=== PATIENT | male | born 1940 | race Caucasian/White ===

== ENCOUNTER 2020-02-24 13:58 | Observation (INO) | payer MEDICARE, OTHER, SELFPAY ==
[2020-02-24] VITALS (10 sets, daily range): BP systolic 117–159; BP diastolic 62–72; PULSE 54–62; RESP 12–20; TEMP 36.1–36.5; O2SAT 95–100
--- NOTE | ~2020-02-24 | XR_ITS ---
EXAMINATION: XR chest 2V EXAM DATE: 02/24/2020 14:50 INDICATION: Mid chest pain. TECHNIQUE: Frontal and lateral projections of the chest obtained and reviewed. Comparison is made to prior examination from 12/08/2017. FINDINGS: Sternotomy wires are present without findings to suggest sternal dehiscence. The cardiac s ilhouette is enlarged. No confluent consolidation, pneumothorax or pleural effusion suspected. Sivan ent has diffuse idiopathic skeletal hyperostosis (DISH). IMPRESSION: 1. Cardiomegaly. Reviewed, dictated and finalized at location A. IMPRESSION: 1. Cardiomegaly.
--- NOTE | 2020-02-24 14:20 | ED.GENADULT ---
HPI - General Adult General Chief complaint: Chest Pain Stated complaint: cp Time Seen by Provider: 02/24/20 14:07 Source: patient and family Mode of arrival: ambulatory Limitations: no limitations History of Present Illness HPI narrative: Patient is a 79-year-old male who presents for evaluation of chest pain. Patient reportedly experiencing chest pain 2 hours ago while the patient was at rest. Patient reports a crushing chest pain, that mostly resolved after 3 nitroglycerin tablets. Patient did take a baby aspirin this morning. Patient reports radiation of the pain to the left shoulder, no back pain, no ripping or tearing pain to the flanks. No numbness. Patient also reports associated shortness of breath, nausea and diaphoresis with the initial chest pain that has mostly resolved. Per chart review, patient's last stress test was November 2017. Patient has been compliant with his medications. Related Data Home Medications Medication Instructions Recorded Confirmed albuterol sulfate INHALATION 02/24/20 allopurinol 300 mg PO DAILY 02/24/20 02/24/20 amlodipine 10 mg PO DAILY 02/24/20 02/24/20 aspirin 81 mg PO DAILY 02/24/20 02/24/20 atorvastatin 10 mg PO DAILY 02/24/20 02/24/20 carvedilol 25 mg PO Q12H 02/24/20 02/24/20 clopidogrel [Plavix] 75 mg PO DAILY 02/24/20 02/24/20 clotrimazole 1 applic TOPICAL BID 02/24/20 02/24/20 cyclobenzaprine 10 mg PO TID PRN 02/24/20 02/24/20 diclofenac sodium 2 g TOPICAL QID 02/24/20 02/24/20 finasteride 5 mg PO DAILY 02/24/20 02/24/20 furosemide 20 mg PO DAILY 02/24/20 02/24/20 hydrochlorothiazide 25 mg PO DAILY 02/24/20 02/24/20 hydrocodone-acetaminophen [[place]] tablet 02/24/20 insulin aspart U-100 [Novolog 15 unit SUBCUT TID 02/24/20 02/24/20 U-100 Insulin aspart] insulin glargine 15 unit SUBCUT HS 02/24/20 02/24/20 isosorbide mononitrate 60 mg PO DAILY 02/24/20 02/24/20 liraglutide 1.2 mg SUBCUT DAILY 02/24/20 02/24/20 mv,Ca,nze-vrum-TG-lycopene tablet PO 02/24/20 [Centrum Men] nitroglycerin 0.4 mg SUBLINGUAL Q5-15M PRN 02/24/20 02/24/20 ranitidine HCl 150 mg PO BID 02/24/20 02/24/20 semaglutide [Ozempic] 1 mg SUBCUT WEEKLY 02/24/20 02/24/20 tamsulosin 0.4 mg PO DAILY 02/24/20 02/24/20 tramadol 50 mg PO HS 02/24/20 02/24/20 Allergies Allergy/AdvReac Type Severity Reaction Status Date / Time iodine Allergy Unknown Unknown Verified 12/08/17 14:44 niacin Allergy Unknown Unknown Verified 12/08/17 14:44 omeprazole Allergy Unknown Unknown Verified 12/08/17 14:44 Contrast Media Allergy Unknown Unknown Uncoded 12/08/17 14:44 Review of Systems Review of Systems: Narrative: CONSTITUTIONAL: Denies fever, chills, or sweats. EYES: Denies visual changes, redness, or discharge. ENT: Denies rhinorrhea, congestion, sore throat, or otalgia. CARDIOVASCULAR: Reports chest pain, mostly resolved RESPIRATORY: Denies cough or dyspnea. GASTROINTESTINAL: Denies abdominal pain,reports nausea without emesis GENITOURINARY: Denies dysuria or hematuria. SKIN: Denies rash or itching. MUSCULOSKELETAL: Denies back pain, joint pain, or myalgia. NEUROLOGIC: Denies headache, numbness, or weakness. [facility] Past Medical History Medical History Coronary artery disease Diabetes Diverticulitis Gout Hypertension Sleep apnea Surgical History Surgical History History of bilateral knee replacement Social History Social History Gender identity (if verbalized by the patient): Male Exam Narrative: Exam Narrative: GENERAL: Awake, alert, conversant HEAD: Normocephalic, atraumatic. EYES: PERRLA and EOMI. ENT: Nares clear, no rhinorrhea or epistaxis. Mucous membranes moist. NECK: Supple. CHEST: No respiratory distress, breathing even and non labored, no chest wall tenderness HEART: Regular rate, sinus rhythm ABDOMEN:Non distended, mild epigastric
[2020-02-24] MEDS: NITROGLYCERIN SL 0.4 MG TABLET SUBLINGUAL (14:49)
[2020-02-24] MEDS: ONDANSETRON INJ 4 MG/2 ML VIAL IV PUSH (14:49)
[2020-02-24] MEDS: MORPHINE SULFATE 4 MG/ML INJ IV PUSH (14:49)
[2020-02-24] MEDS: ASPIRIN 81 MG CHEWABLE TABLET 324 MG PO (14:49)
[2020-02-24 14:57] LABS: Basophils Absolute Auto 0.1 K/mm3 (0.0-0.1); Basophils Percent Auto 0.9 % (0.2-1.2); Eosinophils Absolute Auto 0.1 K/mm3 (0-0.3); Eosinophils Percent Auto 1.1 % (0-4.4); Hematocrit 27.8 % (42.0-52.0); Hemoglobin 8.7 g/dL (14.0-18.0); Immature Granulocyte Absolute 0.24 K/mm3 (0.00-0.031); Immature Granulocyte Percent A 4.4 % (0-0.5); Lymphocytes Absolute Auto 1.42 K/mm3 (0.9-3.2); Lymphocytes Percent Auto 25.9 % (18.3-44.2); Mean Corpuscular HGB Conc 31.3 g/dl (32-36); Mean Corpuscular Hemoglobin 30.6 pg (26-34); Mean Corpuscular Volume 97.9 fl (80-100); Mean Platelet Volume 12.6 fl (7.4-10.4); Monocytes Absolute Auto 0.5 K/mm3 (0.1-0.6); Monocytes Percent Auto 8.4 % (2.6-8.5); Neutrophils Absolute Auto 3.3 K/mm3 (1.3-6.7); Neutrophils Percent Auto 59.3 % (45.5-73.1); Nucleated Red Blood Cells Absolute Auto 0.1 K/mm3 (0.0-0.012); Nucleated Red Blood Cells Perc 1.3 % (0.0-0.2); Platelet Count Result 312 k/mm3 (150-375); Red Blood Count 2.84 M/mm3 (4.6-6.20); Red Cell Distribution Width 19.7 % (11.5-14.5); White Blood Count 5.5 K/mm3 (4.5-10.0)
--- NOTE | 2020-02-24 15:01 | ECG_ITS ---
Measurements Intervals [place] Rate: 61 P: 59 [place]: 219 QRS: 28 QRSD: 99 T: 83 QT: 433 QTc: 438 Interpretive Statements SINUS RHYTHM WITH FIRST DEGREE AV BLOCK VOLTAGE CRITERIA FOR LVH INFERIOR INFARCT, AGE INDETERMINATE BORDERLINE ST-T WAVE ABNORMALITY- LATERAL LEADS ABNORMAL ECG Electronically Signed On 02-24-2020 16:48:28 CDT by Reji Arevalo D.O.
[2020-02-24 15:09] LABS: Alanine Aminotransferase 16 U/L (4-50); Albumin Level 3.6 g/dL (3.5-5.1); Alkaline Phosphatase 74 U/L (38-126); Aspartate Amino Transferase 25 U/L (17-59); Bilirubin,Total 0.5 mg/dL (0.2-1.3); Blood Urea Nitrogen 63 mg/dL (9-20); Calcium 8.1 mg/dL (8.4-10.2); Carbon Dioxide 20 mmol/L (22-30); Chloride 107 mmol/L (98-107); Estimated CRCL calculation 14 ml/min; Estimated Glomerular Filt Rate 12; Glucose 145 mg/dL (75-110); Lipase 273 U/L (23-300); Potassium 4.4 mmol/L (3.4-5.0); Sodium 137 mmol/L (137-145)
[2020-02-24 15:21] LABS: Troponin I 0.013 ng/mL (0.000-0.034)
[2020-02-24 15:31] LABS: INR 1.1; Prothrombin Time 13.4 Seconds (11.1-14.7)
[2020-02-24 15:32] LABS: Partial Thromboplastin Time 32.4 SECONDS (22.3-36.8)
--- NOTE | 2020-02-24 16:57 | PC.NURSE ---
This patient, Chito Rivera, was admitted to IMU Room 202-. Patient/family oriented to hospital policies and general routines including ID bracelet, bed and alarms, visiting hours, pain management, procedures, bathroom and other care routines, personal items, smoking policy, room service/diet, and visiting hours. Valuables list has been completed. Information on how to activate the Rapid Response Team has been discussed. Patient/Family are encouraged to report perceived risks to care and to ask questions if they do not understand what they are told or what they should do.
[2020-02-24 18:10] LABS: Troponin I < 0.012 ng/mL (0.000-0.034)
--- NOTE | 2020-02-24 20:06 | PM.IMHP ---
H&P: HPI History of Present Illness Chief complaint: unstable angina,acute kidney injury Narrative: Chito Rivera is a 79 year old male who has a history of having cardiac disease. The patient typically goes to [facility] for his cardiac care. The patient has a history of having a 3 vessel CABG as well as 3 stents. Patient stated that he had a cardiac catheterization back and he believes September of this past year. The patient stated that this last September he got 2 stents in that he had another blockage on the backside of his heart that they were not able to get 2. The patient has chronic renal failure stage 4 and could only get a certain amount a diet that time. The patient stated that they have been talking about possibly getting him on dialysis. He stated in order to have another stent he would have to go on dialysis. The patient stated he was sitting in his recliner today and developed some chest pressure the middle of his chest and it went up to his left side of his neck and down his left arm. The patient became short of breath as well. The patient has not had any fever or chills or body aches no flu like symptoms he has not been around anybody that has had flu-like symptoms or any fever. The patient stated that the pain started 2 hours prior to coming to the emergency room. The patient took 3 nitro tablets as he was told to do in the past and he took an additional baby aspirin as he had already taken his routine baby aspirin this morning. He said his last stress test was November of 2017. Troponins are negative cardiology has been consulted. Date of service is 02/24/2020. Review of Systems Review of Systems: All systems reviewed & are unremarkable except as noted in HPI and below Constitutional: Constitutional: Reports as per HPI and Reports no additional constitutional complaints Eyes: Eyes: Reports as per HPI and Reports no additional eye complaints ENT: Reports system reviewed and no additional complaints, except as documented and Reports Normal hearing present Cardiovascular: Cardiovascular: Reports no additional cardiovascular complaints Respiratory: Respiratory: Reports no additional respiratory complaints and Reports no additional respiratory complaints Gastrointestinal: Gastrointestinal: Reports as per HPI and Reports no additional gastrointestinal complaints Musculoskeletal: Musculoskeletal: Reports no additional musculoskeletal complaints Integumentary/Breasts: Skin/Breast: Reports system reviewed and no additional complaints, except as docu and Reports as per HPI Neurologic: Reports system reviewed and no additional complaints, except as documented, Reports as per HPI and Reports Normal hearing present Psychiatric: Psychiatric: Reports no additional psychiatric complaints and Reports as per HPI Endocrine: Endocrine: Reports no additional endocrine complaints Hematologic/Lymphatic: Hematologic/Lymphatic: Reports no additional hematologic/lymphatic complaints Allergic/Immunologic: Allergic/Immunologic: Reports no additional allergic/immunologic complaints [facility] Past Medical History Medical History (Updated 02/24/20 @ 20:52 by Lisa Mohamud NP) Anemia BPH (benign prostatic hyperplasia) CHF (congestive heart failure), NYHA class I Coronary artery disease He has had a 3 vessel CABG in 1999 with 3 stents. CRF (chronic renal failure) stage 4 Diabetes Insulin-dependent Diverticulitis Gout Hyperlipidemia Hypertension EVELYN on CPAP Sleep apnea Surgical History Surgical History (Updated 02/24/20 @ 20:29 by Lisa Mohamud NP) Cataract extraction status H/O heart artery stent 3 stents H/O rectal polypectomy History of back surgery 2 back surgeries History of bilateral knee replacement Hx of cholecystectomy S/P CABG x 3 S/P TURP Family History Family History (Updated 02/24/20 @ 20:23 by Lisa Mohamud NP) Father Cancer Mother Acute myocardial infarction CHF (congestive heart failu
[2020-02-24 20:54] LABS: Glucose Point of Care 138 (65-105)
[2020-02-24 20:58] LABS: Troponin I < 0.012 ng/mL (0.000-0.034)
[2020-02-24] MEDS: ALBUTEROL SULFATE (*SP) AEROSOL 1 PUFF 2 PUFF INHALATION (21:19)
[2020-02-24] MEDS: carvediloL 25 MG TABLET PO (21:35)
[2020-02-24] MEDS: FAMOTIDINE 20 MG TABLET PO (21:35)
[2020-02-24] MEDS: TRAMADOL HCL 50 MG TABLET PO (21:35)
[2020-02-24] MEDS: INSULIN GLARGINE (*BKC) 100 UNITS/ML 27 UNITS SUB-Q (21:36)
[2020-02-25] VITALS (9 sets, daily range): BP systolic 153–161; BP diastolic 61–74; PULSE 54–81; RESP 13–20; TEMP 36.1–36.6; O2SAT 93–100
[2020-02-25 04:58] LABS: Basophils Percent Auto 0.7 % (0.2-1.2); Eosinophils Percent Auto 0.7 % (0-4.4); Hematocrit 25.3 % (42.0-52.0); Hemoglobin 7.8 g/dL (14.0-18.0); Immature Granulocyte Percent A 4.7 % (0-0.5); Lymphocytes Absolute Auto 1.15 K/mm3 (0.9-3.2); Mean Corpuscular HGB Conc 30.8 g/dl (32-36); Mean Corpuscular Hemoglobin 30.1 pg (26-34); Mean Corpuscular Volume 97.7 fl (80-100); Mean Platelet Volume 12.2 fl (7.4-10.4); Monocytes Absolute Auto 0.5 K/mm3 (0.1-0.6); Neutrophils Absolute Auto 2.4 K/mm3 (1.3-6.7); Neutrophils Percent Auto 55.9 % (45.5-73.1); Nucleated Red Blood Cells Perc 0.9 % (0.0-0.2); Platelet Count Result 256 k/mm3 (150-375); Red Blood Count 2.59 M/mm3 (4.6-6.20); Red Cell Distribution Width 19.7 % (11.5-14.5); White Blood Count 4.3 K/mm3 (4.5-10.0)
[2020-02-25 05:01] LABS: Alanine Aminotransferase 14 U/L (4-50); Albumin Level 3.2 g/dL (3.5-5.1); Alkaline Phosphatase 63 U/L (38-126); Aspartate Amino Transferase 22 U/L (17-59); Bilirubin,Total 0.4 mg/dL (0.2-1.3); Blood Urea Nitrogen 61 mg/dL (9-20); Calcium 7.9 mg/dL (8.4-10.2); Carbon Dioxide 23 mmol/L (22-30); Chloride 108 mmol/L (98-107); Estimated CRCL calculation 13 ml/min; Estimated Glomerular Filt Rate 12; Glucose 86 mg/dL (75-110); Magnesium 1.9 mg/dL (1.6-2.3); Potassium 4.5 mmol/L (3.4-5.0); Sodium 137 mmol/L (137-145)
[2020-02-25 05:54] LABS: Hemoglobin A1C 6.5 % (<5.7)
[2020-02-25 06:42] LABS: Glucose Point of Care 43 (65-105)
[2020-02-25 07:27] LABS: Glucose Point of Care 52 (65-105)
[2020-02-25] MEDS: ALBUTEROL SULFATE (*SP) AEROSOL 1 PUFF 2 PUFF INHALATION (08:21)
[2020-02-25 08:35] LABS: Glucose Point of Care 81 (65-105)
[2020-02-25] MEDS: FINASTERIDE 5 MG TABLET PO (09:13)
[2020-02-25] MEDS: CLOPIDOGREL BISULFATE 75 MG TABLET PO (09:13)
[2020-02-25] MEDS: ATORVASTATIN 40 MG TABLET 80 MG PO (09:13)
[2020-02-25] MEDS: FAMOTIDINE 20 MG TABLET PO (09:13)
[2020-02-25] MEDS: THERAPEUTIC MULTIVITAMINS/MINERALS TAB (*BKC) 1 TABLET PO (09:13)
[2020-02-25] MEDS: FUROSEMIDE 20 MG TABLET PO (09:13)
[2020-02-25] MEDS: allopurinoL 300 MG TABLET PO (09:13)
[2020-02-25] MEDS: AMLODIPINE BESYLATE 5 MG TABLET 10 MG PO (09:14)
[2020-02-25] MEDS: carvediloL 25 MG TABLET PO (09:14)
[2020-02-25] MEDS: hydroCHLOROthiazide 25 MG TABLET PO (09:14)
[2020-02-25] MEDS: ISOSORBIDE MONONITRATE 60 MG TAB.ER.24H PO (09:14)
[2020-02-25] MEDS: TAMSULOSIN HCL 0.4 MG CAPSULE PO (09:14)
--- NOTE | 2020-02-25 09:38 | PM.CNCAR ---
Assessment and Plan Additional Plan This is a 79-year-old man with well known multivessel coronary artery disease. Obviously he has undergone surgical myocardial revascularization couple of decades ago followed by some percutaneous interventions in the intervening years. He enters the hospital now with a chest pain syndrome that obviously raise concern regarding ACS. Equally obviously that has now been ruled out with negative troponins x3 sets. The patient does not require an ischemic evaluation here at [facility]. He will be instructed to follow up with his global supply chain vice president at the [facility]. There is no cardiac reason to keep him in the hospital here at this time Miguel A Abad MD [facility] History of Present Illness History of Present Illness Consult date/time: 02/25/20 09:38 Consult reason: chest pain Reason For Visit: unstable angina,acute kidney injury Narrative: This is a 79-year-old man with longstanding coronary artery disease whom I am seeing at the request of the hospitalist this morning because of some chest pain. He experienced chest pain yesterday morning when he was at home relaxing in his chair in his house and he called his global supply chain vice president who is at the [facility]. Rather than coming there he was instructed to go to the nearest hospital so he came to this hospital's emergency room where he was evaluated and of course admitted to the hospitalist's service. The pain has resolved and had a feels well this morning. He states this was a dull pain that occurred in the low substernal region that had at times a pressure-like quality to it and at times a sharp quality to it. There were no associated symptoms such as diaphoresis air hunger no radiation of the pain to any other location of the body. He of course had an ECG done which demonstrates sinus mechanism with evidence of a previous inferior wall infarction. He has had a series of troponins done which are all within normal limits. The patient's lab data also demonstrates chronic kidney disease with a creatinine of 4.7. He is also significantly anemic with a hemoglobin of 7.8. Apparently he has a history of coronary artery disease for about 20 years. He states that in the year 1999 he underwent surgical myocardial revascularization at [facility]. He is currently in for a long time has been followed by global supply chain vice president at the [facility]. He has had several percutaneous interventions done most recently he thinks about 6-7 months ago in 1 of his old vein grafts. Obviously we have none of those records here at [facility] available to me for my review at the time of this consultation. He lives in the [facility] area. He denies any symptoms of palpitations syncope orthopnea PND or accumulating edema. Apart from his coronary disease he is not known to have any peripheral vascular disease that he has ever been made aware of. Review of Systems Constitutional: Constitutional: Reports no additional constitutional complaints Eyes: Eyes: Reports no additional eye complaints ENT: Reports system reviewed and no additional complaints, except as documented Cardiovascular: Cardiovascular: Reports no additional cardiovascular complaints Respiratory: Respiratory: Reports no additional respiratory complaints Gastrointestinal: Gastrointestinal: Reports no additional gastrointestinal complaints Musculoskeletal: Musculoskeletal: Reports no additional musculoskeletal complaints Integumentary/Breasts: Skin/Breast: Reports system reviewed and no additional complaints, except as docu Neurologic: Reports system reviewed and no additional complaints, except as documented Endocrine: Endocrine: Reports no additional endocrine complaints Hematologic/Lymphatic: Hematologic/Lymphatic: Reports no additional hematologic/lymphatic complaints PMF[facility] Past Medical History Medical History (Updated 02/24/20 @ 20:52 by Lisa Mohamud NP) Anemia BPH (shelia
--- NOTE | 2020-02-25 09:59 | PM.IMPN ---
Progress Note: A&P Assessment and Plan (1) Angina at rest: Code(s): I20.8 - Other forms of angina pectoris Status: Acute Assessment and Plan: Cardiology consulted and appreciate input. Serial troponin levels are negative. Telemetry reviewed on 02/25/2020 with sinus rhythm. Discussed with Dr. Abad. At this point, will discharge patient and have him follow-up with his regular county bailiff at the [place]. (2) Coronary artery disease: Qualifiers: Coronary Disease-Associated Artery/Lesion type: [place] artery [place] vs. transplanted heart: [place] heart Associated angina: with unspecified angina Qualified Code(s): I25.119 - Atherosclerotic heart disease of [place] coronary artery with unspecified angina pectoris Code(s): I25.10 - Atherosclerotic heart disease of [place] coronary artery without angina pectoris Status: Chronic Assessment and Plan: Plan as noted above. Continue Plavix, Coreg, atorvastatin, aspirin and Imdur. (3) Diabetes: Qualifiers: Diabetes mellitus type: type 2 Diabetes mellitus mcc insulin use: with local intermodal truck driver use Diabetes mellitus complication status: with hypoglycemia Diabetes mellitus complication detail: without coma Qualified Code(s): E11.649 - Type 2 diabetes mellitus with hypoglycemia without coma; Z79.4 - intermediate accountant (current) use of insulin Code(s): E11.9 - Type 2 diabetes mellitus without complications Status: Chronic Assessment and Plan: Patient with hypoglycemia this morning but has been ongoing issue. Advised patient would recommend he hold his Lantus at home. Continue sliding scale as needed. Will need follow-up with his primary physician for further directions. (4) Chronic kidney disease, stage 4 (severe): Code(s): N18.4 - Chronic kidney disease, stage 4 (severe) Status: Acute Assessment and Plan: Creatinine 4.70 today and unchanged from admission. Patient reports this is his baseline. He will need to follow-up his regular physicians as an outpatient. (5) Hypertension: Qualifiers: Hypertension type: essential hypertension Qualified Code(s): I10 - Essential (primary) hypertension Code(s): I10 - Essential (primary) hypertension Status: Chronic Assessment and Plan: Blood pressure reviewed on 02/25/2020. Continue amlodipine and Coreg. (6) CHF (congestive heart failure), NYHA class I: Qualifiers: Congestive heart failure type: unspecified Qualified Code(s): I50.9 - Heart failure, unspecified Code(s): I50.9 - Heart failure, unspecified Status: Chronic Assessment and Plan: No exacerbation. Continue home Coreg and furosemide. (7) Hyperlipidemia: Qualifiers: Hyperlipidemia type: unspecified Qualified Code(s): E78.5 - Hyperlipidemia, unspecified Code(s): E78.5 - Hyperlipidemia, unspecified Status: Chronic Assessment and Plan: Continue atorvastatin. (8) Anemia: Qualifiers: Anemia type: unspecified type Qualified Code(s): D64.9 - Anemia, unspecified Code(s): D64.9 - Anemia, unspecified Status: Chronic Assessment and Plan: Chronic and stable. Hemoglobin 8.7 today. (9) Gout: Qualifiers: Gout site: unspecified site Gout etiology: unspecified cause Chronicity: unspecified Qualified Code(s): M10.9 - Gout, unspecified Code(s): M10.9 - Gout, unspecified Status: Chronic Assessment and Plan: Stable. Continue with allopurinol. (10) Sleep apnea: Qualifiers: Sleep apnea type: obstructive Qualified Code(s): G47.33 - Obstructive sleep apnea (adult) (pediatric) Code(s): G47.30 - Sleep apnea, unspecified Status: Chronic Assessment and Plan: Stable. Continue CPAP. (11) DVT prophylaxis: Code(s): Z29.9 - Encounter for prophylactic measures, unspecified Status: Acute Time Spent Wit
[2020-02-25 10:07] LABS: Hematocrit 28.4 % (42.0-52.0); Hemoglobin 8.7 g/dL (14.0-18.0)
[2020-02-25 12:40] LABS: Free T4 Free Thyroxine Reflex 0.73 ng/dL (0.78-2.19)
--- NOTE | 2020-02-25 18:30 | PM.DS ---
DS: Diagnosis Admitting Diagnosis Admitting Diagnosis: Other forms of angina pectoris Discharge Diagnosis (1) Angina at rest: Code(s): I20.8 - Other forms of angina pectoris Status: Acute (2) Coronary artery disease: Qualifiers: Associated angina: with unspecified angina Coronary Disease-Associated Artery/Lesion type: [place] artery [place] vs. transplanted heart: [place] heart Qualified Code(s): I25.119 - Atherosclerotic heart disease of [place] coronary artery with unspecified angina pectoris Code(s): I25.10 - Atherosclerotic heart disease of [place] coronary artery without angina pectoris Status: Chronic (3) Diabetes: Qualifiers: Diabetes mellitus complication detail: without coma Diabetes mellitus complication status: with hypoglycemia Diabetes mellitus watermelon inspector insulin use: with intermediate use Diabetes mellitus type: type 2 Qualified Code(s): E11.649 - Type 2 diabetes mellitus with hypoglycemia without coma; Z79.4 - penitentiary (current) use of insulin Code(s): E11.9 - Type 2 diabetes mellitus without complications Status: Chronic (4) Chronic kidney disease, stage 4 (severe): Code(s): N18.4 - Chronic kidney disease, stage 4 (severe) Status: Acute (5) Hypertension: Qualifiers: Hypertension type: essential hypertension Qualified Code(s): I10 - Essential (primary) hypertension Code(s): I10 - Essential (primary) hypertension Status: Chronic (6) CHF (congestive heart failure), NYHA class I: Qualifiers: Congestive heart failure type: unspecified Qualified Code(s): I50.9 - Heart failure, unspecified Code(s): I50.9 - Heart failure, unspecified Status: Chronic (7) Hyperlipidemia: Qualifiers: Hyperlipidemia type: unspecified Qualified Code(s): E78.5 - Hyperlipidemia, unspecified Code(s): E78.5 - Hyperlipidemia, unspecified Status: Chronic (8) Anemia: Qualifiers: Anemia type: unspecified type Qualified Code(s): D64.9 - Anemia, unspecified Code(s): D64.9 - Anemia, unspecified Status: Chronic (9) Gout: Qualifiers: Chronicity: unspecified Gout etiology: unspecified cause Gout site: unspecified site Qualified Code(s): M10.9 - Gout, unspecified Code(s): M10.9 - Gout, unspecified Status: Chronic (10) Sleep apnea: Qualifiers: Sleep apnea type: obstructive Qualified Code(s): G47.33 - Obstructive sleep apnea (adult) (pediatric) Code(s): G47.30 - Sleep apnea, unspecified Status: Chronic DS: Summary Hospital Course Reason for hospitalization: Chest pain. Hospital Course: Date of Service of Discharge: February 25, 2020. History of Present Illness: Patient is a 79-year-old gentleman with known coronary artery disease as well as chronic kidney disease stage 4 present to the emergency room with complaint of chest pain. [facility] Patient reports he did call his regular body former who recommended he come to the nearest emergency room. He does have a history of 3 vessel CABG as well as 3 stents. He does have known blockage on the backside of his heart but no intervention has been done as result of his severe chronic kidney disease. Patient did not have elevated troponin levels in the emergency room by given his cardiac history he was placed in observation for further evaluation and treatment along with cardiology consultation. Course in Hospital: He was placed in observation on the intermediate care unit where he remained for the duration of his stay. Serial troponin levels were negative. Telemetry was monitored with no changes seen. EKG with no acute changes. Patient was seen in consultation by Dr. Abad who did not feel any intervention was needed at this time. He was continued on his home cardiac medications atorvastatin, carvedilol, clopidogrel and Imdur in addit
== END 2020-02-25 11:05 | disposition home or self-care (01) ==
LOC: ANHED 15:39 → ANHIMU 18:02
PROVIDERS: Family Medicine; Nurse Practitioner; Admitting Provider Internal Medicine; Emergency Provider Emergency Medicine; PCP Internal Medicine; Visit Provider Hospitalist
DX: I25.118 Atherosclerotic heart disease of native coronary artery with other forms of angina pectoris (principal); E11.649 Type 2 diabetes mellitus with hypoglycemia without coma; I13.0 Hypertensive heart and chronic kidney disease with heart failure and stage 1 through stage 4 chronic kidney disease, or unspecified chronic kidney disease; N18.4 Chronic kidney disease, stage 4 (severe); I50.9 Heart failure, unspecified; E11.22 Type 2 diabetes mellitus with diabetic chronic kidney disease; D63.1 Anemia in chronic kidney disease; E78.5 Hyperlipidemia, unspecified; G47.33 Obstructive sleep apnea (adult) (pediatric); M10.9 Gout, unspecified; Z79.4 Long term (current) use of insulin; Z79.82 Long term (current) use of aspirin; Z79.899 Other long term (current) drug therapy; Z87.891 Personal history of nicotine dependence; Z95.1 Presence of aortocoronary bypass graft; Z95.5 Presence of coronary angioplasty implant and graft; Z96.653 Presence of artificial knee joint, bilateral
CPT/HCPCS: 36415; 71046; 80053; 83036; 83690; 83735; 84439; 84443; 84484; 85014; 85018; 85025; 85610; 85730; 93005; 94640; 96374; 96375; 99285; A9270; G0378; J1815; J2270; J2405

== ENCOUNTER 2020-03-11 19:12 | Emergency (ER) | payer MEDICARE, OTHER, SELFPAY ==
[2020-03-11] VITALS (11 sets, daily range): BP systolic 119–166; BP diastolic 59–87; PULSE 58–65; RESP 16–22; TEMP 36.9; O2SAT 97–100
--- NOTE | ~2020-03-11 | CT_ITS ---
EXAMINATION: CT brain wo con DATE: 03/11/2020 20:02 INDICATION: Headache. Hypotension. TECHNIQUE: Computed tomography (CT) of the head was performed without intravenous contrast. The mA wa s adjusted according to patient size. Iterative reconstruction technique was employed. Exam dose: 60 5.33 mGy-cm total exam DLP. COMPARISON: None FINDINGS: Bilateral vertebral artery, basilar artery and bilateral carotid siphon internal carotid ar babak calcifications. There is nonspecific diminished attenuation of the cerebral white matter, likely due to chronic small vessel ischemic changes. No intracranial mass lesion or hemorrhage or evidence of recent cerebrovascular accident. No midline shift or mass effects. Included paranasal sinuses and mastoid air cells are unremarkable. No fracture or bone destruction of the cranial vault. IMPRESSION: Cerebral atherosclerosis and chronic small vessel ischemic changes of the cerebral white matter Reviewed, dictated and finalized at [facility]. Reviewed, dictated and finalized at location [facility].
--- NOTE | 2020-03-11 19:29 | ECG_ITS ---
Measurements Intervals [place] Rate: 63 P: -27 ND: 211 QRS: 58 QRSD: 105 T: -23 QT: 437 QTc: 450 Interpretive Statements SINUS RHYTHM WITH FIRST DEGREE AV BLOCK VOLTAGE CRITERIA FOR LVH MINIMAL Q WAVES- LATERAL LEADS BORDERLINE ST-T WAVE ABNORMALITY- INFERIOR LEADS ABNORMAL ECG Electronically Signed On 03-12-2020 8:27:53 CDT by Reji Arevalo D.O.
[2020-03-11 19:48] LABS: Basophils Percent Auto 0.8 % (0.2-1.2); Eosinophils Percent Auto 0.8 % (0-4.4); Hematocrit 28.3 % (42.0-52.0); Hemoglobin 8.9 g/dL (14.0-18.0); Immature Granulocyte Percent A 3.8 % (0-0.5); Lymphocytes Absolute Auto 1.27 K/mm3 (0.9-3.2); Lymphocytes Percent Auto 24.3 % (18.3-44.2); Mean Corpuscular HGB Conc 31.4 g/dl (32-36); Mean Corpuscular Hemoglobin 30.9 pg (26-34); Mean Corpuscular Volume 98.3 fl (80-100); Monocytes Absolute Auto 0.5 K/mm3 (0.1-0.6); Neutrophils Absolute Auto 3.2 K/mm3 (1.3-6.7); Neutrophils Percent Auto 60.3 % (45.5-73.1); Nucleated Red Blood Cells Perc 0.8 % (0.0-0.2); Platelet Count Result 286 k/mm3 (150-375); Red Blood Count 2.88 M/mm3 (4.6-6.20); Red Cell Distribution Width 20.3 % (11.5-14.5); White Blood Count 5.2 K/mm3 (4.5-10.0)
--- NOTE | 2020-03-11 19:52 | ED.WEAKNESS ---
HPI - Weakness General Chief complaint: Weakness Stated complaint: LOW BP Time Seen by Provider: 03/11/20 19:37 History of Present Illness HPI Narrative: Patient presents with his [id number] for feeling weak and faint at home. They took his blood pressure and it was down to 84. He is a renal failure patient on multiple blood pressure medicines, and they said that the list in the computer is current. He has not been sick in the last week, and in particular denies cough and fever. He tells me that they are talking about dialysis, but not anytime soon. He currently has a headache of 2-3 out of 10. His appetite is good, bowels are working and makes good urine still. He occasionally smokes a cigar but no longer smokes cigarettes, denies alcohol and drugs. MD Complaint: generalized weakness Onset (ago): hour(s) Duration: intermittent and improved Location: generalized Related Data Home Medications Medication Instructions Recorded Confirmed Centrum Men 1 tablet PO DAILY 02/24/20 02/24/20 acetaminophen-codeine 1 tablet PO Q6H PRN 02/24/20 02/24/20 albuterol sulfate 2 puff INHALATION QID 02/24/20 02/24/20 allopurinol 300 mg PO DAILY 02/24/20 02/24/20 amlodipine 10 mg PO DAILY 02/24/20 02/24/20 aspirin 81 mg PO DAILY 02/24/20 02/24/20 atorvastatin 80 mg PO DAILY 02/24/20 02/24/20 carvedilol 25 mg PO Q12H 02/24/20 02/24/20 clopidogrel [Plavix] 75 mg PO DAILY 02/24/20 02/24/20 cyclobenzaprine 10 mg PO TID PRN 02/24/20 02/24/20 diclofenac sodium 2 g TOPICAL QID 02/24/20 02/24/20 finasteride 5 mg PO DAILY 02/24/20 02/24/20 furosemide 20 mg PO DAILY 02/24/20 02/24/20 hydrochlorothiazide 25 mg PO DAILY 02/24/20 02/24/20 insulin aspart U-100 [Novolog See Rx Instructions .ROUTE .COMPLEX 02/24/20 02/24/20 U-100 Insulin aspart] isosorbide mononitrate 60 mg PO DAILY 02/24/20 02/24/20 nitroglycerin 0.4 mg SUBLINGUAL Q5-15M PRN 02/24/20 02/24/20 ranitidine HCl 150 mg PO BID 02/24/20 02/24/20 tamsulosin 0.4 mg PO DAILY 02/24/20 02/24/20 tramadol 50 mg PO HS 02/24/20 02/24/20 Allergies Allergy/AdvReac Type Severity Reaction Status Date / Time iodine Allergy Unknown Hives Verified 03/11/20 19:25 niacin Allergy Unknown Fever Verified 03/11/20 19:25 latex AdvReac Rash Verified 03/11/20 19:25 Contrast Media Allergy Unknown Anaphylaxis Uncoded 02/24/20 16:56 Review of Systems Review of Systems: Narrative: CONSTITUTIONAL: Denies fever, chills, or sweats. EYES: Denies visual changes, redness, or discharge. ENT: Denies rhinorrhea, congestion, sore throat, or otalgia. CARDIOVASCULAR: Denies chest pain, palpitations, or edema. RESPIRATORY: Denies cough or dyspnea. GASTROINTESTINAL: Denies abdominal pain, nausea, vomiting, or diarrhea. GENITOURINARY: Denies dysuria or hematuria. SKIN: Denies rash or itching. MUSCULOSKELETAL: Denies back pain, joint pain, or myalgia. NEUROLOGIC: Denies numbness, or focal weakness. PSYCHIATRIC: Denies anxiety or depression. [facility] Past Medical History Medical History Anemia BPH (benign prostatic hyperplasia) CHF (congestive heart failure), NYHA class I Coronary artery disease He has had a 3 vessel CABG in 1999 with 3 stents. CRF (chronic renal failure) stage 4 Diabetes Insulin-dependent Diverticulitis Gout Hyperlipidemia Hypertension EVELYN on CPAP Sleep apnea Surgical History Surgical History Cataract extraction status H/O heart artery stent 3 stents H/O rectal polypectomy History of back surgery 2 back surgeries History of bilateral knee replacement Hx of cholecystectomy S/P CABG x 3 S/P TURP Family History Family History Father Cancer Mother Acute myocardial infarction CHF (congestive heart failure), NYHA class I Social History Social History Years smoked: 10 Smoking status: F
[2020-03-11 19:58] LABS: Prothrombin Time 13.2 Seconds (11.1-14.7)
[2020-03-11 19:59] LABS: Alanine Aminotransferase 15 U/L (4-50); Albumin Level 3.3 g/dL (3.5-5.1); Alkaline Phosphatase 76 U/L (38-126); Aspartate Amino Transferase 21 U/L (17-59); Bilirubin,Total 0.6 mg/dL (0.2-1.3); Blood Urea Nitrogen 80 mg/dL (9-20); Calcium 7.6 mg/dL (8.4-10.2); Carbon Dioxide 19 mmol/L (22-30); Chloride 105 mmol/L (98-107); Estimated CRCL calculation 11 ml/min; Estimated Glomerular Filt Rate 10; Glucose 190 mg/dL (75-110); Partial Thromboplastin Time 31.7 SECONDS (22.3-36.8); Potassium 4.4 mmol/L (3.4-5.0); Sodium 133 mmol/L (137-145)
[2020-03-11 20:09] LABS: Ethanol < 10 mg/dL (<10)
[2020-03-11 20:11] LABS: Troponin I 0.015 ng/mL (0.000-0.034)
[2020-03-11 21:19] LABS: Add Urine Microscopic? YES; Appearance Urine Clear (Clear); Bilirubin Urine Negative (Negative); Blood Urine Negative (Negative); Color Urine Yellow (Yellow); Glucose Urine UA 2+ mg/dL (Negative); Ketones Urine Negative (Negative); Leukocyte Esterase Ur Negative LEU/UL (Negative); Mucus Urine Rare /lpf; Nitrate Urine Negative (Negative); Protein Urine 3+ mg/dL (Negative); RBC Urine 0-2 /hpf (0-2); Specific Grav Ur 1.015 (1.001-1.035); Squamous Epithelial Cell Urine Rare /hpf (Few); Urobilinogen Urine Negative mg/dL (<2.0); WBC Urine 0-3 /hpf
== END 2020-03-11 22:17 | disposition home or self-care (01) ==
PROVIDERS: Emergency Medicine Emergency Medical Services; Emergency Provider Emergency Medicine; PCP Internal Medicine
DX: R55 Syncope and collapse (principal); E11.22 Type 2 diabetes mellitus with diabetic chronic kidney disease; I13.2 Hypertensive heart and chronic kidney disease with heart failure and with stage 5 chronic kidney disease, or end stage renal disease; I50.9 Heart failure, unspecified; N18.6 End stage renal disease; N40.0 Benign prostatic hyperplasia without lower urinary tract symptoms; M10.9 Gout, unspecified; E78.5 Hyperlipidemia, unspecified; G47.33 Obstructive sleep apnea (adult) (pediatric); G47.30 Sleep apnea, unspecified; Z79.82 Long term (current) use of aspirin; Z79.4 Long term (current) use of insulin; Z79.02 Long term (current) use of antithrombotics/antiplatelets; Z98.49 Cataract extraction status, unspecified eye; Z95.5 Presence of coronary angioplasty implant and graft; Z95.1 Presence of aortocoronary bypass graft; Z96.653 Presence of artificial knee joint, bilateral; Z72.0 Tobacco use
CPT/HCPCS: 36415; 70450; 80053; 80307; 81001; 84484; 85025; 85610; 85730; 93005; 99284

== ENCOUNTER 2020-03-17 11:08 | Emergency (ER) | payer MEDICARE, OTHER, SELFPAY ==
--- NOTE | ~2020-03-17 | CT_ITS ---
EXAMINATION: CT cervical spine wo con DATE: 03/17/2020 12:36 INDICATION: Fall with posterior head injury. TECHNIQUE: Computed tomography (CT) of the cervical spine was performed without intravenous contrast. Automated exposure control and iterative reconstruction technique were employed. The dose-length pro duct was 514.34 mGy-cm. COMPARISON: None FINDINGS: Alignment is normal. Vertebral body heights are normal. No fracture. Partially visualized large Schmo rl's node along the inferior endplate of T2. Severe disc height loss at T6-T7, moderate disc height l oss at C5-C6 and mild disc height loss at C3-C4, C4-C5, C7-T1 and T1-T2. Atherosclerotic Calcination cases are seen at the bilateral carotid bulbs as well as along the internal extracranial vertebral ar teries. Cervical soft tissues are unremarkable. Visualized apices of lungs are clear. The following d isc levels are specifically discussed: C2-C3: The disc does not extend beyond the endplate margin. There is mild right uncovertebral joint o steoarthritis. There is mild right and moderate left facet joint osteoarthritis. There is no neural f oraminal stenosis. There is no central canal stenosis. C3-C4: Disc is bulging. There is mild right and moderate left uncovertebral joint osteoarthritis. The re is mild left and moderate right facet joint osteoarthritis. There is moderate left and mild right neural foraminal stenosis. There is mild central canal stenosis. C4-C5: Disc is bulging. There is mild left and moderate right uncovertebral joint osteoarthritis. The re is mild right and mild to moderate left facet joint osteoarthritis. There is mild left and mild to moderate right neural foraminal stenosis. There is mild central canal stenosis. C5-C6: Disc is bulging. There is moderate right and severe left uncovertebral joint osteoarthritis. T here is moderate right and mild to moderate left facet joint osteoarthritis. There is mild right and moderate left neural foraminal stenosis. There is altered central canal stenosis. C6-C7: Posterior disc osteophyte complex. There is severe bilateral uncovertebral joint osteoarthriti s. There is mild bilateral facet joint osteoarthritis. There is moderate bilateral neural foraminal s tenosis. There is mild to moderate central canal stenosis. C7-T1: The disc does not extend beyond the endplate margin. There is mild bilateral uncovertebral claudio nt osteoarthritis. There is mild left and moderate right facet joint osteoarthritis. There is minimal bilateral neural foraminal stenosis. There is no central canal stenosis. IMPRESSION: 1. Moderate cervical spondylosis. No acute osseous abnormality. Reviewed, dictated and finalized at location [facility].
--- NOTE | ~2020-03-17 | XR_ITS ---
XR shoulder LT min 2V DATE: 03/17/2020 12:40 INDICATION: Fall, injury. Pain and limited range of motion of the left shoulder TECHNIQUE: 4 views COMPARISON: None FINDINGS: There is degenerative change at the acromion clavicular joint. There is osteoarthritic change at the left glenohumeral joint. There is rotator cuff atrophy. No fracture, dislocation, periosteal reaction or bone destruction is evident. Status post sternotomy. Coronary artery atherosclerosis. Aortic calcification. IMPRESSION: Degenerative changes at the acromioclavicular and glenohumeral joints Rotator cuff atrophy Reviewed, dictated and finalized at location [facility]. IMPRESSION: Degenerative changes at the acromioclavicular and glenohumeral join ts Rotator cuff atrophy
--- NOTE | ~2020-03-17 | CT_ITS ---
EXAMINATION: CT brain wo con DATE: 03/17/2020 12:37 INDICATION: Posterior head injury post fall TECHNIQUE: Computed tomography (CT) of the head was performed without intravenous contrast. Sagittal and coronal reconstructions were performed. The mA was adjusted according to patient size. Iterative reconstruction technique was employed. The dose-length product was 605.33 mGy-cm. COMPARISON: head CT dated 03/11/20 FINDINGS: No fracture. No acute intracranial hemorrhage, acute infarction or abnormal extra axial fluid collect ion. There is mild to moderate scattered white matter hypoattenuation consistent with chronic small v essel ischemic disease. Symmetric prominence of the sulci and ventricles consistent with mild age-alison ropriate diffuse cerebral volume loss. No mass/mass effect. Intracranial calcified cerebral atherosc lerosis is noted. The orbits, paranasal sinuses and mastoid air cells are normal. Intracranial calcif ied cerebral atherosclerosis is noted. IMPRESSION: 1. No fracture or acute intracranial process. 2. Age-related changes including mild diffuse volume loss and mild to moderate scattered white matter hypoattenuation consistent with chronic small vessel ischemic disease. Reviewed, dictated and finalized at location [facility]. IMPRESSION: 1. No fracture or acute intracranial process. 2. Age-related changes including mild diffuse volume loss and mild to moderate scattered white matter hypoattenuation consistent with chronic small vessel isc hemic disease.
[2020-03-17 11:14] VITALS: BP 186/83; PULSE 65; RESP 16; TEMP 36.6; O2SAT 95
--- NOTE | 2020-03-17 11:59 | ED.GENADULT ---
HPI - General Adult General Chief complaint: Extremity Injury, Upper Stated complaint: left shoulder injury, fall yesterday Time Seen by Provider: 03/17/20 11:15 History of Present Illness HPI narrative: Patient is a 79 Yo male who comes to ED today with left shoulder pain from a mechanical fall yesterday evening. Tripped on an uneven surface at his house, hit back of head on bathtub during the fall and then landed on left shoulder. No LOC, No vomiting, not much of a DILLON, no neck pain. He takes aspirin and plavix, no other thinners. Main complaint is L shoulder pain, pain is much worse with movement, non radiating, no numbness or tingling. No other complaints or concerns. Related Data Home Medications Medication Instructions Recorded Confirmed Centrum Men 1 tablet PO DAILY 02/24/20 02/24/20 acetaminophen-codeine 1 tablet PO Q6H PRN 02/24/20 02/24/20 albuterol sulfate 2 puff INHALATION QID 02/24/20 02/24/20 allopurinol 300 mg PO DAILY 02/24/20 02/24/20 amlodipine 10 mg PO DAILY 02/24/20 02/24/20 aspirin 81 mg PO DAILY 02/24/20 02/24/20 atorvastatin 80 mg PO DAILY 02/24/20 02/24/20 carvedilol 25 mg PO Q12H 02/24/20 02/24/20 clopidogrel [Plavix] 75 mg PO DAILY 02/24/20 02/24/20 cyclobenzaprine 10 mg PO TID PRN 02/24/20 02/24/20 diclofenac sodium 2 g TOPICAL QID 02/24/20 02/24/20 finasteride 5 mg PO DAILY 02/24/20 02/24/20 furosemide 20 mg PO DAILY 02/24/20 02/24/20 hydrochlorothiazide 25 mg PO DAILY 02/24/20 02/24/20 insulin aspart U-100 [Novolog See Rx Instructions .ROUTE .COMPLEX 02/24/20 02/24/20 U-100 Insulin aspart] isosorbide mononitrate 60 mg PO DAILY 02/24/20 02/24/20 nitroglycerin 0.4 mg SUBLINGUAL Q5-15M PRN 02/24/20 02/24/20 ranitidine HCl 150 mg PO BID 02/24/20 02/24/20 tamsulosin 0.4 mg PO DAILY 02/24/20 02/24/20 tramadol 50 mg PO HS 02/24/20 02/24/20 Allergies Allergy/AdvReac Type Severity Reaction Status Date / Time iodine Allergy Unknown Hives Verified 03/17/20 11:27 niacin Allergy Unknown Fever Verified 03/17/20 11:27 latex AdvReac Rash Verified 03/17/20 11:27 Contrast Media Allergy Severe Anaphylaxis Uncoded 03/17/20 11:27 Review of Systems Review of Systems: All systems reviewed & are unremarkable except as noted in HPI and below PMFSH Past Medical History Medical History Anemia BPH (benign prostatic hyperplasia) CHF (congestive heart failure), NYHA class I Coronary artery disease He has had a 3 vessel CABG in 1999 with 3 stents. CRF (chronic renal failure) stage 4 Diabetes Insulin-dependent Diverticulitis Gout Hyperlipidemia Hypertension EVELYN on CPAP Sleep apnea Surgical History Surgical History Cataract extraction status H/O heart artery stent 3 stents H/O rectal polypectomy History of back surgery 2 back surgeries History of bilateral knee replacement Hx of cholecystectomy S/P CABG x 3 S/P TURP Family History Family History Father Cancer Mother Acute myocardial infarction CHF (congestive heart failure), NYHA class I Social History Social History Years smoked: 10 Smoking status: Former smoker Tobacco type: pipe and cigars Alcohol intake: never Substance use: never Gender identity (if verbalized by the patient): Male Spiritual care concerns: No Agree to blood products: No Exam Const: General: no acute distress and alert Orientation/consciousness: patient oriented x3 HENMT: Other: TTP posterior head with some overlying edema No hemotympanum, negative crowley sign and raccoon eyes Eyes: Conjunctivae: conjunctivae normal Pupils: Equal, round and reactive pupils present Neck: Other: c-spine process tenderness Chest: Chest palpation & inspection: normal inspection of the chest Resp: Effort & Inspection: normal re
[2020-03-17] MEDS: ACETAMINOPHEN 500 MG TABLET 1000 MG PO (12:18)
== END 2020-03-17 14:00 | disposition home or self-care (01) ==
PROVIDERS: Emergency Provider Emergency Medicine; PCP Internal Medicine
DX: N40.0 Benign prostatic hyperplasia without lower urinary tract symptoms (principal); I50.9 Heart failure, unspecified; I25.10 Atherosclerotic heart disease of native coronary artery without angina pectoris; Z95.5 Presence of coronary angioplasty implant and graft; E11.22 Type 2 diabetes mellitus with diabetic chronic kidney disease; I13.0 Hypertensive heart and chronic kidney disease with heart failure and stage 1 through stage 4 chronic kidney disease, or unspecified chronic kidney disease; N18.4 Chronic kidney disease, stage 4 (severe); E78.5 Hyperlipidemia, unspecified; G47.33 Obstructive sleep apnea (adult) (pediatric); M10.9 Gout, unspecified; Z79.82 Long term (current) use of aspirin; Z79.4 Long term (current) use of insulin; Z79.02 Long term (current) use of antithrombotics/antiplatelets; Z98.49 Cataract extraction status, unspecified eye; Z95.1 Presence of aortocoronary bypass graft; Z87.891 Personal history of nicotine dependence
CPT/HCPCS: 70450; 72125; 73030; 99284; A4565; A9270

== ENCOUNTER 2020-08-22 14:50 | Inpatient (IN) | payer MEDICARE, OTHER, SELFPAY ==
--- NOTE | ~2020-08-22 | XR_ITS ---
XR chest port-a-cath/central 08/26/2020 09:10 Indication: Portacatheter placement Procedure: AP portable chest Comparison: 08/22/2020 Findings: Interval placement of large bore central venous catheter, tips near the cavoatrial junction . Cardiomegaly. Mild interstitial edema. Status post median sternotomy for CABG. No pleural effusion or pneumothorax. No acute osseous abnormality. Impression: 1: Large bore central venous catheter tips near the cavoatrial junction. 2: Cardiomegaly with mild interstitial edema. Reviewed, dictated and finalized at location [facility]. Impression: 1: Large bore central venous catheter tips near the cavoatrial junction. 2: Cardiomegaly with mild interstitial edema.
--- NOTE | ~2020-08-22 | NM_ITS ---
EXAMINATION: NM pulmonary perfusion DATE: 08/22/2020 20:22 INDICATION: Shortness of breath, elevated d-dimer TECHNIQUE: 5.37 mCi Tc-99m MAA was administered intravenously for perfusion images. Scintigraphic monet ges of the chest were obtained. COMPARISON: None FINDINGS: Perfusion images show normal perfusion. IMPRESSION: 1. Low probability for pulmonary embolism. Reviewed, dictated and finalized at location [facility].
--- NOTE | ~2020-08-22 | US_ITS ---
EXAMINATION: US venous doppler LE EXAM DATE: 08/23/2020 12:43 INDICATION: Elevated d-dimer, bilateral leg edema, shortness of breath. TECHNIQUE: Multiple grayscale, color flow and Doppler images of the lower extremity deep venous syste ms bilaterally were obtained and reviewed. There is no prior study for comparison. FINDINGS: Right side: The right common femoral, femoral and profunda veins demonstrate normal color flow, respi ratory variation, augmentation and compressibility. Compressibility, color flow confirmed within the right popliteal, posterior tibial, peroneal, and greater saphenous veins. Left side: The left common femoral, femoral and profunda veins demonstrate normal color flow, respira tory variation, augmentation and compressibility. Compressibility, color flow confirmed within the l eft popliteal, posterior tibial, peroneal, and greater saphenous veins. IMPRESSION: 1. No lower extremity deep venous thrombosis bilaterally. Reviewed, dictated and finalized at location [facility].
--- NOTE | ~2020-08-22 | XR_ITS ---
EXAMINATION: XR chest 2V DATE: 08/22/2020 15:11 INDICATION: Shortness of breath TECHNIQUE: AP and lateral views of the chest are obtained. COMPARISON: 02/24/2020 FINDINGS: There are airspace opacities of the mid and lower lung zones. Small pleural effusions are p resent. There is no pneumothorax. Cardiomegaly is noted. There are changes of prior cardiac surgery T here is moderate thoracic spondylosis. IMPRESSION: 1. Airspace opacities of the mid and lower lung zones, consistent with atelectasis versus pneumonia. 2. Small pleural effusions. 3. Cardiomegaly. Reviewed, dictated and finalized at location [facility]. IMPRESSION: 1. Airspace opacities of the mid and lower lung zones, consistent with atelecta sis versus pneumonia. 2. Small pleural effusions. 3. Cardiomegaly.
--- NOTE | ~2020-08-22 | US_ITS ---
EXAMINATION: US renal BI DATE: 08/24/2020 12:47 INDICATION: Elevated creatinine TECHNIQUE: Multiple ultrasound grayscale images of the kidneys were obtained. COMPARISON: None. FINDINGS: The right kidney measures 10.3 x 5.1 x 4.8 cm. The left kidney measures 10.6 x 4.9 x 4.7 cm. There is diffuse bilateral increased renal cortical echogenicity consistent with medical renal disease. There are few bilateral anechoic simple cysts in both kidneys the largest on the right measuring 1.6 cm in maximal diameter and the largest on the left measuring 3.3 cm. There is no hydronephrosis in either kidney. No stones identified. The bladder is normal. Splenomegaly measuring 16.9 cm in maximal cranio caudal length. IMPRESSION: 1. Bilateral increased renal cortical echogenicity consistent with medical renal disease. No hydrone phrosis. 2. Nonspecific splenomegaly. Reviewed, dictated and finalized at location A. IMPRESSION: 1. Bilateral increased renal cortical echogenicity consistent with medical tahir al disease. No hydronephrosis. 2. Nonspecific splenomegaly.
--- NOTE | ~2020-08-22 | XR_ITS ---
XR fl guide central line place 08/26/2020 08:58 Indication: Tunneled dialysis catheter Procedure: Single fluoroscopic view of the right upper chest. 3 seconds of fluoroscopy. Comparison: No prior studies for comparison. Findings: There is a large bore dual-lumen central venous catheter, distal tip in the SVC. Please ref er to procedural report for details. Impression: 1: Large bore right IJ central venous catheter tips in the SVC. Reviewed, dictated and finalized at location A. Impression: 1: Large bore right IJ central venous catheter tips in the SVC.
--- NOTE | 2020-08-22 14:51 | ECG_ITS ---
Measurements Intervals [place] Rate: 67 P: 24 PA: 201 QRS: 47 QRSD: 99 T: 73 QT: 395 QTc: 419 Interpretive Statements SINUS RHYTHM BORDERLINE AV CONDUCTION DELAY DELAYED PRECORDIAL R/S TRANSITION CONSIDER INFERIOR INFARCT, AGE INDETERMINATE BASELINE ARTIFACT- I, III, AVL, AVF ABNORMAL ECG Electronically Signed On 08-22-2020 15:05:23 CDT by Reji Arevalo D.O.
[2020-08-22 14:53] VITALS: BP 157/64; PULSE 71; RESP 16; TEMP 36.4; O2SAT 96
[2020-08-22 15:09] LABS: Basophils Absolute Auto 0.1 K/mm3 (0.0-0.1); Basophils Percent Auto 0.9 % (0.2-1.2); Eosinophils Absolute Auto 0.1 K/mm3 (0-0.3); Eosinophils Percent Auto 1.5 % (0-4.4); Hematocrit 26.6 % (42.0-52.0); Hemoglobin 8.1 g/dL (14.0-18.0); Immature Granulocyte Absolute 0.31 K/mm3 (0.00-0.031); Immature Granulocyte Percent A 4.8 % (0-0.5); Lymphocytes Absolute Auto 1.45 K/mm3 (0.9-3.2); Lymphocytes Percent Auto 22.3 % (18.3-44.2); Mean Corpuscular HGB Conc 30.5 g/dl (32-36); Mean Corpuscular Volume 101.9 fl (80-100); Mean Platelet Volume 12.3 fl (7.4-10.4); Monocytes Absolute Auto 0.7 K/mm3 (0.1-0.6); Monocytes Percent Auto 11.4 % (2.6-8.5); Neutrophils Absolute Auto 3.8 K/mm3 (1.3-6.7); Neutrophils Percent Auto 59.1 % (45.5-73.1); Nucleated Red Blood Cells Absolute Auto 0.1 K/mm3 (0.0-0.012); Platelet Count Result 360 k/mm3 (150-375); Red Blood Count 2.61 M/mm3 (4.6-6.20); Red Cell Distribution Width 20.4 % (11.5-14.5); White Blood Count 6.5 K/mm3 (4.5-10.0)
[2020-08-22 15:18] LABS: Anion Gap 10 mmol/L (8-16); Blood Urea Nitrogen 61 mg/dL (9-20); Calcium 8.7 mg/dL (8.4-10.2); Carbon Dioxide 22 mmol/L (22-30); Chloride 107 mmol/L (98-107); Estimated CRCL calculation 10 ml/min; Estimated Glomerular Filt Rate 8; Glucose 130 mg/dL (75-110); Potassium 5.5 mmol/L (3.4-5.0); Sodium 139 mmol/L (137-145)
--- NOTE | 2020-08-22 17:45 | ED.SOB ---
HPI - SOB/Dyspnea General Chief Complaint: Shortness of Breath/Dyspnea <Shanice Carpio PA-C - Last Filed: 08/22/20 20:51> Stated Complaint: my oxygens dropped , SOB <SABAS Hallman Last Filed: 08/22/20 20:51> Time Seen by Provider: 08/22/20 17:04 <SABAS Hallman Last Filed: 08/22/20 20:51> Source: patient and family <SABAS Hallman Last Filed: 08/22/20 20:51> Mode of arrival: wheelchair <SABAS Hallman Last Filed: 08/22/20 20:51> Limitations: no limitations <SABAS Hallman Last Filed: 08/22/20 20:51> History of Present Illness HPI Narrative: This is a 79 year old male that presents to the ER for shortness of breath since yesterday. Reports he takes his vital signs at home daily and send them to his PCP at the [facility]. Reports yesterday his oxygen dropped to 90 and today it dropped to the high 80s. Reports he was just sitting in his chair when this happened. Also reports some rhinorrhea. Reports mild lower extremity edema. Denies fever, cough, or chest pain. <Shanice Carpio PA-C - Last Filed: 08/22/20 20:51> Related Data Home Medications: Home Medications Medication Instructions Recorded Confirmed Centrum Men 1 tablet PO DAILY 02/24/20 02/24/20 acetaminophen-codeine 1 tablet PO Q6H PRN 02/24/20 02/24/20 albuterol sulfate 2 puff INHALATION QID 02/24/20 02/24/20 allopurinol 300 mg PO DAILY 02/24/20 02/24/20 amlodipine 10 mg PO DAILY 02/24/20 02/24/20 aspirin 81 mg PO DAILY 02/24/20 02/24/20 atorvastatin 80 mg PO DAILY 02/24/20 02/24/20 carvedilol 25 mg PO Q12H 02/24/20 02/24/20 clopidogrel [Plavix] 75 mg PO DAILY 02/24/20 02/24/20 cyclobenzaprine 10 mg PO TID PRN 02/24/20 02/24/20 diclofenac sodium 2 g TOPICAL QID 02/24/20 02/24/20 finasteride 5 mg PO DAILY 02/24/20 02/24/20 furosemide 20 mg PO DAILY 02/24/20 02/24/20 hydrochlorothiazide 25 mg PO DAILY 02/24/20 02/24/20 insulin aspart U-100 [Novolog See Rx Instructions .ROUTE .COMPLEX 02/24/20 02/24/20 U-100 Insulin aspart] isosorbide mononitrate 60 mg PO DAILY 02/24/20 02/24/20 nitroglycerin 0.4 mg SUBLINGUAL Q5-15M PRN 02/24/20 02/24/20 ranitidine HCl 150 mg PO BID 02/24/20 02/24/20 tamsulosin 0.4 mg PO DAILY 02/24/20 02/24/20 tramadol 50 mg PO HS 02/24/20 02/24/20 <Shanice Carpio PA-C - Last Filed: 08/22/20 20:51> Allergies/Adverse Reactions: Allergies Allergy/AdvReac Type Severity Reaction Status Date / Time Iodinated Contrast Media Allergy Severe Anaphylaxis Verified 08/22/20 18:18 iodine Allergy Unknown Hives Verified 08/22/20 18:18 niacin Allergy Unknown Fever Verified 08/22/20 18:18 latex AdvReac Rash Verified 08/22/20 18:18 Contrast Media Allergy Severe Anaphylaxis Uncoded 08/22/20 18:18 <Shanice Carpio PA-C - Last Filed: 08/22/20 20:51> Review of Systems Review of Systems: Narrative: CONSTITUTIONAL: Denies fever ENT: Reports rhinorrhea. Denies congestion, sore throat CARDIOVASCULAR: Denies chest pain RESPIRATORY: Reports dyspnea. Denies cough <Shanice Carpio PA-C - Last Filed: 08/22/20 20:51> All systems reviewed & are unremarkable except as noted in HPI and below <Shanice Carpio PA-C - Last Filed: 08/22/20 20:51> [facility] Social History Social History: Social History Years smoked: 10 Smoking status: Former smoker Tobacco type: pipe and cigars Alcohol intake: never Substance use: never Gender identity (if verbalized by the patient): Male Spiritual care concerns: No Agree to blood products: No <Shanice Carpio PA-C - Last Filed: 08/22/20 20:51> Exam Narrative: Exam Narrative: GENERAL: Chronically ill-appearing, well-nourished, and in no acute distress. HEAD: Normocephalic, atraumatic. EYES: EOMI. ENT: Nares with rhinorrhea. Mucous membranes moist. Oropharynx without tonsillar hypertrophy exudate or other lesions. Bilateral TMs pearly alvarado non-bulging NECK: Supple.
[2020-08-22 17:57] LABS: NT Pro B Type Natriuretic Pept 11500 PG/ML (5-100)
[2020-08-22 18:02] LABS: D Dimer 2.95 ug/mL (<0.48)
[2020-08-22] MEDS: DEXTROSE 50% 25 GM/50 ML SYRINGE IV PUSH (18:11)
[2020-08-22] MEDS: CALCIUM GLUCONATE 1,000 MG/10 ML VIAL 1000 MG IV PUSH (18:11)
[2020-08-22] MEDS: INSULIN HUMAN REGULAR (*BKC) 100 UNITS/ML 10 UNITS IV PUSH (18:11)
[2020-08-22 18:17] VITALS: PULSE 72; O2SAT 95
[2020-08-22] MEDS: ONDANSETRON INJ 4 MG/2 ML VIAL IV PUSH (18:27)
[2020-08-22 18:28] LABS: Alveolar/Arterial O2 Gradient 41.2 mmHg; Base Excess ABG -7.1 mEq/l (+/-2.0); Carboxyhemoglobin 1.7 % THb (0-2.0); Fractional Inspired Oxygen 21 %; HCO3 ABG 17.7 mEq/l (22.0-26.0); Methemoglobin ABG 0.3 %THb (0-1.5); Oxygen Content ABG 10.9 %vol (16.0-22.0); Oxygen Saturation ABG 93.5 % (95.0-100.0); Oxyhemoglobin 89.3 % THb (90.0-100.0); PCO2 ABG 32.5 mmHg (35.0-45.0); PO2 ABG 69.6 mmHg (80.0-100.0); PO2 FiO2 Ratio Arterial Blood 3.31 %; Reduced Hemoglobin 8.7 %THb (0-5.0); Total Hemoglobin 8.6 g/dL (12.0-18.0); pH ABG 7.354 (7.350-7.450)
[2020-08-22 18:29] LABS: Device ROOM AIR; Modified Allen's Test Pass; Site Drawn RIGHT RADIAL
[2020-08-22 18:41] LABS: Alanine Aminotransferase 12 U/L (4-50); Albumin Level 3.6 g/dL (3.5-5.1); Alkaline Phosphatase 82 U/L (38-126); Aspartate Amino Transferase 23 U/L (17-59); Bilirubin,Total 0.7 mg/dL (0.2-1.3); Lactate Dehydrogenase 1108 U/L (313-618); Lipase 202 U/L (23-300)
[2020-08-22 19:46] VITALS: BP 170/77; PULSE 76; RESP 18; O2SAT 93
[2020-08-22 20:01] LABS: Creatine Kinase 105 U/L (55-170)
[2020-08-22 20:23] LABS: Anion Gap 10 mmol/L (8-16); Blood Urea Nitrogen 61 mg/dL (9-20); Calcium 8.8 mg/dL (8.4-10.2); Carbon Dioxide 23 mmol/L (22-30); Chloride 105 mmol/L (98-107); Estimated CRCL calculation 10 ml/min; Estimated Glomerular Filt Rate 9; Glucose 142 mg/dL (75-110); Potassium 4.9 mmol/L (3.4-5.0); Sodium 138 mmol/L (137-145)
[2020-08-22 20:46] VITALS: BP 165/75; PULSE 79; RESP 18; O2SAT 93
[2020-08-22 21:45] VITALS: BP 152/71; PULSE 76; RESP 17; O2SAT 95
[2020-08-22 22:00] VITALS: BP 154/66; PULSE 77; RESP 18; TEMP 36.8; O2SAT 94; BMI 31.4
--- NOTE | 2020-08-22 22:33 | ADMGEN ---
This patient, Chito Rivera, was admitted to [facility] Surg Room 332-01. Patient/family oriented to hospital policies and general routines including ID bracelet, bed and alarms, visiting hours, pain management, procedures, bathroom and other care routines, personal items, smoking policy, room service/diet, and visiting hours. Valuables list has been completed. Information on how to activate the Rapid Response Team has been discussed. Patient/Family are encouraged to report perceived risks to care and to ask questions if they do not understand what they are told or what they should do.
[2020-08-22 23:16] LABS: Glucose Point of Care 151 (65-105)
[2020-08-23] VITALS (13 sets, daily range): BP systolic 127–182; BP diastolic 54–75; PULSE 64–78; RESP 16–22; TEMP 36.6–37.5; O2SAT 89–97; BMI 31.4
--- NOTE | 2020-08-23 06:34 | ECG_ITS ---
Measurements Intervals [place] Rate: 76 P: 19 ID: [id number] QRS: 43 QRSD: 97 T: 83 QT: 383 QTc: 431 Interpretive Statements SINUS RHYTHM DELAYED PRECORDIAL R/S TRANSITION CONSIDER INFERIOR INFARCT, AGE INDETERMINATE BORDERLINE T WAVE ABNORMALITY- HIGH LATEAL LEADS ABNORMAL ECG Electronically Signed On 08-23-2020 6:54:19 CDT by Reji Arevalo D.O.
[2020-08-23] MEDS: NITROGLYCERIN SL 0.4 MG TABLET SUBLINGUAL (06:40)
[2020-08-23 08:21] LABS: Glucose Point of Care 140 (65-105)
[2020-08-23] MEDS: ATORVASTATIN 40 MG TABLET 80 MG PO (10:25)
[2020-08-23] MEDS: ASPIRIN 81 MG CHEWABLE TABLET PO (10:25)
[2020-08-23] MEDS: amLODIPine BESYLATE 5 MG TABLET 10 MG PO (10:25)
[2020-08-23] MEDS: FUROSEMIDE 80 MG TABLET BY MOUTH (10:26)
[2020-08-23] MEDS: carvediloL 25 MG TABLET PO ×2 (10:26→20:39)
[2020-08-23] MEDS: hydrALAZINE HCL 25 MG TABLET PO ×3 (10:26→22:15)
[2020-08-23] MEDS: SODIUM BICARBONATE TAB 650 MG TABLET PO ×2 (10:27→17:11)
[2020-08-23] MEDS: THERAPEUTIC MULTIVITAMINS/MINERALS TAB (*BKC) 1 TABLET PO (10:27)
[2020-08-23] MEDS: RANOLAZINE 500 MG TAB.ER.12H PO ×2 (10:27→20:41)
[2020-08-23] MEDS: TAMSULOSIN HCL 0.4 MG CAPSULE PO ×2 (10:28→20:40)
[2020-08-23] MEDS: polyethylene glycoL 3350 17 GM POWD.PACK PO (10:49)
[2020-08-23] MEDS: ISOSORBIDE MONONITRATE 60 MG TAB.ER.24H 120 MG PO (10:49)
[2020-08-23 11:09] LABS: Hematocrit 23.8 % (42.0-52.0); Hemoglobin 7.4 g/dL (14.0-18.0); Mean Corpuscular HGB Conc 31.1 g/dl (32-36); Mean Corpuscular Volume 99.6 fl (80-100); Mean Platelet Volume 12.1 fl (7.4-10.4); Platelet Count Result 301 k/mm3 (150-375); Red Blood Count 2.39 M/mm3 (4.6-6.20); Red Cell Distribution Width 20.4 % (11.5-14.5); White Blood Count 4.3 K/mm3 (4.5-10.0)
[2020-08-23 11:23] LABS: Anion Gap 13 mmol/L (8-16); Blood Urea Nitrogen 55 mg/dL (9-20); Calcium 8.3 mg/dL (8.4-10.2); Carbon Dioxide 21 mmol/L (22-30); Chloride 107 mmol/L (98-107); Estimated CRCL calculation 10 ml/min; Estimated Glomerular Filt Rate 8; Glucose 246 mg/dL (75-110); Sodium 141 mmol/L (137-145)
--- NOTE | 2020-08-23 12:39 | WPDCN ---
Assessment and Plan Assessment and plan (1) Acute angina: Code(s): I20.9 - Angina pectoris, unspecified Status: Acute Assessment and Plan: Patient had episode of angina which he does not think is much different from what he gets at home, relieved with nitroglycerin. EKG did not show any ischemic changes. Recommend continue his usual antianginal medicines, isosorbide and Ranexa Nitroglycerin p.r.n. No further cardiac workup needed at this time but please call if we can be of further assistance Follow-up with [facility] supervisor [facility] department (2) Coronary artery disease: Qualifiers: Coronary Disease-Associated Artery/Lesion type: [place] artery [place] vs. transplanted heart: [place] heart Associated angina: with unspecified angina Qualified Code(s): I25.119 - Atherosclerotic heart disease of [place] coronary artery with unspecified angina pectoris Code(s): I25.10 - Atherosclerotic heart disease of [place] coronary artery without angina pectoris Status: Chronic Assessment and Plan: history of CAD, CABG, interventions with what is probably stable angina provoked by anxiety. (3) Hypoxia: Code(s): R09.02 - Hypoxemia Status: Acute Assessment and Plan: Hypoxia noted yesterday of uncertain etiology. N Has elevated BNP but does not appear to be particularly volume overloaded. However he did gain 5 lb and has progressive renal problems so he may have some volume overload. Being treated for pneumonia COVID screen is pending (4) CHF (congestive heart failure), NYHA class I: Qualifiers: Congestive heart failure type: unspecified Qualified Code(s): I50.9 - Heart failure, unspecified Code(s): I50.9 - Heart failure, unspecified Status: Chronic Assessment and Plan: Elevated proBNP, 5 lb weight gain, worsening renal insufficiency. Not much volume overload however. Does have a murmur consistent with mitral regurgitation. Usually is followed by the [facility]. (5) CKD stage 5 due to type 2 diabetes mellitus: Code(s): E11.22 - Type 2 diabetes mellitus with diabetic chronic kidney disease; N18.5 - Chronic kidney disease, stage 5 Status: Acute Assessment and Plan: Worsening CKD. HPI Data of Consult Date/Time: 08/23/20 12:39 Requesting Physician: Seema Lynch DO Primary Care Provider: Vladimir PoolMD Consult Narrative Narrative: Date of service 08/23/2020 Chito Rivera is a 79 year old male whom we were asked to see by the hospitalists for our advice and opinion regarding his chest pain in consultation. He has history of CAD, hypertension, diabetes , chronic kidney disease and CHF, and is normally followed [facility]. The patient was admitted through the emergency room yesterday with shortness of breath. He has chronic SHAH but his oxygen level is usually good, but yesterday his O2 saturation had dropped into the 80s yesterday at home. He is thought to have CHF and acute on chronic kidney disease And recently had an AV fistula placed anticipating dialysis; his creatinine is up to 6.5. Dr. Quiñonez is consulting. His COVID screen is still pending. [place] proBNP was 80957. He states he has gained 5 lb recently but has not noted any edema. He has been started on antibiotics for presumed pneumonia. He has chest pain about once a month which is described as the heaviness with pounding heartbeats radiating to the throat causing tightness, usually provoked by anxiety and relieved with nitroglycerin. He also takes isosorbide mononitrate 120 mg daily and ranolazine height 500 mg b.i.d. both of which were given around 10 40 today. The patient had episode of chest pain this morning at about 6:40 a.m. relieved with 1 nitroglycerin.
[2020-08-23 14:11] LABS: Glucose Point of Care 159 (65-105)
--- NOTE | 2020-08-23 14:23 | PCNSR ---
On 08/23/20, the student, Alison Reynaga, provided care and completed [facility] documentation on this patient. I have reviewed the student's documentation and agree with the findings.
[2020-08-23 14:31] LABS: SARS-CoV-2 RNA PCR Negative
[2020-08-23] MEDS: FAMOTIDINE 20 MG TABLET PO (14:55)
[2020-08-23] MEDS: MICONAZOLE NITRATE 2% CREAM 30 GM TUBE 1 APPLIC TOPICAL ×2 (14:55→20:42)
[2020-08-23] MEDS: DICLOFENAC SODIUM 1% 100 GM GEL (*BKC) 1 APPLIC TOPICAL ×3 (14:56→20:42)
--- NOTE | 2020-08-23 15:51 | PM.IMPN ---
Progress Note: A&P Assessment and Plan (1) Hypoxia: Code(s): R09.02 - Hypoxemia Status: Acute Assessment and Plan: 08/23/20 15:51 patient is 79-year-old male with past medical history coronary artery disease, CABG, CHF, chronic kidney disease and diabetes patient presented emergency department as he was hypoxic at home further evaluate chest x-ray showed pneumonia and patient was suspected for COVID-19 which is tested, for pneumonia patient started on azithromycin and Zosyn, early this morning patient had a complaint of chest pain, EKG was done suspicious for coronary artery disease though his tropes was negative, patient was seen by vmware engineer does not suspect acute coronary syndrome, patient also has elevated D-dimer V/Q scan is negative for PE and lower Doppler a negative for DVT, patient was seen in the room states breathing is much better not a short of breath as when he arrived denies any fever or chills, (2) CKD stage 5 due to type 2 diabetes mellitus: Code(s): E11.22 - Type 2 diabetes mellitus with diabetic chronic kidney disease; N18.5 - Chronic kidney disease, stage 5 Status: Acute Assessment and Plan: most likely secondary to hypertension and diabetes clinically stable will continue to monitor (3) Congestive heart failure: Qualifiers: Heart failure chronicity: unspecified Heart failure type: unspecified Qualified Code(s): I50.9 - Heart failure, unspecified Code(s): I50.9 - Heart failure, unspecified Status: Acute Assessment and Plan: patient with significant coronary artery disease and CAD suspects most likely patient has systolic dysfunction however currently patient is euvolemic will continue to monitor (4) DVT prophylaxis: Code(s): Z29.9 - Encounter for prophylactic measures, unspecified Status: Acute Assessment and Plan: Lovenox Subjective Date/time seen: 08/23/20 15:51 patient is 79-year-old male with past medical history coronary artery disease, CABG, CHF, chronic kidney disease and diabetes patient presented emergency department as he was hypoxic at home further evaluate chest x-ray showed pneumonia and patient was suspected for COVID-19 which is tested, for pneumonia patient started on azithromycin and Zosyn, early this morning patient had a complaint of chest pain, EKG was done suspicious for coronary artery disease though his tropes was negative, patient was seen by vmware engineer does not suspect acute coronary syndrome, patient also has elevated D-dimer V/Q scan is negative for PE and lower Doppler a negative for DVT, patient was seen in the room states breathing is much better not a short of breath as when he arrived denies any fever or chills, Review of Systems Review of Systems: All systems reviewed & are unremarkable except as noted in HPI and below Exam Narrative: Exam Narrative: patient is seen in the room but not examined, temperature is 98 point, pulse is 74, respiratory 16, pulse ox is 96% with 2 L nasal cannula, blood pressure is 152/65, Const: General: comfortable and no acute distress HENMT: General nose exam: Normal nares present Eyes: Sclera: sclerae normal Neck: Other: no retraction Resp: Effort & Inspection: normal respiratory effort GI: Other: not distended Skin: General skin exam: normal color Neuro: Speech: normal speech Extrem: General: normal to inspection Psych: Affect: Anxious affect present Objective Data Vital Signs Vital Signs: Vital Signs - 24 hr 08/22/20 18:17 08/22/20 19:46 08/22/20 20:46 Temperature Pulse Rate 72 76 79 Respiratory Rate 18 18 Blood Pressure 170/77 H 165/75 H Pulse Oximetry 95 93 93 08/22/20 21:45 08/22/20 22:00 08/23/20 00:00 Temperature 98.2 F 97.9 F Pulse Rate 76 77 74 Respiratory Rate 17 18 20 Blood Pressure 152/71 H 154/66 H 168/72 H Pulse Oximetry 95 94 94 08/23/20 04:00 08/23/20 06:30 08/23/20 06:45 [place]
--- NOTE | 2020-08-23 16:08 | PM.IMHP ---
H&P: HPI History of Present Illness Date/Time: 08/23/20 16:08 Chief complaint: Hyperkalemia, pneumonia, COVID PUI Narrative: Chito Rivera is a 79 year old male 08/23/20 15:51 patient is 79-year-old male with past medical history coronary artery disease, CABG, CHF, chronic kidney disease and diabetes patient presented emergency department as he was hypoxic at home further evaluate chest x-ray showed pneumonia and patient was suspected for COVID-19 which is tested, for pneumonia patient started on azithromycin and Zosyn, early this morning patient had a complaint of chest pain, EKG was done suspicious for coronary artery disease though his tropes was negative, patient was seen by in flight technician does not suspect acute coronary syndrome, patient also has elevated D-dimer V/Q scan is negative for PE and lower Doppler a negative for DVT, patient was seen in the room states breathing is much better not a short of breath as when he arrived denies any fever or chills, Review of Systems Review of Systems: All systems reviewed & are unremarkable except as noted in HPI and below PMFSH Past Medical History Medical History Anemia BPH (benign prostatic hyperplasia) CHF (congestive heart failure), NYHA class I Coronary artery disease He has had a 3 vessel CABG in 1999 with 3 stents. CRF (chronic renal failure) stage 4 Diabetes Insulin-dependent Diverticulitis Gout Hyperlipidemia Hypertension EVELYN on CPAP Sleep apnea Surgical History Surgical History Cataract extraction status H/O heart artery stent 3 stents H/O rectal polypectomy History of back surgery 2 back surgeries History of bilateral knee replacement Hx of cholecystectomy S/P CABG x 3 S/P TURP Family History Family History Father Cancer Mother CHF (congestive heart failure), NYHA class I Acute myocardial infarction Sibling Cancer Social History Social History Years smoked: 10 Smoking status: Former smoker Tobacco type: pipe and cigars Alcohol intake: former Substance use: never Gender identity (if verbalized by the patient): Male Spiritual care concerns: No Agree to blood products: No Meds Home Medications and Allergies Home Medications Medication Instructions Recorded Confirmed Type Centrum Men 1 tablet PO DAILY 02/24/20 08/22/20 History albuterol sulfate 2 puff INHALATION BID 02/24/20 08/22/20 History amlodipine 10 mg PO DAILY 02/24/20 08/23/20 History aspirin 81 mg PO DAILY 02/24/20 08/22/20 History atorvastatin 80 mg PO DAILY 02/24/20 08/23/20 History carvedilol [Coreg] 25 mg PO Q12H 02/24/20 08/23/20 History clopidogrel [Plavix] 75 mg PO HS 02/24/20 08/22/20 History diclofenac sodium 2 g TOPICAL QID 02/24/20 08/23/20 History furosemide 80 mg PO DAILY 02/24/20 08/23/20 History insulin aspart U-100 [Novolog See Rx Instructions .ROUTE .COMPLEX 02/24/20 08/23/20 History U-100 Insulin aspart] nitroglycerin 0.4 mg SUBLINGUAL Q5-15M PRN 02/24/20 08/22/20 History tamsulosin 0.4 mg PO BID 02/24/20 08/23/20 History insulin glargine [Lantus U-100 33 unit SUBCUT HS 08/22/20 08/23/20 History Insulin] Allergy Relief (cetirizine) 10 mg BYMOUTH DAILY PRN 08/23/20 08/23/20 History camphor-menthol 1 applic TOPICAL TID PRN 08/23/20 08/23/20 History clotrimazole [Antifungal 1 applic TOPICAL BID 08/23/20 08/23/20 History (clotrimazole)] darbepoetin fior in polysorbat 300 mcg SUBCUT [id number] 08/23/20 08/23/20 History docusate sodium 100 mg BYMOUTH TID PRN 08/23/20 08/23/20 History famotidine 40 mg PO BID 08/23/20 08/23/20 History hydralazine 25 mg PO TID 08/23/20 08/23/20 History isosorbide mononitrate 120 mg PO DAILY 08/23/20 08/23/20 History meclizine 25 mg PO DAILY PRN 08/23/20 08/23/20 History polyethylene glycol 3350 1
--- NOTE | 2020-08-23 16:26 | PM.CNNEP ---
Assessment and Plan Assessment and plan (1) Chronic kidney disease, stage 5: Code(s): N18.5 - Chronic kidney disease, stage 5 Status: Acute Assessment and Plan: the patient has CKD stage 5. He has a little nausea ever once in a while, maybe twice a week he says. He has been eating pretty well and not losing weight. He does not seem to have any uremic symptoms. He came in short of breath. He does have some signs of fluid overload however his breathing is much better today just with antibiotics. I wonder if pneumonia is the major issue with the shortness of breath. Because his creatinine is high, I would like to see if his breathing gets better without diuretics for now. If he has more problems with shortness of breath we can always try diuretics and even start dialysis if we have to but it would be better if we were able to wait until a fistula ready to use 1st , as long as he is feeling better. (2) CHF (congestive heart failure), NYHA class I: Qualifiers: Congestive heart failure type: unspecified Qualified Code(s): I50.9 - Heart failure, unspecified Code(s): I50.9 - Heart failure, unspecified Status: Chronic Assessment and Plan: The patient has a history of congestive heart failure. will continue his outpatient diuretic regimen. We will follow this along. Check a chest x-ray in a couple of days. (3) Sleep apnea: Qualifiers: Sleep apnea type: obstructive Qualified Code(s): G47.33 - Obstructive sleep apnea (adult) (pediatric) Code(s): G47.30 - Sleep apnea, unspecified Status: Chronic (4) Diabetes: Qualifiers: Diabetes mellitus type: type 2 Diabetes mellitus rat exterminator insulin use: with rat exterminator use Diabetes mellitus complication status: with kidney complications Diabetes mellitus complication detail: with chronic kidney disease Chronic kidney disease stage: stage 4 (severe) Qualified Code(s): E11.22 - Type 2 diabetes mellitus with diabetic chronic kidney disease; N18.4 - Chronic kidney disease, stage 4 (severe); Z79.4 - terminal operator (current) use of insulin Code(s): E11.9 - Type 2 diabetes mellitus without complications Status: Chronic Assessment and Plan: He is on Accu-Cheks and sliding-scale insulin (5) Hypertension: Qualifiers: Hypertension type: essential hypertension Qualified Code(s): I10 - Essential (primary) hypertension Code(s): I10 - Essential (primary) hypertension Status: Chronic Assessment and Plan: His blood pressure is a little bit on the high side. He is on carvedilol, and amlodipine. Will add hydralazine. (6) Erythropoietin deficiency anemia: Code(s): D63.1 - Anemia in chronic kidney disease Status: Acute Assessment and Plan: Will go ahead and start Epogen to continue his JUSTIN regimen History of Present Illness Reason for Consult Consult date: 08/23/20 Chief Complaint Chief complaint: Hyperkalemia, pneumonia, COVID PUI History of Present Illness Narrative: Chito is a very pleasant 79-year-old gentleman who has chronic kidney disease stage 5. [facility]. His kidney disease is likely due to hypertension, diabetes and vascular disease. He has a brachial basilic fistula in the left upper arm. This was placed 2 weeks ago. He says that the surgeons told him that he was going to need a basilic transposition down the line. He also has hyperlipidemia, hypertension, anemia on darbepoetin, GERD, arthritis, diabetes, coronary disease, BPH. The patient came in the hospital because he was short of breath. He checked his oxygen level at home and it was low so he came to the emergency room. He lives in [facility] but since he goes to the [facility] and it was so far way he decided to come to [facility] for further care. he was evaluated in the emergency room. Chest x-ray showed airspace opaciti
[2020-08-23] MEDS: INSULIN ASPART (*BKC) 100 UNITS/ML SUB-Q (17:15)
[2020-08-23 17:29] LABS: Glucose Point of Care 218 (65-105)
[2020-08-23] MEDS: EPOETIN ALFA-EPBX 10,000 UNITS/ML VIAL 10000 UNITS SUB-Q (18:31)
--- NOTE | 2020-08-23 18:55 | PC.NURSE ---
1600 pt remains on o2 2l nc, tried to remove and pulse ox dropped to 89,
[2020-08-23] MEDS: INSULIN GLARGINE (*BKC) 100 UNITS/ML 33 UNITS SUB-Q (20:30)
[2020-08-23] MEDS: DOCUSATE SODIUM 100 MG CAPSULE 200 MG BY MOUTH (20:38)
[2020-08-23] MEDS: CLOPIDOGREL BISULFATE 75 MG TABLET PO (20:43)
[2020-08-23] MEDS: ALBUTEROL SULFATE (*SP) INHALER 2 PUFF INHALATION (21:32)
[2020-08-23 23:15] LABS: Glucose Point of Care 163 (65-105)
[2020-08-24] VITALS (12 sets, daily range): BP systolic 140–148; BP diastolic 70–77; PULSE 61–77; RESP 18–20; TEMP 36.4–37.2; O2SAT 92–97
[2020-08-24] MEDS: hydrALAZINE HCL 25 MG TABLET PO ×3 (06:29→21:58)
[2020-08-24 06:50] LABS: Hematocrit 24.9 % (42.0-52.0); Hemoglobin 7.5 g/dL (14.0-18.0); Mean Corpuscular HGB Conc 30.1 g/dl (32-36); Mean Corpuscular Hemoglobin 30.5 pg (26-34); Mean Corpuscular Volume 101.2 fl (80-100); Mean Platelet Volume 12.3 fl (7.4-10.4); Platelet Count Result 284 k/mm3 (150-375); Red Blood Count 2.46 M/mm3 (4.6-6.20); Red Cell Distribution Width 20.6 % (11.5-14.5); White Blood Count 4.3 K/mm3 (4.5-10.0)
[2020-08-24 07:08] LABS: Anion Gap 7 mmol/L (8-16); Blood Urea Nitrogen 60 mg/dL (9-20); Carbon Dioxide 25 mmol/L (22-30); Chloride 108 mmol/L (98-107); Estimated CRCL calculation 9 ml/min; Estimated Glomerular Filt Rate 8; Glucose 106 mg/dL (75-110); Potassium 4.6 mmol/L (3.4-5.0); Sodium 140 mmol/L (137-145)
[2020-08-24 07:09] LABS: Albumin Level 3.3 g/dL (3.5-5.1); Anion Gap 7 mmol/L (8-16); Blood Urea Nitrogen 60 mg/dL (9-20); Calcium 8.2 mg/dL (8.4-10.2); Carbon Dioxide 26 mmol/L (22-30); Chloride 108 mmol/L (98-107); Estimated CRCL calculation 9 ml/min; Estimated Glomerular Filt Rate 8; Glucose 104 mg/dL (75-110); Phosphorus 5.9 mg/dL (2.5-4.5); Potassium 4.9 mmol/L (3.4-5.0); Sodium 141 mmol/L (137-145)
[2020-08-24] MEDS: amLODIPine BESYLATE 5 MG TABLET 10 MG PO (08:04)
[2020-08-24] MEDS: ASPIRIN 81 MG CHEWABLE TABLET PO (08:04)
[2020-08-24] MEDS: ATORVASTATIN 40 MG TABLET 80 MG PO (08:05)
[2020-08-24] MEDS: carvediloL 25 MG TABLET PO ×2 (08:05→22:00)
[2020-08-24] MEDS: FAMOTIDINE 20 MG TABLET PO (08:06)
[2020-08-24] MEDS: DOCUSATE SODIUM 100 MG CAPSULE 200 MG BY MOUTH ×2 (08:06→21:58)
[2020-08-24] MEDS: ISOSORBIDE MONONITRATE 60 MG TAB.ER.24H 120 MG PO (08:06)
[2020-08-24] MEDS: DICLOFENAC SODIUM 1% 100 GM GEL (*BKC) 1 APPLIC TOPICAL ×4 (08:06→21:59)
[2020-08-24] MEDS: FUROSEMIDE 80 MG TABLET BY MOUTH (08:06)
[2020-08-24] MEDS: RANOLAZINE 500 MG TAB.ER.12H PO ×2 (08:07→21:58)
[2020-08-24] MEDS: MICONAZOLE NITRATE 2% CREAM 30 GM TUBE 1 APPLIC TOPICAL ×2 (08:07→22:02)
[2020-08-24] MEDS: THERAPEUTIC MULTIVITAMINS/MINERALS TAB (*BKC) 1 TABLET PO (08:07)
[2020-08-24] MEDS: TAMSULOSIN HCL 0.4 MG CAPSULE PO ×2 (08:07→22:01)
[2020-08-24] MEDS: SODIUM BICARBONATE TAB 650 MG TABLET PO ×2 (08:07→16:23)
[2020-08-24] MEDS: polyethylene glycoL 3350 17 GM POWD.PACK PO (08:07)
[2020-08-24] MEDS: ALBUTEROL SULFATE (*SP) INHALER 2 PUFF INHALATION ×2 (08:32→20:02)
[2020-08-24 09:06] LABS: Glucose Point of Care 106 (65-105)
[2020-08-24 11:31] LABS: Glucose Point of Care 154 (65-105)
--- NOTE | 2020-08-24 13:14 | PM.IMPN ---
Progress Note: A&P Assessment and Plan (1) Hypoxia: Code(s): R09.02 - Hypoxemia Status: Acute Assessment and Plan: 08/24/2020 patient is 79-year-old male with past medical history coronary artery disease, CABG, CHF, chronic kidney disease and diabetes patient presented emergency department as he was hypoxic at home further evaluate chest x-ray showed pneumonia and patient was suspected for COVID-19 which is tested, for pneumonia patient started on azithromycin and Zosyn, early this morning patient had a complaint of chest pain, EKG was done suspicious for coronary artery disease though his tropes was negative, patient was seen by environmental marketer does not suspect acute coronary syndrome, patient also has elevated D-dimer V/Q scan is negative for PE and lower Doppler a negative for DVT, patient was seen in the room states breathing is much better not a short of breath as when he arrived denies any fever or chills, today patient still complains of shortness of but feels better than when he arrived, patient is seen by Nephrology recommending conservative management, suspect most likely shortness of breath secondary to pneumonia patient is being treated with azithromycin and Zosyn as well as updraft, if patient symptoms improves without requiring dialysis, patient does have a fistula but is not ready for dialysis, will avoid diuretics as patient creatinine is elevated, patient had a renal ultrasound today it showed Bilateral increased renal cortical echogenicity consistent with medical renal disease. No hydronephrosis. will continue to monitor will have a PT OT evaluate the patient. (2) CKD stage 5 due to type 2 diabetes mellitus: Code(s): E11.22 - Type 2 diabetes mellitus with diabetic chronic kidney disease; N18.5 - Chronic kidney disease, stage 5 Status: Acute Assessment and Plan: most likely secondary to hypertension and diabetes clinically stable will continue to monitor, plan is above (3) Congestive heart failure: Qualifiers: Heart failure chronicity: unspecified Heart failure type: unspecified Qualified Code(s): I50.9 - Heart failure, unspecified Code(s): I50.9 - Heart failure, unspecified Status: Acute Assessment and Plan: patient with significant coronary artery disease and CAD suspects most likely patient has systolic dysfunction however currently patient is euvolemic will continue to monitor, will continue to monitor hoping the patient may not require diuretic as his kidney function is already poor, patient is seen by rehanger. (4) DVT prophylaxis: Code(s): Z29.9 - Encounter for prophylactic measures, unspecified Status: Acute Assessment and Plan: [place] Time Spent With Patient Time with patient: 15 - 25 minutes Subjective Date/time seen: 08/24/20 13:14 Patient is a 79-year-old male with history of coronary artery disease status post CABG chronic kidney disease stage 5, admitted with complaint shortness of breath and chest, patient still complains shortness was better than when he arrived, patient is present in the room. currently patient denies any chest pain or palpitation fever or chills Review of Systems Review of Systems: All systems reviewed & are unremarkable except as noted in HPI and below Exam Narrative: Exam Narrative: elderly frail is generalized edema Patient is comfortable, NAD HEENT: eyes are clear and none icteric LUNGS: bilateral fair entry with rales and rhonchi HEART: RR S1S2 ABD: BS+, Soft and nontender Lower extremities: edema SKIN: nonjaundiced Neuro: grossly intact. Objective Data Vital Signs Vital Signs: Vital Signs - 24 hr 08/23/20 16:00 08/23/20 20:00 08/23/20 20:39 Temperature 99.5 F 98.8 F Pulse Rate 68 67 68 Respiratory Rate 18 20 Blood Pressure 133/54 L 127/70 Pulse Oximetry 92 95 08/23/20 21:36 08/24/20 00:00 08/24/20 06:53 Temperature 97.8 F Pulse Rate 61 6
--- NOTE | 2020-08-24 13:27 | PM.PNNEP ---
Progress Note: A&P Assessment and Plan (1) Chronic kidney disease, stage 5: Code(s): N18.5 - Chronic kidney disease, stage 5 Status: Acute Assessment and Plan: the patient has CKD stage 5. he has nausea now and has had nausea for the last few days he says now. He feels weak. We discussed the situation. His creatinine continues to rise and he is volume overloaded. If we give him fluid then his breathing will get worse. If give diuretics as BUN and creatinine will be worsen his symptoms will worsen as well. I think it is time to start dialysis. I do not think that he is going to be able to wait until the fistula is ready, because that will probably be at least another 2 or 3 months. So I suggested that we put a dialysis catheter in and start dialysis and then set him up at an outpatient facility. We discussed the risks, benefits, alternatives, and process of dialysis. He agrees to proceed. (2) CHF (congestive heart failure), NYHA class I: Qualifiers: Congestive heart failure type: unspecified Qualified Code(s): I50.9 - Heart failure, unspecified Code(s): I50.9 - Heart failure, unspecified Status: Chronic Assessment and Plan: The patient has a history of congestive heart failure. will continue his outpatient diuretic regimen. We will remove fluid with dialysis. (3) Sleep apnea: Qualifiers: Sleep apnea type: obstructive Qualified Code(s): G47.33 - Obstructive sleep apnea (adult) (pediatric) Code(s): G47.30 - Sleep apnea, unspecified Status: Chronic (4) Diabetes: Qualifiers: Diabetes mellitus type: type 2 Diabetes mellitus terminal worker insulin use: with terminal worker use Diabetes mellitus complication status: with kidney complications Diabetes mellitus complication detail: with chronic kidney disease Chronic kidney disease stage: stage 4 (severe) Qualified Code(s): E11.22 - Type 2 diabetes mellitus with diabetic chronic kidney disease; N18.4 - Chronic kidney disease, stage 4 (severe); Z79.4 - USP (current) use of insulin Code(s): E11.9 - Type 2 diabetes mellitus without complications Status: Chronic Assessment and Plan: He is on Accu-Cheks and sliding-scale insulin (5) Hypertension: Qualifiers: Hypertension type: essential hypertension Qualified Code(s): I10 - Essential (primary) hypertension Code(s): I10 - Essential (primary) hypertension Status: Chronic Assessment and Plan: His blood pressure is a little bit on the high side. He is on carvedilol, and amlodipine. This may come down with fluid removal (6) Erythropoietin deficiency anemia: Code(s): D63.1 - Anemia in chronic kidney disease Status: Acute Assessment and Plan: Will go ahead and start Epogen to continue his JUSTIN regimen Subjective Date/time seen: 08/24/20 13:27 Interval history: Patient still has nausea. He is mildly short of breath when he lays down flat. His is in the room. Review of Systems Cardiovascular: Cardiovascular: Reports no additional cardiovascular complaints Respiratory: Respiratory: Reports no additional respiratory complaints Gastrointestinal: Gastrointestinal: Reports no additional gastrointestinal complaints Genitourinary: Genitourinary: Reports no additional male genitourinary complaints Exam Narrative: Exam Narrative: WDWN in NAD skin no rash head ncat lungs few crackles at the bases and decreased breath sounds as well cor reg no rub abd BS+ nontender and soft ext Trace edema. Objective Data Vital Signs Vital Signs: Vital Signs - 24 hr 08/23/20 16:00 08/23/20 20:00 08/23/20 20:39 Temperature 37.5 C 37.1 C Pulse Rate 68 67 68 Respiratory Rate 18 20 Blood Pressure 133/54 L 127/70 Pulse Oximetry 92 95 08/23/20 21:36 08/24/20 00:00 08/24/20 06:53 Temperature 36.6 C Pulse Rate 61 64 Respiratory Rate
[2020-08-24 15:33] LABS: Hepatitis B Surface Anti Res Negative; Hepatitis C Virus Antibody Negative (Negative)
[2020-08-24 16:31] LABS: Hepatitis B Surface Antigen Negative (Negative)
[2020-08-24 16:47] LABS: Glucose Point of Care 164 (65-105)
[2020-08-24] MEDS: INSULIN GLARGINE (*BKC) 100 UNITS/ML 33 UNITS SUB-Q (22:00)
[2020-08-25] VITALS (13 sets, daily range): BP systolic 120–148; BP diastolic 63–71; PULSE 60–76; RESP 17–20; TEMP 36.1–36.9; O2SAT 91–98
[2020-08-25 00:13] LABS: Glucose Point of Care 153 (65-105)
[2020-08-25 06:46] LABS: Hemoglobin 7.2 g/dL (14.0-18.0); Mean Corpuscular Hemoglobin 30.1 pg (26-34); Mean Corpuscular Volume 100.4 fl (80-100); Mean Platelet Volume 12.2 fl (7.4-10.4); Platelet Count Result 281 k/mm3 (150-375); Red Blood Count 2.39 M/mm3 (4.6-6.20); Red Cell Distribution Width 19.9 % (11.5-14.5); White Blood Count 4.4 K/mm3 (4.5-10.0)
[2020-08-25] MEDS: hydrALAZINE HCL 25 MG TABLET PO ×3 (06:59→21:20)
[2020-08-25 07:09] LABS: Albumin Level 3.1 g/dL (3.5-5.1); Anion Gap 8 mmol/L (8-16); Blood Urea Nitrogen 55 mg/dL (9-20); Calcium 7.8 mg/dL (8.4-10.2); Carbon Dioxide 25 mmol/L (22-30); Chloride 106 mmol/L (98-107); Estimated CRCL calculation 10 ml/min; Estimated Glomerular Filt Rate 8; Glucose 114 mg/dL (75-110); Phosphorus 5.7 mg/dL (2.5-4.5); Potassium 4.3 mmol/L (3.4-5.0); Sodium 139 mmol/L (137-145)
[2020-08-25] MEDS: TAMSULOSIN HCL 0.4 MG CAPSULE PO ×2 (07:38→21:19)
[2020-08-25] MEDS: SODIUM BICARBONATE TAB 650 MG TABLET PO ×2 (07:39→17:07)
[2020-08-25] MEDS: RANOLAZINE 500 MG TAB.ER.12H PO ×2 (07:39→21:19)
[2020-08-25] MEDS: ISOSORBIDE MONONITRATE 60 MG TAB.ER.24H 120 MG PO (07:39)
[2020-08-25] MEDS: FAMOTIDINE 20 MG TABLET PO (07:39)
[2020-08-25] MEDS: FUROSEMIDE 80 MG TABLET BY MOUTH (07:39)
[2020-08-25] MEDS: polyethylene glycoL 3350 17 GM POWD.PACK PO (07:40)
[2020-08-25] MEDS: THERAPEUTIC MULTIVITAMINS/MINERALS TAB (*BKC) 1 TABLET PO (07:40)
[2020-08-25] MEDS: amLODIPine BESYLATE 5 MG TABLET 10 MG PO (07:40)
[2020-08-25] MEDS: DICLOFENAC SODIUM 1% 100 GM GEL (*BKC) 1 APPLIC TOPICAL ×4 (07:40→21:18)
[2020-08-25] MEDS: ATORVASTATIN 40 MG TABLET 80 MG PO (07:41)
[2020-08-25] MEDS: carvediloL 25 MG TABLET PO ×2 (07:41→21:19)
[2020-08-25] MEDS: DOCUSATE SODIUM 100 MG CAPSULE 200 MG BY MOUTH ×2 (07:43→21:21)
[2020-08-25 08:56] LABS: Glucose Point of Care 106 (65-105)
[2020-08-25] MEDS: ALBUTEROL SULFATE (*SP) INHALER 2 PUFF INHALATION ×2 (09:02→20:54)
[2020-08-25 12:05] LABS: Glucose Point of Care 206 (65-105)
[2020-08-25] MEDS: ONDANSETRON INJ 4 MG/2 ML VIAL IV PUSH (13:45)
--- NOTE | 2020-08-25 14:10 | P.PNIM_ITS ---
Progress Note: A&P Assessment and Plan (1) Hypoxia: Code(s): R09.02 - Hypoxemia Status: Acute Assessment and Plan: * Patient with CAD, CHF, CKD presents for evaluation of low O2 saturations at home and shortness of breath. * Suspect his hypoxia and shortness of breath may be secondary to fluid overload vs. pneumonia vs. both. VQ shows low probability for PE and LE dopplers negative for DVT. Seen by cardiology for EKG changes and chronic intermittent chest pain - trops are negative and no ACS suspected. * He does not wear O2 at home. Still desaturating today when oxygen wean attempted. Continue supplemental O2 and wean as tolerated to keep O2 saturations > 90%. * Shortness of breath improved per patient; hypoxia may improve after he can get dialyzed. If not, will perform home O2 eval closer to discharge. (2) CKD stage 5 due to type 2 diabetes mellitus: Code(s): E11.22 - Type 2 diabetes mellitus with diabetic chronic kidney disease; N18.5 - Chronic kidney disease, stage 5 Status: Acute Assessment and Plan: * Sonogram shows evidence consistent with medical renal disease; may be mostly secondary to HTN and DM. * Follows with nephrology at the [facility]. Left upper extremity fistula new 2 weeks ago, reports he needs a 2nd procedure in 1 week. * Unfortunately at this time requires hemodialysis. As his fistula is not yet mature, Dr Cason recommends tunneled dialysis catheter placement for dialysi s while inpatient here at [facility]. * Appreciate further recommendations from general surgery for catheter placement and from Dr Cason for management of renal failure. * Cr 6.7 this AM. Monitor renal function. (3) Congestive heart failure: Qualifiers: Heart failure chronicity: unspecified Heart failure type: unspecified Qualified Code(s): I50.9 - Heart failure, unspecified Code(s): I50.9 - Heart failure, unspecified Status: Acute Assessment and Plan: * Patient with significant CAD; a bit fluid overloaded and my be contributing to hypoxia and SOB. Hopefully dialysis will help. * Monitor I&Os, daily weights. Continue beta-blockade and oral lasix. (4) Coronary artery disease: Qualifiers: Coronary Disease-Associated Artery/Lesion type: [place] artery [place] vs. transplanted heart: [place] heart Associated angina: with unspecified angina Qualified Code(s): I25.119 - Atherosclerotic heart disease of [place] coronary a rtery with unspecified angina pectoris Code(s): I25.10 - Atherosclerotic heart disease of [place] coronary artery without angina pectoris Status: Chronic Assessment and Plan: * With long history of intermittent angina; history of CABG in 1999 and coronary stenting in 2018. Continue his home regimen with imdur and ranexa. Follows with cardiology at the [facility]. * Stable today with no chest pain. Continue to monitor. Will hold this evening's dose of Plavix with anticipation of possible dialysis catheter placement. (5) Anemia: Qualifiers: Anemia type: unspecified type Qualified Code(s): D64.9 - Anemia, unspecified Code(s): D64.9 - Anemia, unspecified Status: Chronic Assessment and Plan: * H&H low; no evidence of acute bleeding. Suspect related to chronic kidney disease. Will get Epo with dialysis. 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
--- NOTE | 2020-08-25 14:10 | PM.IMPN ---
Progress Note: A&P Assessment and Plan (1) Hypoxia: Code(s): R09.02 - Hypoxemia Status: Acute Assessment and Plan: Patient with CAD, CHF, CKD presents for evaluation of low O2 saturations at home and shortness of breath. Suspect his hypoxia and shortness of breath may be secondary to fluid overload vs. pneumonia vs. both. VQ shows low probability for PE and LE dopplers negative for DVT. Seen by cardiology for EKG changes and chronic intermittent chest pain - trops are negative and no ACS suspected. He does not wear O2 at home. Still desaturating today when oxygen wean attempted. Continue supplemental O2 and wean as tolerated to keep O2 saturations > 90%. Shortness of breath improved per patient; hypoxia may improve after he can get dialyzed. If not, will perform home O2 eval closer to discharge. (2) CKD stage 5 due to type 2 diabetes mellitus: Code(s): E11.22 - Type 2 diabetes mellitus with diabetic chronic kidney disease; N18.5 - Chronic kidney disease, stage 5 Status: Acute Assessment and Plan: Sonogram shows evidence consistent with medical renal disease; may be mostly secondary to HTN and DM. Follows with nephrology at the [facility]. Left upper extremity fistula new 2 weeks ago, reports he needs a 2nd procedure in 1 week. Unfortunately at this time requires hemodialysis. As his fistula is not yet mature, Dr Cason recommends tunneled dialysis catheter placement for dialysis while inpatient here at [facility]. Appreciate further recommendations from general surgery for catheter placement and from Dr Cason for management of renal failure. Cr 6.7 this AM. Monitor renal function. (3) Congestive heart failure: Qualifiers: Heart failure chronicity: unspecified Heart failure type: unspecified Qualified Code(s): I50.9 - Heart failure, unspecified Code(s): I50.9 - Heart failure, unspecified Status: Acute Assessment and Plan: Patient with significant CAD; a bit fluid overloaded and my be contributing to hypoxia and SOB. Hopefully dialysis will help. Monitor I&Os, daily weights. Continue beta-blockade and oral lasix. (4) Coronary artery disease: Qualifiers: Coronary Disease-Associated Artery/Lesion type: [place] artery [place] vs. transplanted heart: [place] heart Associated angina: with unspecified angina Qualified Code(s): I25.119 - Atherosclerotic heart disease of [place] coronary artery with unspecified angina pectoris Code(s): I25.10 - Atherosclerotic heart disease of [place] coronary artery without angina pectoris Status: Chronic Assessment and Plan: With long history of intermittent angina; history of CABG in 1999 and coronary stenting in 2018. Continue his home regimen with imdur and ranexa. Follows with cardiology at the [facility]. Stable today with no chest pain. Continue to monitor. Will hold this evening's dose of Plavix with anticipation of possible dialysis catheter placement. (5) Anemia: Qualifiers: Anemia type: unspecified type Qualified Code(s): D64.9 - Anemia, unspecified Code(s): D64.9 - Anemia, unspecified Status: Chronic Assessment and Plan: H&H low; no evidence of acute bleeding. Suspect related to chronic kidney disease. Will get Epo with dialysis. 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
--- NOTE | 2020-08-25 14:56 | PM.PNNEP ---
Progress Note: A&P Assessment and Plan (1) Chronic kidney disease, stage 5: Code(s): N18.5 - Chronic kidney disease, stage 5 Status: Acute Assessment and Plan: the patient has CKD stage 5. he is NPO right now and will get a tunneled dialysis catheter in whenever surgery can do it. he will get dialysis starting tomorrow. He would like to go to [facility]. Case management is working on this. (2) CHF (congestive heart failure), NYHA class I: Qualifiers: Congestive heart failure type: unspecified Qualified Code(s): I50.9 - Heart failure, unspecified Code(s): I50.9 - Heart failure, unspecified Status: Chronic Assessment and Plan: The patient has a history of congestive heart failure. will continue his outpatient diuretic regimen. 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 We will remove fluid with dialysis. (3) Sleep apnea: Qualifiers: Sleep apnea type: obstructive Qualified Code(s): G47.33 - Obstructive sleep apnea (adult) (pediatric) Code(s): G47.30 - Sleep apnea, unspecified Status: Chronic (4) Diabetes: Qualifiers: Diabetes mellitus type: type 2 Diabetes mellitus m[facility] insulin use: with watermelon inspector use Diabetes mellitus complication status: with kidney complications Diabetes mellitus complication detail: with chronic kidney disease Chronic kidney disease stage: stage 4 (severe) Qualified Code(s): E11.22 - Type 2 diabetes mellitus with diabetic chronic kidney disease; N18.4 - Chronic kidney disease, stage 4 (severe); Z79.4 - watermelon inspector (current) use of insulin Code(s): E11.9 - Type 2 diabetes mellitus without complications Status: Chronic Assessment and Plan: He is on Accu-Cheks and sliding-scale insulin (5) Hypertension: Qualifiers: Hypertension type: essential hypertension Qualified Code(s): I10 - Essential (primary) hypertension Code(s): I10 - Essential (primary) hypertension Status: Chronic Assessment and Plan: His blood pressure is up and down. (6) Erythropoietin deficiency anemia: Code(s): D63.1 - Anemia in chronic kidney disease Status: Acute Assessment and Plan: Will go ahead and start Epogen to continue his JUSTIN regimen Subjective Date/time seen: 08/25/20 14:56 Interval history: Patient Is about the same. Poor appetite. No chest pain. He gets short of breath if he walks much. He is on some oxygen. Review of Systems Constitutional: Constitutional: Reports no additional constitutional complaints Eyes: Eyes: Reports no additional eye complaints ENT: Reports system reviewed and no additional complaints, except as documented Cardiovascular: Cardiovascular: Reports no additional cardiovascular complaints Respiratory: Respiratory: Reports no additional respiratory complaints Gastrointestinal: Gastrointestinal: Reports no additional gastrointestinal complaints Genitourinary: Genitourinary: Reports no additional male genitourinary complaints Musculoskeletal: Musculoskeletal: Reports no additional musculoskeletal complaints Integumentary/Breasts: Skin/Breast: Reports system reviewed and no additional complaints, except as docu Neurologic: Reports system reviewed and no additional complaints, except as documented Psychiatric: Psychiatric: Reports no additional psychiatric complaints Endocrine: Endocrine: Reports no additional endocrine complaints Exam Narrative: Exam Narrative: WDWN in NAD skin no rash Or subcu nodules head ncat lungs few crackles at the bases and decreased breath sounds as well cor reg no rub or gallop abd BS+ nontender and soft ext Trace edema. Objective Data Vital Signs Vital Signs: Vital Signs - 24 hr 08/24/20 16:00 08/24/20 19:34 08/24/20 20:00 Temperature Pulse Rate 71 68 Respiratory Rate 20 Blood Pressure Puls
--- NOTE | 2020-08-25 15:07 | PCOTNOTE ---
On 08/25/20, the student, Shanice Arredondo, provided care and completed [facility] documentation on this patient. I have reviewed the student's documentation and agree with the findings.
[2020-08-25] MEDS: EPOETIN ALFA-EPBX 10,000 UNITS/ML VIAL 10000 UNITS SUB-Q (18:09)
[2020-08-25 18:14] LABS: Glucose Point of Care 175 (65-105)
--- NOTE | 2020-08-25 18:34 | WPDANESEPP ---
Anes - Eval Pre Procedure Procedure: Insertion of dialysis catheter Date/Time: 08/25/20 18:34 Surgeon: Blas Preop Diagnosis: Stage 5 ESRD Pre Op Diagnosis: Hyperkalemia, pneumonia, COVID PUI Patient Data Age: 79 Gender: M Height: 5 ft 8 in Weight: 94.3 kg Last Vital Signs Temp 98.0 F 08/25/20 14:00 Pulse 66 08/25/20 16:00 Resp 20 08/25/20 14:00 BP 120/63 08/25/20 14:00 Pulse Ox 97 08/25/20 14:00 Allergies Allergy/AdvReac Type Severity Reaction Status Date / Time Iodinated Contrast Media Allergy Severe Anaphylaxis Verified 08/22/20 18:18 iodine Allergy Unknown Hives Verified 08/22/20 18:18 niacin Allergy Unknown Fever Verified 08/22/20 18:18 latex AdvReac Rash Verified 08/22/20 18:18 Contrast Media Allergy Severe Anaphylaxis Uncoded 08/22/20 18:18 Home Medications Medication Instructions Recorded Confirmed Type Centrum Men 1 tablet PO DAILY 02/24/20 08/22/20 History albuterol sulfate 2 puff INHALATION BID 02/24/20 08/22/20 History amlodipine 10 mg PO DAILY 02/24/20 08/23/20 History aspirin 81 mg PO DAILY 02/24/20 08/22/20 History atorvastatin 80 mg PO DAILY 02/24/20 08/23/20 History carvedilol [Coreg] 25 mg PO Q12H 02/24/20 08/23/20 History clopidogrel [Plavix] 75 mg PO HS 02/24/20 08/22/20 History diclofenac sodium 2 g TOPICAL QID 02/24/20 08/23/20 History furosemide 80 mg PO DAILY 02/24/20 08/23/20 History insulin aspart U-100 [Novolog See Rx Instructions .ROUTE .COMPLEX 02/24/20 08/23/20 History U-100 Insulin aspart] nitroglycerin 0.4 mg SUBLINGUAL Q5-15M PRN 02/24/20 08/22/20 History tamsulosin 0.4 mg PO BID 02/24/20 08/23/20 History insulin glargine [Lantus U-100 33 unit SUBCUT HS 08/22/20 08/23/20 History Insulin] camphor-menthol 1 applic TOPICAL TID PRN 08/23/20 08/23/20 History cetirizine [Allergy Relief 10 mg PO DAILY PRN 08/23/20 08/24/20 History (cetirizine)] clotrimazole [Antifungal 1 applic TOPICAL BID 08/23/20 08/23/20 History (clotrimazole)] darbepoetin fior in polysorbat 300 mcg SUBCUT [id number] 08/23/20 08/23/20 History docusate sodium 100 mg PO TID PRN 08/23/20 08/24/20 History famotidine 40 mg PO BID 08/23/20 08/23/20 History hydralazine 25 mg PO TID 08/23/20 08/23/20 History isosorbide mononitrate 120 mg PO DAILY 08/23/20 08/23/20 History meclizine 25 mg PO DAILY PRN 08/23/20 08/23/20 History ranolazine 500 mg PO Q12H 08/23/20 08/23/20 History sodium bicarbonate 650 mg PO BID 08/23/20 08/23/20 History triamcinolone acetonide 1 applic TOPICAL BID PRN 08/23/20 08/23/20 History polyethylene glycol 3350 [Miralax] 17 g PO DAILY 08/24/20 08/24/20 History Laboratory Tests 08/24/20 08/25/20 08/25/20 21:56 06:20 06:20 WBC 4.4 K/mm3 L K/mm3 (4.5-10.0) RBC 2.39 M/mm3 L M/mm3 (4.6-6.20) Hgb 7.2 g/dL L g/dL (14.0-18.0) Hct 24.0 % L % (42.0-52.0) MCV 100.4 fl H fl (80-100) MCH 30.1 pg pg (26-34) MCHC 30.0 g/dl L g/dl (32-36) RDW 19.9 % H % (11.5-14.5) Plt Count 281 k/mm3 k/mm3 (150-375) MPV 12.2 fl H fl (7.4-10.4) Sodium 139 mmol/L mmol/L (137-145) Potassium 4.3 mmol/L mmol/L (3.4-5.0) Chloride 106 mmol/L mmol/L (98-107) Carbon Dioxide 25 mmol/L mmol/L (22-30) Anion Gap 8 mmol/L mmol/L (8-16) BUN 55 mg/dL H mg/dL (9-20) Creatinine 6.70 mg/dL H mg/dL (0.7-1.3) Estim Creat Clear Calc 10 ml/min ml/min Estimated GFR 8 L (59 - ) Glucose 114 mg/dL H mg/dL (75-110) POC Capillary Glucose 153 mg/dl H mg/dl (65-105) Calcium 7.8 mg/dL L mg/dL (8.4-10.2) Phosphorus 5.7 mg/dL H mg/dL (2.5-4.5) Albumin 3.1 g/dL L g/dL (3.5-5.1) 08/25/20 08/25/20 08/25/20 07:36 12:00 17:06 WBC RBC Hgb Hct MCV MCH MCHC RDW
[2020-08-25] MEDS: INSULIN GLARGINE (*BKC) 100 UNITS/ML 33 UNITS SUB-Q (21:16)
[2020-08-25] MEDS: CLOPIDOGREL BISULFATE 75 MG TABLET PO (21:18)
[2020-08-25] MEDS: MICONAZOLE NITRATE 2% CREAM 30 GM TUBE 1 APPLIC TOPICAL (21:22)
[2020-08-25 21:44] LABS: Glucose Point of Care 199 (65-105)
[2020-08-26] VITALS (28 sets, daily range): BP systolic 136–194; BP diastolic 55–91; PULSE 62–78; RESP 14–18; TEMP 36.1–37.2; O2SAT 94–100
--- NOTE | 2020-08-26 03:05 | PM.CNGS ---
Assessment and Plan Assessment and plan (1) Renal failure: Code(s): N19 - Unspecified kidney failure Status: Acute Assessment and Plan: will setup for HD access, dw pt and wishes to proceed (2) Community acquired pneumonia: Code(s): J18.9 - Pneumonia, unspecified organism Status: Suspected Assessment and Plan: cont abx per primary team, seems improved (3) Congestive heart failure: Qualifiers: Heart failure chronicity: unspecified Heart failure type: unspecified Qualified Code(s): I50.9 - Heart failure, unspecified Code(s): I50.9 - Heart failure, unspecified Status: Acute Assessment and Plan: stable, mgmt per primary team (4) Diabetes: Qualifiers: Diabetes mellitus type: type 2 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: with penitentiary use Diabetes mellitus complication status: with kidney complications Diabetes mellitus complication detail: with chronic kidney disease Chronic kidney disease stage: stage 4 (severe) Qualified Code(s): E11.22 - Type 2 diabetes mellitus with diabetic chronic kidney disease; N18.4 - Chronic kidney disease, stage 4 (severe); Z79.4 - [facility] (current) use of insulin Code(s): E11.9 - Type 2 diabetes mellitus without complications Status: Chronic Assessment and Plan: stable, mgmt per primary team (5) Coronary artery disease: Qualifiers: Coronary Disease-Associated Artery/Lesion type: [place] artery [place] vs. transplanted heart: [place] heart Associated angina: with unspecified angina Qualified Code(s): I25.119 - Atherosclerotic heart disease of [place] coronary artery with unspecified angina pectoris Code(s): I25.10 - Atherosclerotic heart disease of [place] coronary artery without angina pectoris Status: Chronic Assessment and Plan: stable History of Present Illness Consult details Consult date: 08/26/20 Reason for consult: other (renal failure) Requesting physician: Joe Cason MD Narrative: Pt is a 79 y/o M c multiple med issues including CHF, CAD, DM, CRF presenting c SOB and PNA. Pt has been stabilized from pulmonary standpoint. Pt noted to have acute on chronic renal failure now necessitating the need for acute hemodialysis. Review of Systems Constitutional: Constitutional: Reports body ache(s), Denies chills, Reports fatigue, Denies fever(s), Denies headache(s), Reports lethargy, Reports malaise, Reports poor appetite and Reports weakness Eyes: Eyes: Reports no additional eye complaints ENT: Reports system reviewed and no additional complaints, except as documented Cardiovascular: Cardiovascular: Denies chest pain and Reports dyspnea on exertion Respiratory: Respiratory: Reports cough, Reports dyspnea and Reports dyspnea on exertion Gastrointestinal: Gastrointestinal: Reports no additional gastrointestinal complaints Genitourinary: Genitourinary: Reports no additional male genitourinary complaints Musculoskeletal: Musculoskeletal: Reports no additional musculoskeletal complaints Integumentary/Breasts: Skin/Breast: Reports system reviewed and no additional complaints, except as docu Neurologic: Reports system reviewed and no additional complaints, except as documented Psychiatric: Psychiatric: Reports no additional psychiatric complaints Endocrine: Endocrine: Reports no additional endocrine complaints Hematologic/Lymphatic: Hematologic/Lymphatic: Reports no additional hematologic/lymphatic complaints Allergic/Immunologic: Allergic/Immunologic: Reports no additional allergic/immunologic complaints PMFSH Past Medical History Medical History Acute angina Acute hyperkalemia Anemia Angina at rest BPH (benign prostatic hyperplasia) CHF (congestive heart failure), NYHA class I Chronic kidney disease, stage 5 CKD stage 5 due to type 2 diabetes mellitus Community acquired pneumonia Conges
[2020-08-26 04:57] LABS: Hematocrit 23.4 % (42.0-52.0); Hemoglobin 7.1 g/dL (14.0-18.0); Mean Corpuscular HGB Conc 30.3 g/dl (32-36); Mean Corpuscular Hemoglobin 30.3 pg (26-34); Mean Platelet Volume 11.9 fl (7.4-10.4); Platelet Count Result 273 k/mm3 (150-375); Red Blood Count 2.34 M/mm3 (4.6-6.20); Red Cell Distribution Width 20.3 % (11.5-14.5); White Blood Count 4.1 K/mm3 (4.5-10.0)
[2020-08-26 05:04] LABS: INR 1.2; Prothrombin Time 14.6 Seconds (11.1-14.7)
[2020-08-26 05:23] LABS: Albumin Level 3.1 g/dL (3.5-5.1); Anion Gap 8 mmol/L (8-16); Blood Urea Nitrogen 52 mg/dL (9-20); Calcium 7.8 mg/dL (8.4-10.2); Carbon Dioxide 25 mmol/L (22-30); Chloride 105 mmol/L (98-107); Estimated CRCL calculation 10 ml/min; Estimated Glomerular Filt Rate 8; Glucose 139 mg/dL (75-110); Magnesium 2.1 mg/dL (1.6-2.3); Phosphorus 5.7 mg/dL (2.5-4.5); Potassium 4.1 mmol/L (3.4-5.0); Sodium 138 mmol/L (137-145)
[2020-08-26] MEDS: hydrALAZINE HCL 25 MG TABLET PO ×3 (05:33→22:14)
--- NOTE | 2020-08-26 07:58 | WPDHPUPDATE1 ---
History and Physical Update Update Date/Time: 08/26/20 07:58 History and Physical has been reviewed, including an updated exam of the patient. There are NO changes in the patient's condition. Risks, benefits, and alternatives have been discussed and questions answered. Patient agrees to proceed with procedure.
--- NOTE | 2020-08-26 08:13 | WPDANESEFPP ---
Anes - Eval Final PreProcedure Day of Procedure 08/26/20 08:13 Patient weight: obese Heart: regular rate and rhythm Lungs: clear to auscultation and normal air movement Airway: Mallampati scale class II Neurological: alert and oriented Last oral intake: >/= 8 hours ASA classification: IV Emergent: no Anesthetic plan: proceed Anesthesia type and monitoring: general GIVS and standard monitoring Informed Consent: The patient's anesthetic plan and its attendant risks and benefits were discussed with the patient/family/POA. Questions were solicited and answers provided to the satisfaction of the patient/family/POA.
[2020-08-26] MEDS: LIDO 1%/EPINEPHRINE 1:100,000 20 ML VIAL INFILTRATE (08:55)
[2020-08-26] MEDS: SODIUM CHLORIDE 0.9% IV 1,000 ML 30 ML IV CONT (09:01)
--- NOTE | 2020-08-26 09:03 | P.OP_ITS ---
Procedure Note - Detailed Date of procedure: 08/26/20 Pre-op diagnosis: Hyperkalemia, pneumonia, COVID PUI renal failure Post-op diagnosis: same Procedure performed: placement of RIJ tunneled HD catheter 28 cm under both U/S and fluroscopic guidance Description of procedure: Patient was taken to the operating room and placed in the supine position. After adequate induction of laryngeal mask anesthesia, the patient was prepped and draped in normal sterile fashion. A time-out was then done to verify the patient's identity as well as the procedure being performed. I began by using the SonoSite and locating the right internal jugular vein. Once this was done, I localized the overlying skin. I then made a small incision in the skin. I then gained access into the right internal jugular vein with an 18 gauge needle under ultrasound guidance. At this point, I threaded the guidewire into the right internal jugular vein. Placement of the guidewire was confirmed by both ultrasound and fluoroscopic guidance. I then went ahead and measured the 28 cm tunneled dialysis catheter to our stick site in the right neck. I then localized the tract going from the right chest to the right neck. I then made a small incision in the right chest and tunneled the catheter to the right neck. I then serially dilated the right internal jugular vein under fluoroscopic guidance. Once adequately dilated, I placed d ilating sheath over the guidewire into the right internal jugular vein under fluoroscopic visualization. Once this was noted to be in good position, I removed both the guidewire and dilator, now just leaving the sheath in the vein. I then went ahead and fed the previously tunneled catheter into the sheath. Once the catheter was fed and positioned correctly, I went ahead and peeled the sheath away. Final fluoroscopic view showed the catheter in good position from its insertion point in the right chest to its termination in the right atrial caval junction. It was noted there was no kinking of the catheter. I was able to easily draw and flush from both ports of the catheter. I placed 2.2 and 2.3 cc of final heparin flush into each port as marked. The catheter was then sutured into place and the incision in the neck was closed with 4 O Monocryl subcuticular suture. The patient tolerated the procedure well and will be transferred to the recovery room in stable condition. Sterile dressing was placed on the catheter. Portable chest x-ray will be done in the recovery. Implants: 28 cm duraflow tunneled HD cath Anesthesia: GLMA Surgeon: Nurys Odonnell MD Estimated blood loss (mL): 10 Drains: No Packing: No Pathology: none sent Complications: No immediate complications Condition: stable Disposition: PACU Findings: first stick access in RIJ under U/S guidance
[2020-08-26] MEDS: HEPARIN SODIUM, PORCINE 10,000 UNITS/10 ML VIAL 5000 UNITS IRRIGATION (09:06)
[2020-08-26] MEDS: HEPARIN SOD FLUSH 500 UNITS/5 ML SYRINGE 10000 UNITS IV PUSH (09:08)
[2020-08-26 09:15] LABS: Glucose Point of Care 147 (65-105)
--- NOTE | 2020-08-26 09:15 | PCRCNOTE ---
pt did not receive AM inhaler/pt in surgery
--- NOTE | 2020-08-26 10:02 | PC.NURSE ---
Patient returned to floor from PACU at 0945 and was taken straight to dialysis treatment under care of dialysis nurse.
--- NOTE | 2020-08-26 11:26 | PM.PNNEP ---
Progress Note: A&P Assessment and Plan (1) Chronic kidney disease, stage 5: Code(s): N18.5 - Chronic kidney disease, stage 5 Status: Acute Assessment and Plan: the patient has CKD stage 5. He is starting dialysis today. He wants to go to [facility] for outpatient [facility]. (2) CHF (congestive heart failure), NYHA class I: Qualifiers: Congestive heart failure type: unspecified Qualified Code(s): I50.9 - Heart failure, unspecified Code(s): I50.9 - Heart failure, unspecified Status: Chronic Assessment and Plan: He will stay on diuretics for the alf until he stops making urine. We will remove fluid with dialysis. (3) Sleep apnea: Qualifiers: Sleep apnea type: obstructive Qualified Code(s): G47.33 - Obstructive sleep apnea (adult) (pediatric) Code(s): G47.30 - Sleep apnea, unspecified Status: Chronic (4) Diabetes: Qualifiers: Diabetes mellitus type: type 2 Diabetes mellitus oysterman insulin use: with oysterman use Diabetes mellitus complication status: with kidney complications Diabetes mellitus complication detail: with chronic kidney disease Chronic kidney disease stage: stage 4 (severe) Qualified Code(s): E11.22 - Type 2 diabetes mellitus with diabetic chronic kidney disease; N18.4 - Chronic kidney disease, stage 4 (severe); 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 (6) Erythropoietin deficiency anemia: Code(s): D63.1 - Anemia in chronic kidney disease Status: Acute Assessment and Plan: On Epogen Subjective Date/time seen: 08/26/20 11:26 Interval history: Patient Is about the same. The patient is on dialysis. He is tolerating it well so far. His blood pressure is well controlled. Review of Systems Cardiovascular: Cardiovascular: Reports no additional cardiovascular complaints Respiratory: Respiratory: Reports no additional respiratory complaints Gastrointestinal: Gastrointestinal: Reports no additional gastrointestinal complaints Genitourinary: Genitourinary: Reports no additional male genitourinary complaints Exam Narrative: Exam Narrative: WDWN in NAD skin no rash Or subcu nodules head ncat lungs few crackles at the bases cor reg no rub or gallop abd BS+ nontender and soft ext Trace edema. Objective Data Vital Signs Vital Signs: Vital Signs - 24 hr 08/25/20 12:00 08/25/20 14:00 08/25/20 16:00 Temperature 36.7 C Pulse Rate 60 66 66 Respiratory Rate 20 Blood Pressure 120/63 Pulse Oximetry 97 08/25/20 20:00 08/25/20 20:54 08/25/20 21:05 Temperature 36.1 C L Pulse Rate 70 68 Respiratory Rate 17 Blood Pressure 148/64 H Pulse Oximetry 98 96 96 08/25/20 21:19 08/26/20 00:00 08/26/20 04:00 Temperature 36.1 C L 36.1 C L Pulse Rate 69 71 63 Respiratory Rate 17 17 Blood Pressure 148/64 H 136/55 L Pulse Oximetry 98 100 08/26/20 05:41 08/26/20 09:01 08/26/20 09:15 Temperature 37.2 C 36.5 C Pulse Rate 65 70 66 Respiratory Rate 16 18 14 Blood Pressure 149/69 H 136/63 142/61 H Pulse Oximetry 96 100 96 08/26/20 09:25 08/26/20 09:38 08/26/20 09:53 Temperature 36.7 C Pulse Rate 64 65 66 Respiratory Rate 16 18 Blood Pressure 145/58 H 159/81 H 172/80 H Pulse Oximetry 97 08/26/20 10:00 08/26/20 10:15 08/26/20 10:30 Temperature Pulse Rate 65 64 68 Respiratory Rate Blood Pressure 188/79 H 175/84 H 179/86 H Pulse Oximetry 08/26/20 10:45
--- NOTE | 2020-08-26 11:52 | PCOTNOTE ---
OT treatment attempted x2 this date. Patient in procedure then in dialysis.
[2020-08-26 12:19] LABS: Glucose Point of Care 119 (65-105)
[2020-08-26] MEDS: RANOLAZINE 500 MG TAB.ER.12H PO ×2 (12:21→20:18)
[2020-08-26] MEDS: ATORVASTATIN 40 MG TABLET 80 MG PO (12:21)
[2020-08-26] MEDS: ISOSORBIDE MONONITRATE 60 MG TAB.ER.24H 120 MG PO (12:22)
[2020-08-26] MEDS: FUROSEMIDE 80 MG TABLET BY MOUTH (12:22)
[2020-08-26] MEDS: FAMOTIDINE 20 MG TABLET PO (12:22)
[2020-08-26] MEDS: ASPIRIN 81 MG CHEWABLE TABLET PO (12:24)
[2020-08-26] MEDS: amLODIPine BESYLATE 5 MG TABLET 10 MG PO (12:24)
[2020-08-26] MEDS: SODIUM BICARBONATE TAB 650 MG TABLET PO ×2 (12:24→17:27)
[2020-08-26] MEDS: THERAPEUTIC MULTIVITAMINS/MINERALS TAB (*BKC) 1 TABLET PO (12:24)
[2020-08-26] MEDS: carvediloL 25 MG TABLET PO ×2 (12:25→20:17)
[2020-08-26] MEDS: MENTHOL 10% / METHYL SALICYLATE 15% 57 GM TUBE 1 APPLIC TOPICAL (12:25)
[2020-08-26] MEDS: TAMSULOSIN HCL 0.4 MG CAPSULE PO ×2 (12:26→20:18)
[2020-08-26] MEDS: DICLOFENAC SODIUM 1% 100 GM GEL (*BKC) 1 APPLIC TOPICAL ×4 (12:28→20:13)
[2020-08-26] MEDS: DOCUSATE SODIUM 100 MG CAPSULE 200 MG BY MOUTH ×2 (12:29→20:22)
[2020-08-26] MEDS: MICONAZOLE NITRATE 2% CREAM 30 GM TUBE 1 APPLIC TOPICAL ×2 (12:29→20:12)
[2020-08-26] MEDS: polyethylene glycoL 3350 17 GM POWD.PACK PO (12:30)
--- NOTE | 2020-08-26 12:37 | PM.EVENT ---
Event Note Event Note Event Note: pt is on hd juan it well. seen at 11:15
--- NOTE | 2020-08-26 16:09 | PCPTNOTE ---
attempted to see pt for physical therapy today, pt was out of room for procedure and due to staffing was unable to try a second attempt.
--- NOTE | 2020-08-26 16:15 | P.PNIM_ITS ---
Progress Note: A&P Assessment and Plan (1) Hypoxia: Code(s): R09.02 - Hypoxemia Status: Acute Assessment and Plan: * Patient with CAD, CHF, CKD presents for evaluation of low O2 saturations at home and shortness of breath. * Suspect his hypoxia and shortness of breath may be secondary to fluid overload vs. pneumonia vs. both. VQ shows low probability for PE and LE dopplers negative for DVT. Seen by cardiology for EKG changes and chronic intermittent chest pain - trops are negative and no ACS suspected. * He does not wear O2 at home. Continue supplemental O2 and wean as tolerated to keep O2 saturations > 90%. (2) CKD stage 5 due to type 2 diabetes mellitus: Code(s): E11.22 - Type 2 diabetes mellitus with diabetic chronic kidney disease; N18.5 - Chronic kidney disease, stage 5 Status: Chronic Assessment and Plan: * Sonogram shows evidence consistent with medical renal disease; may be mostly secondary to HTN and DM. * Follows with nephrology at [facility] Left upper extremity fistula new 2 weeks ago, reports he needs a 2nd procedure in 1 week. * Tunneled dialysis catheter placed this AM. Tolerated first dialysis today. * Appreciate further recommendations from general surgery for catheter placement and from Dr Cason for management of renal failure. * Cr unchanged at 6.7 this AM. Monitor renal function. (3) Congestive heart failure: Qualifiers: Heart failure chronicity: unspecified Heart failure type: unspecified Qualified Code(s): I50.9 - Heart failure, unspecified Code(s): I50.9 - Heart failure, unspecified Status: Chronic Assessment and Plan: * Patient with significant CAD; a bit fluid overloaded and my be contributing to hypoxia and SOB. Hopefully dialysis will help. * Monitor I&Os, daily weights. Continue beta-blockade and oral lasix. (4) Coronary artery disease: Qualifiers: Coronary Disease-Associated Artery/Lesion type: [place] artery [place] vs. 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 Continue his home regimen with imdur and ranexa. Follows with [facility]ology at [facility]. * Stable today with no chest pain. Continue to monitor. Continue Plavix. (5) Anemia: Qualifiers: Anemia type: unspecified type Qualified Code(s): D64.9 - Anemia, unspecified Code(s): D64.9 - Anemia, unspecified Status: Chronic Assessment and Plan: * H&H low; no evidence of acute bleeding. Suspect related to chronic kidney disease. Getting Epo with dialysis. (6) Diabetes: Qualifiers: Diabetes mellitus type: type 2 Diabetes mellitus mcc insulin use: with mcc use Diabetes mellitus complication status: with kidney complications Diabetes mellitus complication detail: with chronic kidney disease Chronic kidney disease stage: stage 4 (severe) Qualified Code(s): E11.22 - Type 2 diabetes mellitus with diabetic chronic kidney disease; N18.4 - Chronic kidney disease, stage 4 (severe); Z79.4 - longterm (current) use of insulin
--- NOTE | 2020-08-26 16:15 | PM.IMPN ---
Progress Note: A&P Assessment and Plan (1) Hypoxia: Code(s): R09.02 - Hypoxemia Status: Acute Assessment and Plan: Patient with CAD, CHF, CKD presents for evaluation of low O2 saturations at home and shortness of breath. Suspect his hypoxia and shortness of breath may be secondary to fluid overload vs. pneumonia vs. both. VQ shows low probability for PE and LE dopplers negative for DVT. Seen by cardiology for EKG changes and chronic intermittent chest pain - trops are negative and no ACS suspected. He does not wear O2 at home. Continue supplemental O2 and wean as tolerated to keep O2 saturations > 90%. (2) CKD stage 5 due to type 2 diabetes mellitus: Code(s): E11.22 - Type 2 diabetes mellitus with diabetic chronic kidney disease; N18.5 - Chronic kidney disease, stage 5 Status: Chronic Assessment and Plan: Sonogram shows evidence consistent with medical renal disease; may be mostly secondary to HTN and DM. Follows with nephrology at the [facility]. Left upper extremity fistula new 2 weeks ago, reports he needs a 2nd procedure in 1 week. Tunneled dialysis catheter placed this AM. Tolerated first dialysis today. Appreciate further recommendations from general surgery for catheter placement and from Dr Cason for management of renal failure. Cr unchanged at 6.7 this AM. Monitor renal function. (3) Congestive heart failure: Qualifiers: Heart failure chronicity: unspecified Heart failure type: unspecified Qualified Code(s): I50.9 - Heart failure, unspecified Code(s): I50.9 - Heart failure, unspecified Status: Chronic Assessment and Plan: Patient with significant CAD; a bit fluid overloaded and my be contributing to hypoxia and SOB. Hopefully dialysis will help. Monitor I&Os, daily weights. Continue beta-blockade and oral lasix. (4) Coronary artery disease: Qualifiers: Coronary Disease-Associated Artery/Lesion type: [place] artery [place] vs. transplanted heart: [place] heart Associated angina: with unspecified angina Qualified Code(s): I25.119 - Atherosclerotic heart disease of [place] coronary artery with unspecified angina pectoris Code(s): I25.10 - Atherosclerotic heart disease of [place] coronary artery without angina pectoris Status: Chronic Assessment and Plan: With long history of intermittent angina; history of CABG in 2000 and coronary stenting in 2018. Continue his home regimen with imdur and ranexa. Follows with cardiology at the [facility]. Stable today with no chest pain. Continue to monitor. Continue Plavix. (5) Anemia: Qualifiers: Anemia type: unspecified type Qualified Code(s): D64.9 - Anemia, unspecified Code(s): D64.9 - Anemia, unspecified Status: Chronic Assessment and Plan: H&H low; no evidence of acute bleeding. Suspect related to chronic kidney disease. Getting Epo with dialysis. 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 Continue basal insulin regimen with SSI coverage. Monitor with accu-cheks and adjust treatment as needed. Blood sugars appropriate today. (7) Hypertension
[2020-08-26 18:03] LABS: Glucose Point of Care 169 (65-105)
[2020-08-26] MEDS: ALBUTEROL SULFATE (*SP) INHALER 2 PUFF INHALATION (19:34)
[2020-08-26] MEDS: ONDANSETRON INJ 4 MG/2 ML VIAL IV PUSH (20:10)
[2020-08-26] MEDS: CLOPIDOGREL BISULFATE 75 MG TABLET PO (20:19)
[2020-08-26] MEDS: INSULIN GLARGINE (*BKC) 100 UNITS/ML 33 UNITS SUB-Q (20:22)
[2020-08-26 20:30] LABS: Glucose Point of Care 195 (65-105)
[2020-08-27] VITALS (15 sets, daily range): BP systolic 138–175; BP diastolic 63–81; PULSE 59–71; RESP 16–18; TEMP 36.3–37; O2SAT 91–99
[2020-08-27 05:57] LABS: Hematocrit 22.6 % (42.0-52.0); Mean Corpuscular HGB Conc 30.5 g/dl (32-36); Mean Corpuscular Hemoglobin 30.5 pg (26-34); Mean Platelet Volume 12.5 fl (7.4-10.4); Platelet Count Result 266 k/mm3 (150-375); Red Blood Count 2.26 M/mm3 (4.6-6.20); Red Cell Distribution Width 19.7 % (11.5-14.5); White Blood Count 4.5 K/mm3 (4.5-10.0)
[2020-08-27 06:10] LABS: Hemoglobin 6.9 g/dL (14.0-18.0)
[2020-08-27 06:14] LABS: Albumin Level 3.1 g/dL (3.5-5.1); Anion Gap 9 mmol/L (8-16); Blood Urea Nitrogen 36 mg/dL (9-20); Calcium 7.6 mg/dL (8.4-10.2); Carbon Dioxide 29 mmol/L (22-30); Chloride 100 mmol/L (98-107); Estimated CRCL calculation 11 ml/min; Estimated Glomerular Filt Rate 10; Glucose 143 mg/dL (75-110); Phosphorus 4.6 mg/dL (2.5-4.5); Sodium 138 mmol/L (137-145)
[2020-08-27] MEDS: hydrALAZINE HCL 25 MG TABLET PO ×3 (06:33→21:00)
--- NOTE | 2020-08-27 08:53 | WPDANESPN ---
Anes - Prog Note Post-Op Date/Time: 08/27/20 08:53 Cardiovascular status: normal (hgb 6.9, but was not receiving blood when rounding. ) Respiratory status: normal Airway patency: baseline Mental status: baseline Post-Op hydration status: normal Vital Signs: Last Vital Signs Temp 37.0 C 08/27/20 06:00 Pulse 69 08/27/20 06:00 Resp 18 08/27/20 06:00 BP 156/81 H 08/27/20 06:00 Pulse Ox 92 08/27/20 06:00 Pain Score (VAS): 0 I/O: Intake & Output 08/26/20 08/27/20 08/27/20 23:59 07:59 15:59 Intake Total 580 400 Output Total 350 Balance 580 50 Laboratory Tests 08/27/20 05:30 08/27/20 05:30 08/26/20 08/26/20 08/26/20 09:13 12:17 17:45 WBC RBC Hgb Hct MCV MCH MCHC RDW Plt Count MPV Sodium Potassium Chloride Carbon Dioxide Anion Gap BUN Creatinine Estim Creat Clear Calc Estimated GFR Glucose POC Capillary Glucose 147 H 119 H 169 H Calcium Phosphorus Albumin Blood Type Antibody Screen Crossmatch 08/26/20 08/27/20 08/27/20 20:10 05:30 05:30 WBC 4.5 RBC 2.26 L Hgb 6.9 L* Hct 22.6 L MCV 100.0 MCH 30.5 MCHC 30.5 L RDW 19.7 H Plt Count 266 MPV 12.5 H Sodium 138 Potassium 4.0 Chloride 100 Carbon Dioxide 29 Anion Gap 9 BUN 36 H D Creatinine 5.70 H Estim Creat Clear Calc 11 Estimated GFR 10 L Glucose 143 H POC Capillary Glucose 195 H Calcium 7.6 L Phosphorus 4.6 H Albumin 3.1 L Blood Type Antibody Screen Crossmatch 08/27/20 06:34 WBC RBC Hgb Hct MCV MCH MCHC RDW Plt Count MPV Sodium Potassium Chloride Carbon Dioxide Anion Gap BUN Creatinine Estim Creat Clear Calc Estimated GFR Glucose POC Capillary Glucose Calcium Phosphorus Albumin Blood Type A Positive Antibody Screen Negative Crossmatch See Detail Post-procedural complaints: none Patient Feedback: Patient satisfied with anesthetic care.
[2020-08-27] MEDS: ATORVASTATIN 40 MG TABLET 80 MG PO (08:58)
[2020-08-27] MEDS: SODIUM BICARBONATE TAB 650 MG TABLET PO ×2 (08:58→18:06)
[2020-08-27] MEDS: FUROSEMIDE 80 MG TABLET BY MOUTH (08:59)
[2020-08-27] MEDS: amLODIPine BESYLATE 5 MG TABLET 10 MG PO (08:59)
[2020-08-27] MEDS: ISOSORBIDE MONONITRATE 60 MG TAB.ER.24H 120 MG PO (08:59)
[2020-08-27] MEDS: THERAPEUTIC MULTIVITAMINS/MINERALS TAB (*BKC) 1 TABLET PO (09:00)
[2020-08-27] MEDS: carvediloL 25 MG TABLET PO ×2 (09:00→20:58)
[2020-08-27] MEDS: ASPIRIN 81 MG CHEWABLE TABLET PO (09:00)
[2020-08-27] MEDS: FAMOTIDINE 20 MG TABLET PO (09:00)
[2020-08-27] MEDS: TAMSULOSIN HCL 0.4 MG CAPSULE PO ×2 (09:00→20:59)
[2020-08-27] MEDS: RANOLAZINE 500 MG TAB.ER.12H PO ×2 (09:00→20:59)
[2020-08-27] MEDS: polyethylene glycoL 3350 17 GM POWD.PACK PO (09:00)
[2020-08-27] MEDS: DICLOFENAC SODIUM 1% 100 GM GEL (*BKC) 1 APPLIC TOPICAL ×4 (09:01→20:57)
[2020-08-27] MEDS: DOCUSATE SODIUM 100 MG CAPSULE 200 MG BY MOUTH (09:01)
[2020-08-27] MEDS: MICONAZOLE NITRATE 2% CREAM 30 GM TUBE 1 APPLIC TOPICAL (09:02)
[2020-08-27] MEDS: VITAMIN B CMPLX/VIT C/FOLIC AC 1 CAPSULE 1 CAP PO (09:08)
[2020-08-27] MEDS: ONDANSETRON INJ 4 MG/2 ML VIAL IV PUSH (09:16)
[2020-08-27 09:39] LABS: Glucose Point of Care 114 (65-105)
--- NOTE | 2020-08-27 09:59 | P.PNIM_ITS ---
Progress Note: A&P Assessment and Plan (1) CKD stage 5 due to type 2 diabetes mellitus: Code(s): E11.22 - Type 2 diabetes mellitus with diabetic chronic kidney disease; N18.5 - Chronic kidney disease, stage 5 Status: Chronic Assessment and Plan: * Sonogram shows evidence consistent with medical renal disease; may be mostly secondary to HTN and DM. * Follows with nephrology at the [facility]. Left upper extremity fistula new 2 weeks ago, reports he needs a 2nd procedure in 1 week. * Tunneled dialysis catheter placed by Dr Odonnell 08/26. Tolerated first dialysis yesterday. * Appreciate further recommendations from Dr Cason for management of renal failure. * Cr 5.7 this AM. Monitor renal function. (2) Anemia: Qualifiers: Anemia type: unspecified type Qualified Code(s): D64.9 - Anemia, unspecified Code(s): D64.9 - Anemia, unspecified Status: Chronic Assessment and Plan: * H&H low - Hgb now down to 6.[address] Cason recommends holding off on blood transfusion at this time. No evidence of acute bleeding. * Suspect related to chronic kidney disease. Getting Epo with dialysis. * Discussed case with Dr Cason. Will recheck CBC in AM and consider transfusion if Hgb is trending down. (3) Hypoxia: Code(s): R09.02 - Hypoxemia Status: Resolved Assessment and Plan: * Patient with CAD, CHF, CKD presents for evaluation of low O2 saturations at home and shortness of breath. * Suspect his hypoxia and shortness of breath may be secondary to fluid overload vs. pneumonia vs. both. VQ shows low probability for PE and LE dopplers negative for DVT. Seen by cardiology for EKG changes and chronic intermittent chest pain - trops are negative and no ACS suspected. * He does not wear O2 at home. Tolerating room air today for the first day. Will monitor. (4) Congestive heart failure: Qualifiers: Heart failure chronicity: unspecified Heart failure type: unspecified Qualified Code(s): I50.9 - Heart failure, unspecified Code(s): I50.9 - Heart failure, unspecified Status: Chronic Assessment and Plan: * Monitor I&Os, daily weights. Continue beta-blockade and oral lasix. (5) Coronary artery disease: Qualifiers: Coronary Disease-Associated Artery/Lesion type: [place] artery [place] vs. 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 Continue his home regimen with imdur and ranexa. Follows with cardiology at the [facility]. * Stable today with no chest pain. Continue to monitor. Continue Plavix. (6) Diabetes: Qualifiers: Diabetes mellitus type: type 2 Diabetes mellitus half-way insulin use: with half-way use Diabetes mellitus complication status: with kidney complications Diabetes mellitus complication detail: with chronic kidney disease Chronic kidney disease stage: stage 4 (severe) Qualified Code(s): E11.22 - Type 2 diabetes mellitus with diabetic chronic kidney disease; N18.4 - Chronic kidney disease, stage 4 (severe); Z79.4 - [facility] (
--- NOTE | 2020-08-27 09:59 | PM.IMPN ---
Progress Note: A&P Assessment and Plan (1) CKD stage 5 due to type 2 diabetes mellitus: Code(s): E11.22 - Type 2 diabetes mellitus with diabetic chronic kidney disease; N18.5 - Chronic kidney disease, stage 5 Status: Chronic Assessment and Plan: Sonogram shows evidence consistent with medical renal disease; may be mostly secondary to HTN and DM. Follows with nephrology at the [facility]. Left upper extremity fistula new 2 weeks ago, reports he needs a 2nd procedure in 1 week. Tunneled dialysis catheter placed by Dr Odonnell 08/26. Tolerated first dialysis yesterday. Appreciate further recommendations from Dr Cason for management of renal failure. Cr 5.7 this AM. Monitor renal function. (2) Anemia: Qualifiers: Anemia type: unspecified type Qualified Code(s): D64.9 - Anemia, unspecified Code(s): D64.9 - Anemia, unspecified Status: Chronic Assessment and Plan: H&H low - Hgb now down to 6.[address] Cason recommends holding off on blood transfusion at this time. No evidence of acute bleeding. Suspect related to chronic kidney disease. Getting Epo with dialysis. Discussed case with Dr Csaon. Will recheck CBC in AM and consider transfusion if Hgb is trending down. (3) Hypoxia: Code(s): R09.02 - Hypoxemia Status: Resolved Assessment and Plan: Patient with CAD, CHF, CKD presents for evaluation of low O2 saturations at home and shortness of breath. Suspect his hypoxia and shortness of breath may be secondary to fluid overload vs. pneumonia vs. both. VQ shows low probability for PE and LE dopplers negative for DVT. Seen by cardiology for EKG changes and chronic intermittent chest pain - trops are negative and no ACS suspected. He does not wear O2 at home. Tolerating room air today for the first day. Will monitor. (4) Congestive heart failure: Qualifiers: Heart failure chronicity: unspecified Heart failure type: unspecified Qualified Code(s): I50.9 - Heart failure, unspecified Code(s): I50.9 - Heart failure, unspecified Status: Chronic Assessment and Plan: Monitor I&Os, daily weights. Continue beta-blockade and oral lasix. (5) Coronary artery disease: Qualifiers: Coronary Disease-Associated Artery/Lesion type: [place] artery [place] vs. transplanted heart: [place] heart Associated angina: with unspecified angina Qualified Code(s): I25.119 - Atherosclerotic heart disease of [place] coronary artery with unspecified angina pectoris Code(s): I25.10 - Atherosclerotic heart disease of [place] coronary artery without angina pectoris Status: Chronic Assessment and Plan: With long history of intermittent angina; history of CABG in 1999 and coronary stenting in 2018. Continue his home regimen with imdur and ranexa. Follows with cardiology at the [facility]. Stable today with no chest pain. Continue to monitor. Continue Plavix. 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 Continue basal insulin regimen with SSI coverage. Monitor with accu-cheks and adjust treatment as needed. Blood sugars appropriate today. (
--- NOTE | 2020-08-27 10:07 | PM.PNNEP ---
Progress Note: A&P Assessment and Plan (1) Chronic kidney disease, stage 5: Code(s): N18.5 - Chronic kidney disease, stage 5 Status: Acute Assessment and Plan: the patient has CKD stage 5. Started dialysis yesterday. 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 We will remove fluid with dialysis. (3) Sleep apnea: Qualifiers: Sleep apnea type: obstructive Qualified Code(s): G47.33 - Obstructive sleep apnea (adult) (pediatric) Code(s): G47.30 - Sleep apnea, unspecified Status: Chronic (4) Diabetes: Qualifiers: Diabetes mellitus type: type 2 Diabetes mellitus chcf insulin use: with truck terminal manager use Diabetes mellitus complication status: with kidney complications Diabetes mellitus complication detail: with chronic kidney disease Chronic kidney disease stage: stage 4 (severe) Qualified Code(s): E11.22 - Type 2 diabetes mellitus with diabetic chronic kidney disease; N18.4 - Chronic kidney disease, stage 4 (severe); Z79.4 - [facility] (current) use of insulin Code(s): E11.9 - Type 2 diabetes mellitus without complications Status: Chronic Assessment and Plan: He is on Accu-Cheks and sliding-scale insulin (5) Hypertension: Qualifiers: Hypertension type: essential hypertension Qualified Code(s): I10 - Essential (primary) hypertension Code(s): I10 - Essential (primary) hypertension Status: Chronic Assessment and Plan: His blood pressure is up and down. (6) Erythropoietin deficiency anemia: Code(s): D63.1 - Anemia in chronic kidney disease Status: Acute Assessment and Plan: On Epogen hemoglobin dropped to below 7 today. Transfusion was ordered but I asked that it be hold and we will see if Epogen helps. I can't figure out if iron saturations were ordered but his ferritin is relatively low so I am going to give him a dose of Venofer. Will check iron saturation in the morning. Check stool guaiacs if hemoglobin gets worse then we should transfuse him after all. Subjective Date/time seen: 08/27/20 10:07 Interval history: Patient Is about the same. Still has some intermittent nausea. Review of Systems Cardiovascular: Cardiovascular: Reports no additional cardiovascular complaints Respiratory: Respiratory: Reports no additional respiratory complaints Gastrointestinal: Gastrointestinal: Reports no additional gastrointestinal complaints Genitourinary: Genitourinary: Reports no additional male genitourinary complaints Exam Narrative: Exam Narrative: WDWN in NAD skin no rash Or subcu nodules head ncat lungs fewer crackles at the bases cor reg no rub or gallop abd BS+ nontender and soft ext Trace edema. Objective Data Vital Signs Vital Signs: Vital Signs - 24 hr 08/26/20 10:15 08/26/20 10:30 08/26/20 10:45 Temperature Pulse Rate 64 68 64 Respiratory Rate Blood Pressure 175/84 H 179/86 H 182/73 H Pulse Oximetry 08/26/20 11:00 08/26/20 11:15 08/26/20 11:30 Temperature Pulse Rate 72 66 68 Respiratory Rate Blood Pressure 191/86 H 181/87 H 166/89 H Pulse Oximetry 08/26/20 11:45 08/26/20 11:53 08/26/20 12:00 Temperature 36.8 C Pulse Rate 68 66 68 Respiratory Rate 18 Blood Pressure 166/89 H 172/79 H 194/91 H Pulse Oximetry 08/26/20 12:25 08/26/20 14:00 08/26/20 16:00 Temperature 36.4 C Pulse Rate 75 78 70 Respiratory Rate 16 Blood Pressure 173/64 H Pulse Oximetry 100 08/26/20 19:35 08/26/20 20:00 08/26/20 20:17 Temperature Puls
[2020-08-27 11:42] LABS: Iron 73 ug/dL (49-181)
[2020-08-27 11:52] LABS: Percent Iron Saturation 32 % (20-50)
[2020-08-27 12:24] LABS: Folic Acid > 20.0 ng/mL (2.76->20)
--- NOTE | 2020-08-27 12:44 | PCPTNOTE ---
hold PT today per RN due to pt having low hemoglobin and dizziness
[2020-08-27 13:09] LABS: Glucose Point of Care 142 (65-105)
[2020-08-27] MEDS: ACETAMINOPHEN 325 MG TABLET 650 MG PO (13:26)
[2020-08-27 18:19] LABS: Glucose Point of Care 183 (65-105)
[2020-08-27] MEDS: ALBUTEROL SULFATE (*SP) INHALER 2 PUFF INHALATION (20:20)
[2020-08-27] MEDS: INSULIN GLARGINE (*BKC) 100 UNITS/ML 33 UNITS SUB-Q (20:56)
[2020-08-27] MEDS: CLOPIDOGREL BISULFATE 75 MG TABLET PO (20:58)
[2020-08-27 21:18] LABS: Glucose Point of Care 162 (65-105)
[2020-08-28] VITALS (27 sets, daily range): BP systolic 135–182; BP diastolic 59–78; PULSE 59–97; RESP 18–20; TEMP 36.1–37; O2SAT 92–98
[2020-08-28 03:46] LABS: IFOB Positive Control Positive; Immunochemical Fecal Occult Bl Negative (N)
[2020-08-28] MEDS: hydrALAZINE HCL 25 MG TABLET PO ×3 (05:40→22:02)
[2020-08-28 06:24] LABS: Hematocrit 23.2 % (42.0-52.0); Mean Corpuscular HGB Conc 30.2 g/dl (32-36); Mean Corpuscular Hemoglobin 30.3 pg (26-34); Mean Corpuscular Volume 100.4 fl (80-100); Mean Platelet Volume 12.4 fl (7.4-10.4); Platelet Count Result 272 k/mm3 (150-375); Red Blood Count 2.31 M/mm3 (4.6-6.20); Red Cell Distribution Width 20.3 % (11.5-14.5); White Blood Count 4.6 K/mm3 (4.5-10.0)
[2020-08-28 06:39] LABS: Anion Gap 8 mmol/L (8-16); Blood Urea Nitrogen 39 mg/dL (9-20); Calcium 7.7 mg/dL (8.4-10.2); Carbon Dioxide 30 mmol/L (22-30); Chloride 99 mmol/L (98-107); Estimated CRCL calculation 11 ml/min; Estimated Glomerular Filt Rate 9; Glucose 119 mg/dL (75-110); Phosphorus 5.3 mg/dL (2.5-4.5); Potassium 3.7 mmol/L (3.4-5.0); Sodium 137 mmol/L (137-145)
[2020-08-28] MEDS: ALBUTEROL SULFATE (*SP) INHALER 2 PUFF INHALATION ×2 (08:35→22:08)
[2020-08-28 08:36] LABS: Glucose Point of Care 96 (65-105)
[2020-08-28] MEDS: DICLOFENAC SODIUM 1% 100 GM GEL (*BKC) 1 APPLIC TOPICAL ×4 (08:44→22:00)
[2020-08-28] MEDS: ONDANSETRON INJ 4 MG/2 ML VIAL IV PUSH (08:44)
--- NOTE | 2020-08-28 08:52 | PC.NURSE ---
Patient to dialysis per bed.
--- NOTE | 2020-08-28 10:01 | PM.PNNEP ---
Progress Note: A&P Assessment and Plan (1) End stage renal disease: Code(s): N18.6 - End stage renal disease Status: Chronic Assessment and Plan: due to progression of disease was following [facility] tunneled HD catheter in place as well as maturing AVF follow electrolytes, volume status, and clearance (2) CHF (congestive heart failure), NYHA class I: Qualifiers: Congestive heart failure type: unspecified Qualified Code(s): I50.9 - Heart failure, unspecified Code(s): I50.9 - Heart failure, unspecified Status: Chronic Assessment and Plan: continue oral diuretics as long as he make urine fluid removal with HD to acheive euvolemia (3) Hypertension: Qualifiers: Hypertension type: essential hypertension Qualified Code(s): I10 - Essential (primary) hypertension Code(s): I10 - Essential (primary) hypertension Status: Chronic Assessment and Plan: reasonable control at this time suspect will need further adjustments as an outpatient (4) Anemia: Code(s): D64.9 - Anemia, unspecified Status: Acute Assessment and Plan: likely due to ESRD adequate iron stores by studies Epogen with HD follow H/H (5) Diabetes: Qualifiers: Chronic kidney disease stage: stage 4 (severe) Diabetes mellitus complication detail: with chronic kidney disease Diabetes mellitus complication status: with kidney complications Diabetes mellitus half-way insulin use: with half-way use Diabetes mellitus type: type 2 Qualified Code(s): E11.22 - Type 2 diabetes mellitus with diabetic chronic kidney disease; N18.4 - Chronic kidney disease, stage 4 (severe); Z79.4 - residential (current) use of insulin Code(s): E11.9 - Type 2 diabetes mellitus without complications Status: Chronic Assessment and Plan: follow accuchecks on sliding-scale insulin Will continue to follow. Subjective Date/time seen: 08/28/20 10:01 Tolerating dialysis at the time of my visit (seen on HD at ~ 9:50AM); no apparent issues or complaints voiced; no distress noted; no events overnight or earlier this AM. Exam Narrative: Exam Narrative: General: WD/WN male in NAD Heart: normal S1 and S2; no rub Lungs: clear to auscultation Abdomen: soft, nontender, nondistended, positive bowel sounds Extremities: no cyanosis or clubbing; trace edema Skin: warm and dry Objective Data Vital Signs Vital Signs: Vital Signs Temp Pulse Resp BP Pulse Ox 08/28/20 09:45 69 154/59 H 08/28/20 09:30 64 142/67 H 08/28/20 09:15 67 157/73 H 08/28/20 09:05 97 140/72 08/28/20 08:51 36.1 C L 68 20 163/78 H 08/28/20 08:36 97 08/28/20 06:00 36.1 C L 62 18 182/65 H 98 08/28/20 04:00 59 L 08/28/20 00:00 70 08/27/20 22:00 36.3 C L 67 17 175/63 H 99 08/27/20 20:58 68 08/27/20 20:23 95 08/27/20 20:00 70 08/27/20 16:00 60 08/27/20 14:00 36.7 C 68 16 166/64 H 99 08/27/20 12:00 71 08/27/20 10:20 91 Intake/Output Intake/Output: Intake & Output 08/25/20 08/26/20 08/27/20 08/28/20 23:59 23:59 23:59 23:59 Intake Total 1880 1470 1580 400 Output Total 1950 1250 800 500 Balance -70 220 780 -100 Meds/Results Medications: Active Medications Generic Name Dose Route Start Last Admin Trade Name Freq PRN Reason Stop Dose Admin Acetaminophen 650 mg 08/27/20 09:07 08/27/20 13:26 Acetaminophen 325 Mg Tablet PO 650 mg Q4H PRN Administration Pain Rated 5 or Less Hydrocodone Bitart/Acetaminophen 1 tab 08/27/20 09:07 Hydrocodone/Acetaminophen (*Crx) 7.5-325 Mg Tablet PO Q6H PRN Pain Rated 6 or Greater Albuterol 2 puff 08/23/20 08:00 08/28/20 08:35 Albuterol Sulfate (*Sp) Inhaler INHALATION 2 puff Q12HRT OSWALDO Administration Amlodipine Besylate 10 mg 08/23/20 09:00 08/27/20 08:59 Amlodipine Besylate 5
[2020-08-28] MEDS: EPOETIN ALFA-EPBX 10,000 UNITS/ML VIAL 10000 UNITS IV PUSH (10:03)
[2020-08-28] MEDS: IRON SUCROSE COMPLEX 200 MG in SODIUM CHLORIDE 0.9% IV 50 ML 120 MG IVPB (10:06)
--- NOTE | 2020-08-28 11:07 | ECG_ITS ---
Measurements Intervals [place] Rate: 67 P: 24 CO: 207 QRS: 25 QRSD: 101 T: 88 QT: 439 QTc: 465 Interpretive Statements SINUS RHYTHM WITH FIRST DEGREE AV BLOCK VOLTAGE CRITERIA FOR LVH INFERIOR INFARCT, AGE INDETERMINATE BORDERLINE ST-T WAVE ABNORMALITY- HIGH LATERAL LEADS BASELINE ARTIFACT- I, II, III, AVR, AVL, AVF ABNORMAL ECG Electronically Signed On 08-28-2020 11:35:28 CDT by Reji Arevalo D.O.
[2020-08-28] MEDS: RANOLAZINE 500 MG TAB.ER.12H PO ×2 (11:17→22:01)
[2020-08-28] MEDS: FUROSEMIDE 80 MG TABLET BY MOUTH (11:17)
[2020-08-28] MEDS: amLODIPine BESYLATE 5 MG TABLET 10 MG PO (11:17)
[2020-08-28] MEDS: carvediloL 25 MG TABLET PO ×2 (11:17→22:00)
[2020-08-28] MEDS: ISOSORBIDE MONONITRATE 60 MG TAB.ER.24H 120 MG PO (11:17)
[2020-08-28] MEDS: ASPIRIN 81 MG CHEWABLE TABLET PO (11:17)
--- NOTE | 2020-08-28 11:24 | PM.IMPN ---
Progress Note: A&P Assessment and Plan (1) CKD stage 5 due to type 2 diabetes mellitus: Code(s): E11.22 - Type 2 diabetes mellitus with diabetic chronic kidney disease; N18.5 - Chronic kidney disease, stage 5 Status: Chronic Assessment and Plan: Sonogram shows evidence consistent with medical renal disease; may be mostly secondary to HTN and DM. Follows with nephrology at the [place]. Left upper extremity fistula new 2 weeks ago, reports he needs a 2nd procedure in 1 week. Tunneled dialysis catheter placed by Dr Odonnell 08/26. Today is his 2nd time getting dialyzed. Appreciate further recommendations from Dr Cason for management of renal failure. Cr 6.1 this AM. Monitor renal function. Waiting for arrangements to be made with [facility] Sal[facility] before we are able to discharge him. Plan for MWF schedule. (2) Anemia: Qualifiers: Anemia type: unspecified type Qualified Code(s): D64.9 - Anemia, unspecified Code(s): D64.9 - Anemia, unspecified Status: Chronic Assessment and Plan: H&H low without evidence of acute bleeding. Dr Cason yesterday recommended holding off on blood transfusion at this time in case he could be a candidate for transplant at a later point. Suspect related to chronic kidney disease. Getting Epo with dialysis. Recheck CBC in AM and consider transfusion if Hgb is trending down. (3) Hypoxia: Code(s): R09.02 - Hypoxemia Status: Resolved Assessment and Plan: Patient with CAD, CHF, CKD presents for evaluation of low O2 saturations at home and shortness of breath. Suspect his hypoxia and shortness of breath may in-part be secondary to fluid overload. VQ shows low probability for PE and LE dopplers negative for DVT. Seen by cardiology earlier this admission for EKG changes and chronic intermittent chest pain - trop was negative and no ACS suspected. He does not wear O2 at home. Wean O2 as tolerated to keep saturations > 90%. Consider home O2 eval prior to discharge if still on O2. (4) Congestive heart failure: Qualifiers: Heart failure chronicity: unspecified Heart failure type: unspecified Qualified Code(s): I50.9 - Heart failure, unspecified Code(s): I50.9 - Heart failure, unspecified Status: Chronic Assessment and Plan: Monitor I&Os, daily weights. Continue beta-blockade and oral lasix. (5) Coronary artery disease: Qualifiers: Coronary Disease-Associated Artery/Lesion type: [place] artery [place] vs. transplanted heart: [place] heart Associated angina: with unspecified angina Qualified Code(s): I25.119 - Atherosclerotic heart disease of [place] coronary artery with unspecified angina pectoris Code(s): I25.10 - Atherosclerotic heart disease of [place] coronary artery without angina pectoris Status: Chronic Assessment and Plan: With long history of intermittent angina; history of CABG in 2000 and coronary stenting in 2018. Continue his home regimen with imdur and ranexa. Follows with cardiology at the [place]. He had some chest pressure during dialysis this morning. His Imdur and Ranexa had not been given this morning due to being in dialysis. Stat EKG ordered and shows no changes compared to EKG 08/23. Telemetry showed stable sinus rhythm with rates in the 60s-70sbpm, BP was stable. His imdur and ranexa were administered, his symptoms have improved. Continue to monitor. Continue Plavix. (6) Diabetes: Qualifiers: Diabetes mellitus type: type 2 Diabetes mellitus mcc insulin use: with mcc use Diabetes mellitus complication status: with kidney complications Diabetes mellitus complication detail: with chronic kidney disease Chronic kidney disease stage: stage 4 (jaimee
[2020-08-28] MEDS: HEPARIN SODIUM 1,000 UNITS/ML VIAL 1000 UNITS IV PUSH (11:49)
--- NOTE | 2020-08-28 11:55 | PC.NURSE ---
Patient returned from dialysis per bed.
[2020-08-28] MEDS: ATORVASTATIN 40 MG TABLET 80 MG PO (11:57)
[2020-08-28] MEDS: FAMOTIDINE 20 MG TABLET PO (11:57)
[2020-08-28] MEDS: SODIUM BICARBONATE TAB 650 MG TABLET PO ×2 (11:57→17:07)
[2020-08-28] MEDS: VITAMIN B CMPLX/VIT C/FOLIC AC 1 CAPSULE 1 CAP PO (11:57)
[2020-08-28] MEDS: TAMSULOSIN HCL 0.4 MG CAPSULE PO ×2 (11:58→22:03)
[2020-08-28] MEDS: THERAPEUTIC MULTIVITAMINS/MINERALS TAB (*BKC) 1 TABLET PO (11:58)
--- NOTE | 2020-08-28 12:29 | PCPTNOTE ---
Attempted to see patient in AM for PT treatment, however patient out of room for dialysis. Sveta Steen, [employer]SEMBLER
[2020-08-28 15:08] LABS: Glucose Point of Care 116 (65-105)
[2020-08-28] MEDS: EPOETIN ALFA-EPBX 10,000 UNITS/ML VIAL 10000 UNITS SUB-Q (17:07)
[2020-08-28 17:32] LABS: Glucose Point of Care 124 (65-105)
[2020-08-28] MEDS: CLOPIDOGREL BISULFATE 75 MG TABLET PO (22:00)
[2020-08-28] MEDS: INSULIN GLARGINE (*BKC) 100 UNITS/ML 33 UNITS SUB-Q (22:12)
[2020-08-28 22:53] LABS: Glucose Point of Care 232 (65-105)
[2020-08-29] VITALS (31 sets, daily range): BP systolic 125–168; BP diastolic 52–74; PULSE 63–98; RESP 16–22; TEMP 36.6–37.4; O2SAT 92–94
[2020-08-29] MEDS: hydrALAZINE HCL 25 MG TABLET PO ×3 (05:58→22:30)
[2020-08-29 06:37] LABS: Basophils Percent Auto 0.9 % (0.2-1.2); Eosinophils Absolute Auto 0.1 K/mm3 (0-0.3); Eosinophils Percent Auto 2.6 % (0-4.4); Hematocrit 22.4 % (42.0-52.0); Immature Granulocyte Absolute 0.08 K/mm3 (0.00-0.031); Immature Granulocyte Percent A 1.7 % (0-0.5); Lymphocytes Absolute Auto 1.19 K/mm3 (0.9-3.2); Lymphocytes Percent Auto 25.8 % (18.3-44.2); Mean Corpuscular HGB Conc 30.4 g/dl (32-36); Mean Corpuscular Hemoglobin 30.4 pg (26-34); Mean Platelet Volume 12.5 fl (7.4-10.4); Monocytes Absolute Auto 0.7 K/mm3 (0.1-0.6); Monocytes Percent Auto 14.1 % (2.6-8.5); Neutrophils Absolute Auto 2.5 K/mm3 (1.3-6.7); Neutrophils Percent Auto 54.9 % (45.5-73.1); Nucleated Red Blood Cells Absolute Auto 0.1 K/mm3 (0.0-0.012); Nucleated Red Blood Cells Perc 2.4 % (0.0-0.2); Platelet Count Result 271 k/mm3 (150-375); Red Blood Count 2.24 M/mm3 (4.6-6.20); Red Cell Distribution Width 19.8 % (11.5-14.5); White Blood Count 4.6 K/mm3 (4.5-10.0)
[2020-08-29 06:44] LABS: Hemoglobin 6.8 g/dL (14.0-18.0)
[2020-08-29 06:51] LABS: Anion Gap 7 mmol/L (8-16); Blood Urea Nitrogen 27 mg/dL (9-20); Calcium 7.7 mg/dL (8.4-10.2); Carbon Dioxide 34 mmol/L (22-30); Chloride 96 mmol/L (98-107); Estimated CRCL calculation 13 ml/min; Estimated Glomerular Filt Rate 11; Glucose 143 mg/dL (75-110); Magnesium 1.9 mg/dL (1.6-2.3); Potassium 3.7 mmol/L (3.4-5.0); Sodium 137 mmol/L (137-145)
[2020-08-29] MEDS: ALBUTEROL SULFATE (*SP) INHALER 2 PUFF INHALATION ×2 (07:47→19:40)
[2020-08-29] MEDS: ASPIRIN 81 MG CHEWABLE TABLET PO (08:20)
[2020-08-29] MEDS: TAMSULOSIN HCL 0.4 MG CAPSULE PO ×2 (08:21→20:49)
[2020-08-29] MEDS: ATORVASTATIN 40 MG TABLET 80 MG PO (08:21)
[2020-08-29] MEDS: FUROSEMIDE 80 MG TABLET BY MOUTH (08:21)
[2020-08-29] MEDS: RANOLAZINE 500 MG TAB.ER.12H PO ×2 (08:21→22:31)
[2020-08-29] MEDS: DICLOFENAC SODIUM 1% 100 GM GEL (*BKC) 1 APPLIC TOPICAL ×4 (08:21→20:50)
[2020-08-29] MEDS: FAMOTIDINE 20 MG TABLET PO (08:21)
[2020-08-29] MEDS: ISOSORBIDE MONONITRATE 60 MG TAB.ER.24H 120 MG PO (08:22)
[2020-08-29] MEDS: SODIUM BICARBONATE TAB 650 MG TABLET PO ×2 (08:23→17:23)
[2020-08-29 08:35] LABS: Glucose Point of Care 119 (65-105)
--- NOTE | 2020-08-29 09:08 | PCOTNOTE ---
Patient unavailable - in dialysis. Will attempt to see patient for skilled OT this PM.
[2020-08-29] MEDS: SODIUM CHLORIDE 0.9% IV 1,000 ML 999 ML IV CONT (09:21)
[2020-08-29] MEDS: EPOETIN ALFA-EPBX 10,000 UNITS/ML VIAL 20000 UNITS IV PUSH (09:49)
--- NOTE | 2020-08-29 10:59 | P.PNNP_ITS ---
Progress Note: A&P Assessment and Plan (1) End stage renal disease: Code(s): N18.6 - End stage renal disease Status: Chronic Assessment and Plan: * due to progression of disease * was following with [facility] * tunneled HD catheter in place as well as maturing AVF * HD today * follow electrolytes, volume status, and clearance (2) CHF (congestive heart failure), NYHA class I: Qualifiers: Congestive heart failure type: unspecified Qualified Code(s): I50.9 - Heart failure, unspecified Code(s): I50.9 - Heart failure, unspecified Status: Chronic Assessment and Plan: * continue oral diuretics as long as he make urine * fluid removal with HD to acheive euvolemia (3) Hypertension: Qualifiers: Hypertension type: essential hypertension Qualified Code(s): I10 - Essential (primary) hypertension Code(s): I10 - Essential (primary) hypertension Status: Chronic Assessment and Plan: * reasonable control at this time * suspect will need further adjustments as an outpatient (4) Anemia: Code(s): D64.9 - Anemia, unspecified Status: Acute Assessment and Plan: * likely due to ESRD * adequate iron stores by studies * Epogen with HD * follow H/H (5) Diabetes: Qualifiers: Chronic kidney disease stage: stage 4 (severe) Diabetes mellitus complication detail: with chronic kidney disease Diabetes mellitus complication status: with kidney complications Diabetes mellitus 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 Subjective Date/time seen: 08/29/20 10:59 Tolerating dialysis at the time of my visit (seen on HD at ~ 10:45AM); no new issues or problems to report at this time; feels reasonably well; no distress noted. Exam Narrative: Exam Narrative: General: WD/WN male in NAD Heart: normal S1 and S2; no rub Lungs: clear to auscultation Abdomen: soft, nontender, nondistended, positive bowel sounds Extremities: no cyanosis or clubbing; trace edema Skin: warm and intact Objective Data Vital Signs Vital Signs: Laboratory Tests 08/29/20 06:12 08/29/20 06:12 Microbiology 08/22/20 20:06 Blood Blood Culture - Final 08/22/20 20:06 Blood Blood Culture - Final Intake/Output Intake/Output: Intake & Output 08/26/20 08/27/20 08/28/20 08/29/20 23:59 23:59 23:59 23:59 Intake Total 1470 1580 1000 640 Output Total 7668 289 8483 200 Balance 220 780 -1700 440 Meds/Results Medications: Active Medications Generic Name Dose Route Start Last Admin Trade Name Freq PRN Reason Stop Dose Admin Acetaminophen 650 mg 08/27/20 09:07 08/27/20 13:26 Acetaminophen 325 Mg Tablet PO 650 mg Q4H PRN Administration Pain Rated 5 or Less Hydrocodone Bitart/Acetaminophen 1 tab 08/27/20 09:07
--- NOTE | 2020-08-29 10:59 | PM.PNNEP ---
Progress Note: A&P Assessment and Plan (1) End stage renal disease: Code(s): N18.6 - End stage renal disease Status: Chronic Assessment and Plan: due to progression of disease was following [facility] tunnel[facility] HD catheter in place as well as maturing AVF HD today follow electrolytes, volume status, and clearance (2) CHF (congestive heart failure), NYHA class I: Qualifiers: Congestive heart failure type: unspecified Qualified Code(s): I50.9 - Heart failure, unspecified Code(s): I50.9 - Heart failure, unspecified Status: Chronic Assessment and Plan: continue oral diuretics as long as he make urine fluid removal with HD to acheive euvolemia (3) Hypertension: Qualifiers: Hypertension type: essential hypertension Qualified Code(s): I10 - Essential (primary) hypertension Code(s): I10 - Essential (primary) hypertension Status: Chronic Assessment and Plan: reasonable control at this time suspect will need further adjustments as an outpatient (4) Anemia: Code(s): D64.9 - Anemia, unspecified Status: Acute Assessment and Plan: likely due to ESRD adequate iron stores by studies Epogen with HD follow H/H (5) Diabetes: Qualifiers: Chronic kidney disease stage: stage 4 (severe) Diabetes mellitus complication detail: with chronic kidney disease Diabetes mellitus complication status: with kidney complications Diabetes mellitus buttermaker insulin use: with buttermaker use Diabetes mellitus type: type 2 Qualified Code(s): E11.22 - Type 2 diabetes mellitus with diabetic chronic kidney disease; N18.4 - Chronic kidney disease, stage 4 (severe); Z79.4 - termite control service representative (current) use of insulin Code(s): E11.9 - Type 2 diabetes mellitus without complications Status: Chronic Assessment and Plan: follow accuchecks on sliding-scale insulin Will continue to follow. Subjective Date/time seen: 08/29/20 10:59 Tolerating dialysis at the time of my visit (seen on HD at ~ 10:45AM); no new issues or problems to report at this time; feels reasonably well; no distress noted. Exam Narrative: Exam Narrative: General: WD/WN male in NAD Heart: normal S1 and S2; no rub Lungs: clear to auscultation Abdomen: soft, nontender, nondistended, positive bowel sounds Extremities: no cyanosis or clubbing; trace edema Skin: warm and intact Objective Data Vital Signs Vital Signs: Laboratory Tests 08/29/20 06:12 08/29/20 06:12 Microbiology 08/22/20 20:06 Blood Blood Culture - Final 08/22/20 20:06 Blood Blood Culture - Final Intake/Output Intake/Output: Intake & Output 08/26/20 08/27/20 08/28/20 08/29/20 23:59 23:59 23:59 23:59 Intake Total 1470 1580 1000 640 Output Total 8321 431 2029 200 Balance 220 780 -1700 440 Meds/Results Medications: Active Medications Generic Name Dose Route Start Last Admin Trade Name Freq PRN Reason Stop Dose Admin Acetaminophen 650 mg 08/27/20 09:07 08/27/20 13:26 Acetaminophen 325 Mg Tablet PO 650 mg Q4H PRN Administration Pain Rated 5 or Less Hydrocodone Bitart/Acetaminophen 1 tab 08/27/20 09:07 Hydrocodone/Acetaminophen (*Crx) 7.5-325 Mg Tablet PO Q6H PRN Pain Rated 6 or Greater Albuterol 2 puff 08/23/20 08:00 08/29/20 07:47 Albuterol Sulfate (*Sp) Inhaler INHALATION 2 puff Q12HRT OSWALDO Administration Amlodipine Besylate 10 mg 08/23/20 09:00 08/28/20 11:17 Amlodipine Besylate 5 Mg Tablet PO 10 mg DAILY OSWALDO Administration Aspirin 81 mg 08/23/20 09:00 08/29/20 08:20 Aspirin Chewable PO 81 mg DAILY OSWALDO Administration Atorvastatin Calcium 80 mg 08/23/20 09:00 08/29/20 08:21 Atorvastatin 40 Mg Tablet PO 80 mg DAILY OSWALDO Administration Carvedilol 25 mg 08/23/20 09:00 08/28/20 22:00 Coreg PO 25 mg Q12H OSWALDO Administration Clopidogrel Bisulfate
[2020-08-29] MEDS: carvediloL 25 MG TABLET PO ×2 (11:52→20:49)
[2020-08-29] MEDS: amLODIPine BESYLATE 5 MG TABLET 10 MG PO (11:53)
[2020-08-29] MEDS: THERAPEUTIC MULTIVITAMINS/MINERALS TAB (*BKC) 1 TABLET PO (11:53)
[2020-08-29] MEDS: VITAMIN B CMPLX/VIT C/FOLIC AC 1 CAPSULE 1 CAP PO (11:53)
[2020-08-29] MEDS: HEPARIN SODIUM 1,000 UNITS/ML VIAL 5000 UNITS (12:02)
[2020-08-29 12:46] LABS: Glucose Point of Care 102 (65-105)
--- NOTE | 2020-08-29 13:00 | PCOTNOTE ---
Attempted several times to see patient, patient in dialysis. Attempted again now, but patient eating lunch. Will make final attempt to see patient for skilled OT this PM.
--- NOTE | 2020-08-29 13:26 | PCDIET ---
Nutrition Follow-Up Complete: Inadequate energy intake related to inconsistent appetite as evidenced pt. interview and weight loss of 6.1kg in past six months. Pt. will consume 90% of caloric needs to maintain weight status. Goal: Goal met. Continue goal. Pt current nutrition is Renal Dialysis+Glucerna Nutrition recommendation: agree Last recorded weight is 93.7 kg (steady since admit) Bowel Motility: yesterday BM + Labs Reviewed:GFR 11, Glucose 143, Hgb 6.8 Meds Noted:vit B complex, epoetin, lasix, latus, MTV, Additional Notes: Pt eating 100% of meals on appropriate diet, renal dialysis. Wt remaining steady. Bowels moving. We will continue to monitor pt intake and output, wt, and labs every 7 days.
[2020-08-29 14:39] LABS: Hepatitis B Core Ab Total Nonreactive (Nonreactive)
--- NOTE | 2020-08-29 16:41 | PM.IMPN ---
Progress Note: A&P Assessment and Plan (1) Discharge planning issues: Code(s): Z02.9 - Encounter for administrative examinations, unspecified Status: Acute Assessment and Plan: -----patient was medically able to be discharged today but held up due to dialysis not having a confirmed time. Hopefully discharge tomorrow (2) CKD stage 5 due to type 2 diabetes mellitus: Code(s): E11.22 - Type 2 diabetes mellitus with diabetic chronic kidney disease; N18.5 - Chronic kidney disease, stage 5 Status: Chronic Assessment and Plan: -----had dialysis again today as well as yesterday. Will continue outpatient dialysis and follow-up with nephrology. Likely from diabetes and hypertension. He usually follows with nephrology at the [facility]. Left upper extremity fistula new 2 weeks ago, reports he needs a 2nd procedure in 1 week. Tunneled dialysis catheter placed here by Dr Odonnell 08/26. (3) Anemia: Qualifiers: Anemia type: unspecified type Qualified Code(s): D64.9 - Anemia, unspecified Code(s): D64.9 - Anemia, unspecified Status: Chronic Assessment and Plan: -----H&H low without evidence of acute bleeding. Spoke with Nephrology since the patient is asymptomatic, no blood transfusion at this time in case he could be a candidate for transplant at a later point. Suspect related to chronic kidney disease. Getting Epo with dialysis. (4) Hypoxia: Code(s): R09.02 - Hypoxemia Status: Resolved Assessment and Plan: -----resolved. Patient with CAD, CHF, CKD presented for evaluation of low O2 saturations at home and shortness of breath. Suspect his hypoxia and shortness of breath may in-part be secondary to fluid overload. VQ shows low probability for PE and LE dopplers negative for DVT. Seen by cardiology earlier this admission for EKG changes and chronic intermittent chest pain - trop was negative and no ACS suspected. Patient is no longer requiring oxygen and does not feel short of breath (5) Congestive heart failure: Qualifiers: Heart failure chronicity: unspecified Heart failure type: unspecified Qualified Code(s): I50.9 - Heart failure, unspecified Code(s): I50.9 - Heart failure, unspecified Status: Chronic Assessment and Plan: -----Monitor I&Os, daily weights. Continue beta-blockade and oral lasix. (6) Coronary artery disease: Qualifiers: Coronary Disease-Associated Artery/Lesion type: [place] artery [place] vs. transplanted heart: [place] heart Associated angina: with unspecified angina Qualified Code(s): I25.119 - Atherosclerotic heart disease of [place] coronary artery with unspecified angina pectoris Code(s): I25.10 - Atherosclerotic heart disease of [place] coronary artery without angina pectoris Status: Chronic Assessment and Plan: -----With long history of intermittent angina; history of CABG in 2000 and coronary stenting in 2018. Continue his home regimen with imdur and ranexa. Follows with cardiology at the [facility]. He had some chest pressure during dialysis prior to today. Stat EKG ordered at that time and shows no changes compared to EKG 08/23. Telemetry showed stable sinus rhythm with rates in the 60s-70sbpm, BP was stable. 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 Continue b
[2020-08-29 19:52] LABS: Glucose Point of Care 187 (65-105)
[2020-08-29] MEDS: CLOPIDOGREL BISULFATE 75 MG TABLET PO (20:49)
[2020-08-29] MEDS: INSULIN GLARGINE (*BKC) 100 UNITS/ML 33 UNITS SUB-Q (20:53)
[2020-08-29] MEDS: carvediloL 12.5 MG TABLET PO (20:57)
[2020-08-29 21:59] LABS: Glucose Point of Care 244 (65-105)
[2020-08-30] VITALS (17 sets, daily range): BP systolic 147–169; BP diastolic 62–78; PULSE 65–74; RESP 18; TEMP 36.8–37; O2SAT 94
[2020-08-30 05:43] LABS: Hematocrit 24.4 % (42.0-52.0); Hemoglobin 7.5 g/dL (14.0-18.0)
[2020-08-30 06:16] LABS: Anion Gap 7 mmol/L (8-16); Blood Urea Nitrogen 18 mg/dL (9-20); Calcium 8.2 mg/dL (8.4-10.2); Carbon Dioxide 28 mmol/L (22-30); Chloride 104 mmol/L (98-107); Estimated CRCL calculation 16 ml/min; Estimated Glomerular Filt Rate 15; Glucose 125 mg/dL (75-110); Potassium 4.2 mmol/L (3.4-5.0); Sodium 139 mmol/L (137-145)
[2020-08-30] MEDS: hydrALAZINE HCL 25 MG TABLET PO (06:18)
--- NOTE | 2020-08-30 07:21 | PHAR ---
PT INFO SHEET SENT WITH FIRST DOSE
[2020-08-30] MEDS: ISOSORBIDE MONONITRATE 60 MG TAB.ER.24H 120 MG PO (08:26)
[2020-08-30] MEDS: RANOLAZINE 500 MG TAB.ER.12H PO (08:26)
[2020-08-30] MEDS: DICLOFENAC SODIUM 1% 100 GM GEL (*BKC) 1 APPLIC TOPICAL (08:27)
[2020-08-30 08:34] LABS: Glucose Point of Care 124 (65-105)
--- NOTE | 2020-08-30 09:23 | PCPTNOTE ---
Unable to see patient this AM for Physical Therapy due to patient being in dialysis.
[2020-08-30] MEDS: EPOETIN ALFA-EPBX 10,000 UNITS/ML VIAL 10000 UNITS IV PUSH (11:11)
--- NOTE | 2020-08-30 11:18 | PM.DS ---
DS: Admitting Diagnosis Admitting Diagnosis Admitting Diagnosis: Hyperkalemia, pneumonia, COVID PUI DS: Discharge Diagnosis Discharge Diagnosis (1) CKD stage 5 due to type 2 diabetes mellitus: Code(s): E11.22 - Type 2 diabetes mellitus with diabetic chronic kidney disease; N18.5 - Chronic kidney disease, stage 5 Status: Chronic Assessment and Plan: -----patient to continue dialysis Friday, and Saturdays with [facility]. Likely from diabetes and hypertension. He usually follows with nephrology at the [place]. Left upper extremity fistula new 2 weeks ago, reports he needs a 2nd procedure in 1 week. Tunneled dialysis catheter placed here by Dr Odonnell 08/26. (2) Anemia: Qualifiers: Anemia type: unspecified type Qualified Code(s): D64.9 - Anemia, unspecified Code(s): D64.9 - Anemia, unspecified Status: Chronic Assessment and Plan: -----H&H low without evidence of acute bleeding. Spoke with Nephrology since the patient is asymptomatic, no blood transfusion at this time in case he could be a candidate for transplant at a later point. Suspect related to chronic kidney disease. Continue Epo with dialysis. (3) Hypoxia: Code(s): R09.02 - Hypoxemia Status: Resolved Assessment and Plan: -----resolved. Patient with CAD, CHF, CKD presented for evaluation of low O2 saturations at home and shortness of breath. Suspect his hypoxia and shortness of breath may in-part be secondary to fluid overload also pneumonia that was treated earlier in the stay. VQ shows low probability for PE and LE dopplers negative for DVT. Seen by cardiology earlier this admission for EKG changes and chronic intermittent chest pain - trop was negative and no ACS suspected. Patient is no longer requiring oxygen and does not feel short of breath (4) Congestive heart failure: Qualifiers: Heart failure chronicity: unspecified Heart failure type: unspecified Qualified Code(s): I50.9 - Heart failure, unspecified Code(s): I50.9 - Heart failure, unspecified Status: Chronic Assessment and Plan: ----euvolemic, plans to follow-up with fiberglass technician at the [place] (5) Coronary artery disease: Qualifiers: Coronary Disease-Associated Artery/Lesion type: [place] artery [place] vs. transplanted heart: [place] heart Associated angina: with unspecified angina Qualified Code(s): I25.119 - Atherosclerotic heart disease of [place] coronary artery with unspecified angina pectoris Code(s): I25.10 - Atherosclerotic heart disease of [place] coronary artery without angina pectoris Status: Chronic Assessment and Plan: -----With long history of intermittent angina; history of CABG in 2000 and coronary stenting in 2018. Continue his home regimen with imdur and ranexa. Follows with cardiology at the [place]. He had some chest pressure during dialysis prior to today. Stat EKG ordered at that time and shows no changes compared to EKG 08/23. Telemetry showed stable sinus rhythm with rates in the 60s-70sbpm, BP was stable. Continue Imdur and Plavix (6) Diabetes: Qualifiers: Diabetes mellitus type: type 2 Diabetes mellitus group home insulin use: with long term care administrator use Diabetes mellitus complication status: with kidney complications Diabetes mellitus complication detail: with chronic kidney disease Chronic kidney disease stage: stage 4 (severe) Qualified Code(s): E11.22 - Type 2 diabetes mellitus with diabetic chronic kidney disease; N18.4 - Chronic kidney disease, stage 4 (severe); Z79.4 - [facility] (current) use of insulin Code(s): E11.9 - Type 2 diabetes mellitus without complications Status: Chronic Assessment and Plan: -----A1c 6.0. Continue home regimen (7) Hypertension: Qualifiers: Hypertension type: essential hypertension Qualified Code(s): I10 - Essential (primary) hypertension Code(s): I10 - Es
[2020-08-30] MEDS: HEPARIN SODIUM 1,000 UNITS/ML VIAL 1000 UNITS IV PUSH (12:00)
== END 2020-08-30 12:05 | disposition home health service (06) | DRG 291 ==
LOC: ANHED 20:33 → ANH3MEDSUR 20:44
PROVIDERS: Emergency Medicine; Family Medicine; Internal Medicine Nephrology; Physician Assistant; Surgery; Admitting Provider Internal Medicine; Emergency Provider Emergency Medicine; PCP Internal Medicine; Visit Provider Physician Assistant
PROC: 0JH63XZ Insertion of Tunneled Vascular Access Device into Chest Subcutaneous Tissue and Fascia, Percutaneous Approach (ICD-10-PCS; CPT 36908; principal; 2020-08-26 08:00)
DX: I13.2 Hypertensive heart and chronic kidney disease with heart failure and with stage 5 chronic kidney disease, or end stage renal disease (principal); J18.9 Pneumonia, unspecified organism; N18.5 Chronic kidney disease, stage 5; I50.22 Chronic systolic (congestive) heart failure; R09.02 Hypoxemia; Z20.828 Contact with and (suspected) exposure to other viral communicable diseases; E11.22 Type 2 diabetes mellitus with diabetic chronic kidney disease; D63.1 Anemia in chronic kidney disease; I25.119 Atherosclerotic heart disease of native coronary artery with unspecified angina pectoris; G47.33 Obstructive sleep apnea (adult) (pediatric); N40.0 Benign prostatic hyperplasia without lower urinary tract symptoms; E87.5 Hyperkalemia; Z95.5 Presence of coronary angioplasty implant and graft; Z95.1 Presence of aortocoronary bypass graft; Z79.4 Long term (current) use of insulin; Z87.891 Personal history of nicotine dependence; Z99.2 Dependence on renal dialysis
CPT/HCPCS: 36415; 36600; 71046; 76775; 77001; 78580; 80048; 80069; 80076; 82274; 82375; 82550; 82607; 82728; 82746; 82805; 82948; 83036; 83050; 83540; 83550; 83615; 83690; 83735; 83880; 84484; 85014; 85018; 85025; 85027; 85380; 85610; 86704; 86706; 86803; 86850; 86900; 86901; 86923; 87040; 87340; 87635; 93005; 93970; 94640; 96374; 96375; 97110; 97116; 97161; 97165; 97530; 97535; 99285; A9270; A9540; C1750; C9803; G0257; J0456; J0610; J0696; J1644; J1756; J1815; J2405; J2543; J2704; J7030; J7060; Q5106; U0003

== ENCOUNTER 2020-10-21 06:58 | Inpatient (IN) | payer MEDICARE, OTHER, SELFPAY ==
[2020-10-21] VITALS (53 sets, daily range): BP systolic 110–157; BP diastolic 51–77; PULSE 77–103; RESP 16–30; TEMP 36–37.2; O2SAT 86–98; BMI 29.9
--- NOTE | ~2020-10-21 | XR_ITS ---
XR chest 1V portable 10/21/2020 08:19 Indication: Shortness of breath Procedure: AP portable chest Comparison: Comparison to multiple prior studies sequentially, with oldest reviewed study dated 12/08. Findings: Status post median sternotomy for CABG. Cardiomegaly. Progression of diffuse bilateral airs pace disease. No significant effusion or pneumothorax. Large bore central venous catheter tips near t he cavoatrial junction. Impression: 1: Development of diffuse bilateral airspace disease which may represent edema and/or pneumonia. 2: Cardiomegaly. Reviewed, dictated and finalized at location A. [employer] ASS[employer] Impression: 1: Development of diffuse bilateral airspace disease which may represent edema and/or pneumonia. 2: Cardiomegaly.
--- NOTE | ~2020-10-21 | CT_ITS ---
EXAMINATION: CT brain wo con DATE: 10/21/2020 08:17 INDICATION: Abnormal shaking TECHNIQUE: Computed tomography (CT) of the head was performed without intravenous contrast. The dose- length product was 605.33 mGy-cm. The mA was adjusted according to patient size. Iterative reconstruc tion technique was employed. COMPARISON: CT dated 03/17/2020 FINDINGS: Mild generalized brain parenchymal volume loss. There are scattered mild periventricular an d subcortical white matter changes, most likely related to small vessel ischemic disease (microangiop athy). No acute intracranial hemorrhage, infarction, mass or mass effect. Basilar cisterns are patent . Paranasal sinuses and mastoids are pneumatized. No depressed skull fractures. IMPRESSION: 1. No acute intracranial abnormality. Reviewed, dictated and finalized at location A. [facility]
--- NOTE | 2020-10-21 07:39 | ECG_ITS ---
Measurements Intervals [place] Rate: 83 P: 74 [place]: 208 QRS: 48 QRSD: 116 T: 110 QT: 403 QTc: 476 Interpretive Statements SINUS RHYTHM INTRAVENTRICULAR CONDUCTION DELAY DELAYED PRECORDIAL R/S TRANSITION CONSIDER INFERIOR INFARCT, AGE INDETERMINATE ST-T WAVE ABNORMALITY IN LAT/HIGH LAT LEADS- CONSIDER ISCHEMIA ABNORMAL ECG Electronically Signed On 10-21-2020 7:45:25 CORPORATE MEETING PLANNER by Reji Arevaol D.O.
--- NOTE | 2020-10-21 07:40 | ED.SOB ---
HPI - SOB/Dyspnea General Chief Complaint: Shortness of Breath/Dyspnea Stated Complaint: sob Time Seen by Provider: 10/21/20 07:04 Source: patient Mode of arrival: EMS Limitations: no limitations History of Present Illness HPI Narrative: This patient is a 80 year old male with history of ESRD on dialysis, HTN, CHF, and DM who presents for evaluation of shakiness and chest pain. He states yesterday he noticed that his legs start shaking when ever he holds them up. He states he normally walks but he has not been able to since last night. He denies back pain, numbness or tingling. He also reports left nonradiating sharp chest pain last night around 10 pm. He states he took a nitroglycerin and he feels better. He feels his pain more when he coughs. He reports a nonproductive cough. HE denies fever or chills. He was placed on oxygen by EMS because his oxygen saturation was 89% on room air. He also noted shortness of breath on their arrival. MD elicited complaint: chest pain Related Data Home Medications Medication Instructions Recorded Confirmed Centrum Men 1 tablet PO DAILY 02/24/20 10/21/20 albuterol sulfate 2 puff INHALATION BID 02/24/20 10/21/20 aspirin 81 mg PO DAILY 02/24/20 10/21/20 atorvastatin 80 mg PO DAILY 02/24/20 10/21/20 carvedilol [Coreg] 25 mg PO Q12H 02/24/20 10/21/20 clopidogrel [Plavix] 75 mg PO HS 02/24/20 10/21/20 diclofenac sodium 2 g TOPICAL QID 02/24/20 10/21/20 insulin aspart U-100 [Novolog See Rx Instructions .ROUTE .COMPLEX 02/24/20 10/21/20 U-100 Insulin aspart] nitroglycerin 0.4 mg SUBLINGUAL Q5-15M PRN 02/24/20 10/21/20 tamsulosin 0.4 mg PO BID 02/24/20 10/21/20 Lantus U-100 Insulin 33 unit SUBCUT HS 08/22/20 10/21/20 camphor-menthol 1 applic TOPICAL TID PRN 08/23/20 10/21/20 cetirizine [Allergy Relief 10 mg PO DAILY PRN 08/23/20 10/21/20 (cetirizine)] clotrimazole [Antifungal 1 applic TOPICAL BID 08/23/20 10/21/20 (clotrimazole)] docusate sodium 100 mg PO TID PRN 08/23/20 10/21/20 isosorbide mononitrate 120 mg PO DAILY 08/23/20 10/21/20 meclizine 25 mg PO DAILY PRN 08/23/20 10/21/20 ranolazine 500 mg PO Q12H 08/23/20 10/21/20 sodium bicarbonate 650 mg PO BID 08/23/20 10/21/20 triamcinolone acetonide 1 applic TOPICAL BID PRN 08/23/20 10/21/20 polyethylene glycol 3350 [Miralax] 17 g PO DAILY 08/24/20 10/21/20 cholecalciferol (vitamin D3) 50 mcg PO DAILY 10/21/20 10/21/20 [Vitamin D3] cyclobenzaprine 10 mg PO TID PRN 10/21/20 10/21/20 febuxostat 40 mg PO DAILY 10/21/20 10/21/20 finasteride 5 mg PO DAILY 10/21/20 10/21/20 omega-3 fatty acids-vitamin E 1 cap PO Q12H 10/21/20 10/21/20 [Fish Oil] oxycodone-acetaminophen 1 tablet PO Q6H PRN 10/21/20 10/21/20 pantoprazole 40 mg PO BID 10/21/20 10/21/20 Allergies Allergy/AdvReac Type Severity Reaction Status Date / Time Iodinated Contrast Media Allergy Severe Anaphylaxis Verified 10/21/20 07:52 iodine Allergy Unknown Hives Verified 10/21/20 07:52 niacin Allergy Unknown Fever Verified 10/21/20 07:52 latex AdvReac Rash Verified 10/21/20 07:52 Contrast Media Allergy Severe Anaphylaxis Uncoded 10/21/20 07:52 Review of Systems Review of Systems: All systems reviewed & are unremarkable except as noted in HPI and below Constitutional: Constitutional: Denies chills and Denies fever(s) ENT: Denies nasal congestion and Denies sore throat Cardiovascular: Cardiovascular: Reports chest pain and Denies radiating jaw, neck or arm pain Respiratory: Respiratory: Reports cough and Reports dyspnea Gastrointestinal: Gastrointestinal: Denies abdominal pain, Reports nausea and Reports vomiting Musculoskeletal: Musculoskeletal: Denies back pain Neurologic: Denies headache(s) and Denies numbness PMFSH Past Medical History Medical History (Updated 10/21/20 @ 19:04 by Tamera Quinn MD) Acute angina Acute hyperkalemia Anemia Angina at rest BPH (benign prostatic hyperplasia) CHF (congestive heart failure), NYHA class I Chronic kidney d
[2020-10-21 07:56] LABS: Base Excess ABG 5.8 mEq/l (+/-2.0); Carboxyhemoglobin 1.7 % THb (0-2.0); Fractional Inspired Oxygen 32 %; HCO3 ABG 30.4 mEq/l (22.0-26.0); Methemoglobin ABG 0.3 %THb (0-1.5); Oxygen Content ABG 10.1 %vol (16.0-22.0); Oxygen Saturation ABG 90.2 % (95.0-100.0); Oxyhemoglobin 86.2 % THb (90.0-100.0); PCO2 ABG 45.3 mmHg (35.0-45.0); PO2 ABG 56.2 mmHg (80.0-100.0); PO2 FiO2 Ratio Arterial Blood 1.76 %; Reduced Hemoglobin 11.8 %THb (0-5.0); Total Hemoglobin 8.3 g/dL (12.0-18.0); pH ABG 7.445 (7.350-7.450)
[2020-10-21 07:57] LABS: Device NASAL CANNULA; Modified Allen's Test Pass; Site Drawn LEFT RADIAL
--- NOTE | 2020-10-21 08:09 | PC.NURSE ---
Pt taken to CTscan and Xray
[2020-10-21 08:58] LABS: Basophils Percent Auto 0.5 % (0.2-1.2); Eosinophils Percent Auto 0.4 % (0-4.4); Hemoglobin 7.5 g/dL (14.0-18.0); Immature Granulocyte Absolute 0.09 K/mm3 (0.00-0.031); Immature Granulocyte Percent A 1.6 % (0-0.5); Lymphocytes Absolute Auto 1.06 K/mm3 (0.9-3.2); Lymphocytes Percent Auto 19.1 % (18.3-44.2); Mean Platelet Volume 12.4 fl (7.4-10.4); Monocytes Absolute Auto 0.6 K/mm3 (0.1-0.6); Neutrophils Absolute Auto 3.7 K/mm3 (1.3-6.7); Neutrophils Percent Auto 67.4 % (45.5-73.1); Nucleated Red Blood Cells Absolute Auto 0.1 K/mm3 (0.0-0.012); Nucleated Red Blood Cells Perc 0.9 % (0.0-0.2); Platelet Count Result 351 k/mm3 (150-375); Red Cell Distribution Width 23.1 % (11.5-14.5); White Blood Count 5.5 K/mm3 (4.5-10.0)
[2020-10-21 09:13] LABS: Anion Gap 11 mmol/L (8-16); Blood Urea Nitrogen 36 mg/dL (9-20); Calcium 8.7 mg/dL (8.4-10.2); Carbon Dioxide 31 mmol/L (22-30); Chloride 93 mmol/L (98-107); Estimated CRCL calculation 9 ml/min; Estimated Glomerular Filt Rate 9; Glucose 157 mg/dL (75-110); Sodium 135 mmol/L (137-145)
[2020-10-21 09:15] LABS: INR 1.1; Partial Thromboplastin Time 33.2 SECONDS (22.3-36.8); Prothrombin Time 14.6 Seconds (11.1-14.7)
[2020-10-21 09:17] LABS: Add Urine Microscopic? YES; Appearance Urine Clear (Clear); Bacteria Urine Trace /hpf; Bilirubin Urine Negative (Negative); Blood Urine Negative (Negative); Color Urine Yellow (Yellow); Glucose Urine UA 1+ mg/dL (Negative); Ketones Urine Negative (Negative); Leukocyte Esterase Ur Negative LEU/UL (Negative); Mucus Urine Rare /lpf; Nitrate Urine Negative (Negative); Protein Urine 3+ mg/dL (Negative); Specific Grav Ur 1.019 (1.001-1.035); Urobilinogen Urine Negative mg/dL (<2.0)
[2020-10-21 09:22] LABS: Platelet Estimate Adequate (Adequate)
[2020-10-21 09:23] LABS: Anisocytosis 1+ (NORMAL); Hypochromasia 1+ (NORMAL); Ovalocytes 2+ (NORMAL); Stomatocytes 1+ (NORMAL); Tear Drop Cells 1+ (NORMAL)
[2020-10-21 09:29] LABS: NT Pro B Type Natriuretic Pept 24100 PG/ML (5-100)
[2020-10-21 09:38] LABS: Alanine Aminotransferase 12 U/L (4-50); Albumin Level 3.7 g/dL (3.5-5.1); Alkaline Phosphatase 96 U/L (38-126); Aspartate Amino Transferase 33 U/L (17-59); Creatine Kinase 75 U/L (55-170)
[2020-10-21] MEDS: NITROGLYCERIN OINTMENT 1 INCH DOSE TRANSDERM (09:39)
[2020-10-21] MEDS: ASPIRIN 81 MG CHEWABLE TABLET 324 MG PO (09:39)
[2020-10-21] MEDS: HEPARIN SOD/D5W 100 UNITS/ML 25,000 UNITS/250 ML BAG 9 UNITS IV CONT (10:37)
[2020-10-21] MEDS: HEPARIN SODIUM 5,000 UNITS/ML VIAL 4000 UNITS IV PUSH ×2 (10:41→18:10)
--- NOTE | 2020-10-21 11:30 | PC.NURSE ---
received report from Akiko MACIEL. this RN to room to draw labs. crime scene evidence technician unable to get. resting on stretcher. c/o shaking again. patient here with shaking for a few days. (+) trop level. planning for admission upstairs. patient is aware of current plan. has went home due to PUI status and Covid rules for visitors.
--- NOTE | 2020-10-21 11:58 | PC.NURSE ---
Covid swab done. patient repositioned. patient updated on current treatment plan and plan for transfer upstairs for admission. ice water given.
--- NOTE | 2020-10-21 12:35 | PC.NURSE ---
SBAR reviewed with Babar MACIEL. this RN will transport patient to [facility] via stretcher and environmental monitoring technician.
--- NOTE | 2020-10-21 12:51 | ADMGEN ---
This patient, Chito Rivera, was admitted to IMU Room 212-01. Patient/family oriented to hospital policies and general routines including ID bracelet, bed and alarms, visiting hours, pain management, procedures, bathroom and other care routines, personal items, smoking policy, room service/diet, and visiting hours. Information on how to activate the Rapid Response Team has been discussed. Patient/Family are encouraged to report perceived risks to care and to ask questions if they do not understand what they are told or what they should do.
--- NOTE | 2020-10-21 14:30 | PM.IMHP ---
H&P: HPI History of Present Illness Date/Time: 10/21/20 14:30 Chief complaint: NSTEMI/CHF/PUI/ESRD/on dialysis Narrative: Chito Rivera is a 80 year old male Who has a history of coronary artery disease. He has a history of having a 3 vessel CABG as well as 3 coronary stents. The patient has end-stage renal disease and he states this is new to him he recently started over a month ago. His a temporary dialysis catheter to his right upper chest and that he has AV fistula left upper arm. The patient has dialysis on Friday and Friday he did not go to dialysis today. The patient has not had any fever she chills. However he has been feeling shaky since last night. The patient also feels weak. The patient stated he felt nauseated on after his dialysis but this is common for him to be nauseated after dialysis. The patient also has a history of hypertension and congestive heart failure any diabetic as well. The patient was complaining of some chest pain that he said was sharp it was midsternal radiated up to his left neck and he was not diaphoretic with this. The patient stated that yesterday his legs started shaking and is he could hold his legs up he was very weak and he could walk. No back pain or numbness or tingling. His chest pain started about 10:00 a.m. last night. He also has a nonproductive cough. Chest x-ray was read as development of diffuse bilateral airspace disease which may represent edema or pneumonia. Cardiomegaly. Patient was swabbed for COVID-19. Patient's troponin was 1.330 [place] [address]. Cardiology has been consulted as well as Nephrology. The patient was given nitro, aspirin and started on the heparin drip. The patient is being admitted into inpatient status on date of service 10/21/2020 Review of Systems Review of Systems: All systems reviewed & are unremarkable except as noted in HPI and below Constitutional: Constitutional: Reports as per HPI and Reports no additional constitutional complaints Eyes: Eyes: Reports as per HPI and Reports no additional eye complaints ENT: Reports system reviewed and no additional complaints, except as documented and Reports Normal hearing present Cardiovascular: Cardiovascular: Reports no additional cardiovascular complaints Respiratory: Respiratory: Reports no additional respiratory complaints and Reports no additional respiratory complaints Gastrointestinal: Gastrointestinal: Reports as per HPI and Reports no additional gastrointestinal complaints Musculoskeletal: Musculoskeletal: Reports no additional musculoskeletal complaints Integumentary/Breasts: Skin/Breast: Reports system reviewed and no additional complaints, except as docu and Reports as per HPI Neurologic: Reports system reviewed and no additional complaints, except as documented, Reports as per HPI and Reports Normal hearing present Psychiatric: Psychiatric: Reports no additional psychiatric complaints and Reports as per HPI Endocrine: Endocrine: Reports no additional endocrine complaints Hematologic/Lymphatic: Hematologic/Lymphatic: Reports no additional hematologic/lymphatic complaints Allergic/Immunologic: Allergic/Immunologic: Reports no additional allergic/immunologic complaints [facility] Past Medical History Medical History Acute angina Acute hyperkalemia Anemia Angina at rest BPH (benign prostatic hyperplasia) CHF (congestive heart failure), NYHA class I Chronic kidney disease, stage 5 CKD stage 5 due to type 2 diabetes mellitus Community acquired pneumonia Congestive heart failure Coronary artery disease He has had a 3 vessel CABG in 1999 with 3 stents. 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
--- NOTE | 2020-10-21 14:48 | PM.CNNEP ---
Assessment and Plan Assessment and plan (1) End stage renal disease: Code(s): N18.6 - End stage renal disease Status: Chronic Assessment and Plan: HD today and continue T/T/S schedule while hospitalized follow electrolytes, volume status, and clearance (2) Chest pain: Code(s): R07.9 - Chest pain, unspecified Status: Acute Assessment and Plan: elevated troponins appears consistent with NSTEMI Cardiology consulted maximize medical management on heparin gtoo (3) Hypoxia: Code(s): R09.02 - Hypoxemia Status: Acute Assessment and Plan: due to mild volume overload +/- NSTEMI +/- anemia fluid removal with HD supplemental O2 follow trend (4) Anemia: Code(s): D64.9 - Anemia, unspecified Status: Acute Assessment and Plan: partly related to ESRD Epogen with HD follow trend of H/H (5) Hypertension: Qualifiers: Hypertension type: essential hypertension Qualified Code(s): I10 - Essential (primary) hypertension Code(s): I10 - Essential (primary) hypertension Status: Chronic Assessment and Plan: reasonable control at this time follow trend of hemodynamics dialysis should help control as well (6) Diabetes: Code(s): E11.9 - Type 2 diabetes mellitus without complications Status: Chronic Assessment and Plan: follow accuchecks glycemic control Will continue to follow. History of Present Illness Reason for Consult Consult date: 10/21/20 Reason for consult: end stage renal disease Chief Complaint Chief complaint: NSTEMI/CHF/PUI/ESRD/on dialysis History of Present Illness Narrative: The patient is a 80 year old male with a past medical history as outlined below Who presented to [facility] Emergency room with complaints of shaking and chest pain. He noted yesterday that his shaking started yesterday evening which apparently led to severe lower extremity weakness and inability to walk. This symptoms seem to correlate the onset chest pain as well. The chest pain was described as a sharp sensation localized to the midsternal area with radiation to his left neck. This was associated with shortness of breath and some nausea. Initially, he thought the symptoms would resolve on her own but they persisted until this morning. He took a nitroglycerin with some relief of his chest pain but given his inability to walk, he called EMS for further evaluation. On arrival by EMS, he was found to be hypoxic with an O2 saturation of 89% on room air. 2 L of supplemental oxygen was applied with improvement in his oxygen saturations by the time of his arrival to the emergency room. He had no associated fevers, chills, palpitations, lightheadedness, or dizziness. Work-up and evaluation in the ER demonstrated labs consistent with his known end stage renal disease, elevated troponins higher than one would expect even with his renal failure along with a high BNP. Chest x-ray noted development of diffuse bilateral airspace disease which may represent edema or pneumonia. Given these findings, he was swabbed for COVID-19 and was given nitroglycerin, aspirin and started on the heparin drip. Cardiology was consulted as well given the suspicion for a NSTEMI and he was subsequently admitted to the hospital for further evaluation. next Renal consultation was requested due to his known end-stage renal disease. The patient was recently initiated on renal replacement therapy /dialysis about two months ago during his last hospitalization here [facility]. He receives the majority of his care at the [facility] and he was known to have advanced kidney disease at that time. His gis coordinator at the [place] [facility] had an AV access placed for the eventual need sessile He of renal replacement therapy / dialysis but at that time, it was not ready to use. He had a tunnel dialysis catheter
[2020-10-21] MEDS: PANTOPRAZOLE 40 MG TABLET PO (16:08)
[2020-10-21] MEDS: SODIUM BICARBONATE TAB 650 MG TABLET PO (16:08)
[2020-10-21] MEDS: TAMSULOSIN HCL 0.4 MG CAPSULE PO (16:08)
[2020-10-21] MEDS: MICONAZOLE NITRATE 2% CREAM 30 GM TUBE 1 APPLIC TOPICAL (16:08)
[2020-10-21 16:45] LABS: Glucose Point of Care 144 (65-105)
[2020-10-21 17:37] LABS: Partial Thromboplastin Time 47.6 SECONDS (22.3-36.8)
[2020-10-21 17:44] LABS: Hemoglobin A1C 5.4 % (<5.7)
[2020-10-21] MEDS: INSULIN GLARGINE (*BKC) 100 UNITS/ML 33 UNITS SUB-Q (21:00)
[2020-10-21] MEDS: RANOLAZINE 500 MG TAB.ER.12H PO (21:00)
[2020-10-21] MEDS: OMEGA 3 POLYUNSAT FATTY ACIDS 1 GM CAP PO (21:00)
[2020-10-21 21:04] LABS: Glucose Point of Care 193 (65-105)
[2020-10-21 23:32] LABS: SARS-CoV-2 RNA PCR Negative
[2020-10-22] VITALS (30 sets, daily range): BP systolic 102–161; BP diastolic 48–79; PULSE 62–94; RESP 16–22; TEMP 35.9–36.7; O2SAT 92–100
[2020-10-22 00:48] LABS: Partial Thromboplastin Time 51.9 SECONDS (22.3-36.8)
[2020-10-22] MEDS: HEPARIN SODIUM 5,000 UNITS/ML VIAL 4000 UNITS IV PUSH (01:51)
[2020-10-22] MEDS: carvediloL 25 MG TABLET PO ×3 (01:51→20:28)
--- NOTE | 2020-10-22 02:08 | PC.NURSE ---
RETURNED FROM DIALYSIS AT 0120, TOLERATED PROCEDURE WELL. 2L OF FLUID REMOVED PER TOWBOAT PILOT.
[2020-10-22 02:25] LABS: Hepatitis B Surface Anti Res Negative
[2020-10-22] MEDS: ALBUTEROL SULFATE (*SP) AEROSOL 1 PUFF 2 PUFF INHALATION ×2 (07:48→20:36)
[2020-10-22] MEDS: OMEGA 3 POLYUNSAT FATTY ACIDS 1 GM CAP PO ×2 (07:53→20:28)
[2020-10-22] MEDS: THERAPEUTIC MULTIVITAMINS/MINERALS TAB (*BKC) 1 TABLET PO (07:53)
[2020-10-22] MEDS: TAMSULOSIN HCL 0.4 MG CAPSULE PO ×2 (07:53→17:20)
[2020-10-22] MEDS: polyethylene glycoL 3350 17 GM POWD.PACK PO (07:53)
[2020-10-22] MEDS: RANOLAZINE 500 MG TAB.ER.12H PO ×2 (07:53→20:29)
[2020-10-22] MEDS: SODIUM BICARBONATE TAB 650 MG TABLET PO ×2 (07:54→17:20)
[2020-10-22] MEDS: CHOLECALCIFEROL 1,000 UNITS TABLET 2000 UNITS PO (07:54)
[2020-10-22] MEDS: ASPIRIN 81 MG CHEWABLE TABLET PO (07:55)
[2020-10-22] MEDS: PANTOPRAZOLE 40 MG TABLET PO ×2 (07:55→17:21)
[2020-10-22] MEDS: ATORVASTATIN 40 MG TABLET 80 MG PO (07:56)
[2020-10-22] MEDS: FINASTERIDE 5 MG TABLET PO (07:56)
[2020-10-22] MEDS: MICONAZOLE NITRATE 2% CREAM 30 GM TUBE 1 APPLIC TOPICAL ×2 (07:57→17:19)
[2020-10-22 08:19] LABS: Glucose Point of Care 133 (65-105)
[2020-10-22 09:00] LABS: Basophils Absolute Auto 0.1 K/mm3 (0.0-0.1); Eosinophils Percent Auto 0.4 % (0-4.4); Hematocrit 26.5 % (42.0-52.0); Immature Granulocyte Absolute 0.07 K/mm3 (0.00-0.031); Immature Granulocyte Percent A 1.4 % (0-0.5); Lymphocytes Absolute Auto 0.93 K/mm3 (0.9-3.2); Lymphocytes Percent Auto 18.5 % (18.3-44.2); Mean Corpuscular HGB Conc 30.2 g/dl (32-36); Mean Corpuscular Hemoglobin 30.5 pg (26-34); Mean Corpuscular Volume 101.1 fl (80-100); Mean Platelet Volume 12.4 fl (7.4-10.4); Monocytes Absolute Auto 0.7 K/mm3 (0.1-0.6); Monocytes Percent Auto 13.3 % (2.6-8.5); Neutrophils Absolute Auto 3.3 K/mm3 (1.3-6.7); Neutrophils Percent Auto 65.4 % (45.5-73.1); Nucleated Red Blood Cells Absolute Auto 0.1 K/mm3 (0.0-0.012); Nucleated Red Blood Cells Perc 1.2 % (0.0-0.2); Platelet Count Result 386 k/mm3 (150-375); Red Blood Count 2.62 M/mm3 (4.6-6.20); Red Cell Distribution Width 23.4 % (11.5-14.5)
[2020-10-22 09:12] LABS: Partial Thromboplastin Time 75.8 SECONDS (22.3-36.8)
[2020-10-22 09:25] LABS: Alanine Aminotransferase 13 U/L (4-50); Albumin Level 3.5 g/dL (3.5-5.1); Alkaline Phosphatase 95 U/L (38-126); Anion Gap 8 mmol/L (8-16); Aspartate Amino Transferase 30 U/L (17-59); Bilirubin,Total 0.9 mg/dL (0.2-1.3); Blood Urea Nitrogen 21 mg/dL (9-20); Calcium 8.6 mg/dL (8.4-10.2); Carbon Dioxide 30 mmol/L (22-30); Chloride 100 mmol/L (98-107); Estimated CRCL calculation 14 ml/min; Estimated Glomerular Filt Rate 15; Glucose 151 mg/dL (75-110); Magnesium 2.2 mg/dL (1.6-2.3); Phosphorus 4.1 mg/dL (2.5-4.5); Sodium 138 mmol/L (137-145)
[2020-10-22] MEDS: HEPARIN SOD/D5W 100 UNITS/ML 25,000 UNITS/250 ML BAG 15 UNITS IV CONT (09:36)
[2020-10-22 09:46] LABS: CRP 5.8 mg/dL (<1.0); Lactate Dehydrogenase 1383 U/L (313-618)
--- NOTE | 2020-10-22 11:08 | PM.CNCAR ---
Assessment and Plan Assessment and plan (1) Elevated troponin: Code(s): R77.8 - Other specified abnormalities of plasma proteins Status: Acute Assessment and Plan: Patient presents with typical anginal symptoms occurring at rest without recurrence since admission with elevated troponin at presentation with flat curve. Given his complicated coronary history and multiple comorbidities aside from his decompensated heart failure and hypoxia his presentation is concerning for NSTEMI with progressive ischemic ST depressions albeit with an atypical troponin trend. In conjunction with his chronic significant anemia and end-stage renal disease contrast allergy patient remains at high risk for intervention particular given his description of concerns on recent heart catheterization. Patient desires transfer back to the [place] for continuity of care with his school commissioner for recommendations regarding future management. Given the complexity of his history I agree this is reasonable if the patient remains hemodynamically stable and asymptomatic in this regard. (2) Chest pain: Code(s): R07.9 - Chest pain, unspecified Status: Acute Assessment and Plan: Currently resolved with nitroglycerin prior to admission. Patient denies recurrence on current therapy. He remains on high-dose long-acting nitrate, ranolazine, carvedilol. (3) Congestive heart failure: Qualifiers: Heart failure chronicity: unspecified Heart failure type: unspecified Qualified Code(s): I50.9 - Heart failure, unspecified Code(s): I50.9 - Heart failure, unspecified Status: Chronic Assessment and Plan: Volume management per hemodialysis. Patient clinically appears to be mildly decompensated on exam. Defer to Nephrology for hemodialysis in this regard. (4) Coronary artery disease: Qualifiers: Coronary Disease-Associated Artery/Lesion type: [place] artery [place] vs. transplanted heart: [place] heart Associated angina: with unspecified angina Qualified Code(s): I25.119 - Atherosclerotic heart disease of [place] coronary artery with unspecified angina pectoris Code(s): I25.10 - Atherosclerotic heart disease of [place] coronary artery without angina pectoris Status: Chronic Assessment and Plan: As above, continue current medical therapy including dual antiplatelet. Heparin infusion for 48 hours should he remain hospitalized here. Agree with transfer back to be a per patient wishes further discussion with his primary school commissioner who knows him well. (5) Anemia: Code(s): D64.9 - Anemia, unspecified Status: Acute Assessment and Plan: Stable, chronic. No evidence of active bleed. (6) End stage renal disease: Code(s): N18.6 - End stage renal disease Status: Chronic Assessment and Plan: Hemodialysis per Nephrology. (7) Hyperlipidemia: Qualifiers: Hyperlipidemia type: unspecified Qualified Code(s): E78.5 - Hyperlipidemia, unspecified Code(s): E78.5 - Hyperlipidemia, unspecified Status: Chronic Assessment and Plan: Continue high-dose statin therapy. Goal LDL less than 70. (8) Diabetes: Qualifiers: Diabetes mellitus type: type 2 Diabetes mellitus fpc insulin use: with filler leaf cutter long use Diabetes mellitus complication status: with kidney complications Diabetes mellitus complication detail: with chronic kidney disease Chronic kidney disease stage: stage 4 (severe) Qualified Code(s): E11.22 - Type 2 diabetes mellitus with diabetic chronic kidney disease; N18.4 - Chronic kidney disease, stage 4 (severe); Z79.4 - tank terminal gauger (current) use of insulin Code(s): E11.9 - Type 2 diabetes mellitus without complications Status: Chronic Assessment and Plan: Per primary service. (9) Sleep apnea: Qualifiers: Sleep apnea type: obstructive Qualified Code(s): G47.33 - Obstructive sleep apnea (adult
[2020-10-22 12:21] LABS: Glucose Point of Care 208 (65-105)
[2020-10-22] MEDS: INSULIN ASPART (*BKC) 100 UNITS/ML SUB-Q (12:36)
--- NOTE | 2020-10-22 13:40 | PM.IMPN ---
Progress Note: A&P Assessment and Plan (1) Chest pain: Code(s): R07.9 - Chest pain, unspecified Status: Acute Assessment and Plan: Patient's troponins are elevated but level. He does have end-stage renal disease and is on dialysis. He stated he has only been dialysis for the last month . However he is having chest pain with this elevation of troponin. been placed on heparin drip for probable non STEMI. Continue with patient's Coreg, continue with patient's Ranexa and he has p.r.n. nitro. . Cardiology and patient feel he would be best treated at the [facility] where he receives his care and care coordination is checking on feasibility of transfer and bed availability (2) End stage renal disease: Code(s): N18.6 - End stage renal disease Status: Chronic Assessment and Plan: Dr. Quiñonez has been consulted and is seeing the patient. The patient has dialysis on a Friday. Will continue with his home medications. Continue to monitor his electrolytes. The patient has a left AV fistula with a positive bruit and thrill. He also has a temporary dialysis catheter the right chest. The patient states that the 1 in the right chest is about ready to come out and that they have been using the left AV fistula. The patient stated that this dialysis is new to him that he has only been doing this the last month and half and it is related to his diabetes. (3) Anemia: Code(s): D64.9 - Anemia, unspecified Status: Acute Assessment and Plan: He has anemia of chronic disease related to dialysis. Patient's levels are at baseline. And would like hemoglobin at 8 or above with non STEMI, no evidence of acute blood loss (4) Congestive heart failure: Qualifiers: Heart failure chronicity: unspecified Heart failure type: unspecified Qualified Code(s): I50.9 - Heart failure, unspecified Code(s): I50.9 - Heart failure, unspecified Status: Chronic Assessment and Plan: . Continue with Coreg, echo ordered (5) Hyperlipidemia: Qualifiers: Hyperlipidemia type: unspecified Qualified Code(s): E78.5 - Hyperlipidemia, unspecified Code(s): E78.5 - Hyperlipidemia, unspecified Status: Chronic Assessment and Plan: continue with Lipitor (6) Sleep apnea: Qualifiers: Sleep apnea type: obstructive Qualified Code(s): G47.33 - Obstructive sleep apnea (adult) (pediatric) Code(s): G47.30 - Sleep apnea, unspecified Status: Chronic Assessment and Plan: continue with home settings for CPAP machine (7) Gout: Qualifiers: Gout site: unspecified site Gout etiology: unspecified cause Chronicity: unspecified Qualified Code(s): M10.9 - Gout, unspecified Code(s): M10.9 - Gout, unspecified Status: Chronic Assessment and Plan: continue with home medication. (8) Diabetes: Qualifiers: Diabetes mellitus type: type 2 Diabetes mellitus mcc insulin use: with mcc use Diabetes mellitus complication status: with kidney complications Diabetes mellitus complication detail: with chronic kidney disease Chronic kidney disease stage: stage 4 (severe) Qualified Code(s): E11.22 - Type 2 diabetes mellitus with diabetic chronic kidney disease; N18.4 - Chronic kidney disease, stage 4 (severe); Z79.4 - shelter (current) use of insulin Code(s): E11.9 - Type 2 diabetes mellitus without complications Status: Chronic Assessment and Plan: Check A1c continue sliding scale insulin. Continue with Lantus. Patient's blood sugars when the upper 100s earlier today. (9) BPH (benign prostatic hyperplasia): Code(s): N40.0 - Benign prostatic hyperplasia without lower urinary tract symptoms Status: Chronic Assessment and Plan: Continue Proscar (10) DVT prophylaxis: Code(s): Z29.9 - Encounter for prophylactic measures, unspeci
[2020-10-22 15:34] LABS: Partial Thromboplastin Time 83.7 SECONDS (22.3-36.8)
[2020-10-22] MEDS: CYCLOBENZAPRINE HCL 10 MG TABLET PO (15:48)
--- NOTE | 2020-10-22 16:00 | P.PNNP_ITS ---
Progress Note: A&P Assessment and Plan (1) End stage renal disease: Code(s): N18.6 - End stage renal disease Status: Chronic Assessment and Plan: * HD yesterdday and continue T/T/S schedule while hospitalized * follow electrolytes, volume status, and clearance (2) Chest pain: Code(s): R07.9 - Chest pain, unspecified Status: Acute Assessment and Plan: * elevated troponins appears consistent with NSTEMI * Cardiology recommendations noted * maximize medical management * possible transfer to [facility] (3) Hypoxia: Code(s): R09.02 - Hypoxemia Status: Acute Assessment and Plan: * due to mild volume overload +/- NSTEMI +/- anemia * fluid removal with HD * supplemental O2 * follow trend (4) Anemia: Code(s): D64.9 - Anemia, unspecified Status: Acute Assessment and Plan: * partly related to ESRD * Epogen with HD * follow trend of H/H (5) Hypertension: Qualifiers: Hypertension type: essential hypertension Qualified Code(s): I10 - Essential (primary) hypertension Code(s): I10 - Essential (primary) hypertension Status: Chronic Assessment and Plan: * reasonable control at this time * follow trend of hemodynamics * dialysis should help control as well (6) Diabetes: Code(s): E11.9 - Type 2 diabetes mellitus without complications Status: Chronic Assessment and Plan: * follow accuchecks * glycemic control Will continue to follow. Subjective Date/time seen: 10/22/20 16:00 Tolerated dialysis treatment yesterday evening without any issues or problems; Cardiology recommendations noted and attempting transfer to [facility] for further cardiac evaluation; no acute distress at this time. Exam Narrative: Exam Narrative: General: WD/WN male in NAD Heart: normal S1 and S2; no rub Lungs: some bibasilar crackles Abdomen: soft, nontender, nondistended, positive bowel sounds Extremities: no cyanosis or clubbing; no edema Skin: warm and dry Objective Data Vital Signs Vital Signs: Vital Signs Temp Pulse Resp BP Pulse Ox 10/22/20 16:00 99 10/22/20 14:00 66 10/22/20 12:00 62 99 10/22/20 11:56 35.9 C L 62 20 102/48 L 98 10/22/20 10:00 66 10/22/20 08:00 72 93 12/06/20 07:53 69 10/22/20 07:51 36.3 C L 69 20 125/55 L 99 10/22/20 06:00 67 10/22/20 04:00 36.6 C 71 20 130/61 96 10/22/20 02:16 86 22 H 99 10/22/20 02:10 99 10/22/20 02:00 88 10/22/20 01:51 88 10/22/20 01:30 99 10/22/20 01:26 36.2 C L 94 20 161/70 H 98 10/22/20 01:05 36.7 C 88 20 155/76 H 10/22/20 01:00 89 154/76 H 10/22/20 00:55 88 158/79 H 10/22/20 00:45 89 156/76 H 10/22/20 00:30 89 158/79 H 10/22/20 00:15 88 151/73 H 10/22/20 00:00 88 10/21/20 23:45 87 143/73 H 10/21/20 23:30 87 151/74 H 10/21/20 23:15 88 151/67 H 10/21/20 23:00 86 153/75 H 10/21/20 22:45 77 151/77 H 10/21/20 22:30 86 134/75 10/21/20 22:15 85 146/74 H 10/21/20 22:00 84 141/68 H 10/21/20 21:58 85
--- NOTE | 2020-10-22 16:00 | PM.PNNEP ---
Progress Note: A&P Assessment and Plan (1) End stage renal disease: Code(s): N18.6 - End stage renal disease Status: Chronic Assessment and Plan: HD yesterdday and continue T/T/S schedule while hospitalized follow electrolytes, volume status, and clearance (2) Chest pain: Code(s): R07.9 - Chest pain, unspecified Status: Acute Assessment and Plan: elevated troponins appears consistent with NSTEMI Cardiology recommendations noted maximize medical management possible transfer to [facility] (3) Hypoxia: Code(s): R09.02 - Hypoxemia Status: Acute Assessment and Plan: due to mild volume overload +/- NSTEMI +/- anemia fluid removal with HD supplemental O2 follow trend (4) Anemia: Code(s): D64.9 - Anemia, unspecified Status: Acute Assessment and Plan: partly related to ESRD Epogen with HD follow trend of H/H (5) Hypertension: Qualifiers: Hypertension type: essential hypertension Qualified Code(s): I10 - Essential (primary) hypertension Code(s): I10 - Essential (primary) hypertension Status: Chronic Assessment and Plan: reasonable control at this time follow trend of hemodynamics dialysis should help control as well (6) Diabetes: Code(s): E11.9 - Type 2 diabetes mellitus without complications Status: Chronic Assessment and Plan: follow accuchecks glycemic control Will continue to follow. Subjective Date/time seen: 10/22/20 16:00 Tolerated dialysis treatment yesterday evening without any issues or problems; Cardiology recommendations noted and attempting transfer to [facility] for further cardiac evaluation; no acute distress at this time. Exam Narrative: Exam Narrative: General: WD/WN male in NAD Heart: normal S1 and S2; no rub Lungs: some bibasilar crackles Abdomen: soft, nontender, nondistended, positive bowel sounds Extremities: no cyanosis or clubbing; no edema Skin: warm and dry Objective Data Vital Signs Vital Signs: Vital Signs Temp Pulse Resp BP Pulse Ox 10/22/20 16:00 99 10/22/20 14:00 66 10/22/20 12:00 62 99 10/22/20 11:56 35.9 C L 62 20 102/48 L 98 10/22/20 10:00 66 10/22/20 08:00 72 93 10/22/20 07:53 69 10/22/20 07:51 36.3 C L 69 20 125/55 L 99 10/22/20 06:00 67 10/22/20 04:00 36.6 C 71 20 130/61 96 10/22/20 02:16 86 22 H 99 10/22/20 02:10 99 10/22/20 02:00 88 10/22/20 01:51 88 10/22/20 01:30 99 10/22/20 01:26 36.2 C L 94 20 161/70 H 98 10/22/20 01:05 36.7 C 88 20 155/76 H 10/22/20 01:00 89 154/76 H 10/22/20 00:55 88 158/79 H 10/22/20 00:45 89 156/76 H 10/22/20 00:30 89 158/79 H 10/22/20 00:15 88 151/73 H 10/22/20 00:00 88 10/21/20 23:45 87 143/73 H 10/21/20 23:30 87 151/74 H 10/21/20 23:15 88 151/67 H 10/21/20 23:00 86 153/75 H 10/21/20 22:45 77 151/77 H 10/21/20 22:30 86 134/75 10/21/20 22:15 85 146/74 H 10/21/20 22:00 84 141/68 H 10/21/20 21:58 85 10/21/20 21:50 84 150/75 H 10/21/20 21:43 37.2 C 84 20 146/77 H 10/21/20 20:00 36.9 C 82 18 151/69 H 95 10/21/20 18:00 84 Intake/Output Intake/Output: Intake & Output 10/19/20 10/20/20 10/21/20 10/22/20 23:59 23:59 23:59 23:59 Intake Total 120 930 Output Total 800 2000 Balance -209 -1070 Meds/Results Medications: Active Medications Generic Name Dose Route Start Last Admin Trade Name Freq PRN Reason Stop Dose Admin Albuterol 2 puff 10/21/20 20:00 10/22/20 07:48 Albuterol Sulfate (*Sp) Aerosol 1 Puff INHALATION 2 puff Q12HRT OSWALDO Administration Aspirin 81 mg 10/22/20 09:00 10/22/20 07:55 Aspirin 81 Mg Chewable Tablet PO 81 mg DAILY OSWALDO Administration Atorvastatin Calcium
[2020-10-22 17:08] LABS: Glucose Point of Care 169 (65-105)
--- NOTE | 2020-10-22 18:36 | PM.TDS ---
Transfer Discharge Sum: Prov Provider Date of admission: 10/21/20 10:34 Primary care physician: Vladimir Pool, Admitting clinician: Murtaza Craft MD Consults: 10/21/20 10:37 Consult to Physician Routine Comment: Consulting Provider: Ronnie Fuller Reason for consultation: NSTEMIA Has provider been notified: Yes 10/21/20 10:38 Consult to Physician Routine Comment: Consulting Provider: Ana Quiñonez Reason for consultation: ESRD on dialysis Has provider been notified: Yes DS: Admitting Diagnosis Admitting Diagnosis Admitting Diagnosis: NSTEMI/CHF/PUI/ESRD/on dialysis DS: Discharge Diagnosis Discharge Diagnosis (1) Chest pain: Code(s): R07.9 - Chest pain, unspecified Status: Acute Assessment and Plan: Patient's troponins are elevated but level. He does have end-stage renal disease and is on dialysis. He stated he has only been dialysis for the last month . However he is having chest pain with this elevation of troponin. been placed on heparin drip for probable non STEMI. Continue with patient's Coreg, continue with patient's Ranexa and he has p.r.n. nitro. . Cardiology and patient feel he would be best treated at the [facility] where he [facility] his care . [facility] was contacted and they accepted the patient in transfer (2) End stage renal disease: Code(s): N18.6 - End stage renal disease Status: Chronic Assessment and Plan: Dr. Quiñonez was consulted and is seeing the patient. The patient has dialysis on a Friday. Will continue with his home medications. Continue to monitor his electrolytes. The patient has a left AV fistula with a positive bruit and thrill. He also has a temporary dialysis catheter the right chest. The patient states that the 1 in the right chest is about ready to come out and that they have been using the left AV fistula. The patient stated that this dialysis is new to him that he has only been doing this the last month and half and it is related to his diabetes. He was dialyzed today before transfer with 2 L fluid removed (3) Anemia: Code(s): D64.9 - Anemia, unspecified Status: Acute Assessment and Plan: He has anemia of chronic disease related to dialysis. Patient's levels are at baseline. And would like hemoglobin at 8 or above with non STEMI, no evidence of acute blood loss Hemoglobin today 8.0 (4) Congestive heart failure: Qualifiers: Heart failure chronicity: unspecified Heart failure type: unspecified Qualified Code(s): I50.9 - Heart failure, unspecified Code(s): I50.9 - Heart failure, unspecified Status: Chronic Assessment and Plan: . Continue with Coreg, echo ordered (5) Hyperlipidemia: Qualifiers: Hyperlipidemia type: unspecified Qualified Code(s): E78.5 - Hyperlipidemia, unspecified Code(s): E78.5 - Hyperlipidemia, unspecified Status: Chronic Assessment and Plan: continue with Lipitor (6) Sleep apnea: Qualifiers: Sleep apnea type: obstructive Qualified Code(s): G47.33 - Obstructive sleep apnea (adult) (pediatric) Code(s): G47.30 - Sleep apnea, unspecified Status: Chronic Assessment and Plan: continue with home settings for CPAP machine (7) Gout: Qualifiers: Gout site: unspecified site Gout etiology: unspecified cause Chronicity: unspecified Qualified Code(s): M10.9 - Gout, unspecified Code(s): M10.9 - Gout, unspecified Status: Chronic Assessment and Plan: continue with home medication. (8) Diabetes: Qualifiers: Diabetes mellitus type: type 2 Diabetes mellitus terminal system operator insulin use: with terminal system operator use Diabetes mellitus complication status: with kidney complications Diabetes mellitus complication detail: with chronic kidney disease Chronic kidney disease stage: stage 4 (severe) Qualified Code(s):
[2020-10-22 19:40] LABS: Glucose Point of Care 182 (65-105)
[2020-10-22] MEDS: INSULIN GLARGINE (*BKC) 100 UNITS/ML 33 UNITS SUB-Q (20:29)
[2020-10-26 10:34] LABS: Hepatitis Be Antibody Nonreactive; Hepatitis Be Antigen Nonreactive
== END 2020-10-23 00:05 | DRG 280 ==
LOC: ANHED 07:44 → ANHIMU 11:53
PROVIDERS: Family Medicine; Internal Medicine Nephrology; Nurse Practitioner; Admitting Provider Internal Medicine; Emergency Provider General Practice; PCP Internal Medicine; Visit Provider Internal Medicine
DX: I21.4 Non-ST elevation (NSTEMI) myocardial infarction (principal); N18.6 End stage renal disease; I13.2 Hypertensive heart and chronic kidney disease with heart failure and with stage 5 chronic kidney disease, or end stage renal disease; Z20.828 Contact with and (suspected) exposure to other viral communicable diseases; I50.9 Heart failure, unspecified; E11.22 Type 2 diabetes mellitus with diabetic chronic kidney disease; D63.1 Anemia in chronic kidney disease; E78.5 Hyperlipidemia, unspecified; G47.33 Obstructive sleep apnea (adult) (pediatric); M10.9 Gout, unspecified; N40.0 Benign prostatic hyperplasia without lower urinary tract symptoms; R09.02 Hypoxemia; Z96.653 Presence of artificial knee joint, bilateral; I25.10 Atherosclerotic heart disease of native coronary artery without angina pectoris; Z95.5 Presence of coronary angioplasty implant and graft; Z98.42 Cataract extraction status, left eye; Z98.41 Cataract extraction status, right eye; Z90.49 Acquired absence of other specified parts of digestive tract; Z95.1 Presence of aortocoronary bypass graft; Z87.891 Personal history of nicotine dependence; Z79.4 Long term (current) use of insulin; Z99.2 Dependence on renal dialysis
CPT/HCPCS: 36415; 36600; 51701; 70450; 71045; 80048; 80053; 80076; 81001; 82375; 82550; 82728; 82805; 83036; 83050; 83615; 83735; 83880; 84100; 84443; 84484; 85025; 85610; 85730; 86140; 86706; 86707; 87086; 87350; 87635; 93005; 94002; 94640; 99291; A9270; C9803; G0257; J1644; J1815; J7030; U0003

== ENCOUNTER 2020-10-29 03:21 | Inpatient (IN) | payer MEDICARE, OTHER, SELFPAY ==
[2020-10-29] VITALS (17 sets, daily range): BP systolic 128–163; BP diastolic 58–67; PULSE 72–95; RESP 16–20; TEMP 36.6–37.9; O2SAT 91–100; BMI 28.5
--- NOTE | ~2020-10-29 | XR_ITS ---
EXAMINATION: XR chest 1V portable DATE: 11/02/2020 06:17 INDICATION: Respiratory failure. COVID-19 pneumonia. TECHNIQUE: A single frontal view of the chest was obtained. COMPARISON: Chest 2 views 10/29/2020 FINDINGS: The patient is rotated to his left. There are airspace opacities in all lung zones bilatera lly with a perihilar and left basilar predominance. No pleural effusion or pneumothorax. The heart si ze is normal. Median sternotomy wires are noted. A right internal jugular central venous catheter is seen with tip in the right atrium. IMPRESSION: 1. Worsened diffuse lung disease, consistent with pulmonary edema versus pneumonia. Reviewed, dictated and finalized at location A. F ENGINEER'S HELPER IMPRESSION: 1. Worsened diffuse lung disease, consistent with pulmonary edema versus pneumo ngozi.
--- NOTE | ~2020-10-29 | XR_ITS ---
EXAMINATION: XR chest 2V DATE: 10/29/2020 06:09 INDICATION: Cough and dyspnea TECHNIQUE: frontal and lateral views of the chest were obtained. COMPARISON: Chest radiograph dated 10/21/2020 FINDINGS: Airspace opacities in the left lower lobe and small left pleural effusion. Right lung is clear. No pu lmonary edema or pneumothorax. Cardiomegaly. Median sternotomy wires and mediastinal surgical clips a re seen, likely from prior coronary artery bypass grafting. Large-bore dual-lumen right internal jugu lar central venous catheter with distal tip in the right atrium. IMPRESSION: 1. Small left pleural effusion and left lower lobar opacities which could represent atelectasis and/o r pneumonia. Reviewed, dictated and finalized at location A. DATION LEADER IMPRESSION: 1. Small left pleural effusion and left lower lobar opacities which could repre sent atelectasis and/or pneumonia.
--- NOTE | ~2020-10-29 | CT_ITS ---
EXAMINATION: CT brain wo con DATE: 11/03/2020 10:10 INDICATION: Decreased level of consciousness TECHNIQUE: Computed tomography (CT) of the head was performed without intravenous contrast. The mA wa s adjusted according to patient size. Iterative reconstruction technique was employed. Exam dose: 60 5.33 mGy-cm total exam DLP. COMPARISON: 10/21/2020 CT brain FINDINGS: Examination is mildly limited by motion artifact. Prominent bilateral vertebral artery calcifications as well as bilateral carotid siphon internal vicente tid artery calcifications are noted. There is nonspecific diminished attenuation of the subcortical and periventricular cerebral white mat ter, likely due to chronic small vessel ischemic changes. No intracranial mass lesion or hemorrhage, midline shift or mass effect. No recent cerebrovascular a ccident is evident. No subdural or epidural hematoma. There is age-consistent cerebral volume loss. No orbital mass lesion. Minimal focal soft tissue thickening of the left sphenoid sinus. The included paranasal sinuses and m astoid air cells are otherwise unremarkable. No fracture or bone destruction of the cranial vault. IMPRESSION: Cerebral atherosclerosis and chronic small vessel ischemic changes of the cerebral white matter No acute intracranial CT brain finding Reviewed, dictated and finalized at Location A. Reviewed, dictated and finalized at location B. RELIEF CHARGE
--- NOTE | ~2020-10-29 | CT_ITS ---
EXAMINATION: CT brain wo [facility] EXAM DATE: 11/07/2020 14:23 INDICATION: Stroke. Decreased level of consciousness. TECHNIQUE: Spiral CT of the head was performed without contrast. Axial, coronal and sagittal images were reviewed. The dose-length product (DLP) for this examination was 1210.67 mGy-cm. The exposure was tailored according to patient size, and iterative reconstruction (ASIR) was used as additional do se reduction technique. Comparison is made to prior examination from 11/03/2020. FINDINGS: There is no acute intraparenchymal hemorrhage. No evidence of intraparenchymal brain mass lesion. No evidence of acute infarction. Please note that initial head CT has limited sensitivity f or small or acute infarctions. There is periventricular and subcortical hypodensity, nonspecific but probably related to small vessel ischemic disease. There is prominence of the sulci and ventricles related to cerebral atrophy. There is intracranial carotid arteriosclerosis. There are no extra-ax ial collections. There is no mass effect or midline shift. Patient has had bilateral ocular lens gibbs rgery. Soft tissue is unremarkable. The visualized sinuses and mastoid air cells are well aerated. There is no interval change. IMPRESSION: 1. No acute intracranial findings. 2. Chronic age related findings. Reviewed, dictated and finalized at location B. LE LABELER
--- NOTE | ~2020-10-29 | XR_ITS ---
EXAMINATION: XR abdomen/kub 1V DATE: 11/01/2020 05:34 INDICATION: Abdominal distention. Vomiting. TECHNIQUE: A supine view of the abdomen on 2 radiographs was obtained. COMPARISON: None. FINDINGS: There are no dilated loops of bowel. There is a moderate volume of stool in the colon. Surg ical clips overlie the abdomen. There is a left hip arthroplasty. Median sternotomy wires are noted. There is a right-sided central venous catheter with tip in right atrium. IMPRESSION: 1. Normal bowel gas pattern. Reviewed, dictated and finalized at location A. IGN LANGUAGE TEACHER
--- NOTE | ~2020-10-29 | XR_ITS ---
EXAMINATION: XR chest 1V portable INDICATION: Shortness of breath, COVID 19 TECHNIQUE: Portable AP chest at 1426 hours COMPARISON: 11/02/2020 FINDINGS: A right internal jugular dialysis catheter ends with its tip in the proximal right atrium. Diffuse airspace opacities persist in all lung zones with slight improvement. A small left pleural ef fusion is suggested. There is no pneumothorax. Median sternotomy wires and mediastinal surgical clips are seen, likely from prior coronary artery bypass grafting. The heart size is upper limits of dorota l for technique. IMPRESSION: 1. Diffuse lung disease with interval improvement, consistent with pneumonia and/or pulmonary edema a nd/or acute respiratory distress syndrome (ARDS). Reviewed, dictated and finalized at location A. RANCE ACCOUNT ASSISTANT IMPRESSION: 1. Diffuse lung disease with interval improvement, consistent with pneumonia an d/or pulmonary edema and/or acute respiratory distress syndrome (ARDS).
--- NOTE | 2020-10-29 04:04 | ED.MALEGU ---
HPI - Male Genitourinary General Chief complaint: Urogenital-Male Stated complaint: Bladder infection Time Seen by Provider: 10/29/20 04:00 Source: patient Mode of arrival: ambulatory Limitations: no limitations History of Present Illness HPI Narrative: The patient is a 80 yo male with a history of end-stage renal disease, Friday, , Friday dialysis, history of congestive heart failure, type 2 diabetes, recent NSTEMI for which he was treated at the [facility] who was discharged 4 days previously, who presents for evaluation of burning urination and decreased urination. Pt reports history of this in the past where he had a urinary tract infection. He reports malaise and has had decreased oral intake. He also reports nausea with two episodes of emesis. He also reports dyspnea due to pain, but denies chest pain. He reports penile pain. He had a catheter placed last Friday during his catheterization. Patient denies cough. Related Data Home Medications Medication Instructions Recorded Confirmed Centrum Men 1 tablet PO DAILY 02/24/20 10/21/20 albuterol sulfate 2 puff INHALATION BID 02/24/20 10/21/20 aspirin 81 mg PO DAILY 02/24/20 10/21/20 atorvastatin 80 mg PO DAILY 02/24/20 10/21/20 carvedilol [Coreg] 12.5 mg PO Q12H 02/24/20 10/21/20 clopidogrel [Plavix] 75 mg PO HS 02/24/20 10/21/20 diclofenac sodium 2 g TOPICAL QID 02/24/20 10/21/20 insulin aspart U-100 [Novolog See Rx Instructions .ROUTE .COMPLEX 02/24/20 10/21/20 U-100 Insulin aspart] nitroglycerin 0.4 mg SUBLINGUAL Q5-15M PRN 02/24/20 10/21/20 tamsulosin 0.4 mg PO BID 02/24/20 10/21/20 Lantus U-100 Insulin 33 unit SUBCUT HS 08/22/20 10/21/20 camphor-menthol 1 applic TOPICAL TID PRN 08/23/20 10/21/20 cetirizine [Allergy Relief 10 mg PO DAILY PRN 08/23/20 10/21/20 (cetirizine)] clotrimazole [Antifungal 1 applic TOPICAL BID 08/23/20 10/21/20 (clotrimazole)] docusate sodium 100 mg PO TID PRN 08/23/20 10/21/20 isosorbide mononitrate 120 mg PO DAILY 08/23/20 10/21/20 meclizine 25 mg PO DAILY PRN 08/23/20 10/21/20 ranolazine 500 mg PO Q12H 08/23/20 10/21/20 sodium bicarbonate 650 mg PO BID 08/23/20 10/21/20 triamcinolone acetonide 1 applic TOPICAL BID PRN 08/23/20 10/21/20 polyethylene glycol 3350 [Miralax] 17 g PO DAILY 08/24/20 10/21/20 cholecalciferol (vitamin D3) 50 mcg PO DAILY 10/21/20 10/21/20 [Vitamin D3] cyclobenzaprine 10 mg PO TID PRN 10/21/20 10/21/20 febuxostat 40 mg PO DAILY 10/21/20 10/21/20 finasteride 5 mg PO DAILY 10/21/20 10/21/20 oxycodone-acetaminophen 1 tablet PO Q6H PRN 10/21/20 10/21/20 pantoprazole 40 mg PO BID 10/21/20 10/21/20 lisinopril 10 mg PO DAILY 10/29/20 Allergies Allergy/AdvReac Type Severity Reaction Status Date / Time Iodinated Contrast Media Allergy Severe Anaphylaxis Verified 10/29/20 07:11 iodine Allergy Unknown Hives Verified 10/29/20 07:11 niacin Allergy Unknown Fever Verified 10/29/20 07:11 naproxen [From Naprosyn] Allergy Vomiting Verified 10/29/20 07:11 omeprazole [From Prilosec] Allergy Unknown Verified 10/29/20 07:11 latex AdvReac Rash Verified 10/29/20 07:11 Contrast Media Allergy Severe Anaphylaxis Uncoded 10/21/20 07:52 Review of Systems Review of Systems: Narrative: CONSTITUTIONAL: Denies fever, chills, or sweats. ENT: Denies rhinorrhea, congestion, sore throat, or otalgia. CARDIOVASCULAR: Denies chest pain, palpitations, or edema. RESPIRATORY: Denies cough, reports mild dyspnea GASTROINTESTINAL: Denies abdominal pain, nausea, vomiting, or diarrhea. GENITOURINARY: Reports dysuria and hesitancy SKIN: Denies rash or itching. MUSCULOSKELETAL: Denies back pain, joint pain, or myalgia. NEUROLOGIC: Denies headache, numbness, or weakness. [facility] Past Medical History Medical History Acute angina Acute hyperkalemia Anemia Angina at rest BPH (benign prostatic hyperplasia) CHF (congestive heart failure), NYHA class I Chronic kidney disease, stage 5 CKD stage 5 due to t
--- NOTE | 2020-10-29 04:37 | ECG_ITS ---
Measurements Intervals [place] Rate: 84 P: 102 AL: 207 QRS: 61 QRSD: 98 T: 94 QT: 377 QTc: 448 Interpretive Statements SINUS RHYTHM DELAYED PRECORDIAL R/S TRANSITION CONSIDER INFERIOR INFARCT, AGE INDETERMINATE NONSPECIFIC ST & T-WAVE ABNORMALITY- LAT/HIGH LAT LEADS ABNORMAL ECG Electronically Signed On 10-29-2020 9:27:58 COGNOS BI ADMINISTRATOR by Reji Arevalo D.O.
[2020-10-29 05:11] LABS: Basophils Absolute Auto 0.1 K/mm3 (0.0-0.1); Basophils Percent Auto 0.8 % (0.2-1.2); Eosinophils Percent Auto 0.3 % (0-4.4); Hematocrit 29.2 % (42.0-52.0); Hemoglobin 9.3 g/dL (14.0-18.0); Immature Granulocyte Absolute 0.15 K/mm3 (0.00-0.031); Lymphocytes Absolute Auto 1.09 K/mm3 (0.9-3.2); Lymphocytes Percent Auto 14.3 % (18.3-44.2); Mean Corpuscular HGB Conc 31.8 g/dl (32-36); Mean Corpuscular Hemoglobin 30.1 pg (26-34); Mean Corpuscular Volume 94.5 fl (80-100); Mean Platelet Volume 12.3 fl (7.4-10.4); Monocytes Absolute Auto 1.2 K/mm3 (0.1-0.6); Monocytes Percent Auto 15.7 % (2.6-8.5); Neutrophils Absolute Auto 5.1 K/mm3 (1.3-6.7); Neutrophils Percent Auto 66.9 % (45.5-73.1); Nucleated Red Blood Cells Perc 0.4 % (0.0-0.2); Platelet Count Result 413 k/mm3 (150-375); Red Blood Count 3.09 M/mm3 (4.6-6.20); Red Cell Distribution Width 22.2 % (11.5-14.5); White Blood Count 7.6 K/mm3 (4.5-10.0)
[2020-10-29 05:21] LABS: Add Urine Microscopic? YES; Appearance Urine Cloudy (Clear); Bacteria Urine Trace /hpf; Bilirubin Urine Negative (Negative); Blood Urine Negative (Negative); Color Urine Yellow (Yellow); Glucose Urine UA Negative (Negative); Ketones Urine Trace mg/dL (Negative); Leukocyte Esterase Ur 2+ LEU/UL (Negative); Nitrate Urine Negative (Negative); Protein Urine 3+ mg/dL (Negative); Specific Grav Ur 1.015 (1.001-1.035); Urobilinogen Urine Negative mg/dL (<2.0); WBC Clumps Urine Present /HPF; WBC Urine >75 /hpf
[2020-10-29 05:26] LABS: INR 1.2; Prothrombin Time 15.9 Seconds (11.1-14.7)
[2020-10-29 05:27] LABS: Partial Thromboplastin Time 30.6 SECONDS (22.3-36.8)
[2020-10-29 05:28] LABS: Anion Gap 11 mmol/L (8-16); Blood Urea Nitrogen 31 mg/dL (9-20); Calcium 8.5 mg/dL (8.4-10.2); Carbon Dioxide 29 mmol/L (22-30); Chloride 94 mmol/L (98-107); Estimated CRCL calculation 17 ml/min; Estimated Glomerular Filt Rate 17; Glucose 175 mg/dL (75-110); Potassium 3.7 mmol/L (3.4-5.0); Sodium 134 mmol/L (137-145)
[2020-10-29 06:05] LABS: Troponin I 0.178 ng/mL (0.000-0.034)
[2020-10-29] MEDS: CIPROFLOXACIN 400 MG/D5W 200ML 200 ML 200 MG IVPB (06:39)
[2020-10-29] MEDS: MORPHINE SULFATE (*CRX) 2 MG/ML INJ IV PUSH (08:27)
[2020-10-29 08:56] LABS: Troponin I 0.167 ng/mL (0.000-0.034)
[2020-10-29] MEDS: ONDANSETRON INJ 4 MG/2 ML VIAL IV PUSH (10:36)
--- NOTE | 2020-10-29 10:39 | PC.NURSE ---
This patient, Chito Rivera, was admitted to IMU Room 206-02. Patient/family oriented to hospital policies and general routines including ID bracelet, bed and alarms, visiting hours, pain management, procedures, bathroom and other care routines, personal items, smoking policy, room service/diet, and visiting hours. Information on how to activate the Rapid Response Team has been discussed. Patient/Family are encouraged to report perceived risks to care and to ask questions if they do not understand what they are told or what they should do.
[2020-10-29] MEDS: ACETAMINOPHEN 325 MG TABLET 650 MG PO (13:34)
--- NOTE | 2020-10-29 14:35 | PM.IMHP ---
H&P: HPI History of Present Illness Date/Time: 10/29/20 14:35 Chief complaint: Difficulties urinating. Narrative: Chito Rivera is a 80-year-old male with coronary artery disease, hypertension, congestive heart failure, sleep apnea, insulin-dependent diabetes , and end-stage renal disease for which he just recently started dialysis who presented to the emergency department early this morning from home with reports of trouble urinating. He is known to the hospitalist service with a recent admission on 10/21/2020 with chest pain and non STEMI in which he was ultimately transferred to the [facility] for continuity of care, where he had a cardiac catheterization and two stents placed. He was discharged home 4 days ago and he has since been tired with generalized malaise, decreased oral intake, occasional nausea with 2 episodes of emesis, sinus congestion, cough productive of clear sputum, mild shortness of breath, dysuria, and over the last day or so he notes difficulties emptying his bladder. He still urinates quite a bit despite being on dialysis, and was found to be retaining greater than 600 mL of urine on urinary catheter insertion. He had no troubles with urinary retention while at the [facility] and his urine output was monitored with a condom catheter; he did not have a Soto catheter during the day. He has not had a fever to his knowledge however at a temperature of 100.2? F this afternoon. He denies chills, sweats, headache, neck ache, sore throat, anosmia, dysgeusia, chest pain, pleuritic pain, dysphagia, concerns for aspiration, and diarrhea. He has no known exposure to those positive for COVID-19, but again had a recent hospitalization. Review of Systems Review of Systems: Narrative: Twelve systems were reviewed with pertinent positives and negatives as per HPI. He has not had any chest pain since stents were placed at the [facility] recently as detailed in HPI. No orthopnea, PND, or lower extremity edema. He denies abdominal pain and lower back discomfort. Except as documented, all other systems were reviewed and are negative. [facility] Past Medical History Medical History (Updated 10/29/20 @ 14:48 by Елена Leon PA-C) Anemia of chronic disease With history of blood transfusion. Benign prostatic hyperplasia Congestive heart failure Coronary artery disease History VT, stent x3, and three-vessel CABG. Diverticulitis Status post colon resection. End-stage renal disease on hemodialysis Gout History of renal stone History of shingles Hyperlipidemia Hypertension Insulin dependent diabetes mellitus Hemoglobin A1c was 5.4% in October 2020. Obstructive sleep apnea on CPAP Osteoarthritis Surgical History Surgical History (Updated 10/29/20 @ 19:02 by Елена Leon PA-C) History of back surgery History of bilateral knee replacement History of cataract extraction History of cholecystectomy History of colon resection Related to recurrent diverticulitis. History of coronary artery bypass graft x 3 (~1999) History of coronary artery stent placement History of left hip replacement History of rectal polypectomy History of transurethral resection of prostate Status post creation of arteriovenous fistula Family History Family History Father Cancer Mother CHF (congestive heart failure), NYHA class I Acute myocardial infarction Sibling Cancer Social History Social History Social History: The patient lives with his in [place], [place]. Retired from [employer]. Remote pipe and cigar smoker. He has not had alcohol for 30+ years. He designates his , Catherine Rivera, as his surrogate decision maker and he wishes to be a full code. Spiritual care concerns: No Agree to blood products: No Meds Home Medications and Allergies Home Medications Medication Instructions Recorded Confirmed Type Cent
[2020-10-29 15:28] LABS: Alanine Aminotransferase 16 U/L (4-50); Albumin Level 3.2 g/dL (3.5-5.1); Alkaline Phosphatase 71 U/L (38-126); Aspartate Amino Transferase 21 U/L (17-59); Bilirubin,Total 0.9 mg/dL (0.2-1.3); Magnesium 1.9 mg/dL (1.6-2.3)
[2020-10-29 15:59] LABS: Troponin I 0.163 ng/mL (0.000-0.034)
[2020-10-29 16:44] LABS: Glucose Point of Care 243 (65-105)
[2020-10-29] MEDS: PANTOPRAZOLE 40 MG TABLET PO (17:47)
[2020-10-29] MEDS: DOCUSATE SODIUM 100 MG CAPSULE 200 MG PO (17:47)
[2020-10-29] MEDS: THERAPEUTIC MULTIVITAMINS/MINERALS TAB (*BKC) 1 TABLET PO (17:47)
[2020-10-29] MEDS: SODIUM BICARBONATE TAB 650 MG TABLET PO (17:49)
[2020-10-29] MEDS: ATORVASTATIN 40 MG TABLET 80 MG PO (17:49)
[2020-10-29] MEDS: SENNOSIDES 8.6 MG TABLET PO (17:52)
[2020-10-29] MEDS: HYDROcodone/acetaminophen (*CRX) 10-325 MG TABLET 1 TAB PO ×2 (17:52→23:19)
--- NOTE | 2020-10-29 18:17 | PC.NURSE ---
This patient, Chito Rivera, was transferred to [facility] on 10/29/20 at 1810. Personal belongings sent with patient. Report given to Neisha MACIEL. Appropriate documentation sent with patient.
[2020-10-29 19:06] LABS: Lactate Dehydrogenase 999 U/L (313-618)
[2020-10-29] MEDS: carvediloL 12.5 MG TABLET PO (21:39)
[2020-10-29] MEDS: INSULIN GLARGINE (*BKC) 100 UNITS/ML 33 UNITS SUB-Q (21:39)
[2020-10-29] MEDS: RANOLAZINE 500 MG TAB.ER.12H 1000 MG PO (21:40)
[2020-10-29] MEDS: MICONAZOLE NITRATE 2% CREAM 30 GM TUBE 1 APPLIC TOPICAL (21:40)
[2020-10-29 21:59] LABS: Glucose Point of Care 221 (65-105)
[2020-10-30] VITALS (7 sets, daily range): BP systolic 127–166; BP diastolic 59–67; PULSE 72–94; RESP 16–20; TEMP 36.4–37.6; O2SAT 91–94
[2020-10-30 06:15] LABS: Basophils Absolute Auto 0.1 K/mm3 (0.0-0.1); Basophils Percent Auto 0.9 % (0.2-1.2); Eosinophils Percent Auto 0.5 % (0-4.4); Hematocrit 27.6 % (42.0-52.0); Hemoglobin 8.5 g/dL (14.0-18.0); Immature Granulocyte Absolute 0.09 K/mm3 (0.00-0.031); Immature Granulocyte Percent A 1.6 % (0-0.5); Lymphocytes Absolute Auto 0.72 K/mm3 (0.9-3.2); Lymphocytes Percent Auto 12.9 % (18.3-44.2); Mean Corpuscular HGB Conc 30.8 g/dl (32-36); Mean Corpuscular Hemoglobin 29.2 pg (26-34); Mean Corpuscular Volume 94.8 fl (80-100); Mean Platelet Volume 12.1 fl (7.4-10.4); Monocytes Absolute Auto 0.8 K/mm3 (0.1-0.6); Monocytes Percent Auto 13.8 % (2.6-8.5); Neutrophils Absolute Auto 3.9 K/mm3 (1.3-6.7); Neutrophils Percent Auto 70.3 % (45.5-73.1); Nucleated Red Blood Cells Perc 0.4 % (0.0-0.2); Platelet Count Result 372 k/mm3 (150-375); Red Blood Count 2.91 M/mm3 (4.6-6.20); Red Cell Distribution Width 21.7 % (11.5-14.5); White Blood Count 5.6 K/mm3 (4.5-10.0)
[2020-10-30 06:32] LABS: Anion Gap 9 mmol/L (8-16); Blood Urea Nitrogen 36 mg/dL (9-20); Calcium 8.2 mg/dL (8.4-10.2); Carbon Dioxide 32 mmol/L (22-30); Chloride 94 mmol/L (98-107); Estimated CRCL calculation 12 ml/min; Estimated Glomerular Filt Rate 13; Glucose 165 mg/dL (75-110); Potassium 3.8 mmol/L (3.4-5.0); Sodium 135 mmol/L (137-145)
[2020-10-30] MEDS: HYDROcodone/acetaminophen (*CRX) 10-325 MG TABLET 1 TAB PO ×3 (06:54→21:07)
[2020-10-30 10:01] LABS: Glucose Point of Care 185 (65-105)
[2020-10-30] MEDS: ASPIRIN 81 MG CHEWABLE TABLET PO (10:04)
[2020-10-30] MEDS: carvediloL 12.5 MG TABLET PO ×2 (10:05→21:01)
[2020-10-30] MEDS: CLOPIDOGREL BISULFATE 75 MG TABLET PO (10:06)
[2020-10-30] MEDS: CHOLECALCIFEROL 1,000 UNITS TABLET 2000 UNITS PO (10:06)
[2020-10-30] MEDS: FAMOTIDINE 20 MG TABLET PO (10:07)
[2020-10-30] MEDS: DOCUSATE SODIUM 100 MG CAPSULE 200 MG PO ×3 (10:07→16:57)
[2020-10-30] MEDS: FEBUXOSTAT 40 MG TABLET PO (10:08)
[2020-10-30] MEDS: FINASTERIDE 5 MG TABLET PO (10:08)
[2020-10-30] MEDS: FUROSEMIDE 80 MG TABLET PO (10:09)
[2020-10-30] MEDS: ISOSORBIDE MONONITRATE 60 MG TAB.ER.24H 120 MG PO (10:09)
[2020-10-30] MEDS: MICONAZOLE NITRATE 2% CREAM 30 GM TUBE 1 APPLIC TOPICAL (10:10)
[2020-10-30] MEDS: LORATADINE 10 MG TABLET PO (10:10)
[2020-10-30] MEDS: lisinopriL 10 MG TABLET PO (10:10)
[2020-10-30] MEDS: THERAPEUTIC MULTIVITAMINS/MINERALS TAB (*BKC) 1 TABLET PO ×2 (10:11→16:58)
[2020-10-30] MEDS: PANTOPRAZOLE 40 MG TABLET PO ×2 (10:11→17:00)
[2020-10-30] MEDS: RANOLAZINE 500 MG TAB.ER.12H 1000 MG PO ×2 (10:12→21:01)
[2020-10-30] MEDS: SODIUM BICARBONATE TAB 650 MG TABLET PO ×2 (10:13→17:04)
[2020-10-30] MEDS: SENNOSIDES 8.6 MG TABLET PO ×2 (10:13→17:01)
[2020-10-30 13:08] LABS: Glucose Point of Care 157 (65-105)
--- NOTE | 2020-10-30 13:54 | PM.IMPN ---
Progress Note: A&P Assessment and Plan (1) Urinary tract infection: Code(s): N39.0 - Urinary tract infection, site not specified <Rosana Juan AntonioROJELIO Parada-C - Last Filed: 10/30/20 14:11> Status: Acute <Rosana Alvarez Barron PA-C - Last Filed: 10/30/20 14:11> Assessment and Plan: Patient's urine culture is growing Enterococcus -switched to ampicillin initially but with possible hospital acquired PNA will do vanc to cover both -patient had a Soto catheter placed last week -may consider voiding trial before discharge -last fever was 10/29/20, await blood cultures <Rosana Juan AntonioAdams Mart PA-C - Last Filed: 10/30/20 14:11> (2) Acute respiratory failure with hypoxia: Code(s): J96.01 - Acute respiratory failure with hypoxia <Rosana Juan AntonioAdams Mart PA-C - Last Filed: 10/30/20 14:11> Status: Acute <Rosana Kim Barron PA-C - Last Filed: 10/30/20 14:11> Assessment and Plan: Patient feels short of breath but is better with 2 L of oxygen -continue to wean oxygen -could be due to possible COVID-19 or hospital acquired PNA -showed small left pleural effusion with left lower opacities <Rosana Mart PA-C - Last Filed: 10/30/20 14:11> (3) Person under investigation for COVID-19: Code(s): Z20.828 - Contact with and (suspected) exposure to other viral communicable diseases <Rosana Juan AntonioAdams Mart PA-C - Last Filed: 10/30/20 14:11> Status: Acute <Rosana Juan AntonioAdams Mart PA-C - Last Filed: 10/30/20 14:11> Assessment and Plan: Patient has developed a cough with fever with recent hospitalization -COVID-19 pending -could consider urine studies for Legionella and strep pneumo as well as sputum culture if COVID-19 is negative -will cover with hospital aquired PNA abx until covid is back <Rosana Mart PA-C - Last Filed: 10/30/20 14:11> (4) Urinary retention: Code(s): R33.9 - Retention of urine, unspecified <Rosana SahaKRUPA guzmanC - Last Filed: 10/30/20 14:11> Status: Acute <Rosana SahaKRUPA guzmanC - Last Filed: 10/30/20 14:11> Assessment and Plan: Continue Soto at this time -consider voiding trial at discharge <Rosana Kim KRUPA MartC - Last Filed: 10/30/20 14:11> (5) Elevated troponin: Code(s): R77.8 - Other specified abnormalities of plasma proteins <Rosana Alvarez KRUPA MartC - Last Filed: 10/30/20 14:11> Status: Acute <Rosana SahaKRUPA guzmanC - Last Filed: 10/30/20 14:11> Assessment and Plan: -completely flat with no chest pain -patient was seen 10/21/20 for an NSTEMI and transferred to the [facility] where he underwent a cardiac catheterization with 2 stents. He was just discharged home 5 days ago -patient recently had cardiac intervention which is likely the reason for the elevated troponin -I do not see any signs of ACS and the patient has no chest pain -Continue aspirin and plavix <Rosana Juan AntonioKRUPA ParadaC - Last Filed: 10/30/20 14:11> (6) Insulin dependent diabetes mellitus: Status: Acute <Rosana Kim KRUPA MartC - Last Filed: 10/30/20 14:11> Assessment and Plan: Last glucose 157 -continue SSI -patient is not eating very much due to decreased appetite and acute infection. Will decrease Lantus dose to avoid hypoglycemia -patient takes 33 units of Lantus at home <Rosana Juan AntonioAdams Mart PA-C - Last Filed: 10/30/20 14:11> (7) End-stage renal disease on hemodialysis: Code(s): N18.6 - End stage renal disease; Z99.2 - Dependence on renal dialysis <Rosana Juan AntonioKRUPA ParadaC - Last Filed: 10/30/20 14:11> Status: Acute <Rosana Juan AntonioKRUPA ParadaC - Last Filed: 10/30/20 14:11> Assessment and Plan: Patient usually does dialysis on Friday, and Friday -will consult Nephrology, I am unclear if they have been consulted already -he still produces a significant amount of urine <Rosana Mart PA-C - Last Filed: 10/30/20 14
[2020-10-30] MEDS: ATORVASTATIN 40 MG TABLET 80 MG PO (17:03)
--- NOTE | 2020-10-30 17:44 | PM.CNNEP ---
Assessment and Plan Assessment and plan (1) End-stage renal disease on hemodialysis: Code(s): N18.6 - End stage renal disease; Z99.2 - Dependence on renal dialysis Status: Acute Assessment and Plan: Chito has end-stage renal disease. He has been on dialysis for A few weeks. He has been tolerating dialysis well. He has a PermCath for dialysis. He also has a fistula which looks like it is mature. The used it in the clinic a couple of times last week. We will use it again tomorrow and if it goes okay we can pull the PermCath out. (2) Urinary retention: Code(s): R33.9 - Retention of urine, unspecified Status: Acute Assessment and Plan: The patient had urinary retention. He has a catheter in now. We will continue meds for his BPH. Consider a Urology consult if he does not want to go to the [place] for this. He is on finasteride now. Will start tamsulosin as well. (3) Person under investigation for COVID-19: Code(s): Z20.828 - Contact with and (suspected) exposure to other viral communicable diseases Status: Acute (4) Urinary tract infection: Code(s): N39.0 - Urinary tract infection, site not specified Status: Acute (5) Hypertension: Qualifiers: Hypertension type: essential hypertension Qualified Code(s): I10 - Essential (primary) hypertension Code(s): I10 - Essential (primary) hypertension Status: Chronic (6) Insulin dependent diabetes mellitus: Status: Acute (7) Elevated troponin: Code(s): R77.8 - Other specified abnormalities of plasma proteins Status: Acute (8) Obstructive sleep apnea on CPAP: Code(s): G47.33 - Obstructive sleep apnea (adult) (pediatric); Z99.89 - Dependence on other enabling machines and devices Status: Acute History of Present Illness Reason for Consult Consult date: 10/31/20 Chief Complaint Chief complaint: Difficulties urinating. History of Present Illness Narrative: Chito is a very pleasant 80-year-old gentleman who has multiple medical problems including end-stage renal disease on dialysis Tuesdays and Saturdays, coronary artery disease, congestive heart failure, myocardial infarction, 3 vessel CABG, 3 stents, obstructive sleep apnea on CPAP, diabetes, hypertension, hyperlipidemia, history of kidney stones, gout, diverticulosis, BPH, anemia, renal osteodystrophy. The patient came into the hospital because he had difficulty urinating. He does still make plenty of urine in spite of being on dialysis as he is early in his dialysis career. He has had benign prostatic hypertrophy and was on tamsulosin and finasteride at home. Over the last day or 2 before he came into the hospital he noted that his urine output was decreasing. On the day of admission he could hardly make any urine at all so he came over to the emergency room. The patient had a catheter placed in the ER and he had 600cc of urinary residual. a catheter was left in and the patient feels better. He did have a fever as well and a little bit of a cough so they tested him for COVID. This is still pending. He denies any chest pain or shortness of breath. Review of Systems Constitutional: Constitutional: Reports no additional constitutional complaints Eyes: Eyes: Reports no additional eye complaints ENT: Reports system reviewed and no additional complaints, except as documented Cardiovascular: Cardiovascular: Reports no additional cardiovascular complaints Respiratory: Respiratory: Reports no additional respiratory complaints Gastrointestinal: Gastrointestinal: Reports no additional gastrointestinal complaints Genitourinary: Genitourinary: Reports no additional male genitourinary complaints Musculoskeletal: Musculoskeletal: Reports no additional musculoskeletal complaints Integumentary/Breasts: Skin/Breast: Reports system reviewed and no additional complaints, except as docu Neurologic: Repo
[2020-10-30 17:46] LABS: Glucose Point of Care 152 (65-105)
[2020-10-30 18:34] LABS: SARS-CoV-2 RNA PCR Positive
[2020-10-30 19:42] LABS: Hepatitis B Surface Antigen Negative (Negative)
[2020-10-30] MEDS: TAMSULOSIN HCL 0.4 MG CAPSULE PO (19:46)
[2020-10-30] MEDS: ONDANSETRON INJ 4 MG/2 ML VIAL IV PUSH (21:00)
[2020-10-30] MEDS: INSULIN GLARGINE (*BKC) 100 UNITS/ML 20 UNITS SUB-Q (21:00)
[2020-10-30 22:44] LABS: Glucose Point of Care 161 (65-105)
[2020-10-31] VITALS (24 sets, daily range): BP systolic 95–150; BP diastolic 42–78; PULSE 61–93; RESP 16–20; TEMP 36.4–37.6; O2SAT 91–99
[2020-10-31] MEDS: HYDROcodone/acetaminophen (*CRX) 10-325 MG TABLET 1 TAB PO (03:58)
[2020-10-31 07:06] LABS: Basophils Percent Auto 0.9 % (0.2-1.2); Hematocrit 25.8 % (42.0-52.0); Hemoglobin 7.9 g/dL (14.0-18.0); Immature Granulocyte Percent A 2.3 % (0-0.5); Lymphocytes Absolute Auto 0.55 K/mm3 (0.9-3.2); Lymphocytes Percent Auto 12.6 % (18.3-44.2); Mean Corpuscular HGB Conc 30.6 g/dl (32-36); Mean Corpuscular Hemoglobin 29.2 pg (26-34); Mean Corpuscular Volume 95.2 fl (80-100); Mean Platelet Volume 12.8 fl (7.4-10.4); Monocytes Absolute Auto 0.8 K/mm3 (0.1-0.6); Monocytes Percent Auto 18.6 % (2.6-8.5); Neutrophils Absolute Auto 2.9 K/mm3 (1.3-6.7); Neutrophils Percent Auto 65.6 % (45.5-73.1); Nucleated Red Blood Cells Perc 0.7 % (0.0-0.2); Platelet Count Result 341 k/mm3 (150-375); Red Blood Count 2.71 M/mm3 (4.6-6.20); Red Cell Distribution Width 21.4 % (11.5-14.5); White Blood Count 4.4 K/mm3 (4.5-10.0)
[2020-10-31 07:18] LABS: Alanine Aminotransferase 13 U/L (4-50); Albumin Level 2.9 g/dL (3.5-5.1); Alkaline Phosphatase 65 U/L (38-126); Anion Gap 10 mmol/L (8-16); Aspartate Amino Transferase 22 U/L (17-59); Blood Urea Nitrogen 47 mg/dL (9-20); Calcium 8.1 mg/dL (8.4-10.2); Carbon Dioxide 30 mmol/L (22-30); Chloride 94 mmol/L (98-107); Estimated CRCL calculation 11 ml/min; Estimated Glomerular Filt Rate 11; Glucose 144 mg/dL (75-110); Phosphorus 5.7 mg/dL (2.5-4.5); Potassium 3.7 mmol/L (3.4-5.0); Sodium 134 mmol/L (137-145)
[2020-10-31] MEDS: CHOLECALCIFEROL 1,000 UNITS TABLET 2000 UNITS PO (08:35)
[2020-10-31] MEDS: FEBUXOSTAT 40 MG TABLET PO (08:36)
[2020-10-31] MEDS: CLOPIDOGREL BISULFATE 75 MG TABLET PO (08:36)
[2020-10-31] MEDS: THERAPEUTIC MULTIVITAMINS/MINERALS TAB (*BKC) 1 TABLET PO ×2 (08:36→20:14)
[2020-10-31] MEDS: ASPIRIN 81 MG CHEWABLE TABLET PO (08:36)
[2020-10-31] MEDS: lisinopriL 10 MG TABLET PO (08:36)
[2020-10-31] MEDS: carvediloL 12.5 MG TABLET PO ×2 (08:36→20:13)
[2020-10-31] MEDS: FAMOTIDINE 20 MG TABLET PO (08:36)
[2020-10-31] MEDS: FINASTERIDE 5 MG TABLET PO (08:37)
[2020-10-31] MEDS: SODIUM BICARBONATE TAB 650 MG TABLET PO (08:37)
[2020-10-31] MEDS: LORATADINE 10 MG TABLET PO (08:37)
[2020-10-31] MEDS: SENNOSIDES 8.6 MG TABLET PO ×2 (08:37→20:15)
[2020-10-31] MEDS: PANTOPRAZOLE 40 MG TABLET PO ×2 (08:37→20:14)
[2020-10-31] MEDS: ISOSORBIDE MONONITRATE 60 MG TAB.ER.24H 120 MG PO (08:37)
[2020-10-31] MEDS: RANOLAZINE 500 MG TAB.ER.12H 1000 MG PO ×2 (08:38→20:15)
[2020-10-31] MEDS: MICONAZOLE NITRATE 2% CREAM 30 GM TUBE 1 APPLIC TOPICAL ×2 (08:40→20:15)
--- NOTE | 2020-10-31 10:45 | PM.PNNEP ---
Progress Note: A&P Assessment and Plan (1) End-stage renal disease on hemodialysis: Code(s): N18.6 - End stage renal disease; Z99.2 - Dependence on renal dialysis Status: Acute Assessment and Plan: Chito has end-stage renal disease. He has been on dialysis for A few weeks. Due for dialysis today. (2) Urinary retention: Code(s): R33.9 - Retention of urine, unspecified Status: Acute Assessment and Plan: The patient had urinary retention. He has a catheter in now. We will continue meds for his BPH. Consider a Urology consult if he does not want to go to the [place] for this. He is on finasteride and tamsulosin (3) Person under investigation for COVID-19: Code(s): Z20.828 - Contact with and (suspected) exposure to other viral communicable diseases Status: Acute Assessment and Plan: covid positive. (4) Urinary tract infection: Code(s): N39.0 - Urinary tract infection, site not specified Status: Acute Assessment and Plan: urine culture Enterococcus, sensitive to amp and vanco. (5) Hypertension: Qualifiers: Hypertension type: essential hypertension Qualified Code(s): I10 - Essential (primary) hypertension Code(s): I10 - Essential (primary) hypertension Status: Chronic Assessment and Plan: BP is well controlled. (6) Insulin dependent diabetes mellitus: Status: Acute Assessment and Plan: on accuchecks and ssi (7) Elevated troponin: Code(s): R77.8 - Other specified abnormalities of plasma proteins Status: Acute (8) Obstructive sleep apnea on CPAP: Code(s): G47.33 - Obstructive sleep apnea (adult) (pediatric); Z99.89 - Dependence on other enabling machines and devices Status: Acute Subjective Date/time seen: 10/31/20 10:45 Review of Systems Cardiovascular: Cardiovascular: Reports no additional cardiovascular complaints Respiratory: Respiratory: Reports no additional respiratory complaints Gastrointestinal: Gastrointestinal: Reports no additional gastrointestinal complaints Genitourinary: Genitourinary: Reports no additional male genitourinary complaints Exam Narrative: Exam Narrative: WDWN in NAD skin no rash or sq nodules head ncat lungs clear cor reg no rub abd BS+ nontender and soft ext no edema. Objective Data Vital Signs Vital Signs: Vital Signs - 24 hr 10/30/20 12:00 10/30/20 16:00 10/30/20 20:00 Temperature 36.7 C 36.4 C 36.9 C Pulse Rate 81 72 88 Respiratory Rate 16 16 20 Blood Pressure 134/59 L 127/60 166/64 H Pulse Oximetry 94 93 93 10/30/20 21:01 10/31/20 00:00 10/31/20 04:00 Temperature 37.4 C 36.6 C Pulse Rate 72 93 88 Respiratory Rate 20 20 Blood Pressure 150/55 H 138/78 Pulse Oximetry 92 91 10/31/20 08:00 10/31/20 08:36 Temperature 36.9 C Pulse Rate 78 78 Respiratory Rate 20 Blood Pressure 111/57 L Pulse Oximetry 92 Intake/Output Intake/Output: Intake & Output 10/28/20 10/29/20 10/30/20 10/31/20 23:59 23:59 23:59 23:59 Intake Total 490 2200 400 Output Total 450 1200 450 Balance 40 1000 -50 Meds/Results Medications: Active Medications Generic Name Dose Route Start Last Admin Trade Name Freq PRN Reason Stop Dose Admin Acetaminophen 650 mg 10/29/20 08:23 10/29/20 13:34 Acetaminophen 325 Mg Tablet PO 650 mg Q4H PRN Administration Mild Pain (1-3) or Fever Hydrocodone Bitart/Acetaminophen 1 tab 10/29/20 14:53 10/31/20 03:58 Hydrocodone/Acetaminophen (*Crx) 10-325 Mg Tablet PO 1 tab Q6H PRN Administration Pain RATED 4-6 Aspirin 81 mg 10/30/20 09:00 10/31/20 08:36 Aspirin 81 Mg Chewable Tablet PO 81 mg DAILY OSWALDO Administration Atorvastatin Calcium 80 mg 10/29/20 18:00 10/30/20 17:03 Atorvastatin 40 Mg Tablet PO 80 mg QPM OSWALDO Administration Carvedilol 12.5 mg 10/29/20 21:00 10/31/20 08:36 Carvedilol 12.5 Mg Tablet PO 12.5 mg
[2020-10-31 12:36] LABS: Glucose Point of Care 143 (65-105)
[2020-10-31 12:37] LABS: Glucose Point of Care 156 (65-105)
--- NOTE | 2020-10-31 14:09 | PM.IMPN ---
Progress Note: A&P Assessment and Plan (1) Urinary tract infection: Qualifiers: Urinary tract infection type: acute cystitis Hematuria presence: without hematuria Qualified Code(s): N30.00 - Acute cystitis without hematuria Code(s): N39.0 - Urinary tract infection, site not specified Status: Acute Assessment and Plan: Urine culture growing Enterococcus. Blood cultures no growth to date. Was previously on Vanc + cefepime to additionally cover for possible hospital acquired pneumonia. Now since COVID + will consolidate abx therapy and switch back to ampicillin. (2) Pneumonia due to COVID-19 virus: Code(s): U07.1 - COVID-19; J12.89 - Other viral pneumonia Status: Acute Assessment and Plan: COVID positive. Hypoxic today. Hold off on remdesivir due to renal function, will initiate dexamethasone. Continue supportive care with Tylenol for fevers and supplemental O2. (3) Acute respiratory failure with hypoxia: Code(s): J96.01 - Acute respiratory failure with hypoxia Status: Acute Assessment and Plan: Suspect secondary to COVID pneumonia. CXR with small left pleural effusion with left lower opacities Wean supplemental O2 as tolerated to keep O2 saturations > 90%. (4) Urinary retention: Code(s): R33.9 - Retention of urine, unspecified Status: Acute Assessment and Plan: Continue Soto at this time Consider voiding trial at discharge (5) Elevated troponin: Code(s): R77.8 - Other specified abnormalities of plasma proteins Status: Acute Assessment and Plan: Mildly elevated troponins with flat profile; no chest pain. Patient was seen 10/21/20 for an [facility]STEMI [facility] with 2 stents. He was just discharged home 10/26/20. Suspect elevated troponin likely related to recent cardiac intervention. No chest pain, continue to monitor. (6) Insulin dependent diabetes mellitus: Status: Acute Assessment and Plan: Hgb A1c 5.4%; blood glucose levels appropriate today. Lantus continued at a decreased dose, monitor with accu-cheks and adjust treatment as needed. (7) End-stage renal disease on hemodialysis: Code(s): N18.6 - End stage renal disease; Z99.2 - Dependence on renal dialysis Status: Acute Assessment and Plan: HD scheudule Friday, and Friday. Continue dialysis per nephrology recommendations; appreciate input. (8) Anemia of chronic disease: Code(s): D63.8 - Anemia in other chronic diseases classified elsewhere Status: Acute Assessment and Plan: Hgb low today at 7.9. No signs or symptoms of acute bleeding. Monitor CBC. (9) Benign prostatic hyperplasia: Qualifiers: Lower urinary tract symptom presence: symptoms present Lower urinary tract symptom detail: urinary retention Qualified Code(s): N40.1 - Benign prostatic hyperplasia with lower urinary tract symptoms; R33.8 - Other retention of urine Code(s): N40.0 - Benign prostatic hyperplasia without lower urinary tract symptoms Status: Acute Assessment and Plan: Soto catheter in place due to urinary retention. Continue Flomax. (10) Obstructive sleep apnea on CPAP: Code(s): G47.33 - Obstructive sleep apnea (adult) (pediatric); Z99.89 - Dependence on other enabling machines and devices Status: Acute Assessment and Plan: Hold off on CPAP due to COVID. (11) Hypertension: Qualifiers:
--- NOTE | 2020-10-31 15:03 | PCPTNOTE ---
Attempted PT evaluation this date. Pt in dialysis. Will try again tomorrow. Christie Thorne, DPT
[2020-10-31 17:48] LABS: Glucose Point of Care 115 (65-105)
[2020-10-31] MEDS: TAMSULOSIN HCL 0.4 MG CAPSULE PO (20:14)
[2020-10-31] MEDS: DOCUSATE SODIUM 100 MG CAPSULE 200 MG PO (20:15)
[2020-10-31] MEDS: ATORVASTATIN 40 MG TABLET 80 MG PO (20:15)
[2020-10-31 22:33] LABS: Glucose Point of Care 121 (65-105)
[2020-11-01] VITALS (11 sets, daily range): BP systolic 100–149; BP diastolic 47–79; PULSE 73–118; RESP 16–18; TEMP 36.2–37.3; O2SAT 91–98
[2020-11-01] MEDS: DEXAMETHASONE SOD PHOS INJ 4 MG/ML VIAL 6 MG IV PUSH ×2 (00:28→09:43)
[2020-11-01] MEDS: INSULIN GLARGINE (*BKC) 100 UNITS/ML 20 UNITS SUB-Q (00:28)
[2020-11-01 05:38] LABS: Glucose Point of Care 167 (65-105)
[2020-11-01 06:28] LABS: Basophils Percent Auto 0.6 % (0.2-1.2); Hematocrit 24.4 % (42.0-52.0); Hemoglobin 7.6 g/dL (14.0-18.0); Immature Granulocyte Absolute 0.13 K/mm3 (0.00-0.031); Immature Granulocyte Percent A 3.7 % (0-0.5); Lymphocytes Absolute Auto 0.42 K/mm3 (0.9-3.2); Lymphocytes Percent Auto 11.8 % (18.3-44.2); Mean Corpuscular HGB Conc 31.1 g/dl (32-36); Mean Corpuscular Hemoglobin 29.5 pg (26-34); Mean Corpuscular Volume 94.6 fl (80-100); Monocytes Absolute Auto 0.2 K/mm3 (0.1-0.6); Monocytes Percent Auto 6.5 % (2.6-8.5); Neutrophils Absolute Auto 2.8 K/mm3 (1.3-6.7); Neutrophils Percent Auto 77.4 % (45.5-73.1); Platelet Count Result 271 k/mm3 (150-375); Red Blood Count 2.58 M/mm3 (4.6-6.20); Red Cell Distribution Width 21.2 % (11.5-14.5); White Blood Count 3.6 K/mm3 (4.5-10.0)
[2020-11-01 06:46] LABS: Alanine Aminotransferase 14 U/L (4-50); Alkaline Phosphatase 69 U/L (38-126); Anion Gap 11 mmol/L (8-16); Aspartate Amino Transferase 29 U/L (17-59); Bilirubin,Total 1.1 mg/dL (0.2-1.3); Blood Urea Nitrogen 43 mg/dL (9-20); Carbon Dioxide 30 mmol/L (22-30); Chloride 93 mmol/L (98-107); Estimated CRCL calculation 11 ml/min; Estimated Glomerular Filt Rate 12; Glucose 189 mg/dL (75-110); Magnesium 2.1 mg/dL (1.6-2.3); Phosphorus 5.4 mg/dL (2.5-4.5); Potassium 4.4 mmol/L (3.4-5.0); Sodium 134 mmol/L (137-145)
[2020-11-01 08:44] LABS: Glucose Point of Care 227 (65-105)
[2020-11-01] MEDS: INSULIN ASPART (*BKC) 100 UNITS/ML SUB-Q ×3 (09:40→17:54)
[2020-11-01] MEDS: CLOPIDOGREL BISULFATE 75 MG TABLET PO (09:43)
[2020-11-01] MEDS: CHOLECALCIFEROL 1,000 UNITS TABLET 2000 UNITS PO (09:43)
[2020-11-01] MEDS: SODIUM BICARBONATE TAB 650 MG TABLET PO ×2 (09:43→17:10)
[2020-11-01] MEDS: FEBUXOSTAT 40 MG TABLET PO (09:43)
[2020-11-01] MEDS: DOCUSATE SODIUM 100 MG CAPSULE 200 MG PO ×2 (09:44→17:09)
[2020-11-01] MEDS: FAMOTIDINE 20 MG TABLET PO (09:44)
[2020-11-01] MEDS: carvediloL 12.5 MG TABLET PO ×2 (09:44→20:58)
[2020-11-01] MEDS: ASPIRIN 81 MG CHEWABLE TABLET PO (09:44)
[2020-11-01] MEDS: FUROSEMIDE 80 MG TABLET PO (09:44)
[2020-11-01] MEDS: THERAPEUTIC MULTIVITAMINS/MINERALS TAB (*BKC) 1 TABLET PO ×2 (09:45→17:09)
[2020-11-01] MEDS: PANTOPRAZOLE 40 MG TABLET PO ×2 (09:45→17:09)
[2020-11-01] MEDS: LORATADINE 10 MG TABLET PO (09:45)
[2020-11-01] MEDS: RANOLAZINE 500 MG TAB.ER.12H 1000 MG PO ×2 (09:45→21:00)
[2020-11-01] MEDS: FINASTERIDE 5 MG TABLET PO (09:45)
[2020-11-01] MEDS: ISOSORBIDE MONONITRATE 60 MG TAB.ER.24H 120 MG PO (09:45)
[2020-11-01] MEDS: SENNOSIDES 8.6 MG TABLET PO ×2 (09:50→17:10)
[2020-11-01] MEDS: MICONAZOLE NITRATE 2% CREAM 30 GM TUBE 1 APPLIC TOPICAL ×2 (09:50→20:58)
[2020-11-01] MEDS: polyethylene glycoL 3350 17 GM POWD.PACK PO (09:51)
--- NOTE | 2020-11-01 11:34 | P.PNIM_ITS ---
Progress Note: A&P Assessment and Plan (1) Urinary tract infection: Qualifiers: Urinary tract infection type: acute cystitis Hematuria presence: without hematuria Qualified Code(s): N30.00 - Acute cystitis without hematuria Code(s): N39.0 - Urinary tract infection, site not specified Status: Acute Assessment and Plan: * Urine culture growing Enterococcus. Blood cultures no growth to date. * Continue ampicillin (day 3). (2) Pneumonia due to COVID-19 virus: Code(s): U07.1 - COVID-19; J12.89 - Other viral pneumonia Status: Acute Assessment and Plan: * COVID positive 10/29/20. * Not on remdesivir due to renal function, will continue dexamethasone (day 2). * Continue supportive care with Tylenol for fevers and supplemental O2. DVT ppx with SQ heparin. (3) Acute respiratory failure with hypoxia: Code(s): J96.01 - Acute respiratory failure with hypoxia Status: Acute Assessment and Plan: * Suspect secondary to COVID pneumonia. * CXR with small left pleural effusion with left lower opacities * Wean supplemental O2 as tolerated to keep O2 saturations > 90%. (4) Urinary retention: Code(s): R33.9 - Retention of urine, unspecified Status: Acute Assessment and Plan: * Continue Soto at this time * Consider voiding trial at discharge (5) Elevated troponin: Code(s): R77.8 - Other specified abnormalities of plasma proteins Status: Acute Assessment and Plan: * Mildly elevated troponins with flat profile; no chest pain. * Patient was seen 10/21/20 for an NSTEMI and transferred to the [facility] where he underwent a cardiac catheterization with 2 stents. He was just discharged home from [facility] 10/26/20. * Suspect elevated troponin likely related to recent cardiac intervention. * No chest pain, continue to monitor. (6) Insulin dependent diabetes mellitus: Status: Acute Assessment and Plan: * Hgb A1c 5.4%; blood glucose levels are elevated today now that his appetite has picked up. * Continue lantus and SSI; monitor with accu-cheks and adjust treatment as needed. (7) End-stage renal disease on hemodialysis: Code(s): N18.6 - End stage renal disease; Z99.2 - Dependence on renal dialysis Status: Acute Assessment and Plan: * HD scheudule Friday, and Friday. Continue dialysis per nephrology recommendations; appreciate input. (8) Anemia of chronic disease: Code(s): D63.8 - Anemia in other chronic diseases classified elsewhere Status: Acute Assessment and Plan: * Hgb low today at 7.6. No signs or symptoms of acute bleeding. Monitor CBC. (9) Benign prostatic hyperplasia: Qualifiers: Lower urinary tract symptom presence: symptoms present Lower urinary tract symptom detail: urinary retention Qualified Code(s): N40.1 - Benign prostatic hyperplasia with lower urinary tract symptoms; R33.8 - Other retention of urine Code(s): N40.0 - Benign prostatic hyperplasia without lower urinary tract symptoms Status: Acute Assessment and Plan: * Soto catheter in place due to urinary retention. Continue Flomax. (10) Obstructive sleep apnea on CPAP:
--- NOTE | 2020-11-01 11:34 | PM.IMPN ---
Progress Note: A&P Assessment and Plan (1) Urinary tract infection: Qualifiers: Urinary tract infection type: acute cystitis Hematuria presence: without hematuria Qualified Code(s): N30.00 - Acute cystitis without hematuria Code(s): N39.0 - Urinary tract infection, site not specified Status: Acute Assessment and Plan: Urine culture growing Enterococcus. Blood cultures no growth to date. Continue ampicillin (day 3). (2) Pneumonia due to COVID-19 virus: Code(s): U07.1 - COVID-19; J12.89 - Other viral pneumonia Status: Acute Assessment and Plan: COVID positive 10/29/20. Not on remdesivir due to renal function, will continue dexamethasone (day 2). Continue supportive care with Tylenol for fevers and supplemental O2. DVT ppx with SQ heparin. (3) Acute respiratory failure with hypoxia: Code(s): J96.01 - Acute respiratory failure with hypoxia Status: Acute Assessment and Plan: Suspect secondary to COVID pneumonia. CXR with small left pleural effusion with left lower opacities Wean supplemental O2 as tolerated to keep O2 saturations > 90%. (4) Urinary retention: Code(s): R33.9 - Retention of urine, unspecified Status: Acute Assessment and Plan: Continue Soto at this time Consider voiding trial at discharge (5) Elevated troponin: Code(s): R77.8 - Other specified abnormalities of plasma proteins Status: Acute Assessment and Plan: Mildly elevated troponins with flat profile; no chest pain. Patient was seen 10/21/20 for an NSTEMI and transferred to the [facility] where he underwent a cardiac catheterization with 2 stents. He was just discharged home from [facility] 10/26/20. Suspect elevated troponin likely related to recent cardiac intervention. No chest pain, continue to monitor. (6) Insulin dependent diabetes mellitus: Status: Acute Assessment and Plan: Hgb A1c 5.4%; blood glucose levels are elevated today now that his appetite has picked up. Continue lantus and SSI; monitor with accu-cheks and adjust treatment as needed. (7) End-stage renal disease on hemodialysis: Code(s): N18.6 - End stage renal disease; Z99.2 - Dependence on renal dialysis Status: Acute Assessment and Plan: HD scheudule Friday, and Friday. Continue dialysis per nephrology recommendations; appreciate input. (8) Anemia of chronic disease: Code(s): D63.8 - Anemia in other chronic diseases classified elsewhere Status: Acute Assessment and Plan: Hgb low today at 7.6. No signs or symptoms of acute bleeding. Monitor CBC. (9) Benign prostatic hyperplasia: Qualifiers: Lower urinary tract symptom presence: symptoms present Lower urinary tract symptom detail: urinary retention Qualified Code(s): N40.1 - Benign prostatic hyperplasia with lower urinary tract symptoms; R33.8 - Other retention of urine Code(s): N40.0 - Benign prostatic hyperplasia without lower urinary tract symptoms Status: Acute Assessment and Plan: Soto catheter in place due to urinary retention. Continue Flomax. (10) Obstructive sleep apnea on CPAP: Code(s): G47.33 - Obstructive sleep apnea (adult) (pediatric); Z99.89 - Dependence on other enabling machines and devices Status: Chronic Assessment and Plan: Hold off on CPAP due to COVID. (11) Hypertension: Qualifiers: Hypertension type: essential hypertension Qualified Code(s): I10 - Essential
[2020-11-01 11:52] LABS: Glucose Point of Care 378 (65-105)
[2020-11-01] MEDS: HEPARIN SODIUM 5,000 UNITS/ML VIAL 5000 UNITS SUB-Q ×2 (17:07→21:48)
[2020-11-01] MEDS: TAMSULOSIN HCL 0.4 MG CAPSULE PO (17:10)
[2020-11-01] MEDS: ATORVASTATIN 40 MG TABLET 80 MG PO (17:10)
[2020-11-01 17:34] LABS: Glucose Point of Care 402 (65-105)
--- NOTE | 2020-11-01 17:34 | PM.PNNEP ---
Progress Note: A&P Assessment and Plan (1) End-stage renal disease on hemodialysis: Code(s): N18.6 - End stage renal disease; Z99.2 - Dependence on renal dialysis Status: Acute Assessment and Plan: Chito has end-stage renal disease. He has been on dialysis for A few weeks. Due for dialysis tomorrow. (2) Urinary retention: Code(s): R33.9 - Retention of urine, unspecified Status: Acute Assessment and Plan: The patient had urinary retention. He has a catheter in now. We will continue meds for his BPH. Consider a Urology consult if he does not want to go to the [place] for this. He is on finasteride and tamsulosin (3) Person under investigation for COVID-19: Code(s): Z20.828 - Contact with and (suspected) exposure to other viral communicable diseases Status: Acute Assessment and Plan: covid positive. (4) Urinary tract infection: Qualifiers: Urinary tract infection type: acute cystitis Hematuria presence: without hematuria Qualified Code(s): N30.00 - Acute cystitis without hematuria Code(s): N39.0 - Urinary tract infection, site not specified Status: Acute Assessment and Plan: urine culture Enterococcus, On Ampicillin (5) Hypertension: Qualifiers: Hypertension type: essential hypertension Qualified Code(s): I10 - Essential (primary) hypertension Code(s): I10 - Essential (primary) hypertension Status: Chronic Assessment and Plan: BP is well controlled. (6) Insulin dependent diabetes mellitus: Status: Acute Assessment and Plan: on accuchecks and ssi (7) Elevated troponin: Code(s): R77.8 - Other specified abnormalities of plasma proteins Status: Acute (8) Obstructive sleep apnea on CPAP: Code(s): G47.33 - Obstructive sleep apnea (adult) (pediatric); Z99.89 - Dependence on other enabling machines and devices Status: Chronic Subjective Date/time seen: 11/01/20 17:34 Interval history: Patient is alert. He feels okay. He feels less short of breath than yesterday. No cough. He is due for dialysis tomorrow Review of Systems Cardiovascular: Cardiovascular: Reports no additional cardiovascular complaints Respiratory: Respiratory: Reports no additional respiratory complaints Gastrointestinal: Gastrointestinal: Reports no additional gastrointestinal complaints Genitourinary: Genitourinary: Reports no additional male genitourinary complaints Exam Narrative: Exam Narrative: WDWN in NAD skin no rash or sq nodules head ncat lungs clear bilaterally cor reg no rub abd BS+ nontender and soft ext no edema or cyanosis. Objective Data Vital Signs Vital Signs: Vital Signs - 24 hr 10/31/20 17:45 10/31/20 17:57 10/31/20 18:00 Temperature 37.6 C Pulse Rate 75 77 86 Respiratory Rate 18 Blood Pressure 106/46 L 115/54 L 96/52 L Pulse Oximetry 10/31/20 18:05 10/31/20 20:00 10/31/20 20:13 Temperature 37.5 C Pulse Rate 84 84 Respiratory Rate 16 Blood Pressure 115/45 L Pulse Oximetry 98 94 11/01/20 00:00 11/01/20 04:00 11/01/20 08:00 Temperature 37.3 C 36.7 C 36.3 C L Pulse Rate 83 79 116 H Respiratory Rate 16 18 18 Blood Pressure 149/55 H 123/47 L 124/58 L Pulse Oximetry 95 96 95 11/01/20 09:40 11/01/20 09:44 11/01/20 12:00 Temperature 36.2 C L Pulse Rate 114 H 107 H Respiratory Rate 16 Blood Pressure 109/79 Pulse Oximetry 98 91 11/01/20 12:30 11/01/20 16:00 Temperature 36.4 C Pulse Rate 111 H 73 Respiratory Rate 16 Blood Pressure 108/63 107/60 Pulse Oximetry 98 Intake/Output Intake/Output: Intake & Output 10/29/20 10/30/20 10/31/20 11/01/20 23:59 23:59 23:59 23:59 Intake Total 490 2200 510 1285 Output Total 450 1200 1075 250 Balance 40 1000 -565 1035 Meds/Results Medications: Active Medications Generic Name Dose Route Start Last Admin Trade Name Freq PRN Reason Stop
[2020-11-01] MEDS: INSULIN ASPART (*BKC) 100 UNITS/ML 7 UNITS SUB-Q (17:53)
[2020-11-01] MEDS: INSULIN GLARGINE (*BKC) 100 UNITS/ML 25 UNITS SUB-Q (20:58)
[2020-11-01 22:26] LABS: Glucose Point of Care 342 (65-105)
[2020-11-02] VITALS (25 sets, daily range): BP systolic 102–142; BP diastolic 43–72; PULSE 55–102; RESP 16–20; TEMP 35.2–37; O2SAT 90–98
[2020-11-02] MEDS: HEPARIN SODIUM 5,000 UNITS/ML VIAL 5000 UNITS SUB-Q ×3 (05:14→21:51)
[2020-11-02 06:25] LABS: Alanine Aminotransferase 14 U/L (4-50); Albumin Level 2.8 g/dL (3.5-5.1); Alkaline Phosphatase 68 U/L (38-126); Anion Gap 8 mmol/L (8-16); Aspartate Amino Transferase 24 U/L (17-59); Bilirubin,Total 0.7 mg/dL (0.2-1.3); Blood Urea Nitrogen 67 mg/dL (9-20); Carbon Dioxide 32 mmol/L (22-30); Chloride 91 mmol/L (98-107); Estimated CRCL calculation 9 ml/min; Estimated Glomerular Filt Rate 9; Glucose 308 mg/dL (75-110); Magnesium 2.2 mg/dL (1.6-2.3); Phosphorus 6.6 mg/dL (2.5-4.5); Potassium 4.4 mmol/L (3.4-5.0); Sodium 131 mmol/L (137-145)
[2020-11-02 06:36] LABS: Basophils Percent Auto 0.3 % (0.2-1.2); Hematocrit 24.9 % (42.0-52.0); Hemoglobin 7.7 g/dL (14.0-18.0); Immature Granulocyte Absolute 0.08 K/mm3 (0.00-0.031); Immature Granulocyte Percent A 2.1 % (0-0.5); Lymphocytes Absolute Auto 0.33 K/mm3 (0.9-3.2); Lymphocytes Percent Auto 8.5 % (18.3-44.2); Mean Corpuscular HGB Conc 30.9 g/dl (32-36); Mean Corpuscular Hemoglobin 29.3 pg (26-34); Mean Corpuscular Volume 94.7 fl (80-100); Mean Platelet Volume 12.5 fl (7.4-10.4); Monocytes Absolute Auto 0.4 K/mm3 (0.1-0.6); Monocytes Percent Auto 11.1 % (2.6-8.5); Platelet Count Result 262 k/mm3 (150-375); Red Blood Count 2.63 M/mm3 (4.6-6.20); Red Cell Distribution Width 21.4 % (11.5-14.5); White Blood Count 3.9 K/mm3 (4.5-10.0)
[2020-11-02 06:56] LABS: CRP 11.4 mg/dL (<1.0)
[2020-11-02 08:07] LABS: Glucose Point of Care 314 (65-105)
[2020-11-02] MEDS: DEXAMETHASONE SOD PHOS INJ 4 MG/ML VIAL 6 MG IV PUSH (08:48)
[2020-11-02] MEDS: polyethylene glycoL 3350 17 GM POWD.PACK PO (08:48)
[2020-11-02] MEDS: INSULIN ASPART (*BKC) 100 UNITS/ML SUB-Q ×2 (08:48→12:59)
[2020-11-02] MEDS: ASPIRIN 81 MG CHEWABLE TABLET PO (08:49)
[2020-11-02] MEDS: FEBUXOSTAT 40 MG TABLET PO (08:49)
[2020-11-02] MEDS: FAMOTIDINE 20 MG TABLET PO (08:49)
[2020-11-02] MEDS: SENNOSIDES 8.6 MG TABLET PO ×2 (08:49→17:50)
[2020-11-02] MEDS: FUROSEMIDE 80 MG TABLET PO (08:49)
[2020-11-02] MEDS: CLOPIDOGREL BISULFATE 75 MG TABLET PO (08:49)
[2020-11-02] MEDS: LORATADINE 10 MG TABLET PO (08:49)
[2020-11-02] MEDS: RANOLAZINE 500 MG TAB.ER.12H 1000 MG PO ×2 (08:49→21:51)
[2020-11-02] MEDS: THERAPEUTIC MULTIVITAMINS/MINERALS TAB (*BKC) 1 TABLET PO ×2 (08:49→17:50)
[2020-11-02] MEDS: SODIUM BICARBONATE TAB 650 MG TABLET PO ×2 (08:49→17:51)
[2020-11-02] MEDS: DOCUSATE SODIUM 100 MG CAPSULE 200 MG PO ×2 (08:49→17:50)
[2020-11-02] MEDS: PANTOPRAZOLE 40 MG TABLET PO ×2 (08:49→17:50)
[2020-11-02] MEDS: FINASTERIDE 5 MG TABLET PO (08:49)
[2020-11-02] MEDS: ISOSORBIDE MONONITRATE 60 MG TAB.ER.24H 120 MG PO (08:49)
[2020-11-02] MEDS: CHOLECALCIFEROL 1,000 UNITS TABLET 2000 UNITS PO (08:50)
[2020-11-02] MEDS: carvediloL 12.5 MG TABLET PO ×2 (08:50→21:50)
[2020-11-02] MEDS: MICONAZOLE NITRATE 2% CREAM 30 GM TUBE 1 APPLIC TOPICAL ×2 (08:50→21:51)
[2020-11-02 12:07] LABS: Glucose Point of Care 268 (65-105)
[2020-11-02] MEDS: CYCLOBENZAPRINE HCL 10 MG TABLET PO (13:00)
--- NOTE | 2020-11-02 17:17 | PM.PNNEP ---
Progress Note: A&P Assessment and Plan (1) End-stage renal disease on hemodialysis: Code(s): N18.6 - End stage renal disease; Z99.2 - Dependence on renal dialysis Status: Acute Assessment and Plan: Chito has end-stage renal disease. He has been on dialysis for A few weeks. Due for dialysis today. he is getting HD via the fistula. working well. remove the permacath I consulted surgery to do this. (2) Urinary retention: Code(s): R33.9 - Retention of urine, unspecified Status: Acute Assessment and Plan: The patient had urinary retention. He has a catheter in now. We will continue meds for his BPH. Consider a Urology consult if he does not want to go to the [place] for this. He is on finasteride and tamsulosin (3) Person under investigation for COVID-19: Code(s): Z20.828 - Contact with and (suspected) exposure to other viral communicable diseases Status: Acute Assessment and Plan: covid positive. getting supportive care on dexamethasone (4) Urinary tract infection: Qualifiers: Urinary tract infection type: acute cystitis Hematuria presence: without hematuria Qualified Code(s): N30.00 - Acute cystitis without hematuria Code(s): N39.0 - Urinary tract infection, site not specified Status: Acute Assessment and Plan: urine culture Enterococcus, On Ampicillin (5) Hypertension: Qualifiers: Hypertension type: essential hypertension Qualified Code(s): I10 - Essential (primary) hypertension Code(s): I10 - Essential (primary) hypertension Status: Chronic Assessment and Plan: BP is well controlled. (6) Insulin dependent diabetes mellitus: Status: Acute Assessment and Plan: on accuchecks and ssi (7) Elevated troponin: Code(s): R77.8 - Other specified abnormalities of plasma proteins Status: Acute (8) Obstructive sleep apnea on CPAP: Code(s): G47.33 - Obstructive sleep apnea (adult) (pediatric); Z99.89 - Dependence on other enabling machines and devices Status: Chronic Subjective Date/time seen: 11/02/20 17:17 Interval history: Patient is alert. He feels okay. No cough. no sob. in good spirits He is due for dialysis today Review of Systems Cardiovascular: Cardiovascular: Reports no additional cardiovascular complaints Respiratory: Respiratory: Reports no additional respiratory complaints Gastrointestinal: Gastrointestinal: Reports no additional gastrointestinal complaints Genitourinary: Genitourinary: Reports no additional male genitourinary complaints Exam Narrative: Exam Narrative: WDWN in NAD skin no rash or sq nodules head ncat lungs clear bilaterally cor reg no rub or gallop abd BS+ nontender and soft ext no edema Objective Data Vital Signs Vital Signs: Vital Signs - 24 hr 11/01/20 20:00 11/01/20 20:58 11/01/20 22:03 Temperature 36.6 C Pulse Rate 94 91 82 Respiratory Rate 18 Blood Pressure 100/52 L Pulse Oximetry 91 91 11/02/20 00:00 11/02/20 04:00 11/02/20 08:00 Temperature 36.3 C L 36.6 C 36.2 C L Pulse Rate 102 H 101 H 55 L Respiratory Rate 18 20 20 Blood Pressure 108/43 L 105/57 L 106/58 L Pulse Oximetry 90 95 96 11/02/20 08:50 11/02/20 12:00 11/02/20 16:00 Temperature 37.0 C 36.5 C Pulse Rate 55 L 78 78 Respiratory Rate 20 18 Blood Pressure 109/61 121/61 Pulse Oximetry 95 98 11/02/20 16:06 Temperature 36.5 C Pulse Rate 79 Respiratory Rate 16 Blood Pressure 121/61 Pulse Oximetry Intake/Output Intake/Output: Intake & Output 10/30/20 10/31/20 11/01/20 11/02/20 23:59 23:59 23:59 23:59 Intake Total 2200 510 1580 885 Output Total 1200 1075 250 250 Balance 1000 -565 1330 635 Meds/Results Medications: Active Medications Generic Name Dose Route Start Last Admin Trade Name Freq PRN Reason Stop Dose Admin Acetaminophen 650 mg 10/29/20 08:23 12
--- NOTE | 2020-11-02 17:18 | P.PNIM_ITS ---
Progress Note: A&P Assessment and Plan (1) Urinary tract infection: Qualifiers: Urinary tract infection type: acute cystitis Hematuria presence: without hematuria Qualified Code(s): N30.00 - Acute cystitis without hematuria Code(s): N39.0 - Urinary tract infection, site not specified Status: Acute Assessment and Plan: * Urine culture growing Enterococcus. Blood cultures no growth to date. * Continue ampicillin (day 4). (2) Pneumonia due to COVID-19 virus: Code(s): U07.1 - COVID-19; J12.89 - Other viral pneumonia Status: Acute Assessment and Plan: * COVID positive 10/29/20. * Not on remdesivir due to renal function, will continue dexamethasone (day 3). * Continue supportive care with Tylenol for fevers and supplemental O2. DVT ppx with SQ heparin. (3) Acute respiratory failure with hypoxia: Code(s): J96.01 - Acute respiratory failure with hypoxia Status: Acute Assessment and Plan: * Suspect secondary to COVID pneumonia. * Wean supplemental O2 as tolerated to keep O2 saturations > 90%. (4) Urinary retention: Code(s): R33.9 - Retention of urine, unspecified Status: Acute Assessment and Plan: * Continue Soto at this time. * Consider voiding trial at discharge (5) Elevated troponin: Code(s): R77.8 - Other specified abnormalities of plasma proteins Status: Acute Assessment and Plan: * Mildly elevated troponins with flat profile; no chest pain. * Patient was seen 10/21/20 for an NSTEMI and transferred to the [facility] where he underwent a cardiac catheterization with 2 stents. He was just discharged home from [facility] 10/26/20. * Suspect elevated troponin likely related to recent cardiac intervention. * No chest pain, continue to monitor. (6) Insulin dependent diabetes mellitus: Status: Acute Assessment and Plan: * Hgb A1c 5.4%; blood glucose levels are elevated today now that his appetite has picked up. * Continue lantus and high dose SSI; monitor with accu-cheks and adjust treatment as needed. (7) End-stage renal disease on hemodialysis: Code(s): N18.6 - End stage renal disease; Z99.2 - Dependence on renal dialysis Status: Acute Assessment and Plan: * HD scheudule Friday, and Friday. Continue dialysis per nephrology recommendations; appreciate input. (8) Anemia of chronic disease: Code(s): D63.8 - Anemia in other chronic diseases classified elsewhere Status: Acute Assessment and Plan: * Hgb low today at 7.7. No signs or symptoms of acute bleeding. Monitor CBC. (9) Benign prostatic hyperplasia: Qualifiers: Lower urinary tract symptom presence: symptoms present Lower urinary tract symptom detail: urinary retention Qualified Code(s): N40.1 - Benign prostatic hyperplasia with lower urinary tract symptoms; R33.8 - Other retention of urine Code(s): N40.0 - Benign prostatic hyperplasia without lower urinary tract symptoms Status: Acute Assessment and Plan: * Soto catheter in place due to urinary retention. Continue Flomax. (10) Obstructive sleep apnea on CPAP: Code(s): G47.33 - Obstructive sleep apnea (adult) (
--- NOTE | 2020-11-02 17:18 | PM.IMPN ---
Progress Note: A&P Assessment and Plan (1) Urinary tract infection: Qualifiers: Urinary tract infection type: acute cystitis Hematuria presence: without hematuria Qualified Code(s): N30.00 - Acute cystitis without hematuria Code(s): N39.0 - Urinary tract infection, site not specified Status: Acute Assessment and Plan: Urine culture growing Enterococcus. Blood cultures no growth to date. Continue ampicillin (day 4). (2) Pneumonia due to COVID-19 virus: Code(s): U07.1 - COVID-19; J12.89 - Other viral pneumonia Status: Acute Assessment and Plan: COVID positive 10/29/20. Not on remdesivir due to renal function, will continue dexamethasone (day 3). Continue supportive care with Tylenol for fevers and supplemental O2. DVT ppx with SQ heparin. (3) Acute respiratory failure with hypoxia: Code(s): J96.01 - Acute respiratory failure with hypoxia Status: Acute Assessment and Plan: Suspect secondary to COVID pneumonia. Wean supplemental O2 as tolerated to keep O2 saturations > 90%. (4) Urinary retention: Code(s): R33.9 - Retention of urine, unspecified Status: Acute Assessment and Plan: Continue Soto at this time. Consider voiding trial at discharge (5) Elevated troponin: Code(s): R77.8 - Other specified abnormalities of plasma proteins Status: Acute Assessment and Plan: Mildly elevated troponins with flat profile; no chest pain. Patient was seen 10/21/20 for an NSTEMI and [facility] cardiac catheterization with 2 stents. [facility] was just [facility]. Suspect elevated troponin likely related to recent cardiac intervention. No chest pain, continue to monitor. (6) Insulin dependent diabetes mellitus: Status: Acute Assessment and Plan: Hgb A1c 5.4%; blood glucose levels are elevated today now that his appetite has picked up. Continue lantus and high dose SSI; monitor with accu-cheks and adjust treatment as needed. (7) End-stage renal disease on hemodialysis: Code(s): N18.6 - End stage renal disease; Z99.2 - Dependence on renal dialysis Status: Acute Assessment and Plan: HD [facility] Friday, and Friday. Continue dialysis per nephrology recommendations; appreciate input. (8) Anemia of chronic disease: Code(s): D63.8 - Anemia in other chronic diseases classified elsewhere Status: Acute Assessment and Plan: Hgb low today at 7.7. No signs or symptoms of acute bleeding. Monitor CBC. (9) Benign prostatic hyperplasia: Qualifiers: Lower urinary tract symptom presence: symptoms present Lower urinary tract symptom detail: urinary retention Qualified Code(s): N40.1 - Benign prostatic hyperplasia with lower urinary tract symptoms; R33.8 - Other retention of urine Code(s): N40.0 - Benign prostatic hyperplasia without lower urinary tract symptoms Status: Acute Assessment and Plan: Soto catheter in place due to urinary retention. Continue Flomax. (10) Obstructive sleep apnea on CPAP: Code(s): G47.33 - Obstructive sleep apnea (adult) (pediatric); Z99.89 - Dependence on other enabling machines and devices Status: Chronic Assessment and Plan: Hold off on CPAP due to COVID. (11) Hypertension: Qualifiers: Hypertension type: essential hypertension Qualified Code(s): I10 - Essential (primary) hypertension Code(s): I10 - [facility]
[2020-11-02] MEDS: ATORVASTATIN 40 MG TABLET 80 MG PO (17:51)
[2020-11-02] MEDS: TAMSULOSIN HCL 0.4 MG CAPSULE PO (17:51)
[2020-11-02] MEDS: INSULIN GLARGINE (*BKC) 100 UNITS/ML 25 UNITS SUB-Q (21:48)
[2020-11-02 22:08] LABS: Glucose Point of Care 208 (65-105)
[2020-11-03] VITALS (18 sets, daily range): BP systolic 96–159; BP diastolic 47–92; PULSE 74–133; RESP 14–20; TEMP 36.3–38.5; O2SAT 90–99
[2020-11-03] MEDS: HEPARIN SODIUM 5,000 UNITS/ML VIAL 5000 UNITS SUB-Q (05:06)
[2020-11-03 06:18] LABS: Basophils Percent Auto 0.2 % (0.2-1.2); Hemoglobin 8.3 g/dL (14.0-18.0); Immature Granulocyte Absolute 0.09 K/mm3 (0.00-0.031); Immature Granulocyte Percent A 1.7 % (0-0.5); Lymphocytes Absolute Auto 0.51 K/mm3 (0.9-3.2); Lymphocytes Percent Auto 9.8 % (18.3-44.2); Mean Corpuscular HGB Conc 30.7 g/dl (32-36); Mean Corpuscular Hemoglobin 29.3 pg (26-34); Mean Corpuscular Volume 95.4 fl (80-100); Mean Platelet Volume 12.6 fl (7.4-10.4); Monocytes Absolute Auto 0.4 K/mm3 (0.1-0.6); Monocytes Percent Auto 7.1 % (2.6-8.5); Neutrophils Absolute Auto 4.2 K/mm3 (1.3-6.7); Neutrophils Percent Auto 81.2 % (45.5-73.1); Nucleated Red Blood Cells Perc 0.4 % (0.0-0.2); Platelet Count Result 272 k/mm3 (150-375); Red Blood Count 2.83 M/mm3 (4.6-6.20); Red Cell Distribution Width 21.2 % (11.5-14.5); White Blood Count 5.2 K/mm3 (4.5-10.0)
[2020-11-03 06:33] LABS: Anion Gap 6 mmol/L (8-16); Blood Urea Nitrogen 46 mg/dL (9-20); Carbon Dioxide 37 mmol/L (22-30); Chloride 92 mmol/L (98-107); Estimated CRCL calculation 13 ml/min; Estimated Glomerular Filt Rate 13; Glucose 151 mg/dL (75-110); Phosphorus 4.4 mg/dL (2.5-4.5); Potassium 4.4 mmol/L (3.4-5.0); Sodium 135 mmol/L (137-145)
[2020-11-03 08:29] LABS: Glucose Point of Care 106 (65-105)
--- NOTE | 2020-11-03 09:09 | ECG_ITS ---
Measurements Intervals [place] Rate: 112 P: 150 KS: 363 QRS: 46 QRSD: 104 T: 90 QT: 338 QTc: 462 Interpretive Statements ATRIAL FIBRILLATIOIN WITH RAPID VENTRICULAR RESPONSE DELAYED PRECORDIAL R/S TRANSITION ST-T WAVE ABNORMALITY IN LATERAL LEADS- CONSIDER ISCHEMIA BASELINE ARTIFACT- I, III, AVL, AVF ABNORMAL ECG Electronically Signed On 11-03-2020 9:31:36 [employer]CH[employer]IC by Reji Arevalo D.O.
[2020-11-03 09:19] LABS: Glucose Point of Care 58 (65-105)
[2020-11-03 09:19] LABS: Glucose Point of Care 251 (65-105)
[2020-11-03 09:30] LABS: Alveolar/Arterial O2 Gradient 93.9 mmHg; Base Excess ABG 6.2 mEq/l (+/-2.0); Fractional Inspired Oxygen 28 %; Oxygen Content ABG 11.5 %vol (16.0-22.0); Oxygen Saturation ABG 92.5 % (95.0-100.0); Oxyhemoglobin 88.5 % THb (90.0-100.0); PCO2 ABG 39.9 mmHg (35.0-45.0); PO2 ABG 58.7 mmHg (80.0-100.0); Total Hemoglobin 9.2 g/dL (12.0-18.0); pH ABG 7.494 (7.350-7.450)
[2020-11-03 09:31] LABS: Device NASAL CANNULA; Modified Allen's Test Pass; Site Drawn RIGHT RADIAL
--- NOTE | 2020-11-03 09:40 | PCOTNOTE ---
Patient had a Rapid Response called this A.M. Patient is being transferred to IMU and will hold therapy until we get continuation orders.
[2020-11-03 09:44] LABS: Ammonia < 9 umol/L (9-30)
[2020-11-03 10:03] LABS: Hematocrit 25.8 % (42.0-52.0); Hemoglobin 8.3 g/dL (14.0-18.0); Mean Corpuscular HGB Conc 32.2 g/dl (32-36); Mean Corpuscular Volume 93.1 fl (80-100); Mean Platelet Volume 12.2 fl (7.4-10.4); Platelet Count Result 267 k/mm3 (150-375); Red Blood Count 2.77 M/mm3 (4.6-6.20); Red Cell Distribution Width 20.8 % (11.5-14.5); White Blood Count 5.9 K/mm3 (4.5-10.0)
--- NOTE | 2020-11-03 10:07 | PM.IMPN ---
Progress Note: A&P Assessment and Plan (1) Atrial fibrillation with RVR: Code(s): I48.91 - Unspecified atrial fibrillation Status: Acute Assessment and Plan: Rapid Response called shortly after 0900 due to decreased responsiveness. Upon my arrival Chito is awake but notably less responsive than days prior, very minimally verbally responding. Blood sugar 58, full ampule D50 given and blood sugar up to 251. HRs up in 130s-140s. BP 96/47. AM meds have not been given yet. Vomiting. Saturating 88-92% on 1L/min nasal cannula with no obvious respiratory distress, increased to 3L during this time. Orders for stat troponin, BMP, CBC, ammonia, ABG, EKG given. Left oral drooping is noticed. Stat CT brain without contrast ordered. EKG and cardiac telemetry demonstrate what appears to be new onset a fib with RVR with some ST depression in lateral leads. K is 3.9 and mag is 2.0. He says he is having chest pain. EKG on arrival 10/29/20 shows sinus rhythm. Recent coronary stenting 10/23/20 at the [place] thus he remains on dual anti-platelet therapy with Plavix and ASA. He has been on SQ heparin for DVT prophylaxis. Spoke with Dr Saunders who agrees to see Mr Rivera in consult. Plan: Transfer to IMU and initiate IV amiodarone for new A fib RVR. Trop pending. Appreciate cardiology consult. Will also consult neurology given his left facial droop during this episode. Stat CT brain shows no acute bleeding. Spoke with /POA, Catherine, over the phone for updates. She expresses wishes to keep him Full Code status. Edit: Rates are improved on amiodarone. A bit more responsive this afternoon. Spoke with Dr Saunders. Preference would be full anticoagulation given that he is still in a fib. Spoke with Dr López; awaiting his recommendations on timing of anticoagulation. (2) Decreased responsiveness: Code(s): R41.89 - Other symptoms and signs involving cognitive functions and awareness Status: Acute Assessment and Plan: See above. Possible contributing factors include hypoglycemia, new rapid A fib, rule out CVA with CT. Edit: Chito is a bit more responsive this afternoon. CT brain shows no acute hemorrhage. Spoke to Dr López regarding his recommendations on anticoagulation, he is to evaluate the patient shortly this afternoon. (3) Urinary tract infection: Qualifiers: Hematuria presence: without hematuria Urinary tract infection type: acute cystitis Qualified Code(s): N30.00 - Acute cystitis without hematuria Code(s): N39.0 - Urinary tract infection, site not specified Status: Acute Assessment and Plan: Urine culture growing Enterococcus. Blood cultures no growth to date. Continue ampicillin (day 5). (4) Pneumonia due to COVID-19 virus: Code(s): U07.1 - COVID-19; J12.89 - Other viral pneumonia Status: Acute Assessment and Plan: COVID positive 10/29/20. Not on remdesivir due to renal function, will continue dexamethasone (day 4). Continue supportive care with Tylenol for fevers and supplemental O2. DVT ppx with SQ heparin. (5) Acute respiratory failure with hypoxia: Code(s): J96.01 - Acute respiratory failure with hypoxia Status: Acute Assessment and Plan: Suspect secondary to COVID pneumonia. Wean supplemental O2 as tolerated to keep O2 saturations > 90%. Was on 1L/min NC now up to 3L/min NC during this episode. (6) Urinary retention: Code(s): R33.9 - Retention of urine, unspecified Status: Acute Assessment and Plan: Continue Soto at this time. Consider voiding trial at discharge (7) Elevated troponin: Code(s): R77.8 - Other specified abnormalities of plasma proteins Status: Acute
[2020-11-03 10:18] LABS: Alanine Aminotransferase 14 U/L (4-50); Alkaline Phosphatase 71 U/L (38-126); Anion Gap 7 mmol/L (8-16); Aspartate Amino Transferase 29 U/L (17-59); Bilirubin,Total 0.8 mg/dL (0.2-1.3); Blood Urea Nitrogen 51 mg/dL (9-20); Calcium 7.9 mg/dL (8.4-10.2); Carbon Dioxide 37 mmol/L (22-30); Chloride 90 mmol/L (98-107); Estimated CRCL calculation 13 ml/min; Estimated Glomerular Filt Rate 14; Glucose 240 mg/dL (75-110); Potassium 3.9 mmol/L (3.4-5.0); Sodium 134 mmol/L (137-145)
[2020-11-03 10:33] LABS: Troponin I 0.496 ng/mL (0.000-0.034)
[2020-11-03] MEDS: AMIODARONE 150 MG/D5W 100 ML 150 MG/100 ML BAG 600 MG IV CONT (10:42)
--- NOTE | 2020-11-03 10:46 | PC.NURSE ---
0910 PT STARING TO LEFT SIDE LEFT SIDE FACIAL DROOPING, PT NAUSEATE AND VOMITED BILE COLORED CONTENT, PT HAIVNB TREMORS TO UPPER AND LOWER EXT. HR 133 AND IRR. EYES MOVING ABOUT IN HEAD, UNABLE TO LIFT ARMS AND LEGS WILL SLIIGHLY SQUEESE HAND VERY WEAK, BS 58 AND DEXTROSE 50 GIVEN IVP BS UP TO 250 , INC REASE O2 TO 3 L FOR 88% SAT. WILL SAY YES BUT UNALBE TO SPEELK IN SENSTENCE. DELANO ASKED IF PT HAVINB CHEST PAIN, PT REPLIED YES POINTED TO LEFT SIDE BREATHING IS IRREGUALR AND HAVING BOUTS OF APNEA DAVID DRAINING CLEARF YELLOW URINE. SONAL RESPONSE CALLED ATR [id number]
--- NOTE | 2020-11-03 11:02 | PCPTNOTE ---
The patient treatment was not able to be completed due to Rapid response clled for patient and patient transferred to IMU. PT will hold therapy at this time and await further orders.
[2020-11-03] MEDS: AMIODARONE 360 MG/D5W 200 ML 360 MG/200 ML BAG 33.33 MG IV CONT (11:11)
--- NOTE | 2020-11-03 12:13 | PM.CNGS ---
Assessment and Plan Assessment and plan (1) End-stage renal disease on hemodialysis: Code(s): N18.6 - End stage renal disease; Z99.2 - Dependence on renal dialysis Status: Acute Assessment and Plan: will plan to remove TDC once pt is more stable, no s/s infection (2) Atrial fibrillation with RVR: Code(s): I48.91 - Unspecified atrial fibrillation Status: Acute Assessment and Plan: mgmt per cardiology, amiodorone gtt (3) Decreased responsiveness: Code(s): R41.89 - Other symptoms and signs involving cognitive functions and awareness Status: Acute Assessment and Plan: workup per primary team (4) Pneumonia due to COVID-19 virus: Code(s): U07.1 - COVID-19; J12.89 - Other viral pneumonia Status: Acute Assessment and Plan: cont supp care History of Present Illness Consult details Consult date: 11/03/20 Reason for consult: other (removal of RIJ TDC) Requesting physician: Joe Cason MD Narrative: Pt seen and examined. Pt recently c rapid response secondary to unresponsiveness. Pt found to be in atrial fib c RVR. Pt currently being setup for amiodorone gtt. Pt still not answering questions appropriately. Review of Systems Review of Systems: ROS unobtainable: Yes unobtainable due to medical condition and unobtainable due to mental status PMFSH Past Medical History Medical History Anemia of chronic disease With history of blood transfusion. Benign prostatic hyperplasia Congestive heart failure Coronary artery disease History GA, stent x3, and three-vessel CABG. Diverticulitis Status post colon resection. End-stage renal disease on hemodialysis Gout History of renal stone History of shingles Hyperlipidemia Hypertension Insulin dependent diabetes mellitus Hemoglobin A1c was 5.4% in October 2020. Obstructive sleep apnea on CPAP Osteoarthritis Surgical History Surgical History History of back surgery History of bilateral knee replacement History of cataract extraction History of cholecystectomy History of colon resection Related to recurrent diverticulitis. History of coronary artery bypass graft x 3 (~1999) History of coronary artery stent placement History of left hip replacement History of rectal polypectomy History of transurethral resection of prostate Status post creation of arteriovenous fistula Family History Family History Father Cancer Mother CHF (congestive heart failure), NYHA class I Acute myocardial infarction Sibling Cancer Social History Social History Social History: The patient lives with his in [place], [place]. Retired from [employer]. Remote pipe and cigar smoker. He has not had alcohol for 30+ years. He designates his , Catherine Rivera, as his surrogate decision maker and he wishes to be a full code. Spiritual care concerns: No Agree to blood products: No Meds Home Medications and Allergies Home Medications Medication Instructions Recorded Confirmed Type Centrum Men 1 tablet PO BID 02/24/20 10/29/20 History aspirin 81 mg PO DAILY 02/24/20 10/29/20 History atorvastatin 80 mg PO QPM 02/24/20 10/29/20 History carvedilol [Coreg] 12.5 mg PO Q12H 02/24/20 10/29/20 History clopidogrel [Plavix] 75 mg PO DAILY 02/24/20 10/29/20 History diclofenac sodium 2 g TOPICAL QID 02/24/20 10/29/20 History insulin aspart U-100 [Novolog See Rx Instructions .ROUTE .COMPLEX 02/24/20 10/29/20 History U-100 Insulin aspart] Lantus U-100 Insulin 33 unit SUBCUT HS 08/22/20 10/29/20 History camphor-menthol 1 applic TOPICAL TID PRN 08/23/20 10/29/20 History cetirizine [Allergy Relief 10 mg PO BID 08/23/20 10/29/20 History (cetirizine)] clotrimazole [Antifungal 1 applic TOPICAL BI
[2020-11-03 14:32] LABS: Glucose Point of Care 140 (65-105)
--- NOTE | 2020-11-03 14:48 | PM.CNCAR ---
Assessment and Plan Assessment and plan (1) Atrial fibrillation with RVR: Code(s): I48.91 - Unspecified atrial fibrillation Status: Acute Assessment and Plan: Amiodarone 150 mg IV bolus and standard drip per protocol. 2D echocardiogram with Doppler and agitated saline study will be ordered. Heparin drip per protocol is advised if okay with Neurology. Continue supportive care. Will Repeat EKG tomorrow. (2) Pneumonia due to COVID-19 virus: Code(s): U07.1 - COVID-19; J12.89 - Other viral pneumonia Status: Acute Assessment and Plan: Per hospitalist (3) ESRD on dialysis: Code(s): N18.6 - End stage renal disease; Z99.2 - Dependence on renal dialysis Status: Acute Assessment and Plan: Per nephrology (4) Coronary artery disease: Qualifiers: Coronary Disease-Associated Artery/Lesion type: [place] artery [place] vs. transplanted heart: [place] heart Associated angina: with unspecified angina Qualified Code(s): I25.119 - Atherosclerotic heart disease of [place] coronary artery with unspecified angina pectoris Code(s): I25.10 - Atherosclerotic heart disease of [place] coronary artery without angina pectoris Status: Chronic Assessment and Plan: Resume a low-dose aspirin 81 mg p.o. daily as well as clopidogrel 75 mg p.o. daily. Also his Ranexa, isosorbide should be continued. His statin should also be continued at current dosing. His blood pressure was a little low this morning and will lower his carvedilol down to 6.25 mg p.o. b.i.d.. (5) Decreased responsiveness: Code(s): R41.89 - Other symptoms and signs involving cognitive functions and awareness Status: Acute Assessment and Plan: Uncertain etiology. Uncertain if he had a stroke versus low blood sugar versus COVID complications versus metabolic abnormalities. He currently has a much greater level of consciousness the needed her there this morning. It appears that this could be a metabolic versus blood sugar issue although CVA is still not excluded. Consult Dr. Carrasco History of Present Illness History of Present Illness Consult date/time: 11/03/20 14:48 Requesting physician: Domenica Aiken PA-C Consult reason: atrial fibrillation Reason For Visit: Difficulties urinating. Narrative: Date of service 11/03/2020 Reason for consultation, abnormal EKG, atrial fibrillation History: Patient is a 80-year-old male who was recently admitted to this hospital and shortly thereafter transferred to the [facility]. He had chest pain and non ST-elevation myocardial infarction. He did undergo cardiac catheterization at the [facility] and 2 stents were placed but I do not know the details. He was brought to this hospital because of fever and difficulty urinating. Subsequent Coronavirus test was performed here at [facility] which was positive. He was therefore admitted and early this morning a rapid response was called as he had a change in level of consciousness. He was found to be minimally responsive. Blood sugar was low. Was given glucose appropriately. He was also found to be in atrial fibrillation with rapid ventricular response. There is also concern of some weakness as well as facial droop. He was transferred to IMU for further evaluation. Cardiology consultation was therefore requested especially given his recent PCI and abnormal EKG and atrial fibrillation. Patient currently is more responsive. He denies any chest pain or recent chest pain. Does not have any significant shortness of breath, syncope, edema. Denies palpitations. Review of Systems Review of Systems: All systems reviewed & are unremarkable except as noted in HPI and below Constitutional: Constitutional: Reports weakness Eyes: Eyes: Denies blurry vision ENT: Reports Normal hearing present Cardiovascular: Cardiovascular: Denies chest pain Respiratory: Respiratory: Reports cough Gastrointestinal: Gastrointestinal
--- NOTE | 2020-11-03 15:12 | PCPTNOTE ---
Spoke with ROJELIO Aguila, hold on therapy this date and please call prior to continuing, will need reassess.
--- NOTE | 2020-11-03 16:16 | PC.NURSE ---
This patient, Chito Rivera, was received from [ [phone]] on 11/03/20 at 1012. Patient/family oriented to unit policies and routines. Pt arrived in with 3L nasal canula. Oriented to name. No distress noted
--- NOTE | 2020-11-03 16:25 | WPDNEURCNPN ---
Assessment and Plan Assessment and plan (1) Decreased responsiveness: Code(s): R41.89 - Other symptoms and signs involving cognitive functions and awareness Status: Acute (2) Atrial fibrillation with RVR: Code(s): I48.91 - Unspecified atrial fibrillation Status: Acute (3) Pneumonia due to COVID-19 virus: Code(s): U07.1 - COVID-19; J12.89 - Other viral pneumonia Status: Acute (4) Acute respiratory failure with hypoxia: Code(s): J96.01 - Acute respiratory failure with hypoxia Status: Acute (5) Non-ST elevation NM (NSTEMI): Code(s): I21.4 - Non-ST elevation (NSTEMI) myocardial infarction Status: Acute (6) Renal failure: Code(s): N19 - Unspecified kidney failure Status: Acute Additional Plan encephalopathy with end-stage renal disease for which patient is on hemodialysis CT scan of the head is negative twice with no evidence of bleed or space-occupying lesion treatment will be continued as such Consult date: 11/03/20 Time Seen: 16:25 HPI: Chito Rivera is a 80 year old male admitted to the hospital for the complaints of difficulties in urination in addition to the history of 1. Coronary artery disease 2. Hyper 3. Congestive heart failure 4. Sleep apnea 5. Insulin-dependent diabetes mellitus 6. End-stage renal disease for which patient has been recently started on dialysis. patient has undergone multiple surgeries as outlined Review of Systems Review of Systems: All systems reviewed & are unremarkable except as noted in HPI and below PMFSH Past Medical History Medical History Anemia of chronic disease With history of blood transfusion. Benign prostatic hyperplasia Congestive heart failure Coronary artery disease History NM, stent x3, and three-vessel CABG. Diverticulitis Status post colon resection. End-stage renal disease on hemodialysis Gout History of renal stone History of shingles Hyperlipidemia Hypertension Insulin dependent diabetes mellitus Hemoglobin A1c was 5.4% in October 2020. Obstructive sleep apnea on CPAP Osteoarthritis Surgical History Surgical History History of back surgery History of bilateral knee replacement History of cataract extraction History of cholecystectomy History of colon resection Related to recurrent diverticulitis. History of coronary artery bypass graft x 3 (~1999) History of coronary artery stent placement History of left hip replacement History of rectal polypectomy History of transurethral resection of prostate Status post creation of arteriovenous fistula Family History Family History Father Cancer Mother CHF (congestive heart failure), NYHA class I Acute myocardial infarction Sibling Cancer Social History Social History Social History: The patient lives with his in [place], [place]. Retired from [employer]. Remote pipe and cigar smoker. He has not had alcohol for 30+ years. He designates his , Catherine Rivera, as his surrogate decision maker and he wishes to be a full code. Spiritual care concerns: No Agree to blood products: No Meds Home Medications and Allergies Home Medications Medication Instructions Recorded Confirmed Type Centrum Men 1 tablet PO BID 02/24/20 10/29/20 History aspirin 81 mg PO DAILY 02/24/20 10/29/20 History atorvastatin 80 mg PO QPM 02/24/20 10/29/20 History carvedilol [Coreg] 12.5 mg PO Q12H 02/24/20 10/29/20 History clopidogrel [Plavix] 75 mg PO DAILY 02/24/20 10/29/20 History diclofenac sodium 2 g TOPICAL QID 02/24/20 10/29/20 History insulin aspart U-100 [Novolog See Rx Instructions .ROUTE .COMPLEX 02/24/20 10/29/20 History U-100 Insulin aspart] Lantus U-100 Insulin 33 unit SUBCUT HS 08/22/20 10/29/20 History camphor-menthol
[2020-11-03 16:33] LABS: Glucose Point of Care 200 (65-105)
[2020-11-03] MEDS: AMIODARONE 360 MG/D5W 200 ML 360 MG/200 ML BAG 16.67 MG IV CONT (17:13)
[2020-11-03] MEDS: carvediloL 6.25 MG TABLET PO ×2 (18:12→22:00)
[2020-11-03] MEDS: DOCUSATE SODIUM 100 MG CAPSULE 200 MG PO ×2 (18:13→18:21)
[2020-11-03] MEDS: FEBUXOSTAT 40 MG TABLET PO (18:13)
[2020-11-03] MEDS: LORATADINE 10 MG TABLET PO (18:13)
[2020-11-03] MEDS: SODIUM BICARBONATE TAB 650 MG TABLET PO ×2 (18:13→18:21)
[2020-11-03] MEDS: CHOLECALCIFEROL 1,000 UNITS TABLET 2000 UNITS PO (18:13)
[2020-11-03] MEDS: FAMOTIDINE 20 MG TABLET PO (18:13)
[2020-11-03] MEDS: ASPIRIN 81 MG CHEWABLE TABLET PO (18:13)
[2020-11-03] MEDS: PANTOPRAZOLE 40 MG TABLET PO (18:14)
[2020-11-03] MEDS: FUROSEMIDE 80 MG TABLET PO (18:14)
[2020-11-03] MEDS: FINASTERIDE 5 MG TABLET PO (18:14)
[2020-11-03] MEDS: CLOPIDOGREL BISULFATE 75 MG TABLET PO (18:14)
[2020-11-03] MEDS: THERAPEUTIC MULTIVITAMINS/MINERALS TAB (*BKC) 1 TABLET PO ×2 (18:14→18:21)
[2020-11-03] MEDS: SENNOSIDES 8.6 MG TABLET PO ×2 (18:14→18:21)
[2020-11-03] MEDS: ISOSORBIDE MONONITRATE 60 MG TAB.ER.24H 120 MG PO (18:15)
[2020-11-03] MEDS: RANOLAZINE 500 MG TAB.ER.12H 1000 MG PO ×2 (18:21→22:00)
[2020-11-03] MEDS: DEXAMETHASONE SOD PHOS INJ 4 MG/ML VIAL 6 MG IV PUSH (18:22)
[2020-11-03] MEDS: ATORVASTATIN 40 MG TABLET 80 MG PO (18:23)
[2020-11-03] MEDS: TAMSULOSIN HCL 0.4 MG CAPSULE PO (18:23)
[2020-11-03 19:20] LABS: Partial Thromboplastin Time 42.4 SECONDS (22.3-36.8)
[2020-11-03 19:25] LABS: Troponin I 0.627 ng/mL (0.000-0.034)
[2020-11-03 20:09] LABS: Glucose Point of Care 190 (65-105)
[2020-11-03] MEDS: HEPARIN SOD/D5W 100 UNITS/ML 25,000 UNITS/250 ML BAG 14 UNITS IV CONT (20:54)
[2020-11-03] MEDS: INSULIN GLARGINE (*BKC) 100 UNITS/ML 25 UNITS SUB-Q (22:01)
[2020-11-04] VITALS (31 sets, daily range): BP systolic 115–154; BP diastolic 41–98; PULSE 73–105; RESP 18–23; TEMP 36–37.2; O2SAT 88–96; BMI 11.0
--- NOTE | 2020-11-04 | ECHO_ITS ---
Patient Info Name: Chito Rivera Age: 80 years : 1940 Gender: Male Ht: 68 in Wt: 190 lbs BSA: 2.05 m2 HR: 131 bpm BP: 124 / 61 mmHg Heart Rhythm: Atrial Fibrillation Technical Quality: Good Exam Date: 11/04/2020 12:48 PM Exam Location: [facility] Pulmonary Exam Room: 211 Patient Status: Inpatient Admit Date: 10/30/2020 Staff Ordering Physician: Rogelio Saunders MD Seals Engraver: Devorah Shields RCS Attending Provider: Domenica Aiken PA-C Referring Physician: Nicky MCGRAW; Exam Type: CA ECHODOPCF echo doppler color flow Study Info Indications - afib covid cva Complete two-dimensional, color flow and Doppler transthoracic echocardiogram is performed. Summary 1. Complete two-dimensional, color flow and Doppler transthoracic echocardiogram is performed. 2. Left ventricular chamber dimension is mildly enlarged. 3. Left ventricular systolic function is moderately reduced, estimated at 40-45%. 4. There is moderately increased left ventricular wall thickness. 5. The left ventricular diastolic function is abnormal. 6. The anterior wall, apical septum, mid inferoseptal, and mid anteroseptal are hypokinetic. 7. Right ventricular chamber dimension is mildly enlarged. 8. Right ventricular systolic function is reduced. 9. Left atrial chamber dimension is mildly enlarged. 10. Right atrial chamber dimension is mildly enlarged. 11. There is moderate aortic valve sclerosis. 12. There is moderate mitral valve regurgitation. 13. There is moderate to severe tricuspid valve regurgitation. 14. Severe pulmonary hypertension, estimated pulmonary arterial systolic pressure is 81 mmHg. 15. There is mild pulmonic regurgitation. Left Ventricle Left ventricular chamber dimension is mildly enlarged. Left ventricular systolic function is moderately reduced, estimated at 40-45%. There is moderately increased left ventricular wall thickness. The left ventricular diastolic function is abnormal. The anterior wall, apical septum, mid inferoseptal, and mid anteroseptal are hypokinetic. All other shaikh appear normal. Right Ventricle Right ventricular chamber dimension is mildly enlarged. Right ventricular systolic function is reduced. Left Atria Left atrial chamber dimension is mildly enlarged. Right Atria Right atrial chamber dimension is mildly enlarged. Atrial Septum Intact interatrial septum visualized by color flow imaging. Aortic Valve The aortic valve is trileaflet. There is moderate aortic valve sclerosis. There is no aortic valve stenosis. There is trace aortic valve regurgitation. Pulmonic Valve The pulmonic valve is normal. There is no pulmonic valve stenosis. There is mild pulmonic regurgitation. Mitral Valve The mitral valve has thickened leaflets. There is no mitral valve stenosis. There is moderate mitral valve regurgitation. Tricuspid Valve The tricuspid valve leaflets are normal. There is no significant tricuspid valve stenosis. There is moderate to severe tricuspid valve regurgitation. Severe pulmonary hypertension, estimated pulmonary arterial systolic pressure is 81 mmHg. Pericardium/Pleural The pericardium appears normal. There is no pericardial effusion. Inferior Vena Cava Dilated inferior vena cava with <50% collapse upon inspiration consistent with elevated right atrial pressure, 10 mmHg. Aorta The aortic root size at the sinus of Valsalva is normal. There is mild aortic atherosclerosis.
[2020-11-04 00:09] LABS: Glucose Point of Care 209 (65-105)
[2020-11-04] MEDS: AMIODARONE 360 MG/D5W 200 ML 360 MG/200 ML BAG 16.67 MG IV CONT (04:27)
[2020-11-04] MEDS: MICONAZOLE NITRATE 2% CREAM 30 GM TUBE 1 APPLIC TOPICAL ×3 (04:28→22:00)
[2020-11-04 05:06] LABS: Basophils Percent Auto 0.2 % (0.2-1.2); Hematocrit 24.3 % (42.0-52.0); Hemoglobin 7.7 g/dL (14.0-18.0); Immature Granulocyte Absolute 0.13 K/mm3 (0.00-0.031); Lymphocytes Absolute Auto 0.44 K/mm3 (0.9-3.2); Lymphocytes Percent Auto 10.2 % (18.3-44.2); Mean Corpuscular HGB Conc 31.7 g/dl (32-36); Mean Corpuscular Hemoglobin 29.4 pg (26-34); Mean Corpuscular Volume 92.7 fl (80-100); Mean Platelet Volume 11.9 fl (7.4-10.4); Monocytes Absolute Auto 0.2 K/mm3 (0.1-0.6); Monocytes Percent Auto 4.2 % (2.6-8.5); Neutrophils Absolute Auto 3.6 K/mm3 (1.3-6.7); Neutrophils Percent Auto 82.4 % (45.5-73.1); Platelet Count Result 211 k/mm3 (150-375); Red Blood Count 2.62 M/mm3 (4.6-6.20); Red Cell Distribution Width 21.5 % (11.5-14.5); White Blood Count 4.3 K/mm3 (4.5-10.0)
[2020-11-04 05:44] LABS: Alanine Aminotransferase 14 U/L (4-50); Alkaline Phosphatase 70 U/L (38-126); Anion Gap 8 mmol/L (8-16); Aspartate Amino Transferase 29 U/L (17-59); Bilirubin,Total 0.9 mg/dL (0.2-1.3); Blood Urea Nitrogen 64 mg/dL (9-20); Calcium 7.8 mg/dL (8.4-10.2); Carbon Dioxide 34 mmol/L (22-30); Chloride 89 mmol/L (98-107); Estimated CRCL calculation 10 ml/min; Estimated Glomerular Filt Rate 11; Glucose 213 mg/dL (75-110); Phosphorus 5.3 mg/dL (2.5-4.5); Potassium 4.2 mmol/L (3.4-5.0); Sodium 131 mmol/L (137-145)
[2020-11-04 06:45] LABS: Glucose Point of Care 198 (65-105)
--- NOTE | 2020-11-04 07:57 | PC.NURSE ---
Awaiting ptt redraw to adjust heparin.
--- NOTE | 2020-11-04 08:00 | ECG_ITS ---
Measurements Intervals [place] Rate: 87 P: [place]: 0 QRS: 69 QRSD: 103 T: 80 QT: 298 QTc: 359 Interpretive Statements ATRIAL FIBRILLATION DELAYED PRECORDIAL R/S TRANSITION MINIMAL Q WAVES- INFERIOR LEADS NONSPECIFIC T-WAVE ABNORMALITY- HIGH LATERAL LEADS BASELINE ARTIFACT- I, II, AVR, AVL, AVF, V1-V6 ABNORMAL ECG Electronically Signed On 11-04-2020 17:00:54 FORM BUILDER by Reji Arevalo D.O.
[2020-11-04 08:06] LABS: Glucose Point of Care 198 (65-105)
[2020-11-04] MEDS: RANOLAZINE 500 MG TAB.ER.12H 1000 MG PO ×2 (08:21→21:34)
[2020-11-04] MEDS: DOCUSATE SODIUM 100 MG CAPSULE 200 MG PO (08:22)
[2020-11-04] MEDS: SENNOSIDES 8.6 MG TABLET PO (08:22)
[2020-11-04] MEDS: PANTOPRAZOLE 40 MG TABLET PO (08:22)
[2020-11-04] MEDS: THERAPEUTIC MULTIVITAMINS/MINERALS TAB (*BKC) 1 TABLET PO (08:22)
[2020-11-04] MEDS: SODIUM BICARBONATE TAB 650 MG TABLET PO ×2 (08:22→16:12)
--- NOTE | 2020-11-04 08:48 | PCOTNOTE ---
Attempted eval 8:40- pt in dialysis.
--- NOTE | 2020-11-04 09:04 | PCPTNOTE ---
re-assess attempted...patient in dialysis, will try later today
[2020-11-04 09:11] LABS: Partial Thromboplastin Time 187.9 SECONDS (22.3-36.8)
--- NOTE | 2020-11-04 09:36 | PM.PNCARD ---
Progress Note: A&P Assessment and Plan (1) Atrial fibrillation with RVR: Code(s): I48.91 - Unspecified atrial fibrillation Status: Acute Assessment and Plan: Echo is pending. Continue heparin drip. Will DC amiodarone drip and switch him to amiodarone 200 mg p.o. b.i.d. (2) Pneumonia due to COVID-19 virus: Code(s): U07.1 - COVID-19; J12.89 - Other viral pneumonia Status: Acute Assessment and Plan: Per hospitalist (3) ESRD on dialysis: Code(s): N18.6 - End stage renal disease; Z99.2 - Dependence on renal dialysis Status: Acute Assessment and Plan: Per nephrology (4) Coronary artery disease: Qualifiers: Coronary Disease-Associated Artery/Lesion type: [place] artery [place] vs. transplanted heart: [place] heart Associated angina: with unspecified angina Qualified Code(s): I25.119 - Atherosclerotic heart disease of [place] coronary artery with unspecified angina pectoris Code(s): I25.10 - Atherosclerotic heart disease of [place] coronary artery without angina pectoris Status: Chronic Assessment and Plan: Resume a low-dose aspirin 81 mg p.o. daily as well as clopidogrel 75 mg p.o. daily. Will likely increase his carvedilol back to his normal dose tomorrow. He is at high risk of bleeding given dual anti-platelet as well as full anticoagulation. However given his recent PCI, dapt is needed. After 30 days from PCI, 1 of his antiplatelets could be discontinued, probably aspirin. [facility] ([facility]) Decreased responsiveness: Code(s): R41.89 - Other symptoms and signs involving cognitive functions and awareness Status: Acute Assessment and Plan: Still not certain as to what happened yesterday. Possibly TIA. Metabolic event is also possible including low glucose. Regardless he is doing much better today. Subjective Date/time seen: 11/04/20 09:36 Interval history: Mr. Rivera is a 80yo M with ESRD on hemodialysis, recent NSTEMI with cardiac stenting 10/23/20 admitted for UTI and acute respiratory failure secondary to COVID. Date of service 11/04/2020: He feels much better today. Conversing well. Denies any chest pain. Does have mild shortness of breath. Review of Systems Review of Systems: All systems reviewed & are unremarkable except as noted in HPI and below Constitutional: Constitutional: Denies excessive sweating and Reports weakness Eyes: Eyes: Denies blurry vision ENT: Reports Normal hearing present and Denies neck pain Cardiovascular: Cardiovascular: Denies chest pain Respiratory: Respiratory: Reports cough Gastrointestinal: Gastrointestinal: Denies abdominal pain Genitourinary: Genitourinary: Reports urinary hesitancy Musculoskeletal: Musculoskeletal: Denies back pain and Denies neck pain Integumentary/Breasts: Skin/Breast: Denies dry skin Neurologic: Reports Normal hearing present, Reports confusion and Reports weakness Psychiatric: Psychiatric: Reports confusion Endocrine: Endocrine: Denies excessive sweating Hematologic/Lymphatic: Hematologic/Lymphatic: Denies easy bleeding Allergic/Immunologic: Allergic/Immunologic: Denies GI upset with certain foods Exam Narrative: Exam Narrative: Patient is awake and alert. Const: General: comfortable and no acute distress HENMT: General nose exam: Normal nares present Eyes: Sclera: sclerae normal Neck: Neck: supple and no JVD Chest: Other: No reproducible chest wall pain to palpation Resp: Auscultation: diminished lung sounds Cardio: Rate: regular rate Rhythm: abnormal rhythm irregularly irregular Skin: General skin exam: normal color Neuro: Cranial nerves: Yes Normal hearing present Other: Grossly nonfocal exam although he does have some generalized weakness Extrem: General: no edema Psych: Affect: normal affect Objective Data Vital Signs Vital Signs: Vital Signs - 24 hr 11/03/20 09:49 11/03/20 10:34 12
[2020-11-04] MEDS: EPOETIN ALFA-EPBX 10,000 UNITS/ML VIAL 10000 UNITS IV PUSH (10:03)
[2020-11-04] MEDS: HEPARIN SODIUM 1,000 UNITS/ML VIAL 5000 UNITS (11:50)
[2020-11-04] MEDS: SODIUM CHLORIDE 0.9% IV 1,000 ML 999 ML IV CONT (11:51)
[2020-11-04] MEDS: INSULIN ASPART (*BKC) 100 UNITS/ML SUB-Q (12:13)
[2020-11-04 13:35] LABS: Glucose Point of Care 354 (65-105)
[2020-11-04] MEDS: ASPIRIN 81 MG CHEWABLE TABLET PO (14:39)
[2020-11-04] MEDS: FAMOTIDINE 20 MG TABLET PO (15:07)
[2020-11-04] MEDS: CHOLECALCIFEROL 1,000 UNITS TABLET 2000 UNITS PO (15:08)
[2020-11-04] MEDS: FINASTERIDE 5 MG TABLET PO (15:08)
[2020-11-04] MEDS: DEXAMETHASONE SOD PHOS INJ 4 MG/ML VIAL 6 MG IV PUSH (15:08)
[2020-11-04] MEDS: CLOPIDOGREL BISULFATE 75 MG TABLET PO (15:08)
[2020-11-04] MEDS: ONDANSETRON INJ 4 MG/2 ML VIAL IV PUSH (15:18)
[2020-11-04] MEDS: AMIODARONE HCL 200 MG TABLET PO (16:11)
--- NOTE | 2020-11-04 16:45 | PM.IMPN ---
Progress Note: A&P Assessment and Plan (1) Urinary tract infection: Qualifiers: Urinary tract infection type: acute cystitis Hematuria presence: without hematuria Qualified Code(s): N30.00 - Acute cystitis without hematuria Code(s): N39.0 - Urinary tract infection, site not specified Status: Acute Assessment and Plan: . Urine culture growing Enterococcus. Blood cultures no growth to date. Continue ampicillin (day 5). (2) Pneumonia due to COVID-19 virus: Code(s): U07.1 - COVID-19; J12.89 - Other viral pneumonia Status: Acute Assessment and Plan: COVID positive 10/29/20. (3) Acute respiratory failure with hypoxia: Code(s): J96.01 - Acute respiratory failure with hypoxia Status: Acute Assessment and Plan: Suspect secondary to COVID pneumonia. on BIPAP Rapid response called yesterday for code stroke (4) Urinary retention: Code(s): R33.9 - Retention of urine, unspecified Status: Acute Assessment and Plan: Continue Soto at this time. (5) Elevated troponin: Code(s): R77.8 - Other specified abnormalities of plasma proteins Status: Acute Assessment and Plan: Patient was seen 10/21/20 for an NSTEMI and transferred to the [facility] where he underwent a cardiac catheterization with 2 stents. He was just discharged home from [facility] 10/26/20. (6) Insulin dependent diabetes mellitus: Status: Acute Assessment and Plan: Hgb A1c 5.4%. (7) End-stage renal disease on hemodialysis: Code(s): N18.6 - End stage renal disease; Z99.2 - Dependence on renal dialysis Status: Acute Assessment and Plan: HD scheudule Friday, and Friday. (8) Anemia of chronic disease: Code(s): D63.8 - Anemia in other chronic diseases classified elsewhere Status: Acute Assessment and Plan: Hgb low but stable at 8.3. No signs or symptoms of acute bleeding. Monitor CBC. (9) Benign prostatic hyperplasia: Qualifiers: Lower urinary tract symptom presence: symptoms present Lower urinary tract symptom detail: urinary retention Qualified Code(s): N40.1 - Benign prostatic hyperplasia with lower urinary tract symptoms; R33.8 - Other retention of urine Code(s): N40.0 - Benign prostatic hyperplasia without lower urinary tract symptoms Status: Acute Assessment and Plan: Soto catheter in place due to urinary retention. Continue Flomax. (10) Obstructive sleep apnea on CPAP: Code(s): G47.33 - Obstructive sleep apnea (adult) (pediatric); Z99.89 - Dependence on other enabling machines and devices Status: Chronic Assessment and Plan: Hold off on CPAP due to COVID. (11) Hypertension: Qualifiers: Hypertension type: essential hypertension Qualified Code(s): I10 - Essential (primary) hypertension Code(s): I10 - Essential (primary) hypertension Status: Chronic Assessment and Plan: BP lower end maintained on his home Lasix, carvedilol, Imdur. (12) Coronary artery disease: Qualifiers: Coronary Disease-Associated Artery/Lesion type: [place] artery [place] vs. transplanted heart: [place] heart Associated angina: with unspecified angina Qualified Code(s): I25.119 - Atherosclerotic heart disease of [place] coronary artery with unspecified angina pectoris Code(s): I25.10 - Atherosclerotic heart disease of [place] coronary artery without angina pectoris Status: Chronic Assessment and Plan: As stated above with a re
[2020-11-04 16:57] LABS: Partial Thromboplastin Time 129.7 SECONDS (22.3-36.8)
[2020-11-04 17:10] LABS: Glucose Point of Care 196 (65-105)
--- NOTE | 2020-11-04 17:34 | PM.PNNEP ---
Progress Note: A&P Assessment and Plan (1) End-stage renal disease on hemodialysis: Code(s): N18.6 - End stage renal disease; Z99.2 - Dependence on renal dialysis Status: Acute Assessment and Plan: HD today and continue T/T/S schedule - with holiday schedule, may have to do Mon/Fri/Fri follow electrolytes, volume status, and clearance (2) Urinary retention: Code(s): R33.9 - Retention of urine, unspecified Status: Acute Assessment and Plan: servin catheter in place on finasteride and flomax consider Urology consult if he does not want to go to the [facility] for this (3) Person under investigation for COVID-19: Code(s): Z20.828 - Contact with and (suspected) exposure to other viral communicable diseases Status: Acute Assessment and Plan: COVID-19 positive continue supportive therapy (4) Urinary tract infection: Qualifiers: Hematuria presence: without hematuria Urinary tract infection type: acute cystitis Qualified Code(s): N30.00 - Acute cystitis without hematuria Code(s): N39.0 - Urinary tract infection, site not specified Status: Acute Assessment and Plan: urine culture with Enterococcus on antibiotics (5) Hypertension: Qualifiers: Hypertension type: essential hypertension Qualified Code(s): I10 - Essential (primary) hypertension Code(s): I10 - Essential (primary) hypertension Status: Chronic Assessment and Plan: reasonable control at this time follow hemodynamics (6) Insulin dependent diabetes mellitus: Status: Acute Assessment and Plan: follow accuchecks on SSI Will continue to follow. Subjective Date/time seen: 11/04/20 17:34 Rapid response yesterday due to a change in mental status/decreased responsiveness -- however, today, he appears much more awake and interactive; tolerated dialysis earlier today but nurse had to use HD catheter for treatment due to excessive bleeding for AV access (presumably due to heparin gtt); no apparent distress at this time. Exam Narrative: Exam Narrative: General: WD/WN male in NAD Heart: normal S1 and S2; no rub Lungs: clear to auscultation Abdomen: soft, nontender, nondistended, positive bowel sounds Extremities: no cyanosis or clubbing; no edema Skin: warm and dry Objective Data Vital Signs Vital Signs: Vital Signs Temp Pulse Resp BP Pulse Ox 11/04/20 16:40 89 92 11/04/20 16:11 105 H 11/04/20 14:00 99 11/04/20 12:06 36.6 C 78 23 H 136/56 L 88 L 11/04/20 12:00 36.6 C 88 18 136/56 L 91 11/04/20 11:58 79 131/55 L 11/04/20 11:45 73 141/50 H 11/04/20 11:30 83 129/57 L 11/04/20 11:15 76 141/62 H 11/04/20 11:00 83 132/41 L 11/04/20 10:45 78 125/65 11/04/20 10:30 76 129/59 L 11/04/20 10:15 80 132/61 11/04/20 10:00 87 121/58 L 11/04/20 09:45 75 134/48 L 11/04/20 09:30 89 119/50 L 11/04/20 09:15 78 119/60 11/04/20 09:00 86 118/54 L 11/04/20 08:57 75 120/57 L 11/04/20 08:27 36.8 C 91 18 117/51 L 11/04/20 08:00 36.8 C 86 18 128/50 L 96 11/04/20 06:00 81 11/04/20 04:00 36.1 C L 90 20 154/98 H 91 11/04/20 02:00 77 95 11/04/20 00:00 36.0 C L 78 20 115/64 95 11/03/20 22:00 79 11/03/20 20:00 36.3 C L 83 20 98/55 L 98 11/03/20 18:12 81 11/03/20 18:00 84 Intake/Output Intake/Output: Intake & Output 11/01/20 11/02/20 11/03/20 11/04/20 23:59 23:59 23:59 23:59 Intake Total 1580 1190 745 855 Output Total 250 2500 600 2250 Balance 1330 -1310 145 1395 Meds/Results Medications: Active Medications Generic Name Dose Route Start Last Admin Trade Name Freq PRN Reason Stop Dose Admin Acetaminophen 650 mg 10/29/20 08:23 10/29/20 13:34 Acetaminophen 325 Mg Tablet PO 650 mg Q4H PRN Administration Mild Pain
[2020-11-04] MEDS: HEPARIN SOD/D5W 100 UNITS/ML 25,000 UNITS/250 ML BAG 10 UNITS IV CONT (17:45)
[2020-11-04] MEDS: TAMSULOSIN HCL 0.4 MG CAPSULE PO (17:46)
[2020-11-04] MEDS: ATORVASTATIN 40 MG TABLET 80 MG PO (17:46)
[2020-11-04 20:47] LABS: Glucose Point of Care 199 (65-105)
[2020-11-04] MEDS: WATER FOR IRRIGATION, STERILE 1,000 ML BOTTLE 1000 ML (21:19)
[2020-11-04] MEDS: INSULIN GLARGINE (*BKC) 100 UNITS/ML 25 UNITS SUB-Q (21:32)
[2020-11-04] MEDS: carvediloL 6.25 MG TABLET PO (21:33)
[2020-11-05] VITALS (22 sets, daily range): BP systolic 107–126; BP diastolic 42–68; PULSE 71–97; RESP 20–26; TEMP 35.7–36.2; O2SAT 92–100
[2020-11-05 00:16] LABS: Partial Thromboplastin Time 97.1 SECONDS (22.3-36.8)
[2020-11-05 06:21] LABS: Partial Thromboplastin Time 94.2 SECONDS (22.3-36.8)
[2020-11-05 06:43] LABS: Alanine Aminotransferase 14 U/L (4-50); Albumin Level 2.9 g/dL (3.5-5.1); Alkaline Phosphatase 67 U/L (38-126); Anion Gap 7 mmol/L (8-16); Aspartate Amino Transferase 33 U/L (17-59); Bilirubin,Total 0.8 mg/dL (0.2-1.3); Blood Urea Nitrogen 45 mg/dL (9-20); Calcium 8.4 mg/dL (8.4-10.2); Carbon Dioxide 32 mmol/L (22-30); Chloride 97 mmol/L (98-107); Estimated CRCL calculation 14 ml/min; Estimated Glomerular Filt Rate 15; Glucose 168 mg/dL (75-110); Potassium 4.3 mmol/L (3.4-5.0); Sodium 136 mmol/L (137-145)
[2020-11-05] MEDS: FAMOTIDINE 20 MG TABLET PO (08:01)
[2020-11-05] MEDS: ASPIRIN 81 MG CHEWABLE TABLET PO (08:01)
[2020-11-05] MEDS: CHOLECALCIFEROL 1,000 UNITS TABLET 2000 UNITS PO (08:02)
[2020-11-05] MEDS: PANTOPRAZOLE 40 MG TABLET PO ×2 (08:02→16:37)
[2020-11-05] MEDS: THERAPEUTIC MULTIVITAMINS/MINERALS TAB (*BKC) 1 TABLET PO ×2 (08:03→16:37)
[2020-11-05] MEDS: AMIODARONE HCL 200 MG TABLET PO ×2 (08:03→16:38)
[2020-11-05] MEDS: MICONAZOLE NITRATE 2% CREAM 30 GM TUBE 1 APPLIC TOPICAL ×2 (08:03→20:59)
[2020-11-05] MEDS: DOCUSATE SODIUM 100 MG CAPSULE 200 MG PO ×2 (08:03→16:37)
[2020-11-05] MEDS: SENNOSIDES 8.6 MG TABLET PO ×2 (08:04→16:39)
[2020-11-05] MEDS: RANOLAZINE 500 MG TAB.ER.12H 1000 MG PO ×2 (08:04→21:00)
[2020-11-05] MEDS: CLOPIDOGREL BISULFATE 75 MG TABLET PO (08:05)
[2020-11-05] MEDS: DEXAMETHASONE SOD PHOS INJ 4 MG/ML VIAL 6 MG IV PUSH (08:05)
[2020-11-05] MEDS: LORATADINE 10 MG TABLET PO (08:06)
[2020-11-05] MEDS: SODIUM BICARBONATE TAB 650 MG TABLET PO ×2 (08:06→16:38)
[2020-11-05] MEDS: FEBUXOSTAT 40 MG TABLET PO (08:06)
[2020-11-05] MEDS: FINASTERIDE 5 MG TABLET PO (08:07)
[2020-11-05 08:40] LABS: Glucose Point of Care 145 (65-105)
--- NOTE | 2020-11-05 08:45 | PCDIET ---
Weekly nutritional screen. Patient is tolerating current diet with adequate intake. No weight loss reported. No nutritional needs at this time.
[2020-11-05 08:57] LABS: Alveolar/Arterial O2 Gradient 455.3 mmHg; Base Excess ABG 3.1 mEq/l (+/-2.0); Carboxyhemoglobin 0.3 % THb (0-2.0); Device HIGH FLOW NASAL CANN; Fractional Inspired Oxygen 80 %; HCO3 ABG 27.3 mEq/l (22.0-26.0); Methemoglobin ABG 0.1 %THb (0-1.5); Oxygen Content ABG 11.4 %vol (16.0-22.0); Oxygen Saturation ABG 95.3 % (95.0-100.0); Oxyhemoglobin 92.4 % THb (90.0-100.0); PCO2 ABG 40.2 mmHg (35.0-45.0); PO2 ABG 72.9 mmHg (80.0-100.0); PO2 FiO2 Ratio Arterial Blood 0.91 %; Reduced Hemoglobin 7.2 %THb (0-5.0); Site Drawn RIGHT BRACHIAL; Total Hemoglobin 8.7 g/dL (12.0-18.0)
[2020-11-05] MEDS: IPRATROPIUM BR 0.02% INH SOLN 0.5 MG/2.5 ML VIAL INHALATION ×3 (09:12→21:29)
[2020-11-05] MEDS: ALBUTEROL SULFATE NEB 2.5 MG/0.5 ML INH INHALATION ×3 (09:12→21:29)
[2020-11-05] MEDS: INSULIN ASPART (*BKC) 100 UNITS/ML SUB-Q ×2 (12:10→17:09)
[2020-11-05 12:26] LABS: Glucose Point of Care 227 (65-105)
--- NOTE | 2020-11-05 12:32 | PM.PNCARD ---
Progress Note: A&P Assessment and Plan (1) Atrial fibrillation with RVR: Code(s): I48.91 - Unspecified atrial fibrillation Status: Acute Assessment and Plan: On oral amiodarone. Heart rate is controlled. Will DC heparin drip for now given hemoptysis.. (2) Pneumonia due to COVID-19 virus: Code(s): U07.1 - COVID-19; J12.89 - Other viral pneumonia Status: Acute Assessment and Plan: Per hospitalist (3) ESRD on dialysis: Code(s): N18.6 - End stage renal disease; Z99.2 - Dependence on renal dialysis Status: Acute Assessment and Plan: Per nephrology (4) Coronary artery disease: Qualifiers: Coronary Disease-Associated Artery/Lesion type: [place] artery [place] vs. transplanted heart: [place] heart Associated angina: with unspecified angina Qualified Code(s): I25.119 - Atherosclerotic heart disease of [place] coronary artery with unspecified angina pectoris Code(s): I25.10 - Atherosclerotic heart disease of [place] coronary artery without angina pectoris Status: Chronic Assessment and Plan: Continue aspirin 81 mg p.o. daily as well as clopidogrel 75 mg p.o. daily. (5) Decreased responsiveness: Code(s): R41.89 - Other symptoms and signs involving cognitive functions and awareness Status: Acute Assessment and Plan: Still not certain as to what happened Friday. Possibly TIA. Metabolic event is also possible including low glucose. Regardless he is doing much better Subjective Date/time seen: 11/05/20 12:32 Interval history: Mr. Rivera is a 80yo M with ESRD on hemodialysis, recent NSTEMI with cardiac stenting 10/23/20 admitted for UTI and acute respiratory failure secondary to COVID. Date of service 11/05/2020: Having some issues with hemoptysis today. No chest pain. Still somewhat short of breath Review of Systems Review of Systems: All systems reviewed & are unremarkable except as noted in HPI and below Constitutional: Constitutional: Denies excessive sweating and Reports weakness Eyes: Eyes: Denies blurry vision ENT: Reports Normal hearing present and Denies neck pain Cardiovascular: Cardiovascular: Denies chest pain Respiratory: Respiratory: Reports cough Gastrointestinal: Gastrointestinal: Denies abdominal pain Genitourinary: Genitourinary: Reports urinary hesitancy Musculoskeletal: Musculoskeletal: Denies back pain and Denies neck pain Integumentary/Breasts: Skin/Breast: Denies dry skin Neurologic: Reports Normal hearing present, Reports confusion and Reports weakness Psychiatric: Psychiatric: Reports confusion Endocrine: Endocrine: Denies excessive sweating Hematologic/Lymphatic: Hematologic/Lymphatic: Denies easy bleeding Allergic/Immunologic: Allergic/Immunologic: Denies GI upset with certain foods Exam Narrative: Exam Narrative: Patient is awake and alert. Const: General: comfortable, no acute distress and confusion Orientation/consciousness: confusion HENMT: General nose exam: Normal nares present Eyes: Sclera: sclerae normal Neck: Neck: supple and no JVD Chest: Other: No reproducible chest wall pain to palpation Resp: Auscultation: diminished lung sounds Cardio: Rate: regular rate Rhythm: abnormal rhythm irregularly irregular Skin: General skin exam: normal color Neuro: General: confusion Cranial nerves: Yes Normal hearing present Cognition (Neuro): abnormal cognition Other: Grossly nonfocal exam although he does have some generalized weakness Extrem: General: no edema Psych: Affect: normal affect Objective Data Vital Signs Vital Signs: Vital Signs - 24 hr 11/04/20 14:00 11/04/20 16:00 11/04/20 16:11 Temperature 37.2 C Pulse Rate 99 101 H 105 H Respiratory Rate 20 Blood Pressure 130/69 Pulse Oximetry 95 11/04/20 16:40 11/04/20 18:00 11/04/20 20:00 Temperature 36.3 C L Pulse Rate 89 94 94 Respiratory Rate 20 Blood Pressure 120/70 P
--- NOTE | 2020-11-05 14:44 | PM.PNNEP ---
Progress Note: A&P Assessment and Plan (1) End-stage renal disease on hemodialysis: Code(s): N18.6 - End stage renal disease; Z99.2 - Dependence on renal dialysis Status: Acute Assessment and Plan: HD yesterday and continue T/T/S schedule - with holiday schedule, may have to do Fri/Fri/Fri follow electrolytes, volume status, and clearance (2) Urinary retention: Code(s): R33.9 - Retention of urine, unspecified Status: Acute Assessment and Plan: servin catheter in place on finasteride and flomax consider Urology consult if he does not want to go to the [place] for this (3) Person under investigation for COVID-19: Code(s): Z20.828 - Contact with and (suspected) exposure to other viral communicable diseases Status: Acute Assessment and Plan: COVID-19 positive continue supportive therapy (4) Urinary tract infection: Qualifiers: Hematuria presence: without hematuria Urinary tract infection type: acute cystitis Qualified Code(s): N30.00 - Acute cystitis without hematuria Code(s): N39.0 - Urinary tract infection, site not specified Status: Acute Assessment and Plan: urine culture with Enterococcus on antibiotics (5) Hypertension: Qualifiers: Hypertension type: essential hypertension Qualified Code(s): I10 - Essential (primary) hypertension Code(s): I10 - Essential (primary) hypertension Status: Chronic Assessment and Plan: reasonable control at this time follow hemodynamics (6) Insulin dependent diabetes mellitus: Status: Acute Assessment and Plan: follow accuchecks on SSI Will continue to follow. Subjective Date/time seen: 11/05/20 14:44 Tolerated dialysis yesterday without major issues; still feels some shortness of breath; noted some blood when he was coughing earlier today; otherwise, no apparent distress noted. Exam Narrative: Exam Narrative: General: WD/WN male in NAD Heart: normal S1 and S2; no rub Lungs: clear to auscultation Abdomen: soft, nontender, nondistended, positive bowel sounds Extremities: no cyanosis or clubbing; no edema Skin: warm and dry Objective Data Vital Signs Vital Signs: Vital Signs Temp Pulse Resp BP Pulse Ox 11/05/20 13:42 80 11/05/20 12:36 35.7 C L 79 22 H 110/59 L 100 11/05/20 12:00 82 100 11/05/20 10:11 114/60 11/05/20 10:00 72 11/05/20 09:12 81 26 H 100 11/05/20 08:57 36.2 C L 76 24 H 110/42 L 92 11/05/20 08:00 80 94 11/05/20 06:00 81 11/05/20 04:00 36.2 C L 89 20 126/56 L 92 11/05/20 02:00 86 11/05/20 00:00 36.1 C L 97 20 118/68 92 11/04/20 22:00 98 11/04/20 21:33 94 11/04/20 20:15 91 11/04/20 20:00 36.3 C L 94 20 120/70 92 11/04/20 18:00 94 11/04/20 16:40 89 92 11/04/20 16:11 105 H 11/04/20 16:00 37.2 C 101 H 20 130/69 95 Intake/Output Intake/Output: Intake & Output 11/02/20 11/03/20 11/04/20 11/05/20 23:59 23:59 23:59 23:59 Intake Total 1884 231 7699 615 Output Total 2500 600 2500 100 Balance -1310 145 -1170 515 Meds/Results Medications: Active Medications Generic Name Dose Route Start Last Admin Trade Name Freq PRN Reason Stop Dose Admin Acetaminophen 650 mg 10/29/20 08:23 10/29/20 13:34 Acetaminophen 325 Mg Tablet PO 650 mg Q4H PRN Administration Mild Pain (1-3) or Fever Hydrocodone Bitart/Acetaminophen 1 tab 10/29/20 14:53 10/31/20 03:58 Hydrocodone/Acetaminophen (*Crx) 10-325 Mg Tablet PO 1 tab Q6H PRN Administration Pain RATED 4-6 Albuterol 2.5 mg 11/05/20 14:00 Albuterol Sulfate Neb 2.5 Mg/0.5 Ml Inh INHALATION Q6HRT OSWALDO Amiodarone HCl 200 mg 11/04/20 17:00 11/05/20 08:03 Amiodarone Hcl 200 Mg Tablet PO 200 mg BID OSWALDO Administration Aspirin 81 mg 10/30/20 09:00 11/05/20 08:01 As
--- NOTE | 2020-11-05 16:41 | PM.IMPN ---
Progress Note: A&P Assessment and Plan (1) Urinary tract infection: Qualifiers: Urinary tract infection type: acute cystitis Hematuria presence: without hematuria Qualified Code(s): N30.00 - Acute cystitis without hematuria Code(s): N39.0 - Urinary tract infection, site not specified Status: Acute Assessment and Plan: Urine culture growing Enterococcus. Blood cultures no growth to date. Continue ampicillin (day 5). _11/05/20 16:41 Patient is 80 year old male recently started on dialysis presented emergency department with a complaint urinary retention and bladder scan showed 600 cc of urine patient is based on S[place], patient seen by Nephrology and will have scheduled dialysis while in the hospital, in-hospital patient was tested for COVID-19 and is positive and isolated, on 11/03 patient was found unresponsive his blood sugar was low patient was given D50, he was also found to have atrial fibrillation with RVR and was transferred IMU, patient was seen by chemist food patient recently had non STEMI he was seen at the [facility] on 10/23/2020 and 2 stents were placed, patient was initially started on amiodarone drip and and rate is controlled patient started on aspirin and Plavix patient seen by chemist food and further recommendation to follow, in terms of COVID-19 patient is being treated with dexamethasone he is not a candidate for Remsesivir due to chronic kidney disease, currently patient is unable to provide detailed review of symptom he appears quite restless. (2) Pneumonia due to COVID-19 virus: Code(s): U07.1 - COVID-19; J12.89 - Other viral pneumonia Status: Acute Assessment and Plan: COVID positive 10/29/20. Not on remdesivir due to renal function, will continue dexamethasone (day 4). Continue supportive care with Tylenol for fevers and supplemental O2. DVT ppx with SQ heparin. (3) Acute respiratory failure with hypoxia: Code(s): J96.01 - Acute respiratory failure with hypoxia Status: Acute Assessment and Plan: Suspect secondary to COVID pneumonia. Wean supplemental O2 as tolerated to keep O2 saturations > 90%. Was on 1L/min NC now up to 3L/min NC during this episode. (4) Urinary retention: Code(s): R33.9 - Retention of urine, unspecified Status: Acute Assessment and Plan: Continue Soto at this time. Consider voiding trial at discharge (5) Elevated troponin: Code(s): R77.8 - Other specified abnormalities of plasma proteins Status: Acute Assessment and Plan: On arrival he had mildly elevated troponins with flat profile, suspect secondary to recent coronary intervention. Awaiting trop from episode this morning. Chest pain this AM may be related to new rapid A fib vs. ischemia. Patient was seen 10/21/20 for an NSTEMI and transferred to the [place] where he underwent a cardiac catheterization with 2 stents. He was just discharged home from [place] 10/26/20. (6) Insulin dependent diabetes mellitus: Status: Acute Assessment and Plan: Hgb A1c 5.4%. With hypoglycemia this AM down to 58 with decreased responsiveness; up to 251 after full ampule D50. Previous days he was having hyperglycemia with increase in appetite. Monitor with accu-cheks and adjust treatment as needed. (7) End-stage renal disease on hemodialysis: Code(s): N18.6 - End stage renal disease; Z99.2 - Dependence on renal dialysis Status: Acute Assessment and Plan: HD scheudule Friday, and Friday. Looks like he may need to transition to MWF schedule since he will switch to [facility] at discharge. Continue dialysis per nephrology recommendations; appreciate input. ___
[2020-11-05] MEDS: CYCLOBENZAPRINE HCL 10 MG TABLET PO (17:09)
[2020-11-05] MEDS: TAMSULOSIN HCL 0.4 MG CAPSULE PO (17:09)
[2020-11-05] MEDS: ATORVASTATIN 40 MG TABLET 80 MG PO (17:09)
[2020-11-05 17:10] LABS: Glucose Point of Care 252 (65-105)
[2020-11-05] MEDS: carvediloL 6.25 MG TABLET PO (21:00)
[2020-11-05] MEDS: INSULIN GLARGINE (*BKC) 100 UNITS/ML 25 UNITS SUB-Q (21:01)
[2020-11-05 21:03] LABS: Glucose Point of Care 261 (65-105)
[2020-11-06] VITALS (27 sets, daily range): BP systolic 105–146; BP diastolic 54–69; PULSE 77–113; RESP 16–24; TEMP 36.2–37; O2SAT 88–100
[2020-11-06] MEDS: ALBUTEROL SULFATE NEB 2.5 MG/0.5 ML INH INHALATION ×4 (03:16→21:03)
[2020-11-06] MEDS: IPRATROPIUM BR 0.02% INH SOLN 0.5 MG/2.5 ML VIAL INHALATION ×4 (03:16→21:03)
[2020-11-06 05:29] LABS: Partial Thromboplastin Time 36.6 SECONDS (22.3-36.8)
[2020-11-06 05:36] LABS: Estimated CRCL calculation 10 ml/min; Estimated Glomerular Filt Rate 11
[2020-11-06 09:03] LABS: Glucose Point of Care 168 (65-105)
[2020-11-06] MEDS: AMIODARONE HCL 200 MG TABLET PO ×2 (09:36→16:33)
[2020-11-06] MEDS: SENNOSIDES 8.6 MG TABLET PO ×2 (09:38→16:35)
[2020-11-06] MEDS: SODIUM BICARBONATE TAB 650 MG TABLET PO ×2 (09:38→16:35)
[2020-11-06] MEDS: LORATADINE 10 MG TABLET PO (09:38)
[2020-11-06] MEDS: FINASTERIDE 5 MG TABLET PO (09:38)
[2020-11-06] MEDS: THERAPEUTIC MULTIVITAMINS/MINERALS TAB (*BKC) 1 TABLET PO ×2 (09:38→16:33)
[2020-11-06] MEDS: FAMOTIDINE 20 MG TABLET PO (09:38)
[2020-11-06] MEDS: PANTOPRAZOLE 40 MG TABLET PO ×2 (09:38→16:34)
[2020-11-06] MEDS: FUROSEMIDE 80 MG TABLET PO (09:38)
[2020-11-06] MEDS: RANOLAZINE 500 MG TAB.ER.12H 1000 MG PO ×2 (09:38→20:23)
[2020-11-06] MEDS: carvediloL 6.25 MG TABLET PO ×2 (09:39→20:23)
[2020-11-06] MEDS: DOCUSATE SODIUM 100 MG CAPSULE 200 MG PO ×2 (09:40→16:33)
[2020-11-06] MEDS: CHOLECALCIFEROL 1,000 UNITS TABLET 2000 UNITS PO (09:40)
[2020-11-06] MEDS: ISOSORBIDE MONONITRATE 60 MG TAB.ER.24H 120 MG PO (09:40)
[2020-11-06] MEDS: FEBUXOSTAT 40 MG TABLET PO (09:40)
[2020-11-06] MEDS: DEXAMETHASONE SOD PHOS INJ 4 MG/ML VIAL 6 MG IV PUSH (09:41)
[2020-11-06] MEDS: CLOPIDOGREL BISULFATE 75 MG TABLET PO (09:41)
[2020-11-06] MEDS: ASPIRIN 81 MG CHEWABLE TABLET PO (09:42)
[2020-11-06] MEDS: polyethylene glycoL 3350 17 GM POWD.PACK PO (09:42)
[2020-11-06 10:15] LABS: Hematocrit 27.6 % (42.0-52.0); Hemoglobin 8.3 g/dL (14.0-18.0); Immature Platelet Fraction Pct 18.3 % (0.9-11.2); Mean Corpuscular HGB Conc 30.1 g/dl (32-36); Mean Corpuscular Hemoglobin 29.3 pg (26-34); Mean Corpuscular Volume 97.5 fl (80-100); Mean Platelet Volume 13.3 fl (7.4-10.4); Platelet Count Result 290 k/mm3 (150-375); Red Blood Count 2.83 M/mm3 (4.6-6.20); Red Cell Distribution Width 21.7 % (11.5-14.5)
[2020-11-06 10:32] LABS: Anion Gap 10 mmol/L (8-16); Blood Urea Nitrogen 66 mg/dL (9-20); Calcium 8.5 mg/dL (8.4-10.2); Carbon Dioxide 29 mmol/L (22-30); Chloride 95 mmol/L (98-107); Estimated CRCL calculation 10 ml/min; Estimated Glomerular Filt Rate 10; Glucose 134 mg/dL (75-110); Potassium 4.8 mmol/L (3.4-5.0); Sodium 134 mmol/L (137-145)
[2020-11-06] MEDS: MICONAZOLE NITRATE 2% CREAM 30 GM TUBE 1 APPLIC TOPICAL ×2 (12:00→20:24)
--- NOTE | 2020-11-06 13:09 | PM.PNCARD ---
Progress Note: A&P Assessment and Plan (1) Atrial fibrillation with RVR: Code(s): I48.91 - Unspecified atrial fibrillation Status: Acute Assessment and Plan: On oral amiodarone. Heart rate is controlled. No anticoagulation at this time due to hemoptysis (2) Pneumonia due to COVID-19 virus: Code(s): U07.1 - COVID-19; J12.89 - Other viral pneumonia Status: Acute Assessment and Plan: Per hospitalist (3) ESRD on dialysis: Code(s): N18.6 - End stage renal disease; Z99.2 - Dependence on renal dialysis Status: Acute Assessment and Plan: Per nephrology (4) Coronary artery disease: Qualifiers: Coronary Disease-Associated Artery/Lesion type: [place] artery [place] vs. transplanted heart: [place] Associated angina: with unspecified angina Qualified Code(s): I25.119 - Atherosclerotic heart disease of [place] coronary artery with unspecified angina pectoris Code(s): I25.10 - Atherosclerotic heart disease of [place] coronary artery without angina pectoris Status: Chronic Assessment and Plan: With recent intervention. Continue aspirin 81 mg p.o. daily and clopidogrel 75 mg p.o. daily. (5) Decreased responsiveness: Code(s): R41.89 - Other symptoms and signs involving cognitive functions and awareness Status: Acute Assessment and Plan: Not certain as to what happened 11/03/2020. Possibly TIA. Metabolic event is also possible including low glucose. Additional Plan Plan discussed Dr. Abad 1315 11/06/2000 Subjective Date/time seen: 11/06/20 13:09 Interval history: Follow-up for: Hemoptysis, ESRD on hemodialysis, recent NSTEMI with cardiac stenting 10/23/20 admitted for UTI and acute respiratory failure secondary to COVID. Date of service: 11/06/2020 Subjective: Complains of being short of breath. Denied chest discomfort. Still having some hemoptysis. No lightheadedness. Review of Systems Constitutional: Constitutional: Denies excessive sweating and Reports weakness Eyes: Eyes: Denies blurry vision ENT: Reports Normal hearing present and Denies neck pain Cardiovascular: Cardiovascular: Denies chest pain Respiratory: Respiratory: Reports cough Gastrointestinal: Gastrointestinal: Denies abdominal pain Genitourinary: Genitourinary: Reports urinary hesitancy Musculoskeletal: Musculoskeletal: Denies back pain and Denies neck pain Integumentary/Breasts: Skin/Breast: Denies dry skin Neurologic: Reports Normal hearing present, Reports confusion and Reports weakness Psychiatric: Psychiatric: Reports confusion Endocrine: Endocrine: Denies excessive sweating Hematologic/Lymphatic: Hematologic/Lymphatic: Denies easy bleeding Allergic/Immunologic: Allergic/Immunologic: Denies GI upset with certain foods Exam Narrative: Exam Narrative: Awake, alert, no distress. Eating lunch. Const: General: comfortable and no acute distress Orientation/consciousness: confusion HENMT: General nose exam: Normal nares present Eyes: Sclera: sclerae normal Neck: Neck: supple and no JVD Resp: Auscultation: diminished lung sounds Cardio: Rate: regular rate Rhythm: abnormal rhythm irregularly irregular GI: GI Palp: Yes Soft to palpation Auscultation: normal bowel sounds Urinary Catheter: Urinary Catheter: patent and draining and urine clear Skin: General skin exam: normal color Neuro: General: confusion Cranial nerves: Yes Normal hearing present Cognition (Neuro): abnormal cognition Extrem: General: no edema Psych: Appearance: grossly normal Mental Status: mental status grossly normal Affect: normal affect Attitude: cooperative Thought content: Yes Normal thought content present Objective Data Vital Signs Vital Signs: Vital Signs - 24 hr 11/05/20 1
[2020-11-06 13:10] LABS: Glucose Point of Care 182 (65-105)
[2020-11-06] MEDS: INSULIN ASPART (*BKC) 100 UNITS/ML SUB-Q (16:33)
[2020-11-06] MEDS: TAMSULOSIN HCL 0.4 MG CAPSULE PO (16:33)
[2020-11-06] MEDS: ATORVASTATIN 40 MG TABLET 80 MG PO (16:34)
[2020-11-06 16:50] LABS: Glucose Point of Care 269 (65-105)
--- NOTE | 2020-11-06 17:00 | PM.IMPN ---
Progress Note: A&P Assessment and Plan (1) Urinary tract infection: Qualifiers: Urinary tract infection type: acute cystitis Hematuria presence: without hematuria Qualified Code(s): N30.00 - Acute cystitis without hematuria Code(s): N39.0 - Urinary tract infection, site not specified Status: Acute Assessment and Plan: Urine culture growing Enterococcus. Blood cultures no growth to date. Continue ampicillin (day 5). 11/06/20 17:00 Patient is 80 year old male recently started on dialysis presented emergency department with a complaint urinary retention and bladder scan showed 600 cc of urine patient is based on Soto, patient seen by Nephrology and will have scheduled dialysis while in the hospital, in-hospital patient was tested for COVID-19 and is positive and isolated, on 11/03 patient was found unresponsive his blood sugar was low patient was given D50, he was also found to have atrial fibrillation with RVR and was transferred IMU, patient was seen by terminal clerk patient recently had non STEMI he was seen at the [facility] on 10/23/2020 and 2 stents were placed, patient was initially started on amiodarone drip and and rate was controlled currently placed on oral amiodoran, patient was also started on aspirin and Plavix patient seen by terminal clerk and further recommendation to follow, in terms of COVID-19 patient is being treated with dexamethasone he is not a candidate for Remsesivir due to chronic kidney disease, currently patient is requiring high flow oxygen and he is unable to provide detailed review of symptom he appears quite restless. he is scheduled for dialysis tomorrow, this will help reduce volume and may help with oxygenation. Patient be seen by customer assistance associate and further recommendation to follow. (2) Pneumonia due to COVID-19 virus: Code(s): U07.1 - COVID-19; J12.89 - Other viral pneumonia Status: Acute Assessment and Plan: COVID positive 10/29/20. Not on remdesivir due to renal function, will continue dexamethasone (day 4). Continue supportive care with Tylenol for fevers and supplemental O2. DVT ppx with SQ heparin. (3) Acute respiratory failure with hypoxia: Code(s): J96.01 - Acute respiratory failure with hypoxia Status: Acute Assessment and Plan: Suspect secondary to COVID pneumonia. Wean supplemental O2 as tolerated to keep O2 saturations > 90%. Was on 1L/min NC now up to 3L/min NC during this episode. (4) Urinary retention: Code(s): R33.9 - Retention of urine, unspecified Status: Acute Assessment and Plan: Continue Soto at this time. Consider voiding trial at discharge (5) Elevated troponin: Code(s): R77.8 - Other specified abnormalities of plasma proteins Status: Acute Assessment and Plan: On arrival he had mildly elevated troponins with flat profile, suspect secondary to recent coronary intervention. Awaiting trop from episode this morning. Chest pain this AM may be related to new rapid A fib vs. ischemia. Patient was seen 10/21/20 for an NSTEMI and transferred to the [place] where he underwent a cardiac catheterization with 2 stents. He was just discharged home from [place] 10/26/20. (6) Insulin dependent diabetes mellitus: Status: Acute Assessment and Plan: Hgb A1c 5.4%. With hypoglycemia this AM down to 58 with decreased responsiveness; up to 251 after full ampule D50. Previous days he was having hyperglycemia with increase in appetite. Monitor with accu-cheks and adjust treatment as needed. (7) End-stage renal disease on hemodialysis: Code(s): N18.6 - End stage renal disease; Z99.2 - Dependence on renal dialysis Status: Acute Ass
--- NOTE | 2020-11-06 18:05 | PM.PNNEP ---
Progress Note: A&P Assessment and Plan (1) End-stage renal disease on hemodialysis: Code(s): N18.6 - End stage renal disease; Z99.2 - Dependence on renal dialysis Status: Acute Assessment and Plan: HD tomorrow and continue T/T/S schedule - may need to switch to M/W/F schedule closer to discharge given his COVID-19 status as his treatments will be done at [facility] follow electrolytes, volume status, and clearance (2) Urinary retention: Code(s): R33.9 - Retention of urine, unspecified Status: Acute Assessment and Plan: servin catheter in place on finasteride and flomax consider Urology consult if he does not want to go to the [place] for this (3) Person under investigation for COVID-19: Code(s): Z20.828 - Contact with and (suspected) exposure to other viral communicable diseases Status: Acute Assessment and Plan: COVID-19 positive continue supportive therapy (4) Urinary tract infection: Qualifiers: Urinary tract infection type: acute cystitis Hematuria presence: without hematuria Qualified Code(s): N30.00 - Acute cystitis without hematuria Code(s): N39.0 - Urinary tract infection, site not specified Status: Acute Assessment and Plan: urine culture with Enterococcus on antibiotics (5) Hypertension: Qualifiers: Hypertension type: essential hypertension Qualified Code(s): I10 - Essential (primary) hypertension Code(s): I10 - Essential (primary) hypertension Status: Chronic Assessment and Plan: reasonable control at this time follow hemodynamics (6) Insulin dependent diabetes mellitus: Status: Acute Assessment and Plan: follow accuchecks on SSI Will continue to follow. Subjective Date/time seen: 11/06/20 18:05 Major complaint is that of ongoing shortness of breath; no events overnight or earlier this AM; heart rate controlled with oral amiodarone but no anticoagulation given his on/off hemoptysis. Exam Narrative: Exam Narrative: General: WD/WN male in NAD Heart: normal S1 and S2; no rub Lungs: clear to auscultation Abdomen: soft, nontender, nondistended, positive bowel sounds Extremities: no cyanosis or clubbing; no edema Skin: warm and dry Objective Data Vital Signs Vital Signs: Vital Signs Temp Pulse Resp BP Pulse Ox 11/06/20 16:33 91 11/06/20 16:00 37.0 C 94 18 112/58 L 95 11/06/20 14:49 100 20 11/06/20 14:39 96 16 11/06/20 14:00 101 H 11/06/20 12:00 36.7 C 99 20 105/54 L 92 11/06/20 11:40 94 11/06/20 10:00 98 11/06/20 09:39 113 H 11/06/20 09:36 113 H 11/06/20 09:20 92 11/06/20 08:50 91 18 11/06/20 08:36 82 20 92 11/06/20 08:00 87 11/06/20 07:07 36.2 C L 95 20 146/69 H 92 11/06/20 06:00 91 11/06/20 04:00 81 95 11/06/20 03:52 36.3 C L 94 20 131/56 L 100 11/06/20 03:27 81 22 H 95 11/06/20 02:00 77 11/06/20 00:00 82 88 L 11/05/20 23:41 36.1 C L 78 22 H 107/56 L 94 11/05/20 22:00 76 11/05/20 21:40 87 24 H 11/05/20 21:29 88 24 H 96 11/05/20 21:00 85 11/05/20 20:00 36.1 C L 81 20 113/60 92 Intake/Output Intake/Output: Intake & Output 11/03/20 11/04/20 11/05/20 11/06/20 23:59 23:59 23:59 23:59 Intake Total 745 1330 1170 865 Output Total 600 2500 300 450 Balance 145 -1170 870 415 Meds/Results Medications: Active Medications Generic Name Dose Route Start Last Admin Trade Name Freq PRN Reason Stop Dose Admin Acetaminophen 650 mg 10/29/20 08:23 10/29/20 13:34 Acetaminophen 325 Mg Tablet PO 650 mg Q4H PRN Administration Mild Pain (1-3) or Fever Hydrocodone Bitart/Acetaminophen 1 tab 10/29/20 14:53 10/31/20 03:58 Hydrocodone/Acetaminophen (*Crx) 10-325 Mg Tablet PO 1 tab Q6H PRN Administration Pain RATED 4-
[2020-11-06 21:04] LABS: Glucose Point of Care 307 (65-105)
[2020-11-06] MEDS: INSULIN GLARGINE (*BKC) 100 UNITS/ML 25 UNITS SUB-Q (21:21)
[2020-11-07] VITALS (43 sets, daily range): BP systolic 90–130; BP diastolic 29–89; PULSE 71–129; RESP 20–38; TEMP 35–37.3; O2SAT 79–100
[2020-11-07] MEDS: ALBUTEROL SULFATE NEB 2.5 MG/0.5 ML INH INHALATION ×4 (02:37→20:22)
[2020-11-07] MEDS: IPRATROPIUM BR 0.02% INH SOLN 0.5 MG/2.5 ML VIAL INHALATION ×4 (02:37→20:22)
[2020-11-07 04:11] LABS: Hematocrit 23.6 % (42.0-52.0); Hemoglobin 7.4 g/dL (14.0-18.0); Mean Corpuscular HGB Conc 31.4 g/dl (32-36); Mean Corpuscular Hemoglobin 29.8 pg (26-34); Mean Corpuscular Volume 95.2 fl (80-100); Mean Platelet Volume 12.8 fl (7.4-10.4); Platelet Count Result 236 k/mm3 (150-375); Red Blood Count 2.48 M/mm3 (4.6-6.20); Red Cell Distribution Width 21.2 % (11.5-14.5); White Blood Count 7.1 K/mm3 (4.5-10.0)
[2020-11-07 04:24] LABS: Anion Gap 12 mmol/L (8-16); Blood Urea Nitrogen 82 mg/dL (9-20); Calcium 7.9 mg/dL (8.4-10.2); Carbon Dioxide 29 mmol/L (22-30); Chloride 89 mmol/L (98-107); Estimated CRCL calculation 9 ml/min; Estimated Glomerular Filt Rate 8; Glucose 212 mg/dL (75-110); Potassium 4.6 mmol/L (3.4-5.0); Sodium 130 mmol/L (137-145)
[2020-11-07] MEDS: INSULIN ASPART (*BKC) 100 UNITS/ML SUB-Q (08:35)
[2020-11-07 08:45] LABS: Glucose Point of Care 203 (65-105)
--- NOTE | 2020-11-07 09:30 | PC.NURSE ---
Patient to dialysis via bed. Report given to JANELL Reyes.
--- NOTE | 2020-11-07 11:41 | PCPTNOTE ---
The PT treatment was not able to be completed today due to patient out of room for dialysis. Will continue per Plan of Care frequency and duration.
[2020-11-07] MEDS: EPOETIN ALFA-EPBX 10,000 UNITS/ML VIAL 10000 UNITS IV PUSH (12:23)
--- NOTE | 2020-11-07 12:24 | PM.PNNEP ---
Progress Note: A&P Assessment and Plan (1) End-stage renal disease on hemodialysis: Code(s): N18.6 - End stage renal disease; Z99.2 - Dependence on renal dialysis Status: Acute Assessment and Plan: HD today and continue T/T/S schedule - may need to switch to M/W/F schedule when closer to discharge given his COVID-19 status as his treatments will be done at [facility] follow electrolytes, volume status, and clearance (2) Urinary retention: Code(s): R33.9 - Retention of urine, unspecified Status: Acute Assessment and Plan: servin catheter in place on finasteride and flomax consider Urology consult if he does not want to go to the [place] for this (3) Person under investigation for COVID-19: Code(s): Z20.828 - Contact with and (suspected) exposure to other viral communicable diseases Status: Acute Assessment and Plan: COVID-19 positive continue supportive therapy (4) Urinary tract infection: Qualifiers: Hematuria presence: without hematuria Urinary tract infection type: acute cystitis Qualified Code(s): N30.00 - Acute cystitis without hematuria Code(s): N39.0 - Urinary tract infection, site not specified Status: Acute Assessment and Plan: urine culture with Enterococcus on antibiotics (5) Hypertension: Qualifiers: Hypertension type: essential hypertension Qualified Code(s): I10 - Essential (primary) hypertension Code(s): I10 - Essential (primary) hypertension Status: Chronic Assessment and Plan: reasonable control at this time follow hemodynamics (6) Insulin dependent diabetes mellitus: Status: Acute Assessment and Plan: follow accuchecks on SSI Will continue to follow. Subjective Date/time seen: 11/07/20 12:24 Tolerating dialysis at the time of my visit (seen on HD at ~ 12:10PM); still complaining of shortness of breath and just not feeling well. No events overnight or earlier this AM to report. Exam Narrative: Exam Narrative: General: WD/WN male in NAD Heart: normal S1 and S2; no rub Lungs: clear to auscultation Abdomen: soft, nontender, nondistended, positive bowel sounds Extremities: no cyanosis or clubbing; no edema Skin: warm and intact Objective Data Vital Signs Vital Signs: Vital Signs Temp Pulse Resp BP Pulse Ox 11/07/20 12:15 83 106/46 L 11/07/20 12:00 87 115/61 11/07/20 11:45 95 108/52 L 11/07/20 11:30 83 111/29 L 11/07/20 11:15 96 97/46 L 11/07/20 11:00 90 114/33 L 11/07/20 10:45 86 100/44 L 11/07/20 10:30 106 H 106/38 L 11/07/20 10:15 94 103/47 L 11/07/20 10:00 92 91/46 L 11/07/20 09:52 102 H 95/45 L 11/07/20 09:40 36.6 C 90 20 118/48 L 11/07/20 08:58 88 20 95 11/07/20 08:20 94 11/07/20 08:00 36.6 C 95 28 H 130/51 L 93 11/07/20 06:00 94 11/07/20 04:00 36.2 C L 94 22 H 98/71 L 100 11/07/20 03:26 96 11/07/20 02:38 84 24 H 11/07/20 02:00 87 11/07/20 00:00 36.3 C L 75 22 H 106/51 L 90 11/06/20 22:00 85 11/06/20 21:04 78 20 94 11/06/20 20:23 86 11/06/20 20:00 79 94 11/06/20 19:54 36.2 C L 82 22 H 114/61 92 11/06/20 18:00 93 11/06/20 16:33 91 11/06/20 16:00 37.0 C 94 18 112/58 L 95 11/06/20 14:49 100 20 11/06/20 14:39 96 16 11/06/20 14:00 101 H Intake/Output Intake/Output: Intake & Output 11/04/20 11/05/20 11/06/20 11/07/20 23:59 23:59 23:59 23:59 Intake Total 1330 1170 865 Output Total 2500 300 450 200 Balance -1170 870 415 -200 Meds/Results Medications: Active Medications Generic Name Dose Route Start Last Admin Trade Name Yani PRN Reason Stop Dose Admin Acetaminophen 650 mg 10/29/20 08:23 10/29/20 13:34 Acetaminophen 325 Mg Tablet PO 650 mg Q4H PRN Administration Mild P
[2020-11-07] MEDS: HEPARIN SODIUM 1,000 UNITS/ML VIAL 6000 UNITS (13:10)
[2020-11-07 13:27] LABS: Glucose Point of Care 102 (65-105)
--- NOTE | 2020-11-07 13:30 | PC.NURSE ---
Patient returned to room following dialysis. Report given to JANELL Reyes.
[2020-11-07] MEDS: DEXAMETHASONE SOD PHOS INJ 4 MG/ML VIAL 6 MG IV PUSH (13:37)
--- NOTE | 2020-11-07 13:45 | PC.NURSE ---
Patient noted to have left facial droop and unable to speak except for his name and birthday. 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 Patient unable to wiggle toes on left foot. Dr. Avitia called and made aware of patient's change in neuro status. CT of brain ordered. Will continue to monitor.
[2020-11-07] MEDS: MICONAZOLE NITRATE 2% CREAM 30 GM TUBE 1 APPLIC TOPICAL ×2 (13:47→20:29)
--- NOTE | 2020-11-07 13:59 | PCOTNOTE ---
Attempted to see patient for OT session, but nursing indicated the patient was currently unable to be seen due to medical status.
[2020-11-07] MEDS: AMIODARONE 150 MG/D5W 100 ML 150 MG/100 ML BAG 600 MG IV CONT (15:31)
[2020-11-07] MEDS: AMIODARONE 360 MG/D5W 200 ML 360 MG/200 ML BAG 33.33 MG IV CONT (15:32)
--- NOTE | 2020-11-07 15:38 | PM.PNCARD ---
Progress Note: A&P Assessment and Plan (1) Atrial fibrillation with RVR: Code(s): I48.91 - Unspecified atrial fibrillation Status: Acute Assessment and Plan: Heart rate was controlled on oral amiodarone however meds held for dialysis. Uncertain he is able to swallow at this point. Heart rate up into the 130's. Restarted on amiodarone drip. No anticoagulation at this time due to hemoptysis (2) Pneumonia due to COVID-19 virus: Code(s): U07.1 - COVID-19; J12.89 - Other viral pneumonia Status: Acute Assessment and Plan: Per hospitalist (3) ESRD on dialysis: Code(s): N18.6 - End stage renal disease; Z99.2 - Dependence on renal dialysis Status: Acute Assessment and Plan: Per nephrology (4) Coronary artery disease: Qualifiers: Associated angina: with unspecified angina Coronary Disease-Associated Artery/Lesion type: [place] artery [place] vs. transplanted heart: [place] heart Qualified Code(s): I25.119 - Atherosclerotic heart disease of [place] coronary artery with unspecified angina pectoris Code(s): I25.10 - Atherosclerotic heart disease of [place] coronary artery without angina pectoris Status: Chronic Assessment and Plan: With recent intervention. Continue aspirin 81 mg p.o. daily and clopidogrel 75 mg p.o. daily. (5) Decreased responsiveness: Code(s): R41.89 - Other symptoms and signs involving cognitive functions and awareness Status: Acute Assessment and Plan: Not certain as to what happened 11/03/2020. Possibly TIA. Metabolic event is also possible including low glucose. Additional Plan Plan discussed Dr. Kruse 1540 11/07/2020 Subjective Date/time seen: 11/07/20 15:38 Interval history: Follow-up for: Hemoptysis, ESRD on hemodialysis, recent NSTEMI with cardiac stenting 10/23/20 admitted for UTI and acute respiratory failure secondary to COVID. Date of service: 11/07/2020 Subjective: Not as verbally responsive today after dialysis. Did answer that he thinks he is OK. Following some simple commands. RN reports facial droop and inability to records officer Review of Systems Constitutional: Constitutional: Reports weakness Eyes: Eyes: Denies blurry vision ENT: Reports Normal hearing present and Denies neck pain Cardiovascular: Cardiovascular: Denies chest pain Respiratory: Respiratory: Reports cough Gastrointestinal: Gastrointestinal: Denies abdominal pain Genitourinary: Genitourinary: Reports urinary hesitancy Musculoskeletal: Musculoskeletal: Denies back pain and Denies neck pain Integumentary/Breasts: Skin/Breast: Denies dry skin Neurologic: Reports Normal hearing present, Reports confusion and Reports weakness Psychiatric: Psychiatric: Reports confusion Endocrine: Endocrine: Denies excessive sweating Hematologic/Lymphatic: Hematologic/Lymphatic: Denies easy bleeding Allergic/Immunologic: Allergic/Immunologic: Denies GI upset with certain foods Exam Const: General: comfortable, no acute distress and confusion Orientation/consciousness: confusion HENMT: General nose exam: Normal nares present Eyes: Sclera: sclerae normal Neck: Neck: supple and no JVD Resp: Auscultation: diminished lung sounds (limited by isolation stethescope and not taking deep breaths) Cardio: Rate: tachycardic Rhythm: abnormal rhythm irregularly irregular GI: Auscultation: normal bowel sounds Urinary Catheter: Urinary Catheter: patent and draining and urine clear Skin: General skin exam: normal color Neuro: General: confusion Cranial nerves: Yes Normal hearing present Cognition (Neuro): abnormal cognition Extrem: General: no edema Psych: Appearance: grossly normal Mental Status: mental status grossly normal Affect: normal affect Attitude: cooperative Obj
[2020-11-07 16:19] LABS: Glucose Point of Care 169 (65-105)
--- NOTE | 2020-11-07 17:21 | PM.IMPN ---
Progress Note: A&P Assessment and Plan (1) Urinary tract infection: Qualifiers: Urinary tract infection type: acute cystitis Hematuria presence: without hematuria Qualified Code(s): N30.00 - Acute cystitis without hematuria Code(s): N39.0 - Urinary tract infection, site not specified Status: Acute Assessment and Plan: Urine culture growing Enterococcus. Blood cultures no growth to date. Continue ampicillin (day 5). 11/07/20 17:21 Patient is 80 year old male recently started on dialysis presented emergency department with a complaint urinary retention and bladder scan showed 600 cc of urine patient is based on Soto, patient seen by Nephrology and will have scheduled dialysis while in the hospital, in-hospital patient was tested for COVID-19 and is positive and isolated, on 11/03 patient was found unresponsive his blood sugar was low patient was given D50, he was also found to have atrial fibrillation with RVR and was transferred IMU, patient was seen by custom grinder patient recently had non STEMI he was seen at the [facility] on 10/23/2020 and 2 stents were placed, patient was initially started on amiodarone drip and and rate was controlled currently placed on oral amiodoran, patient was also started on aspirin and Plavix patient seen by custom grinder and further recommendation to follow, in terms of COVID-19 patient is being treated with dexamethasone he is not a candidate for Remsesivir due to chronic kidney disease, today patient had dialysis after returning from dialysis patient was more hypoxic he was placed on BiPAP, nursing staff suspected the patient may be as a left-sided facial droop to further evaluate patient had a CT scan of the head which is negative for any acute injury upon close examine patient is a slight asymmetry with face on the left side however unable to evaluate his speech is not talking very much, will continue to monitor the patient on BiPAP, patient heart rate was controlled on oral amiodarone however now he is in RVR seen by Cardiology as patient is not able to swallow, his placed on amiodarone drip will continue to monitor, I spoke with the patient's and updated her his condition will continue to monitor (2) Pneumonia due to COVID-19 virus: Code(s): U07.1 - COVID-19; J12.89 - Other viral pneumonia Status: Acute Assessment and Plan: COVID positive 10/29/20. Not on remdesivir due to renal function, will continue dexamethasone (day 4). Continue supportive care with Tylenol for fevers and supplemental O2. DVT ppx with SQ heparin. (3) Acute respiratory failure with hypoxia: Code(s): J96.01 - Acute respiratory failure with hypoxia Status: Acute Assessment and Plan: Suspect secondary to COVID pneumonia. Wean supplemental O2 as tolerated to keep O2 saturations > 90%. Was on 1L/min NC now up to 3L/min NC during this episode. (4) Urinary retention: Code(s): R33.9 - Retention of urine, unspecified Status: Acute Assessment and Plan: Continue Soto at this time. Consider voiding trial at discharge (5) Elevated troponin: Code(s): R77.8 - Other specified abnormalities of plasma proteins Status: Acute Assessment and Plan: On arrival he had mildly elevated troponins with flat profile, suspect secondary to recent coronary intervention. Awaiting trop from episode this morning. Chest pain this AM may be related to new rapid A fib vs. ischemia. Patient was seen 10/21/20 for an NSTEMI and transferred to the [place] where he underwent a cardiac catheterization with 2 stents. He was just discharged home from [place] 10/26/20. (6) Insulin dependent diabetes mellitus: Status: Acute Assessment and Plan: Hgb A1c 5.4%. With hypoglycemia this AM down to 58
[2020-11-07 20:12] LABS: Glucose Point of Care 274 (65-105)
[2020-11-07] MEDS: RANOLAZINE 500 MG TAB.ER.12H 1000 MG PO (20:29)
[2020-11-07] MEDS: carvediloL 6.25 MG TABLET PO (20:30)
[2020-11-07] MEDS: INSULIN GLARGINE (*BKC) 100 UNITS/ML 25 UNITS SUB-Q (20:31)
[2020-11-07] MEDS: AMIODARONE 360 MG/D5W 200 ML 360 MG/200 ML BAG 16.67 MG IV CONT (20:32)
[2020-11-08] VITALS (37 sets, daily range): BP systolic 95–120; BP diastolic 49–77; PULSE 50–86; RESP 20–39; TEMP 35.6–37.2; O2SAT 88–100
[2020-11-08] MEDS: IPRATROPIUM BR 0.02% INH SOLN 0.5 MG/2.5 ML VIAL INHALATION ×4 (01:55→22:06)
[2020-11-08] MEDS: ALBUTEROL SULFATE NEB 2.5 MG/0.5 ML INH INHALATION ×4 (01:55→22:06)
[2020-11-08 06:03] LABS: Hematocrit 22.5 % (42.0-52.0); Mean Corpuscular HGB Conc 30.7 g/dl (32-36); Mean Corpuscular Hemoglobin 29.2 pg (26-34); Mean Corpuscular Volume 95.3 fl (80-100); Mean Platelet Volume 13.2 fl (7.4-10.4); Platelet Count Result 172 k/mm3 (150-375); Red Blood Count 2.36 M/mm3 (4.6-6.20); Red Cell Distribution Width 21.2 % (11.5-14.5); White Blood Count 3.7 K/mm3 (4.5-10.0)
[2020-11-08 06:06] LABS: Hemoglobin 6.9 g/dL (14.0-18.0)
[2020-11-08 06:14] LABS: Partial Thromboplastin Time 40.9 SECONDS (22.3-36.8)
[2020-11-08 06:25] LABS: Anion Gap 11 mmol/L (8-16); Blood Urea Nitrogen 58 mg/dL (9-20); Calcium 8.4 mg/dL (8.4-10.2); Carbon Dioxide 29 mmol/L (22-30); Chloride 96 mmol/L (98-107); Estimated CRCL calculation 11 ml/min; Estimated Glomerular Filt Rate 12; Glucose 223 mg/dL (75-110); Potassium 4.6 mmol/L (3.4-5.0); Sodium 136 mmol/L (137-145)
[2020-11-08 08:34] LABS: Glucose Point of Care 232 (65-105)
[2020-11-08] MEDS: INSULIN ASPART (*BKC) 100 UNITS/ML SUB-Q ×3 (09:12→16:47)
[2020-11-08] MEDS: FEBUXOSTAT 40 MG TABLET PO (09:12)
[2020-11-08] MEDS: carvediloL 6.25 MG TABLET PO ×2 (09:12→21:04)
[2020-11-08] MEDS: SENNOSIDES 8.6 MG TABLET PO ×2 (09:12→16:49)
[2020-11-08] MEDS: THERAPEUTIC MULTIVITAMINS/MINERALS TAB (*BKC) 1 TABLET PO ×2 (09:13→16:49)
[2020-11-08] MEDS: PANTOPRAZOLE 40 MG TABLET PO ×2 (09:13→16:50)
[2020-11-08] MEDS: AMIODARONE HCL 200 MG TABLET PO ×2 (09:13→16:48)
[2020-11-08] MEDS: ASPIRIN 81 MG CHEWABLE TABLET PO (09:13)
[2020-11-08] MEDS: DOCUSATE SODIUM 100 MG CAPSULE 200 MG PO ×2 (09:14→16:47)
[2020-11-08] MEDS: FAMOTIDINE 20 MG TABLET PO (09:14)
[2020-11-08] MEDS: CLOPIDOGREL BISULFATE 75 MG TABLET PO (09:14)
[2020-11-08] MEDS: CHOLECALCIFEROL 1,000 UNITS TABLET 2000 UNITS PO (09:14)
[2020-11-08] MEDS: MICONAZOLE NITRATE 2% CREAM 30 GM TUBE 1 APPLIC TOPICAL ×2 (09:15→21:04)
[2020-11-08] MEDS: LORATADINE 10 MG TABLET PO (09:15)
[2020-11-08] MEDS: ISOSORBIDE MONONITRATE 60 MG TAB.ER.24H 120 MG PO (09:15)
[2020-11-08] MEDS: RANOLAZINE 500 MG TAB.ER.12H 1000 MG PO ×2 (09:15→21:04)
[2020-11-08] MEDS: FUROSEMIDE 80 MG TABLET PO (09:15)
[2020-11-08] MEDS: FINASTERIDE 5 MG TABLET PO (09:15)
[2020-11-08] MEDS: polyethylene glycoL 3350 17 GM POWD.PACK PO (09:15)
[2020-11-08] MEDS: SODIUM BICARBONATE TAB 650 MG TABLET PO ×2 (09:16→16:49)
[2020-11-08] MEDS: AMIODARONE 360 MG/D5W 200 ML 360 MG/200 ML BAG 16.67 MG IV CONT (09:16)
[2020-11-08] MEDS: DEXAMETHASONE SOD PHOS INJ 4 MG/ML VIAL 6 MG IV PUSH (09:20)
[2020-11-08] MEDS: SODIUM CHLORIDE 0.9% IV 250 ML 30 ML IV CONT (10:45)
[2020-11-08] MEDS: TUBING, BLOOD PLUM PUMP TUBING 1 EACH XX (10:45)
--- NOTE | 2020-11-08 10:58 | PCPTNOTE ---
The PT treatment was unable to be completed today due to medical condition. Will continue per Plan of Care frequency and duration.
--- NOTE | 2020-11-08 11:05 | PCOTNOTE ---
Patient is on hold per nursing this date.
[2020-11-08 12:11] LABS: Glucose Point of Care 217 (65-105)
--- NOTE | 2020-11-08 13:45 | PM.PNNEP ---
Progress Note: A&P Assessment and Plan (1) End-stage renal disease on hemodialysis: Code(s): N18.6 - End stage renal disease; Z99.2 - Dependence on renal dialysis Status: Acute Assessment and Plan: HD due tomorrow He has no swelling. Latest chest x-ray shows diffuse lung disease, most likely related to COVID and not volume. Will check another chest x-ray. (2) Urinary retention: Code(s): R33.9 - Retention of urine, unspecified Status: Acute Assessment and Plan: servin catheter in place on finasteride and flomax consider Urology consult if he does not want to go to the [place] for this (3) Person under investigation for COVID-19: Code(s): Z20.828 - Contact with and (suspected) exposure to other viral communicable diseases Status: Acute Assessment and Plan: COVID-19 positive continue supportive therapy (4) Urinary tract infection: Qualifiers: Urinary tract infection type: acute cystitis Hematuria presence: without hematuria Qualified Code(s): N30.00 - Acute cystitis without hematuria Code(s): N39.0 - Urinary tract infection, site not specified Status: Acute Assessment and Plan: urine culture with Enterococcus on Ampicillin (5) Hypertension: Qualifiers: Hypertension type: essential hypertension Qualified Code(s): I10 - Essential (primary) hypertension Code(s): I10 - Essential (primary) hypertension Status: Chronic Assessment and Plan: reasonable control at this time follow hemodynamics (6) Insulin dependent diabetes mellitus: Status: Acute Assessment and Plan: follow accuchecks on SSI Subjective Date/time seen: 11/08/20 13:45 Interval history: Chito is on BiPAP. He seems to be comfortable. Mildly short of breath if he moves around. Exam Narrative: Exam Narrative: General: WD/WN male in NAD Heart: normal S1 and S2; no rub Lungs: Decreased breath sounds at the bases Abdomen: soft, nontender, nondistended, positive bowel sounds Extremities: no cyanosis or clubbing; no edema Skin: No rash Objective Data Vital Signs Vital Signs: Vital Signs - 24 hr 11/07/20 14:00 11/07/20 15:23 11/07/20 15:31 Temperature Pulse Rate 104 H 110 H 129 H Respiratory Rate 28 H Blood Pressure Pulse Oximetry 93 93 11/07/20 15:32 11/07/20 15:33 11/07/20 16:00 Temperature 36.9 C Pulse Rate 129 H 108 H 122 H Respiratory Rate 30 H 38 H Blood Pressure 101/51 L Pulse Oximetry 97 11/07/20 18:00 11/07/20 20:00 11/07/20 20:25 Temperature 35.9 C L Pulse Rate 100 90 91 Respiratory Rate 33 H 35 H Blood Pressure 113/52 L Pulse Oximetry 100 100 11/07/20 20:30 11/07/20 20:32 11/07/20 20:34 Temperature Pulse Rate 94 94 91 Respiratory Rate 35 H Blood Pressure Pulse Oximetry 100 11/07/20 20:35 11/07/20 22:00 11/07/20 23:42 Temperature 35.9 C L Pulse Rate 108 H 86 82 Respiratory Rate 36 H 24 H Blood Pressure 109/89 Pulse Oximetry 100 11/08/20 00:00 11/08/20 01:55 11/08/20 02:00 Temperature Pulse Rate 76 50 L 82 Respiratory Rate 29 H Blood Pressure Pulse Oximetry 96 11/08/20 02:02 11/08/20 02:03 11/08/20 03:20 Temperature Pulse Rate 50 L 51 L Respiratory Rate 29 H 29 H Blood Pressure Pulse Oximetry 97 91 11/08/20 04:00 11/08/20 06:00 11/08/20 08:00 Temperature 36.4 C L 36.9 C Pulse Rate 83 76 71 Respiratory Rate 31 H 28 H Blood Pressure 116/57 L 105/77 Pulse Oximetry 96 88 L 11/08/20 08:32 11/08/20 09:12 11/08/20 09:13 Temperature Pulse Rate 79 74 74 Respiratory Rate Blood Pressure Pulse Oximetry 11/08/20 09:16 11/08/20 09:30 11/08/20 09:40 Temperature Pulse Rate 79 80 83 Respiratory Rate 32 H 32 H Blood Pressure Pulse Oximetry 100 11/08/20 10:00 11/08/20 10:43 11/08/20 11:00 Temperature 35.8 C L 35.7 C L
--- NOTE | 2020-11-08 14:04 | PM.PNCARD ---
Progress Note: A&P Assessment and Plan (1) Atrial fibrillation with RVR: Code(s): I48.91 - Unspecified atrial fibrillation Status: Acute Assessment and Plan: No anticoagulation due to hemoptysis. Unable to swallow yesterday amiodarone drip was restarted. Heart rate is again controlled. Took p.o. meds this morning. Will discontinue amiodarone drip. (2) Pneumonia due to COVID-19 virus: Code(s): U07.1 - COVID-19; J12.89 - Other viral pneumonia Status: Acute Assessment and Plan: Per hospitalist. On continuous BiPAP at this time. (3) ESRD on dialysis: Code(s): N18.6 - End stage renal disease; Z99.2 - Dependence on renal dialysis Status: Acute Assessment and Plan: Per nephrology (4) Coronary artery disease: Qualifiers: Coronary Disease-Associated Artery/Lesion type: [place] artery [place] vs. transplanted heart: [place] heart Associated angina: with unspecified angina Qualified Code(s): I25.119 - Atherosclerotic heart disease of [place] coronary artery with unspecified angina pectoris Code(s): I25.10 - Atherosclerotic heart disease of [place] coronary artery without angina pectoris Status: Chronic Assessment and Plan: With recent intervention. Continue aspirin 81 mg p.o. daily and clopidogrel 75 mg p.o. daily. (5) Decreased responsiveness: Code(s): R41.89 - Other symptoms and signs involving cognitive functions and awareness Status: Acute Assessment and Plan: Not certain as to what happened 11/03/2020. Possibly TIA. Metabolic event is also possible including low glucose. Also had episode after dialysis 11/07/2020. 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 Additional Plan Plan discussed Dr. Kruse 1410 11/08/2020 Subjective Date/time seen: 11/08/20 14:04 Interval history: Follow-up for: Hemoptysis, ESRD on hemodialysis, recent NSTEMI with cardiac stenting 10/23/20 admitted for UTI and acute respiratory failure secondary to COVID. Date of service: 11/08/2020 Subjective: No chest pain. Breathing not so good . Coughing up more clear thick secretions. Wants to call his Review of Systems Constitutional: Constitutional: Reports weakness Eyes: Eyes: Denies blurry vision ENT: Reports Normal hearing present and Denies neck pain Cardiovascular: Cardiovascular: Denies chest pain Respiratory: Respiratory: Reports cough and Reports dyspnea Gastrointestinal: Gastrointestinal: Denies abdominal pain, Denies nausea and Denies vomiting Genitourinary: Genitourinary: Reports urinary hesitancy Musculoskeletal: Musculoskeletal: Denies back pain and Denies neck pain Integumentary/Breasts: Skin/Breast: Denies dry skin Neurologic: Reports Normal hearing present, Denies confusion and Reports weakness Psychiatric: Psychiatric: Denies confusion Endocrine: Endocrine: Denies excessive sweating Hematologic/Lymphatic: Hematologic/Lymphatic: Denies easy bleeding Allergic/Immunologic: Allergic/Immunologic: Denies GI upset with certain foods Exam Narrative: Exam Narrative: Awake, alert, no distress. On continuous BiPAP. Const: General: cooperative, comfortable and no acute distress; No confusion Orientation/consciousness: No confusion HENMT: General nose exam: Normal nares present Mouth: Yes dry mucous membranes Eyes: Sclera: sclerae normal Neck: Neck: supple and no JVD Resp: Auscultation: rales on the right at the base and diminished lung sounds (limited by isolation stethescope ) Cardio: Rate: regular rate Rhythm: abnormal rhythm GI: Auscultation: normal bowel sounds Urinary Catheter: Urinary Catheter: patent and draining and urine clear Skin: General skin exam: normal color Neuro: General: patient oriented x3 Cranial nerves: Yes Normal hear
[2020-11-08 15:35] LABS: Hematocrit 23.5 % (42.0-52.0); Hemoglobin 7.4 g/dL (14.0-18.0)
--- NOTE | 2020-11-08 16:16 | PM.IMPN ---
Progress Note: A&P Assessment and Plan (1) Urinary tract infection: Qualifiers: Urinary tract infection type: acute cystitis Hematuria presence: without hematuria Qualified Code(s): N30.00 - Acute cystitis without hematuria Code(s): N39.0 - Urinary tract infection, site not specified Status: Acute Assessment and Plan: Urine culture growing Enterococcus. Blood cultures no growth to date. Continue ampicillin (day 5). 11/08/20 16:16 on Patient is 80 year old male recently started on dialysis presented emergency department with a complaint urinary retention and bladder scan showed 600 cc of urine patient is based on Soto, patient seen by Nephrology and will have scheduled dialysis while in the hospital, in-hospital patient was tested for COVID-19 and is positive and isolated, on 11/03 patient was found unresponsive his blood sugar was low patient was given D50, he was also found to have atrial fibrillation with RVR and was transferred IMU, patient was seen by rubber goods finisher patient recently had non STEMI he was seen at the [facility] on 10/23/2020 and 2 stents were placed, patient was initially started on amiodarone drip and and rate was controlled currently placed on oral amiodoran, patient was also started on aspirin and Plavix patient seen by rubber goods finisher and further recommendation to follow, in terms of COVID-19 patient is being treated with dexamethasone he is not a candidate for Remsesivir due to chronic kidney disease, on 11/07 patient had dialysis after returning from dialysis patient was more hypoxic he was placed on BiPAP, nursing staff suspected the patient may be as a left-sided facial droop to further evaluate patient had a CT scan of the head which is negative for any acute injury upon close examine patient is a slight asymmetry with face on the left side however unable to evaluate his speech is not talking very much, continued to monitor the patient on BiPAP, patient heart rate was controlled on oral amiodarone however now was in RVR seen by Cardiology as patient is not able to swallow, placed on amiodarone drip rate was controlled, today patient still on BiPAP and was able to take p.o. medication, seen by rubber goods finisher stopped amiodarone drip and now on oral amiodarone, patient seen by Nephrology patient will have hemodialysis tomorrow, patient is clinically stable requiring high oxygen on BiPAP however is no fever, is still quite somnolent unable to provide detailed review of symptom, will continue present management and plan is to wean the patient off oxygen as much as possible once is below 6 L of oxygen will do the discharge planning. (2) Pneumonia due to COVID-19 virus: Code(s): U07.1 - COVID-19; J12.89 - Other viral pneumonia Status: Acute Assessment and Plan: COVID positive 10/29/20. Not on remdesivir due to renal function, will continue dexamethasone (day 4). Continue supportive care with Tylenol for fevers and supplemental O2. DVT ppx with SQ heparin. (3) Acute respiratory failure with hypoxia: Code(s): J96.01 - Acute respiratory failure with hypoxia Status: Acute Assessment and Plan: Suspect secondary to COVID pneumonia. Wean supplemental O2 as tolerated to keep O2 saturations > 90%. Was on 1L/min NC now up to 3L/min NC during this episode. (4) Urinary retention: Code(s): R33.9 - Retention of urine, unspecified Status: Acute Assessment and Plan: Continue Soto at this time. Consider voiding trial at discharge (5) Elevated troponin: Code(s): R77.8 - Other specified abnormalities of plasma proteins Status: Acute Assessment and Plan: On arrival he had mildly elevated troponins with flat profile, suspect secondary to recent coronary intervention. Awaiting trop from episode this morning. Chest annemarie
[2020-11-08] MEDS: TAMSULOSIN HCL 0.4 MG CAPSULE PO (16:49)
[2020-11-08] MEDS: ATORVASTATIN 40 MG TABLET 80 MG PO (16:50)
[2020-11-08 17:02] LABS: Glucose Point of Care 204 (65-105)
[2020-11-08 20:09] LABS: Glucose Point of Care 239 (65-105)
[2020-11-08] MEDS: INSULIN GLARGINE (*BKC) 100 UNITS/ML 25 UNITS SUB-Q (21:04)
[2020-11-09] VITALS (43 sets, daily range): BP systolic 90–125; BP diastolic 28–101; PULSE 75–104; RESP 20–30; TEMP 36.2–37.1; O2SAT 90–98
[2020-11-09] MEDS: ALBUTEROL SULFATE NEB 2.5 MG/0.5 ML INH INHALATION ×4 (04:06→20:49)
[2020-11-09] MEDS: IPRATROPIUM BR 0.02% INH SOLN 0.5 MG/2.5 ML VIAL INHALATION ×4 (04:07→20:49)
[2020-11-09 06:21] LABS: Partial Thromboplastin Time 35.6 SECONDS (22.3-36.8)
[2020-11-09 06:34] LABS: Hematocrit 27.1 % (42.0-52.0); Hemoglobin 8.4 g/dL (14.0-18.0); Immature Platelet Fraction Pct 20.2 % (0.9-11.2); Mean Corpuscular Hemoglobin 29.8 pg (26-34); Mean Corpuscular Volume 96.1 fl (80-100); Mean Platelet Volume 13.7 fl (7.4-10.4); Platelet Count Result 227 k/mm3 (150-375); Red Blood Count 2.82 M/mm3 (4.6-6.20); Red Cell Distribution Width 21.6 % (11.5-14.5); White Blood Count 7.3 K/mm3 (4.5-10.0)
[2020-11-09 07:46] LABS: Anion Gap 16 mmol/L (8-16); Blood Urea Nitrogen 82 mg/dL (9-20); Calcium 8.5 mg/dL (8.4-10.2); Carbon Dioxide 27 mmol/L (22-30); Chloride 94 mmol/L (98-107); Estimated CRCL calculation 9 ml/min; Estimated Glomerular Filt Rate 10; Glucose 192 mg/dL (75-110); Phosphorus 7.2 mg/dL (2.5-4.5); Potassium 4.8 mmol/L (3.4-5.0); Sodium 137 mmol/L (137-145)
[2020-11-09] MEDS: DEXAMETHASONE SOD PHOS INJ 4 MG/ML VIAL 6 MG IV PUSH (09:50)
[2020-11-09] MEDS: CLOPIDOGREL BISULFATE 75 MG TABLET PO (09:51)
[2020-11-09] MEDS: THERAPEUTIC MULTIVITAMINS/MINERALS TAB (*BKC) 1 TABLET PO ×2 (09:51→17:24)
[2020-11-09] MEDS: HYDROcodone/acetaminophen (*CRX) 10-325 MG TABLET 1 TAB PO (09:51)
[2020-11-09] MEDS: AMIODARONE HCL 200 MG TABLET PO ×2 (09:51→17:24)
[2020-11-09] MEDS: PANTOPRAZOLE 40 MG TABLET PO ×2 (09:51→17:24)
[2020-11-09] MEDS: FEBUXOSTAT 40 MG TABLET PO (09:52)
[2020-11-09] MEDS: FAMOTIDINE 20 MG TABLET PO (09:52)
[2020-11-09] MEDS: SODIUM BICARBONATE TAB 650 MG TABLET PO ×2 (09:52→17:24)
[2020-11-09] MEDS: LORATADINE 10 MG TABLET PO (09:52)
[2020-11-09] MEDS: ISOSORBIDE MONONITRATE 60 MG TAB.ER.24H 120 MG PO (09:52)
[2020-11-09] MEDS: CHOLECALCIFEROL 1,000 UNITS TABLET 2000 UNITS PO (09:52)
[2020-11-09] MEDS: carvediloL 6.25 MG TABLET PO ×2 (09:52→20:59)
[2020-11-09] MEDS: MICONAZOLE NITRATE 2% CREAM 30 GM TUBE 1 APPLIC TOPICAL ×2 (09:53→21:01)
[2020-11-09] MEDS: FINASTERIDE 5 MG TABLET PO (09:53)
[2020-11-09] MEDS: RANOLAZINE 500 MG TAB.ER.12H 1000 MG PO ×2 (09:53→20:59)
[2020-11-09] MEDS: ASPIRIN 81 MG CHEWABLE TABLET PO (09:54)
[2020-11-09 10:58] LABS: Glucose Point of Care 183 (65-105)
--- NOTE | 2020-11-09 11:07 | PCOTNOTE ---
Attempted to see pt this AM. Rn informed that pt is going to dialysis right now. If able, therapist will attempt to see pt this PM. Will continue per POC duration/frequency.
--- NOTE | 2020-11-09 11:09 | PCPTNOTE ---
The PT treatment was unable to be completed today. Will continue per Plan of Care frequency and duration.
--- NOTE | 2020-11-09 12:49 | PM.PNNEP ---
Progress Note: A&P Assessment and Plan (1) End-stage renal disease on hemodialysis: Code(s): N18.6 - End stage renal disease; Z99.2 - Dependence on renal dialysis Status: Acute Assessment and Plan: HD about to begin. He has no swelling. Latest chest x-ray shows diffuse lung disease, most likely related to COVID and not volume. Will check another chest x-ray. (2) Urinary retention: Code(s): R33.9 - Retention of urine, unspecified Status: Acute Assessment and Plan: servin catheter in place on finasteride and flomax consider Urology consult if he does not want to go to the [place] for this (3) Person under investigation for COVID-19: Code(s): Z20.828 - Contact with and (suspected) exposure to other viral communicable diseases Status: Acute Assessment and Plan: COVID-19 positive continue supportive therapy (4) Urinary tract infection: Qualifiers: Urinary tract infection type: acute cystitis Hematuria presence: without hematuria Qualified Code(s): N30.00 - Acute cystitis without hematuria Code(s): N39.0 - Urinary tract infection, site not specified Status: Acute Assessment and Plan: urine culture with Enterococcus Finished antibiotics. (5) Hypertension: Qualifiers: Hypertension type: essential hypertension Qualified Code(s): I10 - Essential (primary) hypertension Code(s): I10 - Essential (primary) hypertension Status: Chronic Assessment and Plan: reasonable control at this time follow hemodynamics (6) Insulin dependent diabetes mellitus: Status: Acute Assessment and Plan: follow accuchecks on SSI Subjective Date/time seen: 11/09/20 12:49 Interval history: Chito is on BiPAP. He seems to be comfortable. About to start dialysis Review of Systems Cardiovascular: Cardiovascular: Reports no additional cardiovascular complaints Respiratory: Respiratory: Reports no additional respiratory complaints Gastrointestinal: Gastrointestinal: Reports no additional gastrointestinal complaints Genitourinary: Genitourinary: Reports no additional male genitourinary complaints Exam Narrative: Exam Narrative: General: WD/WN male in NAD Heart: normal S1 and S2; no rub Lungs: Decreased breath sounds at the bases Abdomen: soft, nontender, nondistended, positive bowel sounds Extremities: no cyanosis or clubbing; no edema Skin: No rash Objective Data Vital Signs Vital Signs: Vital Signs - 24 hr 11/08/20 13:00 11/08/20 14:00 11/08/20 14:15 Temperature 35.6 C L Pulse Rate 82 65 72 Respiratory Rate 33 H Blood Pressure 97/52 L Pulse Oximetry 93 11/08/20 14:50 11/08/20 15:03 11/08/20 16:00 Temperature 36.9 C Pulse Rate 78 83 72 Respiratory Rate 32 H 32 H 22 H Blood Pressure 96/53 L Pulse Oximetry 93 11/08/20 16:48 11/08/20 18:00 11/08/20 20:00 Temperature Pulse Rate 76 77 76 Respiratory Rate Blood Pressure Pulse Oximetry 90 11/08/20 20:11 11/08/20 21:04 11/08/20 22:00 Temperature 36.2 C L Pulse Rate 86 84 76 Respiratory Rate 30 H Blood Pressure 115/54 L Pulse Oximetry 97 11/08/20 22:06 11/08/20 22:35 11/08/20 22:36 Temperature Pulse Rate 78 78 79 Respiratory Rate 34 H 39 H 39 H Blood Pressure Pulse Oximetry 94 11/08/20 23:14 11/08/20 23:56 11/09/20 00:00 Temperature 35.9 C L Pulse Rate 77 75 Respiratory Rate 25 H Blood Pressure 120/62 Pulse Oximetry 90 89 L 11/09/20 02:00 11/09/20 04:00 11/09/20 04:07 Temperature 36.2 C L Pulse Rate 94 95 95 Respiratory Rate 22 H 26 H Blood Pressure 125/101 H Pulse Oximetry 94 11/09/20 04:16 11/09/20 06:00 11/09/20 07:15 Temperature 37.1 C Pulse Rate 86 98 81 Respiratory Rate 22 H 24 H Blood Pressure 117/62 Pulse Oximetry 95 95 11/09/20 08:00 11/09/20 08:08 11/09/20 08:09 Temperature
--- NOTE | 2020-11-09 12:57 | WPDNEURCNPN ---
Assessment and Plan Assessment and plan (1) Decreased responsiveness: Code(s): R41.89 - Other symptoms and signs involving cognitive functions and awareness Status: Acute (2) Atrial fibrillation with RVR: Code(s): I48.91 - Unspecified atrial fibrillation Status: Acute (3) Person under investigation for COVID-19: Code(s): Z20.828 - Contact with and (suspected) exposure to other viral communicable diseases Status: Acute (4) Acute respiratory failure with hypoxia: Code(s): J96.01 - Acute respiratory failure with hypoxia Status: Acute (5) End stage renal disease: Code(s): N18.6 - End stage renal disease Status: Chronic (6) Weak arterial pulse: Code(s): R09.89 - Other specified symptoms and signs involving the circulatory and respiratory systems Status: Acute Additional Plan Rule out vascular insufficiency suggested to have a Doppler study of the left side including upper extremity and if necessary CTA but again with considering the renal insufficiency I think that will be impossible Consult date: 11/09/20 Time Seen: 12:00 HPI: Chito Rivera is a 80 year old male admitted to the hospital for difficulties in urinating in addition to the ongoing history of 1. Coronary artery disease 2. Hypertension 3. Congestive heart failure 4. Sleep apnea 5. Insulin-dependent diabetes mellitus 6. End-stage renal disease for which she has recently been started on dialysis. Neurology consultation has been obtained for the complaints of funny sensation in the left upper extremity with pain. Patient does have ongoing history of anemia of chronic disease renal stone hypertense and as mentioned above insulin-dependent diabetes mellitus. In the past she has undergone lower back surgery bilateral knee replacement colon resection coronary artery bypass grafting x3 with stent placement and resection of the prostate. Pertinent investigations reveals him to have the anemia with BUN of 82 GFR only 10 glucose 183 and albumin 3.0 Review of Systems Review of Systems: All systems reviewed & are unremarkable except as noted in HPI and below PMFSH Past Medical History Medical History Anemia of chronic disease With history of blood transfusion. Benign prostatic hyperplasia Congestive heart failure Coronary artery disease History MS, stent x3, and three-vessel CABG. Diverticulitis Status post colon resection. End-stage renal disease on hemodialysis Gout History of renal stone History of shingles Hyperlipidemia Hypertension Insulin dependent diabetes mellitus Hemoglobin A1c was 5.4% in October 2020. Obstructive sleep apnea on CPAP Osteoarthritis Surgical History Surgical History History of back surgery History of bilateral knee replacement History of cataract extraction History of cholecystectomy History of colon resection Related to recurrent diverticulitis. History of coronary artery bypass graft x 3 (~1999) History of coronary artery stent placement History of left hip replacement History of rectal polypectomy History of transurethral resection of prostate Status post creation of arteriovenous fistula Family History Family History Father Cancer Mother CHF (congestive heart failure), NYHA class I Acute myocardial infarction Sibling Cancer Social History Social History Social History: The patient lives with his in [place], [place]. Retired from [employer]. Remote pipe and cigar smoker. He has not had alcohol for 30+ years. He designates his , Catherine Rivera, as his surrogate decision maker and he wishes to be a full code. Spiritual care concerns: No Agree to blood products: No Meds Home Medications and Allergies Home Medications Medica
[2020-11-09 13:09] LABS: Glucose Point of Care 151 (65-105)
--- NOTE | 2020-11-09 14:58 | PM.IMPN ---
Progress Note: A&P Assessment and Plan (1) Urinary tract infection: Qualifiers: Hematuria presence: without hematuria Urinary tract infection type: acute cystitis Qualified Code(s): N30.00 - Acute cystitis without hematuria Code(s): N39.0 - Urinary tract infection, site not specified Status: Acute Assessment and Plan: Urine culture growing Enterococcus. Blood cultures no growth to date. Continue ampicillin (day 5). 11/09/20 14:58 on Patient is 80 year old male recently started on dialysis presented emergency department with a complaint urinary retention and bladder scan showed 600 cc of urine patient is based on Soto, patient seen by Nephrology and will have scheduled dialysis while in the hospital, in-hospital patient was tested for COVID-19 and is positive and isolated, on 11/03 patient was found unresponsive his blood sugar was low patient was given D50, he was also found to have atrial fibrillation with RVR and was transferred IMU, patient was seen by dye can operator patient recently had non STEMI he was seen at the [facility] on 10/23/2020 and 2 stents were placed, patient was initially started on amiodarone drip and and rate was controlled currently placed on oral amiodoran, patient was also started on aspirin and Plavix patient seen by dye can operator and further recommendation to follow, in terms of COVID-19 patient is being treated with dexamethasone he is not a candidate for Remsesivir due to chronic kidney disease, on 11/07 patient had dialysis after returning from dialysis patient was more hypoxic he was placed on BiPAP, nursing staff suspected the patient may be as a left-sided facial droop to further evaluate patient had a CT scan of the head which is negative for any acute injury upon close examine patient is a slight asymmetry with face on the left side however unable to evaluate his speech is not talking very much, continued to monitor the patient on BiPAP, patient heart rate was controlled on oral amiodarone however now was in RVR seen by Cardiology as patient is not able to swallow, placed on amiodarone drip rate was controlled, on 11/08 patient remained on BiPAP and was able to take p.o. medication, seen by dye can operator stopped amiodarone drip and now on oral amiodarone, today patient seen by Nephrology patient will have hemodialysis today, patient is clinically stable requiring high oxygen on BiPAP, BIPAP was removed by nursing staff to give him medications and desated, however is no fever, is still quite somnolent unable to provide detailed review of symptom, will continue present management and plan is to wean the patient off oxygen as much as possible once is below 6 L of oxygen will do the discharge planning. (2) Pneumonia due to COVID-19 virus: Code(s): U07.1 - COVID-19; J12.89 - Other viral pneumonia Status: Acute Assessment and Plan: COVID positive 10/29/20. Not on remdesivir due to renal function, will continue dexamethasone (day 4). Continue supportive care with Tylenol for fevers and supplemental O2. DVT ppx with SQ heparin. (3) Acute respiratory failure with hypoxia: Code(s): J96.01 - Acute respiratory failure with hypoxia Status: Acute Assessment and Plan: Suspect secondary to COVID pneumonia. Wean supplemental O2 as tolerated to keep O2 saturations > 90%. Was on 1L/min NC now up to 3L/min NC during this episode. (4) Urinary retention: Code(s): R33.9 - Retention of urine, unspecified Status: Acute Assessment and Plan: Continue Soto at this time. Consider voiding trial at discharge (5) Elevated troponin: Code(s): R77.8 - Other specified abnormalities of plasma proteins Status: Acute Assessment and Plan: On arrival he had mildly elevated troponins with flat profile, suspect second
[2020-11-09] MEDS: EPOETIN ALFA-EPBX 10,000 UNITS/ML VIAL 10000 UNITS IV PUSH (15:39)
[2020-11-09] MEDS: ALBUMIN HUMAN 25% 12.5 GM/50ML 50 ML IVPB (16:00)
[2020-11-09] MEDS: TAMSULOSIN HCL 0.4 MG CAPSULE PO (17:24)
[2020-11-09] MEDS: ATORVASTATIN 40 MG TABLET 80 MG PO (17:24)
[2020-11-09 17:41] LABS: Glucose Point of Care 110 (65-105)
[2020-11-09 20:49] LABS: Glucose Point of Care 176 (65-105)
[2020-11-09] MEDS: INSULIN GLARGINE (*BKC) 100 UNITS/ML 25 UNITS SUB-Q (21:00)
[2020-11-10] VITALS (30 sets, daily range): BP systolic 98–168; BP diastolic 31–106; PULSE 86–145; RESP 22–40; TEMP 36.2–37.4; O2SAT 88–100
[2020-11-10] MEDS: METOPROLOL TARTRATE INJ 5 MG/5 ML VIAL IV PUSH ×2 (00:29→00:40)
[2020-11-10 05:18] LABS: Hematocrit 25.6 % (42.0-52.0); Immature Platelet Fraction Pct 17.6 % (0.9-11.2); Mean Corpuscular HGB Conc 31.3 g/dl (32-36); Mean Corpuscular Hemoglobin 28.6 pg (26-34); Mean Corpuscular Volume 91.4 fl (80-100); Mean Platelet Volume 13.2 fl (7.4-10.4); Platelet Count Result 228 k/mm3 (150-375); Red Cell Distribution Width 21.1 % (11.5-14.5); White Blood Count 8.5 K/mm3 (4.5-10.0)
[2020-11-10 05:26] LABS: Partial Thromboplastin Time 40.7 SECONDS (22.3-36.8)
[2020-11-10 05:41] LABS: Anion Gap 10 mmol/L (8-16); Blood Urea Nitrogen 64 mg/dL (9-20); Calcium 8.2 mg/dL (8.4-10.2); Carbon Dioxide 33 mmol/L (22-30); Chloride 96 mmol/L (98-107); Estimated CRCL calculation 11 ml/min; Estimated Glomerular Filt Rate 12; Glucose 57 mg/dL (75-110); Potassium 4.3 mmol/L (3.4-5.0); Sodium 139 mmol/L (137-145)
[2020-11-10] MEDS: DEXTROSE 50% 25 GM/50 ML SYRINGE IV PUSH ×3 (05:53→20:18)
[2020-11-10 06:29] LABS: Glucose Point of Care 88 (65-105)
[2020-11-10] MEDS: IPRATROPIUM BR 0.02% INH SOLN 0.5 MG/2.5 ML VIAL INHALATION ×3 (08:12→21:12)
[2020-11-10] MEDS: ALBUTEROL SULFATE NEB 2.5 MG/0.5 ML INH INHALATION ×3 (08:13→21:12)
--- NOTE | 2020-11-10 09:03 | P.PNNP_ITS ---
Progress Note: A&P Assessment and Plan (1) End-stage renal disease on hemodialysis: Code(s): N18.6 - End stage renal disease; Z99.2 - Dependence on renal dialysis Status: Acute Assessment and Plan: * HD was done yesterday. Some fluid was removed. * He has no swelling. * Latest chest x-ray shows diffuse lung disease, most likely related to COVID and not volume. Still trying to keep off as much fluid as possible. * A little bit better. (2) Urinary retention: Code(s): R33.9 - Retention of urine, unspecified Status: Acute Assessment and Plan: * servin catheter in place * on finasteride and flomax * consider Urology consult if he does not want to go to the [place] for this (3) Person under investigation for COVID-19: Code(s): Z20.828 - Contact with and (suspected) exposure to other viral communicable diseases Status: Acute Assessment and Plan: * COVID-19 positive * Chest x-ray is better. * Still requires a large amount of oxygen * continue supportive therapy (4) Urinary tract infection: Qualifiers: Urinary tract infection type: acute cystitis Hematuria presence: without hematuria Qualified Code(s): N30.00 - Acute cystitis without hematuria Code(s): N39.0 - Urinary tract infection, site not specified Status: Acute Assessment and Plan: * urine culture with Enterococcus * Finished antibiotics. (5) Hypertension: Qualifiers: Hypertension type: essential hypertension Qualified Code(s): I10 - Essential (primary) hypertension Code(s): I10 - Essential (primary) hypertension Status: Chronic Assessment and Plan: * Blood pressure is erratic, ranging from 96-168. * Will follow this along. Most of the blood pressures are under pretty good control. He might have been uncomfortable with this last reading. (6) Insulin dependent diabetes mellitus: Status: Acute Assessment and Plan: * follow accuchecks * on SSI Subjective Date/time seen: 11/10/20 09:03 Interval history: Chito is on BiPAP. He is weak. Not hungry. Exam Narrative: Exam Narrative: General: WD/WN male in NAD Heart: normal S1 and S2; no rub Lungs: Decreased breath sounds at the bases Abdomen: soft, nontender, nondistended, positive bowel sounds Extremities: no cyanosis or clubbing; no edema Skin: No rash Objective Data Vital Signs Vital Signs: Vital Signs - 24 hr 11/09/20 09:40 11/09/20 10:00 11/09/20 11:13 Temperature Pulse Rate 88 96 Respiratory Rate 22 H Blood Pressure Pulse Oximetry 95 98 11/09/20 12:00 11/09/20 12:10 11/09/20 12:30 Temperature 36.6 C Pulse Rate 87 92 Respiratory Rate 20 30 H Blood Pressure 93/50 L 93/50 L Pulse Oximetry 95 98 95 11/09/20 12:59 11/09/20 13:14 11/09/20 13:15 Temperature Pulse Rate 87 98 87 Respiratory Rate 21 H Blood Pressure 103/50 L 101/47 L Pulse Oximetry 11/09/20 13:16 11/09/20 13:25 11/09/20 13:30 Temperature Pulse Rate 96 98 91 Respiratory Rate 22 H 21 H Blood Pressure 101/50 L Pulse Oximetry 98 11/09/20 13:45 11/09/20 14:00 11/09/20
--- NOTE | 2020-11-10 09:03 | PM.PNNEP ---
Progress Note: A&P Assessment and Plan (1) End-stage renal disease on hemodialysis: Code(s): N18.6 - End stage renal disease; Z99.2 - Dependence on renal dialysis Status: Acute Assessment and Plan: HD was done yesterday. Some fluid was removed. He has no swelling. Latest chest x-ray shows diffuse lung disease, most likely related to COVID and not volume. Still trying to keep off as much fluid as possible. A little bit better. (2) Urinary retention: Code(s): R33.9 - Retention of urine, unspecified Status: Acute Assessment and Plan: servin catheter in place on finasteride and flomax consider Urology consult if he does not want to go to the [place] for this (3) Person under investigation for COVID-19: Code(s): Z20.828 - Contact with and (suspected) exposure to other viral communicable diseases Status: Acute Assessment and Plan: COVID-19 positive Chest x-ray is better. Still requires a large amount of oxygen continue supportive therapy (4) Urinary tract infection: Qualifiers: Urinary tract infection type: acute cystitis Hematuria presence: without hematuria Qualified Code(s): N30.00 - Acute cystitis without hematuria Code(s): N39.0 - Urinary tract infection, site not specified Status: Acute Assessment and Plan: urine culture with Enterococcus Finished antibiotics. (5) Hypertension: Qualifiers: Hypertension type: essential hypertension Qualified Code(s): I10 - Essential (primary) hypertension Code(s): I10 - Essential (primary) hypertension Status: Chronic Assessment and Plan: Blood pressure is erratic, ranging from 96-168. Will follow this along. Most of the blood pressures are under pretty good control. He might have been uncomfortable with this last reading. (6) Insulin dependent diabetes mellitus: Status: Acute Assessment and Plan: follow accuchecks on SSI Subjective Date/time seen: 11/10/20 09:03 Interval history: Chito is on BiPAP. He is weak. Not hungry. Exam Narrative: Exam Narrative: General: WD/WN male in NAD Heart: normal S1 and S2; no rub Lungs: Decreased breath sounds at the bases Abdomen: soft, nontender, nondistended, positive bowel sounds Extremities: no cyanosis or clubbing; no edema Skin: No rash Objective Data Vital Signs Vital Signs: Vital Signs - 24 hr 11/09/20 09:40 11/09/20 10:00 11/09/20 11:13 Temperature Pulse Rate 88 96 Respiratory Rate 22 H Blood Pressure Pulse Oximetry 95 98 11/09/20 12:00 11/09/20 12:10 11/09/20 12:30 Temperature 36.6 C Pulse Rate 87 92 Respiratory Rate 20 30 H Blood Pressure 93/50 L 93/50 L Pulse Oximetry 95 98 95 11/09/20 12:59 11/09/20 13:14 11/09/20 13:15 Temperature Pulse Rate 87 98 87 Respiratory Rate 21 H Blood Pressure 103/50 L 101/47 L Pulse Oximetry 11/09/20 13:16 11/09/20 13:25 11/09/20 13:30 Temperature Pulse Rate 96 98 91 Respiratory Rate 22 H 21 H Blood Pressure 101/50 L Pulse Oximetry 98 11/09/20 13:45 11/09/20 14:00 11/09/20 14:15 Temperature Pulse Rate 96 104 H 88 Respiratory Rate Blood Pressure 100/49 L 98/52 L 113/39 L Pulse Oximetry 11/09/20 14:45 11/09/20 15:15 11/09/20 15:30 Temperature Pulse Rate 97 80 95 Respiratory Rate Blood Pressure 104/41 L 114/43 L 96/38 L Pulse Oximetry 11/09/20 15:45 11/09/20 15:55 11/09/20 15:58 Temperature 36.4 C Pulse Rate 93 96 80 Respiratory Rate 22 H 20 Blood Pressure 103/52 L 114/43 L Pulse Oximetry 98 93 11/09/20 16:00 11/09/20 16:03 11/09/20 16:15 Temperature Pulse Rate 92 85 Respiratory Rate 25 H Blood Pressure 102/28 L 90/32 L Pulse Oximetry 96 11/09/20 18:00 11/09/20 20:00 11/09/20 20:50 Temperature 36.3 C L Pulse Rate 88 96 98 Respiratory Rate 23 H 24 H Blood Pressure 102/53 L Pulse
[2020-11-10] MEDS: carvediloL 6.25 MG TABLET PO (11:58)
[2020-11-10] MEDS: LORATADINE 10 MG TABLET PO (11:58)
[2020-11-10] MEDS: CLOPIDOGREL BISULFATE 75 MG TABLET PO (11:58)
[2020-11-10] MEDS: FUROSEMIDE 80 MG TABLET PO (11:58)
[2020-11-10] MEDS: ASPIRIN 81 MG CHEWABLE TABLET PO (11:58)
[2020-11-10] MEDS: DOCUSATE SODIUM 100 MG CAPSULE 200 MG PO (11:58)
[2020-11-10] MEDS: THERAPEUTIC MULTIVITAMINS/MINERALS TAB (*BKC) 1 TABLET PO (12:00)
[2020-11-10] MEDS: AMIODARONE HCL 200 MG TABLET PO (12:00)
[2020-11-10] MEDS: SENNOSIDES 8.6 MG TABLET PO (12:00)
[2020-11-10] MEDS: RANOLAZINE 500 MG TAB.ER.12H 1000 MG PO (12:00)
[2020-11-10] MEDS: FAMOTIDINE 20 MG TABLET PO (12:00)
[2020-11-10] MEDS: CHOLECALCIFEROL 1,000 UNITS TABLET 2000 UNITS PO (12:01)
[2020-11-10] MEDS: FINASTERIDE 5 MG TABLET PO (12:01)
[2020-11-10] MEDS: ISOSORBIDE MONONITRATE 60 MG TAB.ER.24H 120 MG PO (12:01)
[2020-11-10] MEDS: FEBUXOSTAT 40 MG TABLET PO (12:02)
[2020-11-10] MEDS: SODIUM BICARBONATE TAB 650 MG TABLET PO (12:02)
[2020-11-10] MEDS: PANTOPRAZOLE 40 MG TABLET PO (12:02)
[2020-11-10 12:47] LABS: Alveolar/Arterial O2 Gradient 397.2 mmHg; Base Excess ABG 5.3 mEq/l (+/-2.0); Fractional Inspired Oxygen 70 %; HCO3 ABG 29.2 mEq/l (22.0-26.0); Oxygen Content ABG 11.2 %vol (16.0-22.0); Oxygen Saturation ABG 92.4 % (95.0-100.0); Oxyhemoglobin 89.4 % THb (90.0-100.0); PCO2 ABG 39.8 mmHg (35.0-45.0); PO2 ABG 59.1 mmHg (80.0-100.0); PO2 FiO2 Ratio Arterial Blood 0.84 %; Total Hemoglobin 8.9 g/dL (12.0-18.0); pH ABG 7.483 (7.350-7.450)
[2020-11-10 12:48] LABS: Device NON-INVASIVE VENT; Modified Allen's Test Pass; Non-Invasive Vent Rate 10 /MIN; Site Drawn RIGHT RADIAL
[2020-11-10 12:49] LABS: Non-Invasive Expiratory Pressure 6 CMH2O; Non-Invasive Inspiratory Pressure 12 CMH2O
[2020-11-10 13:32] LABS: Glucose Point of Care 60 (65-105)
[2020-11-10 13:32] LABS: Glucose Point of Care 107 (65-105)
--- NOTE | 2020-11-10 14:24 | PM.PNCARD ---
Progress Note: A&P Assessment and Plan (1) Atrial fibrillation with RVR: Code(s): I48.91 - Unspecified atrial fibrillation Status: Acute Assessment and Plan: No anticoagulation due to hemoptysis. Heart rate is a little faster than yesterday but still reasonable, 80-110 beats per minute. Not taking p.o. meds well, will switch as many cardiac medications to topical or IV as I can. Resume IV amiodarone, hold atorvastatin and Ranexa, etc.. (2) Pneumonia due to COVID-19 virus: Code(s): U07.1 - COVID-19; J12.89 - Other viral pneumonia Status: Acute Assessment and Plan: Per hospitalist. On continuous BiPAP at this time. (3) ESRD on dialysis: Code(s): N18.6 - End stage renal disease; Z99.2 - Dependence on renal dialysis Status: Acute Assessment and Plan: Per nephrology (4) Coronary artery disease: Qualifiers: Coronary Disease-Associated Artery/Lesion type: [place] artery [place] vs. transplanted heart: [place] heart Associated angina: with unspecified angina Qualified Code(s): I25.119 - Atherosclerotic heart disease of [place] coronary artery with unspecified angina pectoris Code(s): I25.10 - Atherosclerotic heart disease of [place] coronary artery without angina pectoris Status: Chronic Assessment and Plan: With recent intervention. Continue aspirin 81 mg p.o. daily and clopidogrel 75 mg p.o. daily. (5) Decreased responsiveness: Code(s): R41.89 - Other symptoms and signs involving cognitive functions and awareness Status: Acute Assessment and Plan: Not certain as to what happened 11/03/2020. Possibly TIA. Metabolic event is also possible including low glucose. Also had episode after dialysis 11/07/2020. Hand scale mechanic and orientation back to baseline today. Subjective Date/time seen: 11/10/20 14:24 Interval history: Follow-up for: Hemoptysis, ESRD on hemodialysis, recent NSTEMI with cardiac stenting 10/23/20 admitted for UTI and acute respiratory failure secondary to COVID. 11/08/2020 Visit. Subjective: No chest pain. Breathing not so good . Coughing up more clear thick secretions. Wants to call his . Date of service 11/10/2020: Patient's respiratory status has deteriorated he now needs BiPAP. Too tired and short of breath to take his p.o. meds. Review of Systems Review of Systems: Narrative: Review of systems obtained from the chart and from the patient's nurse. ROS unobtainable: Yes unobtainable due to mental status Constitutional: Constitutional: Reports fatigue and Reports weakness ENT: Denies nasal congestion Cardiovascular: Cardiovascular: Denies chest pain, Denies pedal edema and Denies palpitations Respiratory: Respiratory: Reports dyspnea and Reports dyspnea on exertion Gastrointestinal: Gastrointestinal: Denies abdominal pain Genitourinary: Genitourinary: Denies dysuria Musculoskeletal: Musculoskeletal: Reports no additional musculoskeletal complaints Integumentary/Breasts: Skin/Breast: Denies rash Neurologic: Reports confusion Psychiatric: Psychiatric: Reports confusion Exam Narrative: Exam Narrative: Patient is lethargic and not responding to my questions, on BiPAP, tachypneic. Const: General: in distress and uncomfortable HENMT: General nose exam: no epistaxis Neck: Neck: no JVD Resp: Effort & Inspection: abnormal respiratory effort Auscultation: diminished lung sounds Cardio: Rhythm: abnormal rhythm irregularly irregular Heart sounds: no murmurs GI: Inspection: non-distended GI Palp: Yes Soft to palpation Skin: General skin exam: normal color and no rashes or lesions noted Neuro: Cognition (Neuro): abnormal cognition (Lethargic and not responding at the moment) Extrem: General: no edema Psych: Mental Status: mental status
[2020-11-10] MEDS: AMIODARONE 360 MG/D5W 200 ML 360 MG/200 ML BAG 16.67 MG IV CONT (14:36)
[2020-11-10] MEDS: MICONAZOLE NITRATE 2% CREAM 30 GM TUBE 1 APPLIC TOPICAL ×2 (14:37→20:26)
--- NOTE | 2020-11-10 14:39 | PM.IMPN ---
Progress Note: A&P Assessment and Plan (1) Urinary tract infection: Qualifiers: Urinary tract infection type: acute cystitis Hematuria presence: without hematuria Qualified Code(s): N30.00 - Acute cystitis without hematuria Code(s): N39.0 - Urinary tract infection, site not specified Status: Acute Assessment and Plan: Urine culture growing Enterococcus. Blood cultures no growth to date. Continue ampicillin (day 5). 11/10/20 14:39 on Patient is 80 year old male recently started on dialysis presented emergency department with a complaint urinary retention and bladder scan showed 600 cc of urine patient is based on Soto, patient seen by Nephrology and will have scheduled dialysis while in the hospital, in-hospital patient was tested for COVID-19 and is positive and isolated, on 11/03 patient was found unresponsive his blood sugar was low patient was given D50, he was also found to have atrial fibrillation with RVR and was transferred IMU, patient was seen by executive chairman of the board patient recently had non STEMI he was seen at the [facility] on 10/23/2020 and 2 stents were placed, patient was initially started on amiodarone drip and and rate was controlled currently placed on oral amiodoran, patient was also started on aspirin and Plavix patient seen by executive chairman of the board and further recommendation to follow, in terms of COVID-19 patient is being treated with dexamethasone he is not a candidate for Remsesivir due to chronic kidney disease, on 11/07 patient had dialysis after returning from dialysis patient was more hypoxic he was placed on BiPAP, nursing staff suspected the patient may be as a left-sided facial droop to further evaluate patient had a CT scan of the head which is negative for any acute injury upon close examine patient is a slight asymmetry with face on the left side however unable to evaluate his speech is not talking very much, continued to monitor the patient on BiPAP, patient heart rate was controlled on oral amiodarone however now was in RVR seen by Cardiology as patient is not able to swallow, placed on amiodarone drip rate was controlled, on 11/08 patient remained on BiPAP and was able to take p.o. medication, seen by executive chairman of the board stopped amiodarone drip and now on oral amiodarone, on 11/09 patient had hemodialysis, patient was clinically stable requiring high oxygen on BiPAP, BIPAP was removed by nursing staff to give him medications and desated, today patient is still quite somnolent unable to provide detailed review of symptom, we unable to remove BIPAP, he is not able to take oral medications, his HR is elevated, he is seen by executive chairman of the board and placed him on amiodoran drip, will switch all necessary medications to IV and hold some medications, patient completed ten-day course of dexamethasone, patient is seen by Internal Controls Manager, will continue present management and plan is to wean the patient off oxygen as much as possible once is below 6 L of oxygen will do the discharge planning. (2) Pneumonia due to COVID-19 virus: Code(s): U07.1 - COVID-19; J12.89 - Other viral pneumonia Status: Acute Assessment and Plan: COVID positive 10/29/20. Not on remdesivir due to renal function, will continue dexamethasone (day 4). Continue supportive care with Tylenol for fevers and supplemental O2. DVT ppx with SQ heparin. (3) Acute respiratory failure with hypoxia: Code(s): J96.01 - Acute respiratory failure with hypoxia Status: Acute Assessment and Plan: Suspect secondary to COVID pneumonia. Wean supplemental O2 as tolerated to keep O2 saturations > 90%. Was on 1L/min NC now up to 3L/min NC during this episode. (4) Urinary retention: Code(s): R33.9 - Retention of urine, unspecified Status: Acute Assessment and Plan: Continue Soto at this time. Consider voiding trial at discharge ___
[2020-11-10] MEDS: NITROGLYCERIN OINTMENT 1 INCH DOSE TOPICAL (19:03)
[2020-11-10 19:16] LABS: Glucose Point of Care 71 (65-105)
[2020-11-10 20:37] LABS: Glucose Point of Care 67 (65-105)
[2020-11-10 20:57] LABS: Glucose Point of Care 149 (65-105)
[2020-11-11] VITALS: BP 109/90; PULSE 109; PULSE 114; RESP 42; TEMP 36.5; O2SAT 92
[2020-11-11 01:15] VITALS: PULSE 120; RESP 42
[2020-11-11] MEDS: IPRATROPIUM BR 0.02% INH SOLN 0.5 MG/2.5 ML VIAL INHALATION (01:17)
[2020-11-11] MEDS: ALBUTEROL SULFATE NEB 2.5 MG/0.5 ML INH INHALATION (01:17)
--- NOTE | 2020-11-11 01:17 | PC.NURSE ---
Patient is requiring increasing oxygen demand on the Bipap, 90%, to maintain an O2sat greater than 88. Resp rate is 45 with increase work of breathing. I called Dr. Decker and explained the situation. Will get a stat nebulizer treatment and adjust the Bipap settings to I/E 18/. I called Adams Miguel and explained the situation.
--- NOTE | 2020-11-11 01:21 | PC.NURSE ---
Dr. Decker here to see the patient. He will call Mrs. Richeyesa and explain the situation. linen tech here for nebulizer treatment.
[2020-11-11 01:33] VITALS: PULSE 130; RESP 40
--- NOTE | 2020-11-11 01:43 | PC.NURSE ---
Dr. Decker spoke with Mrs. Rivera and the family has decided on comfort measures. I spoke with the supervisor brew house, Mikala Colon RN, and ICU charge, Seema Kumar RN
[2020-11-11 01:50] VITALS: PULSE 120; RESP 42; O2SAT 92
[2020-11-11 02:00] VITALS: PULSE 127
[2020-11-11] MEDS: MORPHINE SULFATE (*CRX) 2 MG/ML INJ IV PUSH ×2 (02:56→03:57)
--- NOTE | 2020-11-11 03:06 | PC.NURSE ---
Mrs. Rivera and daughter, Nayely are here to visit with patient. Teaching done regarding isolation requirements. Gowns, gloves and goggles are being worn by both visitors.
--- NOTE | 2020-11-11 03:14 | PM.EVENT ---
Event Note Event Note Event Note: Nurse called me about patient not doing well. He was tachypneic, respiration rate in the 40s and BiPAP settings 12/6 and FiO2 had to be increased to 90% in order to maintain oxygen saturation 90%. I went to go evaluate patient, patient was not very responsive, but was opening his eyes. I then adjusted BiPAP settings and discussed changes clinical status . After extensive discussion about goals of care, agreed to not prolong suffering and to go down the route of comfort care. Stopping all nonessential medications. Starting morphine p.r.n. for air hunger and pain. We will arrange for to see her . Code status changed to do not resuscitate. We will wean off oxygen and give morphine and Ativan for comfort.
[2020-11-11] MEDS: LORazepam INJ (*CRX) 2 MG/ML VIAL 1 MG IV PUSH (03:56)
--- NOTE | 2020-11-11 04:19 | PM.EVENT ---
Event Note Event Note Event Note: I was called by nurse for patient expiring. Earlier today he was tachypneic on bipap and struggling to oxygenate. Bipap settings were adjusted. I had extensive conversation with about goals of care and she agreed to comfort care measures. She was able to see him this evening. Then after 4am he was given ativan and morphine and taken off bipap. He then became unresponsive and stopped breathing. No heart or lung sounds, no pulses, no corneal reflex. Time of 4:16 11/11/2020. Cause of COVID 19.
--- NOTE | 2020-11-11 04:31 | PC.NURSE ---
0400..Ativan and Morphine given for comfort care measures. Patient placed on a nasal cannula for comfort measures. 0415..Patient noted to be apneic and without a pulse. Dr. Decker here to pronounce time of . Mikala Colon RN and Seema Kumar RN notified. 0430..Attempted to call Mrs. Rivera. I left a message for her to return my call regarding her .
--- NOTE | 2020-11-11 04:58 | PC.NURSE ---
I contacted Mrs. Rivera and notified her of her 's passing. All questions answered. Plan is for [facility] in [place], [place]. Mikala Colon RN, nursing supervisor boiler repair notified.
--- NOTE | 2020-11-11 07:28 | PC.NURSE ---
Dr. Cason notified of patient expiration.
--- NOTE | 2020-11-11 07:28 | PC.NURSE ---
Dr Barboza's exchange notified of patient expiration. They will message Dr. Barboza.
--- NOTE | 2021-01-17 15:08 | PM.DDS ---
Discharge Sum: Prov Provider Primary care physician: Vladimir Pool, Admitting provider: Iglesia Pizarro MD Consults: 10/30/20 13:55 Consult to Physician Routine Comment: consulted at 1505([facility] [place] Consulting Provider: Joe Cason house calls nurse practitioner/MD group to consult: Nephrology-dialysis patient I am unsure if they have been called? Reason for consultation: Dialysis patient Has provider been notified: Yes 11/02/20 Consult to Physician Routine Comment: Spoke with Dr Hartley exchange @ [phone] ([facility]) Consulting Provider: Nurys Odonnell Reason for consultation: remove tunneled dialysis catheter. Has provider been notified: Yes 11/03/20 09:35 Consult to Physician Routine Comment: CALLED OFFICE@[phone] ([facility]) Consulting Provider: Rogelio Saunders house calls nurse practitioner/MD group to consult: heart care group Reason for consultation: new A fib RVR, ST changes, decreased responsiveness Has provider been notified: Yes 11/03/20 09:37 Consult to Physician Routine Comment: SPOKE TO DR LÓPEZ @[phone] ([place],) Consulting Provider: Eriberto López house calls nurse practitioner/MD group to consult: neurology Reason for consultation: decreased responsiveness, left facial droop Has provider been notified: Yes Discharge Sum: Summary Date and Time Date of admission: 10/30/20 15:12 Date of : 11/11/20 Time of : 04:16 Summary Details: on Patient is 80 year old male recently started on dialysis presented emergency department with a complaint urinary retention and bladder scan showed 600 cc of urine patient is based on Soto, patient seen by Nephrology and will have scheduled dialysis while in the hospital, in-hospital patient was tested for COVID-19 and is positive and isolated, on 11/03 patient was found unresponsive his blood sugar was low patient was given D50, he was also found to have atrial fibrillation with RVR and was transferred IMU, patient was seen by supervisor cytology patient recently had non STEMI he was seen at the [facility] [address] on 10/23/2020 and 2 stents were placed, patient was initially started on amiodarone drip and and rate was controlled currently placed on oral amiodoran, patient was also started on aspirin and Plavix patient seen by supervisor cytology and further recommendation to follow, in terms of COVID-19 patient is being treated with dexamethasone he is not a candidate for Remsesivir due to chronic kidney disease, on 11/07 patient had dialysis after returning from dialysis patient was more hypoxic he was placed on BiPAP, nursing staff suspected the patient may be as a left-sided facial droop to further evaluate patient had a CT scan of the head which is negative for any acute injury upon close examine patient is a slight asymmetry with face on the left side however unable to evaluate his speech is not talking very much, continued to monitor the patient on BiPAP, patient heart rate was controlled on oral amiodarone however now was in RVR seen by Cardiology as patient is not able to swallow, placed on amiodarone drip rate was controlled, on 11/08 patient remained on BiPAP and was able to take p.o. medication, seen by supervisor cytology stopped amiodarone drip and now on oral amiodarone, on 11/09 patient had hemodialysis, patient was clinically stable requiring high oxygen on BiPAP, BIPAP was removed by nursing staff to give him medications and desated, today patient is still quite somnolent unable to provide detailed review of symptom, we unable to remove BIPAP, he is not able to take oral medications, his HR is elevated, he is seen by supervisor cytology and placed him on amiodoran drip, will switch all necessary medications to IV and hold some medications, patient completed ten-day course of dexamethasone, patient is seen by Senior Consulting Manager, will continue present management and plan is to wean the patient off oxygen as much as possible once is below 6 L of oxygen will do the discharge planning. Patient was placed on comfort
== END 2020-11-11 04:16 | disposition expired | DRG 177 ==
LOC: ANHED 06:52 → ANHIMU 09:09 → ANH3MEDSUR 17:47 → ANHIMU 11-14 12:04
PROVIDERS: Family Medicine; Internal Medicine Nephrology; Physician Assistant; Admitting Provider Internal Medicine; Emergency Provider Emergency Medicine; PCP Internal Medicine; Visit Provider Student in an Organized Health Care Education/Training Program
DX: U07.1 COVID-19 (principal); N18.6 End stage renal disease; J96.01 Acute respiratory failure with hypoxia; J12.89 Other viral pneumonia; N30.00 Acute cystitis without hematuria; I13.2 Hypertensive heart and chronic kidney disease with heart failure and with stage 5 chronic kidney disease, or end stage renal disease; Z66 Do not resuscitate; Z51.5 Encounter for palliative care; B95.2 Enterococcus as the cause of diseases classified elsewhere; E11.22 Type 2 diabetes mellitus with diabetic chronic kidney disease; I50.9 Heart failure, unspecified; Z99.2 Dependence on renal dialysis; Z79.4 Long term (current) use of insulin; I25.2 Old myocardial infarction; N40.1 Benign prostatic hyperplasia with lower urinary tract symptoms; R33.8 Other retention of urine; I25.119 Atherosclerotic heart disease of native coronary artery with unspecified angina pectoris; Z95.5 Presence of coronary angioplasty implant and graft; Z95.1 Presence of aortocoronary bypass graft; M10.9 Gout, unspecified; E78.5 Hyperlipidemia, unspecified; G47.33 Obstructive sleep apnea (adult) (pediatric); Z87.891 Personal history of nicotine dependence; D63.8 Anemia in other chronic diseases classified elsewhere; M19.90 Unspecified osteoarthritis, unspecified site; R77.8 Other specified abnormalities of plasma proteins; I48.91 Unspecified atrial fibrillation; R29.810 Facial weakness
CPT/HCPCS: 36415; 36430; 36600; 70450; 71045; 71046; 74018; 80048; 80053; 80069; 80076; 81001; 82140; 82375; 82565; 82728; 82805; 83050; 83615; 83735; 84100; 84484; 85014; 85018; 85025; 85027; 85055; 85610; 85730; 86140; 86850; 86900; 86901; 86923; 87040; 87077; 87086; 87088; 87186; 87340; 87635; 93005; 93306; 94002; 94003; 94640; 96365; 96367; 96375; 97110; 97161; 97164; 97165; 97530; 97535; 99285; A9270; C9803; G0257; G0378; J0131; J0282; J0290; J0692; J0696; J0744; J1100; J1644; J1815; J2060; J2270; J2405; J3370; J7030; J7050; P9016; P9047; Q5106; U0003